=== PATIENT | female | born 1970 | race Caucasian/White ===

== ENCOUNTER → 2016-08-18 | Outpatient (CLI) | payer MEDICARE, MEDICAID ==
[2016-06-22 19:25] VITALS: BP 103/72
[~2016-08-18] MED LIST: ARIP15TA2 PO; ATOR40TA59 PO; BENZ1TAB5 PO; CANA300T PO; CETI10TA16 PO; CYCL10TA2 PO; DULO60CA6 PO; GABA-586 PO; IBUP800T PO; INSU100I30 SQ; LEVO50TA5 PO; LIDO700A4 TP; LORA1TAB PO; METF500T4 PO; OMEP20TA PO; PIOGLITAZONE; PROP80CA3 PO; SUCR1TAB29 PO; VALA500T PO
[2016-08-18 13:37] LABS: BASO # 0.1 x10^3/uL (0.0-0.2); BASO % 1 % (0-3); EOS # 0.1 x10^3/uL (0.0-0.7); EOS % 2 % (0-3); HEMATOCRIT 36.8 % (36.0-47.0); HEMOGLOBIN 12.1 g/dL (12.0-15.5); LYMPH # 1.6 x10^3/uL (1.0-4.8); LYMPH % 35 % (24-48); MEAN CORPUSCULAR HEMOGLOBIN 28 pg (25-35); MEAN CORPUSCULAR HGB CONC 33 g/dL (31-37); MEAN CORPUSCULAR VOLUME 84 fL (79-100); MONO # 0.3 x10^3/uL (0.0-1.1); MONO % 7 % (0-9); NEUT # 2.6 x10^3uL (1.8-7.7); NEUT % 55 % (31-73); PLATELET COUNT 209 x10^3/uL (140-400); RED BLOOD COUNT 4.37 x10^6/uL (3.50-5.40); RED CELL DISTRIBUTION WIDTH 13.6 % (11.5-14.5); WHITE BLOOD COUNT 4.7 x10^3/uL (4.0-11.0)
[2016-08-18 13:45] LABS: ALBUMIN 2.8 g/dL (3.4-5.0); ALBUMIN/GLOBULIN RATIO 0.7 (1.0-1.7); CALCIUM 8.6 mg/dL (8.5-10.1); CREATININE 0.9 mg/dL (0.6-1.0); POTASSIUM 3.8 mmol/L (3.5-5.1); TOTAL BILIRUBIN 0.6 mg/dL (0.2-1.0); TOTAL PROTEIN 6.9 g/dL (6.4-8.2)
[2016-08-18 13:46] LABS: GFR 68.3
[2016-08-19 14:54] LABS: FREE T4 1.16 ng/dL (0.76-1.46); THYROID STIM HORMONE (TSH) 6.025 uIU/mL (0.358-3.740)
== END | disposition home or self-care (01) ==
LOC: LAB 12:42
PROVIDERS: ATTEND Physician Assistant
DX: Z79.899 Other long term (current) drug therapy (principal)
CPT/HCPCS: 36415; 80053; 80061; 84439; 84443; 84480; 85027

== ENCOUNTER 2016-09-06 21:10 | Emergency (ER) | payer MEDICARE, MEDICAID ==
[~2016-09-06] VITALS: Ht 174 cm; Wt 156.3 kg
[2016-09-06 21:10] VITALS: BP 139/86
--- NOTE | 2016-09-06 21:32 | PHYS DOC ---
General Chief Complaint: MECHANICAL FALL Stated Complaint: fall Time Seen by MD: 21:28 Source: patient Exam Limitations: no limitations Problems: History of Present Illness Initial Comments Pt is 45/F to ED via EMS for reported fall injury. Pt states earlier today at local convenience store the floor was wet and she slipped falling to her buttock essentially sitting down hard. No head trauma/ LOC/LYNCH/neck pain, pt c/o low back/hip pain. States that after a few moments she was able to ambulate to her friend's car. Once home pain worsened, pt decided to come for evaluation. No leg weakness/incontinence/saddle anesthesia. Pain sharp, mod-severe worse with movement better at rest. No prearrival treatment. Occurred: this afternoon Severity: moderate Injuries/Pain Location: back, pelvis Context: slipped Loss of Consciousness: no loss of consciousness Modifying Factors: worse with movement, improves with pain medication, improves with rest Associated Symptoms: other Allergies: Coded Allergies: Latex, Natural Rubber (Verified Allergy, Intermediate, 06/21/16) Penicillins (Verified Allergy, Intermediate, 06/21/16) Sulfa (Sulfonamide Antibiotics) (Verified Allergy, Intermediate, 06/22/16) hydrogen peroxide (Verified Allergy, Intermediate, 06/21/16) lanolin (Verified Allergy, Intermediate, 06/21/16) sumatriptan (Unverified Allergy, Intermediate, 06/21/16) tetanus immune globulin (Unverified Allergy, Intermediate, 06/21/16) adhesive (Verified Adverse Reaction, Intermediate, Rash, 06/21/16) Past Medical History Medical History: other (anxiety, arthritis, asthma, CAD, cancer, depression, GERD, hypothyroid, migraine, TIA) Surgical History: noncontributory Family History Significant Family History: no pertinent family hx Social History Smoker: cigarettes Alcohol: rarely Drugs: none Review of Systems Constitutional: denies chills, denies fever, denies malaise Respiratory: denies cough, denies shortness of breath, denies wheezing Cardiovascular: denies chest pain, denies palpitations, denies syncope Gastrointestinal: denies abdominal pain, denies diarrhea, denies nausea, denies vomiting Genitourinary: denies dysuria, denies frequency, denies hematuria Musculoskeletal: see HPI Psychiatric/Neurological: see HPIdenies headache, denies numbness, denies paresthesia, denies tingling, denies weakness Physical Exam General Appearance: no apparent distress, obese Head: no evidence of injury Eyes: bilateral eye EOMI, bilateral eye PERRL, bilateral eye normal inspection Ears, Nose, Mouth, Throat: hearing grossly normal, no evidence of ENT injury Neck: non-tender, full range of motion Cardiovascular/Respiratory: normal peripheral pulses, no respiratory distress Gastrointestinal: non tender, soft Back: no CVA tenderness, no vertebral tenderness Extremities: no evidence of injury, normal range of motion, non-tender, pelvis stable Neurologic/Psychiatric: 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 PHYSICIAN: CARLOS A NORMAN DO REASON: fall, low back hip pain PROCEDURE: CT LUMBAR SPINE WO CONTRAST PROCEDURE CT pelvis and lumbar spine without contrast 09/06/2016. HISTORY Pain after falling. TECHNIQUE Helical noncontrast images were performed. Sagittal and coronal reconstructions were obtained. Exposure: One or more of the following individualized dose reduction techniques were utilized for this exam: 1. Automated exposure control. 2. Adjustment of the mA and/or kV according to patient size. 3. Use of iterative reconstruction technique. COMPARISON FINDINGS Pelvis: No fracture is seen. The proximal femurs show no abnormality. Mild vacuum change is seen at the SI joints. No large hematoma is visible. There is no free fluid in the pelvis. CT lumbar spine: Alignment is normal. There is no apparent loss of vertebral body height or other evidence for fracture. The discs are not narrowed. Evaluation of the soft tissue structures of the canal is limited without intrathecal contrast. IMPRESSION No acute abnormality. Electronically signed by: Enrique Mata (Sep 06, 2016 22:08:50) DICTATED AND SIGNED BY: ENRIQUE MATA Jr, MD DATE: 09/06/162207 CC: CHIKA WARREN MD; CARLOS A NORMAN DO ~ PATIENT: CHIQUITA BLAIR ACCOUNT: [id number] : 1970 LOCATION: ER AGE: 45 SEX: F EXAM STATUS: PRE ER ORD. PHYSICIAN: CARLOS A NORMAN DO REASON: fall, low back hip pain PROCEDURE: CT PELVIS WO CONTRAST PROCEDURE CT pelvis and lumbar spine without contrast 09/06/2016. HISTORY Pain after falling. TECHNIQUE Helical noncontrast images were performed. Sagittal and coronal reconstructions were obtained. Exposure: One or more of the following individualized dose reduction techniques were utilized for this exam: 1. Automated exposure control. 2. Adjustment of the mA and/or kV according to patient size. 3. Use of iterative reconstruction technique. COMPARISON FINDINGS Pelvis: No fracture is seen. The proximal femurs show no abnormality. Mild vacuum change is seen at the SI joints. No large hematoma is visible. There is no free fluid in the pelvis. CT lumbar spine: Alignment is normal. There is no apparent loss of vertebral body height or other evidence for fracture. The discs are not narrowed. Evaluation of the soft tissue structures of the canal is limited without intrathecal contrast. IMPRESSION No acute abnormality. Electronically signed by: Enrique Mata (Sep 06, 2016 22:08:50) DICTATED AND SIGNED BY: ENRIQUE MATA Jr, MD DATE: 09/06/162207 CC: CHIKA WARREN MD; CARLOS A NORMAN DO ~ Advised to stop smoking. Pt ambulated without difficulty from ED upon discharge. Departure Time of Disposition: :17 Disposition: 01 HOME, SELF-CARE Diagnosis: Fall, lumbar strain Condition: GOOD Patient Instructions: Fall Prevention and Home Safety, [id number], Low Back Strain with Rehab-SportsMed Additional Instructions: Activity as tolerated. Ice to affected area 15 minutes, 5 times daily. OTC ibuprofen as needed. Rx: norco 5mg #15 Follow up with your doctor in one week for recheck. Return to ED with new or changing symptoms. CARLOS A NORMAN DO Sep 06, 2016 21:32
[2016-09-06] MEDS ORDERED: FENTANYL PF 100 MCG/2 ML VIAL. IV PRN (21:45)
--- NOTE | 2016-09-06 21:51 | ACF ---
Admission Criteria Forms SYNCOPE Clinical Indications for Admission to Inpatient Care ( Place 'X' for any and all applicable criteria): Admission is indicated for syncope and ANY ONE of the following (1)(2)(3)(4)(5) (6)(7) : [ ]I. Inpatient admission required rather than observation care (Also use Syncope: Observation Care Criteria as appropriate) because of ANY ONE of the following: [ ]a) Hemodynamic instability that is severe or persistent [ ]b) Cardiac arrhythmias of immediate concern identified or strongly suspected (eg, needs electrophysiologic study) [ ]c) Acute coronary syndrome identified (Also use Myocardial Infarction or Angina Criteria form ) [ ]d) Structural cardiac disorder (eg, aortic stenosis) suspected as cause that requires immediate correction [ ]e) Respiratory symptoms (eg, dyspnea, tachypnea) that are severe or persistent [ ]f) Neurologic signs or symptoms that are severe or persistent ( eg, stroke, seizures, altered mental status) [ ]g) Severe electrolyte abnormalities requiring inpatient care [ ]h) Supplemental oxygen or respiratory treatment for over 24 hrs that are performable only in acute inpatient setting [ ]i) IV fluid to replace significant ongoing (eg, for over 24 hrs ) losses (>3 L/m2 per day) [ ]j) Continuous intravenous infusion of anticoagulation, platelet inhibitor, vasoactive, or antiarrhythmic medication(15)(16) [ ]k) Pulmonary artery catheter monitoring [ ]l) Temporary pacemaker placement(17) [ ]m) Emergent cardioversion(18) [ ]n) Other conditions, treatment or monitoring requiring inpatient admission [ ]II. Suspicion of imminently dangerous cause (eg, rare causes like pericardial tamponade, pulmonary embolism) [X]III. Syncope causing severe injury requiring hospitalization Extended stay beyond goal length of stay may be needed for(28) [ ]a) Dangerous arrhythmia(15)(23)(27)(29) [ ]b) Myocardial ischemia [ ]c) Seizure disorder [ ]d) Syncope-related injuries The original [employer] content created by [employer] has been revised. The portions of the content which have been revised are identified through the use of italic text or in bold, and [facility] has neither reviewed nor approved the modified material. All other unmodified content is copyright [facility]. Please see references footnoted in the original [facility] 2016 Admission Criteria Met?: Yes LILIANA GOLDSTEIN Sep 06, 2016 21:51
--- NOTE | 2016-09-06 22:10 | RAD ---
PROCEDURE CT pelvis and lumbar spine without contrast 09/06/2016. HISTORY Pain after falling. TECHNIQUE Helical noncontrast images were performed. Sagittal and coronal reconstructions were obtained. Exposure: One or more of the following individualized dose reduction techniques were utilized for this exam: 1. Automated exposure control. 2. Adjustment of the mA and/or kV according to patient size. 3. Use of iterative reconstruction technique. COMPARISON FINDINGS Pelvis: No fracture is seen. The proximal femurs show no abnormality. Mild vacuum change is seen at the SI joints. No large hematoma is visible. There is no free fluid in the pelvis. CT lumbar spine: Alignment is normal. There is no apparent loss of vertebral body height or other evidence for fracture. The discs are not narrowed. Evaluation of the soft tissue structures of the canal is limited without intrathecal contrast. IMPRESSION No acute abnormality. Electronically signed by: Miguel Mata (Sep 06, 2016 22:08:50)
[2016-09-06] MEDS ORDERED: HYDR-971 PO (22:19)
== END 2016-09-06 22:30 | disposition home or self-care (01) ==
LOC: ER 21:10
DX: S39.012A Strain of muscle, fascia and tendon of lower back, initial encounter (principal); K21.9 Gastro-esophageal reflux disease without esophagitis; E03.9 Hypothyroidism, unspecified; I25.10 Atherosclerotic heart disease of native coronary artery without angina pectoris; J45.909 Unspecified asthma, uncomplicated; F17.210 Nicotine dependence, cigarettes, uncomplicated; M19.90 Unspecified osteoarthritis, unspecified site; G43.909 Migraine, unspecified, not intractable, without status migrainosus; Z86.73 Personal history of transient ischemic attack (TIA), and cerebral infarction without residual deficits; Z88.0 Allergy status to penicillin; Z88.2 Allergy status to sulfonamides; Z88.7 Allergy status to serum and vaccine; Z88.8 Allergy status to other drugs, medicaments and biological substances; Z91.040 Latex allergy status; W01.0XXA Fall on same level from slipping, tripping and stumbling without subsequent striking against object, initial encounter; Y93.89 Activity, other specified; Y99.8 Other external cause status; Y92.89 Other specified places as the place of occurrence of the external cause
CPT/HCPCS: 72131; 72192; 96374; 99284; J3010

== ENCOUNTER 2016-12-22 10:56 | Emergency (ER) | payer MEDICARE, MEDICAID ==
[~2016-12-22] VITALS: Ht 172.7 cm; Wt 162.4 kg
[~2016-12-22 10:56] MED LIST changes: -ARIP15TA2 PO; +ARIP15TA36 PO; +CYCL-331 PO; -CYCL10TA2 PO; +HYDR-971 PO; -IBUP800T PO; +IBUP800T19 PO; -OMEP20TA PO; +OMEP20TA8 PO; -SUCR1TAB29 PO; +SUCR1TAB35 PO
--- NOTE | 2016-12-22 11:25 | PHYS DOC ---
Past History Past Medical History: Diabetes, GERD, Hypothyroid, Other Past Surgical History: Cholecystectomy, Other Smoking: Cigarettes Alcohol Use: None Drug Use: None Adult General Chief Complaint Chief Complaint: DYSPNEA/RESPIRATOY DISTRESS HPI HPI Patient is a 46 year old F who presents with chest pain with deep breaths. Patient states that for the past couple days she's having worsening chest pain which takes a deep breath. She states the pain starts in the central upper chest and radiates to her back. Patient denies a cardiac history. Patient denies any risk factors or history of blood clots. Patient states deep breaths with only thing that reproduces the pain. Patient does not feel shortness of breath. Patient will see her family doctor Dr. Roberts who sent her to the ER for further evaluation and management. Patient denies any fevers and denies any productive cough. Patient has no other complaints. Review of Systems Review of Systems GEN: Denies fevers, chills, sweats HEENT: Denies blurred vision, sore throat CV: Denies chest pain RESP: Denies shortness of air, cough GI: Denies n/v/d NEURO: Denies confusion, dizziness MSK: Denies weakness, joint pain/swelling Allergies Allergies Allergies Coded Allergies Type Severity Reaction Last Updated Verified Latex, Natural Rubber Allergy Intermediate 06/21/16 Yes Penicillins Allergy Intermediate 06/21/16 Yes Sulfa (Sulfonamide Antibiotics) Allergy Intermediate 06/22/16 Yes hydrogen peroxide Allergy Intermediate 06/21/16 Yes lanolin Allergy Intermediate 06/21/16 Yes sumatriptan Allergy Intermediate 06/21/16 No tetanus immune globulin Allergy Intermediate 06/21/16 No adhesive Adverse Reaction Intermediate Rash 06/21/16 Yes Physical Exam Physical Exam GEN.: No apparent distress. Alert and oriented. HEENT: Head is normocephalic, atraumatic NECK: Supple. LUNGS: CTAB. HEART: RRR, S1, S2 present. Peripheral pulses intact ABDOMEN: Soft, nontender. Positive bowel sounds. EXTREMITIES: Without any cyanosis. NEUROLOGIC: Normal speech, normal tone PSYCHIATRIC: Normal affect, normal mood. SKIN: No ulcerations Current Patient Data Vital Signs Vital Signs Date Time Temp Pulse Resp B/P (MAP) Pulse Ox O2 Delivery O2 Flow Rate FiO2 12/22/16 11:00 98.4 93 24 99 Room Air Lab Results Laboratory Tests Test 12/22/16 11:37 12/22/16 11:55 White Blood Count 5.1 x10^3/uL Red Blood Count 4.34 x10^6/uL Hemoglobin 12.1 g/dL Hematocrit 36.9 % Mean Corpuscular Volume 85 fL Mean Corpuscular Hemoglobin 28 pg Mean Corpuscular Hemoglobin Concent 33 g/dL Red Cell Distribution Width 14.4 % Platelet Count 186 x10^3/uL Neutrophils (%) (Auto) 61 % Lymphocytes (%) (Auto) 28 % Monocytes (%) (Auto) 7 % Eosinophils (%) (Auto) 3 % Basophils (%) (Auto) 1 % Neutrophils # (Auto) 3.1 x10^3uL Lymphocytes # (Auto) 1.4 x10^3/uL Monocytes # (Auto) 0.4 x10^3/uL Eosinophils # (Auto) 0.1 x10^3/uL Basophils # (Auto) 0.0 x10^3/uL D-Dimer (Milly) 0.53 mg/L Sodium Level 135 mmol/L Potassium Level 3.7 mmol/L Chloride Level 99 mmol/L Carbon Dioxide Level 30 mmol/L Anion Gap 6 Blood Urea Nitrogen 7 mg/dL Creatinine 0.9 mg/dL Estimated GFR (Cockcroft-Gault) 68.0 BUN/Creatinine Ratio 8 Glucose Level 379 mg/dL Calcium Level 8.6 mg/dL Total Bilirubin 0.3 mg/dL Aspartate Amino Transf (AST/SGOT) 12 U/L Alanine Aminotransferase (ALT/SGPT) 18 U/L Alkaline Phosphatase 46 U/L Troponin I Quantitative < 0.017 ng/mL Total Protein 7.2 g/dL Albumin 2.9 g/dL Albumin/Globulin Ratio 0.7 Urine Collection Type Unknown Urine Color Yellow Urine Clarity Cloudy Urine pH 7.0 Urine Specific [place] 1.010 Urine Protein Neg Urine Glucose (UA) 500 mg/dL Urine Ketones (Stick) Neg mg/dL Urine Blood Neg Urine Nitrite Neg Urine Bilirubin Neg Urine Urobilinogen Dipstick 0.2 mg/dL Urine Leukocyte Esterase Trace Urine RBC 1-2 /HPF Urine WBC 5-10 /HPF Urine Squamous Epithelial Cells Many /LPF Urine Bacteria Mod /HPF Urine Mucus Slight /LPF Urine Yeast Present /HPF Urine Test Negative Current Medications Medications (Trade) Dose Ordered Sig/Carlie Route PRN Reason Start Time Stop Time Status Last Admin Dose Admin Iohexol (Omnipaque 300 Mg/ml) 75 ml 1X ONCE IV 12/22/16 12:30 12/22/16 12:31 DC 12/22/16 12:34 EKG EKG 1129: EKG shows normal sinus rhythm rate of 85 no STEMI [] Radiology/Procedures Radiology/Procedures CTA of the chest with contrast, 12/22/2016: History: Shortness of breath Multidetector CT imaging was performed following an IV bolus injection of iodinated contrast material. Multiplanar reconstructions were produced including coronal MIP images. No filling defects are seen in the central pulmonary arteries to suggest pulmonary emboli. The thoracic aorta is of normal caliber. No mediastinal or hilar adenopathy is seen. No pulmonary consolidation or mass is evident. No pleural fluid is present. There is a mild upper thoracic scoliosis with scattered degenerative changes in the spine. Multiple bilateral upper rib deformities are again noted IMPRESSION: No CT evidence of central pulmonary emboli. Chest x-ray NAD[] Course & Med Decision Making Course & Med Decision Making Pertinent Labs and Imaging studies reviewed. (See chart for details) ED course: Patient was seen and examined in the emergency room CBC, CMP, d-dimer, and UA, urine , EKG, chest x-ray with ribs on the right were ordered 1340: Updated the patient on blood work and CT and x-ray findings. On reexamination patient is asymptomatic and feels better. Recommended patient follow PCP in one to 2 days. MDM: After reviewing the chart, CC/HPI/PMH, physical exam, [lab results], [ radiological results], I do not believe the patient having acute WA (HEART score =2), PE, thoracic aortic dissection. Based on the patient's heart score 2 she can be discharged home with outpatient cardiac workup. Patient is comfortable being discharged home. Additional verbal discharge instructions were provided to the patient and that if symptoms get worse or any new symptoms arise that are worrisome to the patient she is to return to the emergency room immediately [] Dragon Disclaimer Dragon Disclaimer This chart was dictated in whole or in part using Voice Recognition software in a busy, high-work load, and often noisy Emergency Department environment. It may contain unintended and wholly unrecognized errors or omissions. Departure Departure: Impression: Primary Impression: Chest pain Disposition: HOME, SELF-CARE Condition: IMPROVED Referrals: CHIKA ROBERTS MD (PCP) Patient Instructions: Chest Pain (Nonspecific)-Brief Additional Instructions: Please follow up with her family doctor one to 2 days LIV WATSON DO Dec 22, 2016 11:25
[2016-12-22 11:59] LABS: BASO % 1 % (0-3); EOS # 0.1 x10^3/uL (0.0-0.7); EOS % 3 % (0-3); HEMATOCRIT 36.9 % (36.0-47.0); HEMOGLOBIN 12.1 g/dL (12.0-15.5); LYMPH # 1.4 x10^3/uL (1.0-4.8); LYMPH % 28 % (24-48); MEAN CORPUSCULAR HEMOGLOBIN 28 pg (25-35); MEAN CORPUSCULAR HGB CONC 33 g/dL (31-37); MEAN CORPUSCULAR VOLUME 85 fL (79-100); MONO # 0.4 x10^3/uL (0.0-1.1); MONO % 7 % (0-9); NEUT # 3.1 x10^3uL (1.8-7.7); NEUT % 61 % (31-73); PLATELET COUNT 186 x10^3/uL (140-400); RED BLOOD COUNT 4.34 x10^6/uL (3.50-5.40); RED CELL DISTRIBUTION WIDTH 14.4 % (11.5-14.5); WHITE BLOOD COUNT 5.1 x10^3/uL (4.0-11.0)
[2016-12-22 12:02] LABS: ALBUMIN 2.9 g/dL (3.4-5.0); ALBUMIN/GLOBULIN RATIO 0.7 (1.0-1.7); CALCIUM 8.6 mg/dL (8.5-10.1); CREATININE 0.9 mg/dL (0.6-1.0); POTASSIUM 3.7 mmol/L (3.5-5.1); TOTAL BILIRUBIN 0.3 mg/dL (0.2-1.0); TOTAL PROTEIN 7.2 g/dL (6.4-8.2)
--- NOTE | 2016-12-22 12:12 | RAD ---
Chest, 2 views, 12/22/2016: History: Chest pain Comparison made to a study from 06/21/2016. The heart size and pulmonary vascularity are normal. No pulmonary infiltrates are seen. There is no evidence of pleural fluid. There are chronic rib deformities in the upper chest bilaterally IMPRESSION: No acute cardiopulmonary abnormality is detected.
[2016-12-22 12:19] LABS: BACTERIA,URINE MOD /HPF (0-FEW); BILIRUBIN,URINE NEG (NEG); CLARITY,URINE CLOUDY; COLOR,URINE YELLOW; GLUCOSE,URINE 500 mg/dL (NEG); NITRITE,URINE NEG (NEG); SQUAMOUS EPITHELIAL CELL,UR MANY /LPF; UROBILINOGEN,URINE 0.2 mg/dL (0.2 mg/dL); YEAST,URINE PRESENT /HPF
[2016-12-22 12:32] LABS: U PREG PATIENT NEGATIVE (NEG)
[2016-12-22] MEDS: IOHEXOL 300 MG/ML 75 ML VIAL. IV ONE (12:34)
--- NOTE | 2016-12-22 12:57 | RAD ---
CTA of the chest with contrast, 12/22/2016: History: Shortness of breath Multidetector CT imaging was performed following an IV bolus injection of iodinated contrast material. Multiplanar reconstructions were produced including coronal MIP images. No filling defects are seen in the central pulmonary arteries to suggest pulmonary emboli. The thoracic aorta is of normal caliber. No mediastinal or hilar adenopathy is seen. No pulmonary consolidation or mass is evident. No pleural fluid is present. There is a mild upper thoracic scoliosis with scattered degenerative changes in the spine. Multiple bilateral upper rib deformities are again noted IMPRESSION: No CT evidence of central pulmonary emboli. PQRS Compliance Statement: One or more of the following individualized dose reduction techniques were utilized for this examination: 1. Automated exposure control 2. Adjustment of the mA and/or kV according to patient size 3. Use of iterative reconstruction technique
[2016-12-22 13:49] VITALS: BP 121/85
--- NOTE | 2016-12-22 15:15 | EKG ---
[address] [address] Test Date: 2016-12-22 Test Time: 11:26:56 Pat Name: CHIQUITA BLAIR Department: Room: Gender: F Geriatric Physical Therapist: KURT : 1970 Requested By: LIV WATSON Order Number: [id number] Reading MD: Tacho Casey Measurements Intervals [place] Rate: 85 P: 62 [place]: 156 QRS: 126 QRSD: 98 T: 51 QT: 368 QTc: 438 Interpretive Statements SINUS RHYTHM Electronically Signed On 12-24-2016 8:49:06 CDT by Tacho Casey
== END 2016-12-22 13:54 | disposition home or self-care (01) ==
LOC: ER 10:56
DX: R07.89 Other chest pain (principal); E03.9 Hypothyroidism, unspecified; E11.9 Type 2 diabetes mellitus without complications; K21.9 Gastro-esophageal reflux disease without esophagitis; F17.210 Nicotine dependence, cigarettes, uncomplicated; Z88.0 Allergy status to penicillin; Z88.2 Allergy status to sulfonamides; Z88.7 Allergy status to serum and vaccine; Z88.8 Allergy status to other drugs, medicaments and biological substances; Z91.040 Latex allergy status
CPT/HCPCS: 36415; 71020; 71275; 80053; 81001; 81025; 84484; 85027; 85379; 93005; 99285; Q9967

== ENCOUNTER 2017-06-12 20:45 | Emergency (ER) | payer MEDICARE, MEDICAID ==
[~2017-06-12] VITALS: Ht 172.7 cm; Wt 156.3 kg
[2017-06-12 20:45] VITALS: BP 116/67
[2017-06-12] MEDS ORDERED: IPRATRPIUM/ALBUTEROL 0.5/2.5MG 3 ML NEBU. NEB ONE (21:15)
[2017-06-12] MEDS ORDERED: IV NORMAL SALINE 1,000ML 1,000 ML IV SCH (21:15)
[2017-06-12 21:16] LABS: BASO % 1 % (0-3); EOS # 0.1 x10^3/uL (0.0-0.7); EOS % 2 % (0-3); HEMATOCRIT 36.3 % (36.0-47.0); HEMOGLOBIN 12.2 g/dL (12.0-15.5); LYMPH # 0.4 x10^3/uL (1.0-4.8); LYMPH % 9 % (24-48); MEAN CORPUSCULAR HEMOGLOBIN 28 pg (25-35); MEAN CORPUSCULAR HGB CONC 34 g/dL (31-37); MEAN CORPUSCULAR VOLUME 84 fL (79-100); MONO # 0.4 x10^3/uL (0.0-1.1); MONO % 8 % (0-9); NEUT # 3.6 x10^3uL (1.8-7.7); NEUT % 81 % (31-73); PLATELET COUNT 190 x10^3/uL (140-400); RED BLOOD COUNT 4.33 x10^6/uL (3.50-5.40); RED CELL DISTRIBUTION WIDTH 14.1 % (11.5-14.5); WHITE BLOOD COUNT 4.5 x10^3/uL (4.0-11.0)
[2017-06-12 21:33] LABS: INFLUENZA A PATIENT POSITIVE (NEGATIVE); INFLUENZA B PATIENT NEGATIVE (NEGATIVE)
[2017-06-12 21:59] LABS: ALBUMIN 2.8 g/dL (3.4-5.0); ALBUMIN/GLOBULIN RATIO 0.6 (1.0-1.7); CALCIUM 8.8 mg/dL (8.5-10.1); CREATININE 1.1 mg/dL (0.6-1.0); POTASSIUM 3.8 mmol/L (3.5-5.1); TOTAL BILIRUBIN 0.2 mg/dL (0.2-1.0); TOTAL PROTEIN 7.3 g/dL (6.4-8.2)
[2017-06-12] MEDS ORDERED: ACETAMINOPHEN 500 MG TABLET PO ONE (22:00)
[2017-06-12] MEDS ORDERED: OSELTAMIVIR 75 MG CAPSULE PO ONE (22:00)
[2017-06-12] MEDS ORDERED: ONDANSETRON PF 4 MG/2 ML VIAL. IV ONE (22:00)
[2017-06-12] MEDS ORDERED: ONDA8TAB12 PO (22:10)
[2017-06-12] MEDS ORDERED: OSEL75CA PO (22:10)
--- NOTE | 2017-06-12 22:10 | PHYS DOC ---
Past History Past Medical History: Asthma, Diabetes, GERD, Hypothyroid, Other Past Surgical History: Cholecystectomy, Other Additional Past Surgical Histo: Eye, bilateral ankles, right thumb. Smoking: Non-smoker Alcohol Use: None Drug Use: None Adult General Chief Complaint Chief Complaint: MULTIPLE COMPLAINTS HPI HPI Patient is a 46 year old female who presents with body aches, cough and shortness of air. She did NOT receive the flu vaccine this year. She has underlying asthma, no recent exacerbation or steroid use. She woke up this am with increase cough. She went out and then when she returned she had body aches , felt dizzy, increased shortness of air and cough and vomiting. No diarrhea. She was seen last week by PCP and given meds for vaginal infection. SHe finished those (she doesn't remember the name of the meds). She has motrin but no tylenol at home and doesn't have the money to buy any meds. Review of Systems Review of Systems Constitutional: POS subjective fever or chills Eyes: Denies change in visual acuity, redness, or eye pain HENT: POS nasal congestion but no sore throat Respiratory: POS cough and shortness of breath Cardiovascular: No chest pain GI: Denies abdominal pain, POS nausea & vomiting POS bloody stools or diarrhea : Denies dysuria or hematuria Musculoskeletal: Denies back pain ; POS body aches Integument: Denies rash or skin lesions Neurologic: Denies headache, focal weakness or sensory changes All other systems were reviewed and found to be within normal limits, except as documented in this note. Current Medications Current Medications Current Medications Medications (Trade) Dose Ordered Sig/Carlie Start Time Stop Time Status Last Admin Dose Admin Albuterol/ Ipratropium (Duoneb) 3 ml 1X ONCE 06/12/17 21:15 06/12/17 21:16 DC 06/12/17 21:10 3 ML Oseltamivir Phosphate (Tamiflu) 75 mg 1X ONCE 06/12/17 22:00 06/12/17 22:01 UNV Sodium Chloride 1,000 ml @ 1,000 mls/hr Q1H 06/12/17 21:15 06/12/17 22:14 06/12/17 21:13 1,000 MLS/HR Allergies Allergies Allergies Coded Allergies Type Severity Reaction Last Updated Verified Latex, Natural Rubber Allergy Intermediate 06/21/16 Yes Penicillins Allergy Intermediate 06/21/16 Yes Sulfa (Sulfonamide Antibiotics) Allergy Intermediate 06/22/16 Yes hydrogen peroxide Allergy Intermediate 06/21/16 Yes lanolin Allergy Intermediate 06/21/16 Yes sumatriptan Allergy Intermediate 06/21/16 No tetanus immune globulin Allergy Intermediate 06/21/16 No adhesive Adverse Reaction Intermediate Rash 06/21/16 Yes Physical Exam Physical Exam Constitutional: Well developed, well nourished, no acute distress, non-toxic appearance. HENT: Normocephalic, atraumatic, bilateral external ears normal, oropharynx moist, no oral exudates, nose normal. Eyes: PERRLA, EOMI, conjunctiva normal, no discharge. Neck: Normal range of motion, no tenderness, supple, no stridor. Cardiovascular:Heart rate regular rhythm, no murmur Lungs & Thorax: Bilateral breath sounds clear to auscultation; no rales, rhonchi or wheezing. Constant coughing. Abdomen: Bowel sounds normal, soft, no tenderness, no masses, no pulsatile masses. Skin: Warm, dry, no erythema, no rash. Back: No tenderness, no CVA tenderness. Extremities: No tenderness, no cyanosis, no clubbing, ROM intact, no edema. Neurologic: Alert and oriented X 3, normal motor function, normal sensory function, no focal deficits noted. Psychologic: Affect normal, judgement normal, mood normal. Current Patient Data Vital Signs BP 116/67, P 89, R 18, T 100.8 Lab Results Laboratory Tests Test 06/12/17 21:00 06/12/17 22:01 White Blood Count 4.5 x10^3/uL (4.0-11.0) Red Blood Count 4.33 x10^6/uL (3.50-5.40) Hemoglobin 12.2 g/dL (12.0-15.5) Hematocrit 36.3 % (36.0-47.0) Mean Corpuscular Volume 84 fL (79-100) Mean Corpuscular Hemoglobin 28 pg (25-35) Mean Corpuscular Hemoglobin Concent 34 g/dL (31-37) Red Cell Distribution Width 14.1 % (11.5-14.5) Platelet Count 190 x10^3/uL (140-400) Neutrophils (%) (Auto) 81 % (31-73) Lymphocytes (%) (Auto) 9 % (24-48) Monocytes (%) (Auto) 8 % (0-9) Eosinophils (%) (Auto) 2 % (0-3) Basophils (%) (Auto) 1 % (0-3) Neutrophils # (Auto) 3.6 x10^3uL (1.8-7.7) Lymphocytes # (Auto) 0.4 x10^3/uL (1.0-4.8) Monocytes # (Auto) 0.4 x10^3/uL (0.0-1.1) Eosinophils # (Auto) 0.1 x10^3/uL (0.0-0.7) Basophils # (Auto) 0.0 x10^3/uL (0.0-0.2) Sodium Level 138 mmol/L (136-145) Potassium Level 3.8 mmol/L (3.5-5.1) Chloride Level 101 mmol/L (98-107) Carbon Dioxide Level 30 mmol/L (21-32) Anion Gap 7 (6-14) Blood Urea Nitrogen 16 mg/dL (7-20) Creatinine 1.1 mg/dL (0.6-1.0) Estimated GFR (Cockcroft-Gault) 54.0 BUN/Creatinine Ratio 15 (6-20) Glucose Level 222 mg/dL (70-99) Calcium Level 8.8 mg/dL (8.5-10.1) Total Bilirubin 0.2 mg/dL (0.2-1.0) Aspartate Amino Transf (AST/SGOT) 21 U/L (15-37) Alanine Aminotransferase (ALT/SGPT) 23 U/L (14-59) Alkaline Phosphatase 53 U/L (46-116) Creatine Kinase 75 U/L (26-192) Creatine Kinase MB (Mass) 0.8 ng/mL (0.0-3.6) Creatine Kinase MB Relative Index 1.1 % (0-4) Troponin I Quantitative < 0.017 ng/mL (0-0.055) VA-Kbm-N-Type Natriuretic Peptide 149 pg/mL (0-124) Total Protein 7.3 g/dL (6.4-8.2) Albumin 2.8 g/dL (3.4-5.0) Albumin/Globulin Ratio 0.6 (1.0-1.7) Influenza Type A (Rapid) Positive (NEGATIVE) Influenza Type B (Rapid) Negative (NEGATIVE) Urine Collection Type Unknown Urine Color Straw Urine Clarity Clear Urine pH 7.0 Urine Specific [place] 1.015 Urine Protein Neg (NEG-TRACE) Urine Glucose (UA) 500 mg/dL (NEG) Urine Ketones (Stick) Neg mg/dL (NEG) Urine Blood Small (NEG) Urine Nitrite Neg (NEG) Urine Bilirubin Neg (NEG) Urine Urobilinogen Dipstick 0.2 mg/dL (0.2 mg/dL) Urine Leukocyte Esterase Neg (NEG) Urine RBC 1-2 /HPF (0-2) Urine WBC Occ /HPF (0-4) Urine Squamous Epithelial Cells Few /LPF Urine Bacteria Few /HPF (0-FEW) Laboratory Tests Test 06/12/17 21:00 White Blood Count 4.5 x10^3/uL (4.0-11.0) Red Blood Count 4.33 x10^6/uL (3.50-5.40) Hemoglobin 12.2 g/dL (12.0-15.5) Hematocrit 36.3 % (36.0-47.0) Mean Corpuscular Volume 84 fL (79-100) Mean Corpuscular Hemoglobin 28 pg (25-35) Mean Corpuscular Hemoglobin Concent 34 g/dL (31-37) Red Cell Distribution Width 14.1 % (11.5-14.5) Platelet Count 190 x10^3/uL (140-400) Neutrophils (%) (Auto) 81 % (31-73) H Lymphocytes (%) (Auto) 9 % (24-48) L Monocytes (%) (Auto) 8 % (0-9) Eosinophils (%) (Auto) 2 % (0-3) Basophils (%) (Auto) 1 % (0-3) Neutrophils # (Auto) 3.6 x10^3uL (1.8-7.7) Lymphocytes # (Auto) 0.4 x10^3/uL (1.0-4.8) L Monocytes # (Auto) 0.4 x10^3/uL (0.0-1.1) Eosinophils # (Auto) 0.1 x10^3/uL (0.0-0.7) Basophils # (Auto) 0.0 x10^3/uL (0.0-0.2) Troponin I Quantitative < 0.017 ng/mL (0-0.055) Influenza Type A (Rapid) Positive (NEGATIVE) Influenza Type B (Rapid) Negative (NEGATIVE) Radiology/Procedures Radiology/Procedures CXR interpreted by myself at 2140 PM with perihilar fullness, lower lobe atelectasis. No consolidation. Course & Med Decision Making Course & Med Decision Making Evaluated patient. IV NS and IV Zofran. Duoneb dosed. Influenza A POSITIVE. Dosed here with tylenol, motrin and tamiflu. No active wheezing but will need discharge with medrol dose bird. She is disabled and states she only has 0.94 cents in her account. Dispensed here with what we can. If she worsens, I explained to the patient to return. I did reiterate that she needs to receive the influenza vaccine every year due to her asthma. Her oxygen saturation here is 100% and RR 18 with no retractions or grunting. No conversational dyspnea. She has had no vomiting here and able to keep down meds. I have spoken with the patient and/or caregivers. I have explained the patient' s condition, diagnosis and treatment plan based on the information available to me at this time. I have answered the patient's and/or caregiver's questions and addressed any concerns. The patient and/or caregivers have as good an understanding of the patient's diagnosis, condition and treatment plan as can be expected at this point. The patient's condition is stable and appropriate for discharge from the emergency department. The patient will pursue further outpatient evaluation with the primary care physician or other designated or consulting physician as outlined in the discharge instructions. The patient and/or caregivers are agreeable to this plan of care and follow-up instructions have been explained in detail. The patient and/or caregivers have received these instructions in written format and have expressed an understanding of the discharge instructions. The patient and/or caregivers are aware that any significant change in condition or worsening of symptoms should prompt an immediate return to this or the closest emergency department or a call to 911. Ericon Disclaimer Dragon Disclaimer This electronic medical record was generated, in whole or in part, using a voice recognition dictation system. Departure Departure: Impression: Primary Impression: Influenza A Additional Impression: Asthma Disposition: 01 HOME, SELF-CARE Condition: STABLE Referrals: CHIKA WARREN MD (PCP) Patient Instructions: Influenza Facts, Influenza, Adult Additional Instructions: YOU WERE STARTED ON ALL YOUR MEDICATIONS HERE (TAMIFLU, ZOFRAN, TYLENOL AND MOTRIN). YOU ARE NOT WHEEZING PRESENTLY BUT THE INFLUENZA WILL EXACERBATE YOUR ASTHMA SO A STEROID BIRD WAS PROVIDED. FOLLOW UP CLOSELY WITH DR WARREN. IF YOU WORSEN AT ALL RETURN. YOU WERE GIVEN TYLENOL HERE AT 10:00 pm SO THE NEXT DOSE IS AT 2:00 AM AND EVERY 4 HOURS. YOU WERE GIVEN MOTRIN HERE AT 10:00 PM SO THE NEXT DOSE IS AT 4:00 AM AND EVERY 6 HOURS. THE ZOFRAN IS MORE NAUSEA. THE TAMIFLU IS FOR THE INFLUENZA BUT IT'S NOT A CURE. THERE IS NO CURE FOR INFLUENZA. Scripts Methylprednisolone (MEDROL) 4 Mg Tab.ds.pk 1 PKG PO UD, #1 PKG Prov: LEAH VOGEL MD 06/12/17 Ondansetron (ZOFRAN ODT) 8 Mg Tab.rapdis 4 MG PO Q6-8HRS Y for NAUSEA, #10 Prov: LEAH VOGEL MD 06/12/17 Oseltamivir Phosphate (TAMIFLU) 75 Mg Capsule 1 CAP PO BID, #9 CAP Prov: LEAH VOGEL MD 06/12/17 Problem Qualifiers Additional Impression: Asthma Asthma severity: moderate Asthma persistence: persistent Asthma complication type: with acute exacerbation Qualified Codes: J45.41 - Moderate persistent asthma with (acute) exacerbation LEAH VOGEL MD Jun 12, 2017 22:10
[2017-06-12] MEDS ORDERED: IBUPROFEN 600 MG TABLET. PO ONE (22:15)
[2017-06-12 22:27] LABS: BACTERIA,URINE FEW /HPF (0-FEW); BILIRUBIN,URINE NEG (NEG); CLARITY,URINE CLEAR; COLOR,URINE STRAW; GLUCOSE,URINE 500 mg/dL (NEG); NITRITE,URINE NEG (NEG); SQUAMOUS EPITHELIAL CELL,UR FEW /LPF; UROBILINOGEN,URINE 0.2 mg/dL (0.2 mg/dL); WBC,URINE OCC /HPF (0-4)
[2017-06-12] MEDS ORDERED: METH4TAB2 PO (22:42)
[2017-06-12] MEDS ORDERED: ONDANSETRON 4MG ODT 4TABLET STARTPACK. PO ONE (23:00)
--- NOTE | 2017-06-13 08:26 | RAD ---
Single view chest 06/12/2017 Clinical indication: Cough and fever. Comparison: Chest 12/22/2016 Findings: Examination is limited due to positioning and body habitus. Cardiac and mediastinal silhouettes unremarkable. No pleural effusion, pneumothorax or focal consolidation. There are old posterior bilateral rib fracture deformities. Impression: Limited examination, with no definite acute cardiopulmonary abnormality.
== END 2017-06-12 23:15 | disposition home or self-care (01) ==
LOC: ER 20:45
DX: J09.X2 Influenza due to identified novel influenza A virus with other respiratory manifestations (principal); J45.41 Moderate persistent asthma with (acute) exacerbation; E11.9 Type 2 diabetes mellitus without complications; K21.9 Gastro-esophageal reflux disease without esophagitis; E03.9 Hypothyroidism, unspecified; Z88.0 Allergy status to penicillin; Z88.2 Allergy status to sulfonamides; Z88.7 Allergy status to serum and vaccine; Z88.8 Allergy status to other drugs, medicaments and biological substances; Z91.040 Latex allergy status
CPT/HCPCS: 36415; 71045; 80053; 81001; 82553; 83880; 84484; 85025; 87804; 94640; 96361; 96374; 99285; J2405; J7620; Q0162; J7030

== ENCOUNTER → 2017-06-21 | Outpatient (CLI) | payer MEDICARE, MEDICAID ==
[2017-06-12 20:45] VITALS: BP 116/67
[~2017-06-21] MED LIST changes: +METH4TAB2 PO; +ONDA8TAB12 PO; +OSEL75CA PO
--- NOTE | 2017-06-22 07:31 | RAD ---
2 view chest 06/21/2017 Clinical indication: Cough and shortness of breath, chest discomfort. Comparison: Chest radiograph 06/12/2017, CTA chest 12/22/2016. Findings: There are multiple old bilateral posterior rib fracture deformities. Cardiac and mediastinal silhouettes are unremarkable. There is symmetric increased lucency of the lung apices. No pleural effusion or focal consolidation. Impression: 1. Symmetric increased lucency of the lung apices is likely due to positioning. 2. Otherwise no acute cardiopulmonary abdomen.
== END | disposition home or self-care (01) ==
LOC: RAD 19:05
DX: J20.8 Acute bronchitis due to other specified organisms (principal); F17.210 Nicotine dependence, cigarettes, uncomplicated
CPT/HCPCS: 71046

== ENCOUNTER 2017-07-07 10:46 | Emergency (ER) | payer OTHER, MEDICAID ==
[2017-07-07] MEDS ORDERED: IV NORMAL SALINE 1,000ML 1,000 ML IV SCH (11:06)
--- NOTE | 2017-07-07 11:29 | PHYS DOC ---
Past History Past Medical History: Asthma, Diabetes, GERD, Hypothyroid, Other Past Surgical History: Cholecystectomy, Other Additional Past Surgical Histo: Eye, bilateral ankles, right thumb. Smoking: Non-smoker Alcohol Use: None Drug Use: None Adult General Chief Complaint Chief Complaint: cough, shortness of breath HPI HPI Patient is a 46 year old female who presents with complaint of shortness of breath. The patient states that she has been having worsening symptoms over the past 4-5 days. Patient states that she recently was diagnosed with influenza 2 weeks ago and finished a course of Tamiflu, doxycycline, and a Medrol Dosepak. Patient states initially she was feeling better, however she started worsening as stated above. The patient denies any known fever. Patient states her cough has been nonproductive. Patient states that she has had worsening shortness of breath with exertion. Patient denies any chest pain or abdominal pain currently. Review of Systems Review of Systems Constitutional: Denies fever or chills [] Eyes: Denies change in visual acuity, redness, or eye pain [] HENT: Denies nasal congestion or sore throat [] Respiratory: Cough, shortness of breath[] Cardiovascular: Denies chest pain[] GI: Denies abdominal pain, nausea, vomiting, bloody stools or diarrhea [] : Denies dysuria or hematuria [] Musculoskeletal: Denies back pain or joint pain [] Integument: Denies rash or skin lesions [] Neurologic: Denies headache, focal weakness or sensory changes [] All other systems were reviewed and found to be within normal limits, except as documented in this note. Current Medications Current Medications Current Medications Medications (Trade) Dose Ordered Sig/Carlie Start Time Stop Time Status Last Admin Dose Admin Albuterol/ Ipratropium (Duoneb) 3 ml 1X ONCE 07/07/17 11:15 07/07/17 11:16 UNV Methylprednisolone Sodium Succinate (SOLU-Medrol 125MG VIAL) 100 mg 1X ONCE 07/07/17 11:15 07/07/17 11:16 UNV Sodium Chloride 1,000 ml @ 1,000 mls/hr Q1H 07/07/17 11:06 07/07/17 12:05 UNV Allergies Allergies Allergies Coded Allergies Type Severity Reaction Last Updated Verified Latex, Natural Rubber Allergy Intermediate 06/21/16 Yes Penicillins Allergy Intermediate 06/21/16 Yes Sulfa (Sulfonamide Antibiotics) Allergy Intermediate 06/22/16 Yes hydrogen peroxide Allergy Intermediate 06/21/16 Yes lanolin Allergy Intermediate 06/21/16 Yes sumatriptan Allergy Intermediate 06/21/16 No tetanus immune globulin Allergy Intermediate 06/21/16 No adhesive Adverse Reaction Intermediate Rash 06/21/16 Yes Physical Exam Physical Exam Constitutional: Alert, obese, afebrile, appears in mild respiratory distress. [] HENT: Normocephalic, atraumatic, bilateral external ears normal, oropharynx moist, no oral exudates, nose normal. [] Eyes: PERRLA, EOMI, conjunctiva normal, no discharge. [] Neck: Normal range of motion, no tenderness, supple, no stridor. [] Cardiovascular: Tachycardia, regular rhythm, no murmur [] Lungs & Thorax: Mild to moderate restriction of air movement bilaterally, faint expiratory wheezes, no rales[] Abdomen: Bowel sounds normal, soft, no tenderness, no masses, no pulsatile masses. [] Skin: Warm, dry, no erythema, no rash. [] Back: No tenderness, no CVA tenderness. [] Extremities: No tenderness, no cyanosis, no clubbing, ROM intact, no edema. [] Neurologic: Alert and oriented X 3, normal motor function, normal sensory function, no focal deficits noted. [] Current Patient Data Vital Signs Vital Signs Date Time Temp Pulse Resp B/P (MAP) Pulse Ox O2 Delivery O2 Flow Rate FiO2 07/07/17 13:19 83 16 142/85 (104) 100 Lab Results Laboratory Tests Test 07/07/17 11:25 White Blood Count 3.0 x10^3/uL Red Blood Count 4.30 x10^6/uL Hemoglobin 11.8 g/dL Hematocrit 36.6 % Mean Corpuscular Volume 85 fL Mean Corpuscular Hemoglobin 27 pg Mean Corpuscular Hemoglobin Concent 32 g/dL Red Cell Distribution Width 14.5 % Platelet Count 136 x10^3/uL Neutrophils (%) (Auto) 50 % Lymphocytes (%) (Auto) 35 % Monocytes (%) (Auto) 8 % Eosinophils (%) (Auto) 6 % Basophils (%) (Auto) 1 % Neutrophils # (Auto) 1.5 x10^3uL Lymphocytes # (Auto) 1.1 x10^3/uL Monocytes # (Auto) 0.3 x10^3/uL Eosinophils # (Auto) 0.2 x10^3/uL Basophils # (Auto) 0.0 x10^3/uL Sodium Level 138 mmol/L Potassium Level 4.2 mmol/L Chloride Level 100 mmol/L Carbon Dioxide Level 33 mmol/L Anion Gap 5 Blood Urea Nitrogen 9 mg/dL Creatinine 0.8 mg/dL Estimated GFR (Cockcroft-Gault) 77.9 Glucose Level 355 mg/dL Calcium Level 8.7 mg/dL Magnesium Level 1.7 mg/dL Current Medications Medications (Trade) Dose Ordered Sig/Carlie Route PRN Reason Start Time Stop Time Status Last Admin Dose Admin Sodium Chloride 1,000 ml @ 1,000 mls/hr Q1H IV 07/07/17 11:06 07/07/17 12:05 DC 07/07/17 11:54 Albuterol/ Ipratropium (Duoneb) 3 ml 1X ONCE NEB 07/07/17 11:45 07/07/17 11:46 DC 07/07/17 11:47 Methylprednisolone Sodium Succinate (SOLU-Medrol 125MG VIAL) 100 mg 1X ONCE IV 07/07/17 11:45 07/07/17 11:46 DC 07/07/17 11:55 Magnesium Sulfate 50 ml @ 25 mls/hr 1X ONCE IV 07/07/17 12:30 07/07/17 14:29 07/07/17 12:07 Magnesium Sulfate 50 ml @ As Directed STK-MED ONCE IV 07/07/17 12:06 07/07/17 12:07 DC EKG EKG Interpreted by me: Heart rate 80, sinus rhythm, normal intervals, rightward axis , no acute ST/T-wave abnormalities present[] Radiology/Procedures Radiology/Procedures [address] [address] IMAGING REPORT Signed PATIENT: CHIQUITA BLAIR ACCOUNT: [id number] : 1970 LOCATION: ER AGE: 46 SEX: F EXAM STATUS: REG ER ORD. PHYSICIAN: SARY NICOLE MD REASON: cough, shortness of breath PROCEDURE: CHEST PA & LATERAL Examination: 2 views of the chest History: History of cough, shortness of breath Comparison: 06/21/2017 Findings: The cardiomediastinal silhouette grossly appears unremarkable. Multiple old bilateral posterior rib deformities grossly similar to prior exam. There is no acute infiltrate or visualize pneumothorax. Impression: 1. No acute cardiopulmonary findings. Lucencies identified in the apical lungs grossly similar to prior exam probably due to deformities of the posterior ribs bilaterally. DICTATED AND SIGNED BY: ZULAY KING MD DATE: 07/07/17 1150 CC: CHIKA WARREN MD; SARY NICOLE MD ~ [] Course & Med Decision Making Course & Med Decision Making Pertinent Labs and Imaging studies reviewed. (See chart for details) Patient was given IV fluids, DuoNeb, magnesium, and Solu-Medrol. On reevaluation , patient states her symptoms have improved. The patient has mildly increased CO2 levels which appear close to her baseline. Patient probably has chronic CO2 retention given her history of asthma and her body habitus. Patient shows no evidence of acute pneumonia. The patient's symptoms appear consistent with acute exacerbation of chronic asthma. The patient will be started on a prednisone taper for outpatient treatment. Advised patient to use 1-2 unit doses of albuterol per nebulizer at home every 4 hours while awake for the next 2 days to treat her acute shortness of breath. Recommended follow-up in the next 3 days with patient's primary doctor for reevaluation and return to emergency department for any worsening symptoms. Patient voiced understanding and in agreement with treatment plan. Dragon Disclaimer Dragon Disclaimer This electronic medical record was generated, in whole or in part, using a voice recognition dictation system. Departure Departure: Impression: Primary Impression: Acute asthma exacerbation Additional Impression: Hypomagnesemia Disposition: 01 HOME, SELF-CARE Condition: IMPROVED Referrals: CHIKA WARREN MD (PCP) Patient Instructions: Asthma, Adult, Hypomagnesemia Additional Instructions: Follow-up with your primary doctor in the next 3 days for reevaluation. You may take one to 2 unit doses of albuterol per nebulizer every 4 hours while awake for the next 2 days, then decrease use to one unit dose of albuterol per nebulizer every 4-6 hours as needed for wheezing. Return to the emergency department for any worsening symptoms. Scripts Prednisone (PREDNISONE) 10 Mg Tablet 10 MG PO UD for PREDNISONE TAPER, #39 TAB 0 Refills Take 3 tablets by mouth twice a day for 3 days, then take 2 tablets by mouth twice a day for 3 days, then take 1 tablet by mouth twice a day for 3 days, then take 1 tablet by mouth daily x 3 days, then stop. Prov: SARY NICOLE MD 07/07/17 Problem Qualifiers Primary Impression: Acute asthma exacerbation Asthma severity: moderate Asthma persistence: persistent Qualified Codes: J45.41 - Moderate persistent asthma with (acute) exacerbation SARY NICOLE MD Jul 07, 2017 11:29
--- NOTE | 2017-07-07 11:35 | EKG ---
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
[2017-07-07 11:37] LABS: BASO % 1 % (0-3); EOS # 0.2 x10^3/uL (0.0-0.7); EOS % 6 % (0-3); HEMATOCRIT 36.6 % (36.0-47.0); HEMOGLOBIN 11.8 g/dL (12.0-15.5); LYMPH # 1.1 x10^3/uL (1.0-4.8); LYMPH % 35 % (24-48); MEAN CORPUSCULAR HEMOGLOBIN 27 pg (25-35); MEAN CORPUSCULAR HGB CONC 32 g/dL (31-37); MEAN CORPUSCULAR VOLUME 85 fL (79-100); MONO # 0.3 x10^3/uL (0.0-1.1); MONO % 8 % (0-9); NEUT # 1.5 x10^3uL (1.8-7.7); NEUT % 50 % (31-73); PLATELET COUNT 136 x10^3/uL (140-400); RED CELL DISTRIBUTION WIDTH 14.5 % (11.5-14.5)
[2017-07-07] MEDS ORDERED: methylPREDNISolone SOD SUCC PF 125 MG/2 ML VIAL. IV ONE (11:45)
[2017-07-07] MEDS ORDERED: IPRATRPIUM/ALBUTEROL 0.5/2.5MG 3 ML NEBU. NEB ONE (11:45)
[2017-07-07 11:46] LABS: CALCIUM 8.7 mg/dL (8.5-10.1); CREATININE 0.8 mg/dL (0.6-1.0); GFR 77.9; MAGNESIUM 1.7 mg/dL (1.8-2.4); POTASSIUM 4.2 mmol/L (3.5-5.1)
--- NOTE | 2017-07-07 11:55 | RAD ---
Examination: 2 views of the chest History: History of cough, shortness of breath Comparison: 06/21/2017 Findings: The cardiomediastinal silhouette grossly appears unremarkable. Multiple old bilateral posterior rib deformities grossly similar to prior exam. There is no acute infiltrate or visualize pneumothorax. Impression: 1. No acute cardiopulmonary findings. Lucencies identified in the apical lungs grossly similar to prior exam probably due to deformities of the posterior ribs bilaterally.
[2017-07-07] MEDS ORDERED: MAGNESIUM SULFATE 2GM 50 ML IV ONE ×2 (12:06→12:30)
[2017-07-07] MEDS ORDERED: PRED-220 PO (12:51)
[2017-07-07 13:19] VITALS: BP 142/85
== END 2017-07-07 13:19 | disposition home or self-care (01) ==
LOC: ER 10:46
DX: J45.41 Moderate persistent asthma with (acute) exacerbation (principal); E83.42 Hypomagnesemia; K21.9 Gastro-esophageal reflux disease without esophagitis; E11.9 Type 2 diabetes mellitus without complications; E03.9 Hypothyroidism, unspecified; Z88.0 Allergy status to penicillin; Z88.2 Allergy status to sulfonamides; Z88.7 Allergy status to serum and vaccine; Z88.8 Allergy status to other drugs, medicaments and biological substances; Z91.040 Latex allergy status
CPT/HCPCS: 36415; 71046; 80048; 83735; 85025; 93005; 94640; 96365; 96375; 99285; J2930; J3475; J7620; J7030

== ENCOUNTER → 2017-07-15 | Outpatient (CLI) | payer OTHER, MEDICAID ==
[2017-07-07 13:19] VITALS: BP 142/85
[~2017-07-15] MED LIST changes: +PRED-220 PO
--- NOTE | 2017-07-15 14:30 | RAD ---
CT of the chest without contrast 07/15/2017 Indication: Dyspnea. Shortness of breath. Cough. Comparison study: CT angiography of the chest November 22, 2016. Technique: Multidetector CT imaging of the chest was performed without contrast. Findings: Heart size is normal. No pericardial effusion is identified. No mediastinal adenopathy is seen. No pneumothorax, pleural effusion, or focal infiltrate is identified. No pneumothorax or pleural effusion is identified. No focal infiltrates are seen. Right-sided rib deformities are similar comparison study. 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 Limited visualization of the upper abdomen no acute osseous changes are identified. Impression: No evidence of acute cardiopulmonary process or acute change prior study PQRS Compliance Statement: One or more of the following individualized dose reduction techniques were utilized for this examination: 1. Automated exposure control 2. Adjustment of the mA and/or kV according to patient size 3. Use of iterative reconstruction technique
== END | disposition home or self-care (01) ==
LOC: CT 12:12
PROVIDERS: ATTEND Nurse Practitioner Family
DX: R06.09 Other forms of dyspnea (principal); R06.02 Shortness of breath; R05 Cough; M95.4 Acquired deformity of chest and rib
CPT/HCPCS: 71250

== ENCOUNTER 2017-07-29 23:00 | Inpatient (IN) | payer MEDICARE, MEDICAID ==
[~2017-07-29] VITALS: Ht 172.7 cm; Wt 170.2 kg
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
[2017-07-29] MEDS ORDERED: IV NORMAL SALINE 1,000ML 1,000 ML IV SCH (23:30)
[2017-07-29 23:40] LABS: BASO % 1 % (0-3); EOS # 0.1 x10^3/uL (0.0-0.7); EOS % 3 % (0-3); HEMATOCRIT 36.1 % (36.0-47.0); HEMOGLOBIN 11.8 g/dL (12.0-15.5); LYMPH # 1.1 x10^3/uL (1.0-4.8); LYMPH % 31 % (24-48); MEAN CORPUSCULAR HEMOGLOBIN 27 pg (25-35); MEAN CORPUSCULAR HGB CONC 33 g/dL (31-37); MEAN CORPUSCULAR VOLUME 83 fL (79-100); MONO # 0.4 x10^3/uL (0.0-1.1); MONO % 10 % (0-9); NEUT % 55 % (31-73); PLATELET COUNT 150 x10^3/uL (140-400); RED BLOOD COUNT 4.33 x10^6/uL (3.50-5.40); RED CELL DISTRIBUTION WIDTH 14.5 % (11.5-14.5); WHITE BLOOD COUNT 3.7 x10^3/uL (4.0-11.0)
[2017-07-30 00:01] LABS: ALBUMIN 2.7 g/dL (3.4-5.0); ALBUMIN/GLOBULIN RATIO 0.8 (1.0-1.7); CALCIUM 8.5 mg/dL (8.5-10.1); CREATININE 0.9 mg/dL (0.6-1.0); POTASSIUM 3.5 mmol/L (3.5-5.1); TOTAL BILIRUBIN 0.4 mg/dL (0.2-1.0); TOTAL PROTEIN 6.3 g/dL (6.4-8.2)
[2017-07-30] MEDS ORDERED: ALPRAZolam 0.25 MG TABLET PO ONE (00:30)
[2017-07-30] MEDS ORDERED: INSULIN REGULAR 100 UNIT/ML 10ML VIAL. IV ONE (00:30)
[2017-07-30] MEDS ORDERED: ONDANSETRON PF 4 MG/2 ML VIAL. IV ONE (00:30)
[2017-07-30] MEDS ORDERED: POTASSIUM CHLORIDE 20 MEQ TABLET.ER. PO ONE (00:30)
[2017-07-30 00:49] LABS: BARBITURATES NEG (NEG); BENZODIAZEPINES NEG (NEG); CANNABINOIDS NEG (NEG); COCAINE NEG (NEG); METHADONE NEG (NEG); OPIATES NEG (NEG); PHENCYCLIDINE NEG (NEG)
[2017-07-30 00:50] LABS: CLARITY,URINE CLEAR; COLOR,URINE YELLOW
[2017-07-30 00:51] LABS: BACTERIA,URINE 0 /HPF (0-FEW); BILIRUBIN,URINE NEG (NEG); GLUCOSE,URINE >=1000 mg/dL (NEG); NITRITE,URINE NEG (NEG); RBC,URINE 0 /HPF (0-2); SQUAMOUS EPITHELIAL CELL,UR OCC /LPF; UROBILINOGEN,URINE 0.2 mg/dL (0.2 mg/dL); WBC,URINE RARE /HPF (0-4)
[2017-07-30 00:53] LABS: AMPHETAMINE/METHAMPHETAMINE NEG (NEG)
[2017-07-30] MEDS ORDERED: ONDANSETRON PF 4 MG/2 ML VIAL. IV PRN (01:45)
[2017-07-30] MEDS ORDERED: NITROGLYCERIN SUBLINGUAL 0.4 MG BOTTLE OF 25. SL PRN (01:45)
[2017-07-30] MEDS ORDERED: ACETAMINOPHEN 325 MG TABLET PO PRN (01:45)
[2017-07-30] MEDS ORDERED: INSULIN ASPART 300 UNITS/3 ML INSULN.PEN SQ ONE (02:18)
[2017-07-30 03:00] VITALS: BP 119/77
[2017-07-30] MEDS ORDERED: PIOG30TA41 PO (03:24)
[2017-07-30] MEDS ORDERED: CETI10TA16 PO (03:28)
[2017-07-30] MEDS ORDERED: DEXTROSE 50% 25 GM / 50ML DISP.SYRIN. IV PRN (04:00)
[2017-07-30] MEDS: POTASSIUM CHLORIDE 20 MEQ TABLET.ER. PO SCH ×2 (06:32→14:19)
[2017-07-30] MEDS: INSULIN ASPART 300 UNITS/3 ML INSULN.PEN SQ SCH ×3 (07:30→17:14)
--- NOTE | 2017-07-30 07:49 | RAD ---
Portable chest, 07/29/2017: History: Shortness of breath Comparison is made to a study from 07/07/2017. The heart size and pulmonary vascularity are normal. No pulmonary infiltrates are seen. There is no evidence of pleural fluid. Rib deformities are again noted. IMPRESSION: No acute cardiopulmonary abnormality is detected.
[2017-07-30] MEDS ORDERED: PIOG15TA69 PO (08:47)
[2017-07-30] MEDS ORDERED: NYSTATIN TOPICAL POWDER 15GM BOTTLE. TP SCH (09:00)
[2017-07-30] MEDS ORDERED: FAMOTIDINE 20 MG/2 ML VIAL IVP SCH (09:00)
[2017-07-30] MEDS ORDERED: ENOXAPARIN 40 MG/0.4 ML DISP.SYRIN. SQ SCH (09:00)
[2017-07-30 09:25] LABS: BASO # 0.1 x10^3/uL (0.0-0.2); BASO % 2 % (0-3); EOS # 0.2 x10^3/uL (0.0-0.7); EOS % 5 % (0-3); HEMATOCRIT 37.8 % (36.0-47.0); HEMOGLOBIN 12.4 g/dL (12.0-15.5); LYMPH # 1.2 x10^3/uL (1.0-4.8); LYMPH % 34 % (24-48); MEAN CORPUSCULAR HEMOGLOBIN 27 pg (25-35); MEAN CORPUSCULAR HGB CONC 33 g/dL (31-37); MEAN CORPUSCULAR VOLUME 82 fL (79-100); MONO # 0.3 x10^3/uL (0.0-1.1); MONO % 9 % (0-9); NEUT # 1.8 x10^3uL (1.8-7.7); NEUT % 51 % (31-73); PLATELET COUNT 176 x10^3/uL (140-400); RED BLOOD COUNT 4.61 x10^6/uL (3.50-5.40); RED CELL DISTRIBUTION WIDTH 14.7 % (11.5-14.5); WHITE BLOOD COUNT 3.6 x10^3/uL (4.0-11.0)
--- NOTE | 2017-07-30 10:25 | HP ---
ADMIT DATE: 07/30/2017 HISTORY OF PRESENT ILLNESS: The patient is a 46-year-old female who came in by EMS with chest pain and palpitations. The patient also had some accompanying dyspnea, nausea, but no vomiting. No arm or neck radiation. The patient is morbidly obese, has multiple risk factors for heart disease. The patient apparently does have some blockages and had some heart catheterizations in the past that showed some blockages. In any case, she has been out of her medications recently because she could not afford them. She is a diabetic and consequently had other mitigating events that caused her to have problems. ALLERGIES: THE PATIENT HAS QUOTED ALLERGIES TO LATEX, PENICILLIN, SULFUR HYDROGEN PEROXIDE, LANOLIN, SUMATRIPTAN, TETANUS IMMUNOGLOBULIN, NAPROXEN AND ADHESIVES. PAST MEDICAL HISTORY: Includes ____ due to basal cell carcinoma, TIAs, headaches, heart murmur, respiratory disease of asthma, morbid obesity, GERD, osteoarthritis, degenerative disk disease, scoliosis, diabetes, hypothyroidism, psychiatric problems, PTSD, depression, anxiety; smoking, quit in 2006 and cancer. IMAGING STUDIES: She has influenza vaccination up to date. FAMILY HISTORY: The patient has a family history of hypertension, GERD, gastrointestinal disease, diabetes, depression and allergies. SOCIAL HISTORY: The patient noted no smoking, drinking or alcohol. REVIEW OF SYSTEMS: As noted. She denies headaches, visual changes, blurred vision. She does have chest discomfort, substernal chest pain, nonradiating; mild nausea, but no vomiting; no diaphoresis. She denies any problem with her bowels or bladder at the present time. She denies shortness of breath. Neurologically, the patient is at baseline for her, just general anxiety. PHYSICAL EXAMINATION: VITAL SIGNS: Blood pressure 120/77, respiratory rate 20, pulse 99, afebrile. HEENT: The patient's head was atraumatic, normocephalic. Eyes: PERRLA without jaundice. The patient's mouth and throat were normal. NECK: Supple, no JVD or carotid bruits. No thyromegaly. LUNGS: Diminished throughout, poor movement of air, but clear. CARDIOVASCULAR: Regular sinus rhythm. ABDOMEN: Morbidly obese, protuberant. EXTREMITIES: No clubbing or cyanosis. Trace edema. NEUROLOGIC: The patient was alert and oriented x 3. Speech is fluent, spontaneous, appropriate. LABORATORY DATA: Hemoglobin 12.37. Good differential. Chemistries were all basically within normal limits. The patient's sodium is slightly low, but not significant. Her sugar initially was 480, has come down in the 240s. Toxic screen negative. Urine showing some spilled sugar of course. IMPRESSION AND PLAN: Therefore, chest pain, high risk for coronary artery disease, noncompliance; type 2 diabetes, poorly controlled; severe morbid obesity, probably body mass index greater than 60. The patient will be a rule out myocardial infarction protocol. Consult with Dr. Casey, make further evaluation on her after Cardiology has reviewed the patient. CHIKA WARREN MD DR: MOUNA/nts JOB#: [id number] / [id number]
[2017-07-30 10:56] VITALS: BP 123/80
[2017-07-30] MEDS ORDERED: PANTOPRAZOLE 40 MG TABLET. PO ONE (13:30)
--- NOTE | 2017-07-30 14:08 | PDOC2 ---
CONSULT Date of Admission DATE: 07/30/17 TIME: 13:57 Reason for Consult: Chest pain. Referring Physician: Sherif Hansen MD Chief Complaint Chest pain. Source: Patient Problem List Problems Medical Problems: (1) Chest pain, non-cardiac Status: Acute History of Present Illness She is a pleasant 46-year-old female with a history of mild coronary artery disease detected a cardiac catheterization in 2010. She has not been following with a procurement intern on a routine basis. She was doing well until last evening when she lay down in bed and developed palpitations. This felt like a skipped heartbeat. This felt somewhat strong. She has had these in the past but this will usually only happened once or twice every couple of months. She will just feel some strong beats or skipped beats and then this will resolve. However, last evening, the symptom was coming and going for a few times. This was somewhat unusual. This caused her to have pain in her chest. She sat up and then had a couple more episodes. She went to call 911 but her phone battery was . She then went out to find a neighbor and had to walk up 1 flight of stairs which made her feel short of breath and lightheaded. She was able to find a neighbor who could call 911 and she was taken to the emergency room for further evaluation. She describes the intensity of the chest pain is 6/10. Since she has been here in the hospital the symptom has been happening off and on all day. The chest discomfort is in the left side of her chest. She denies radiation. This occurs with the palpitations. When she is not having the palpitations, she seems to be free of chest pain. This does not feel like her previous esophageal reflux disease. She has had dyspnea on exertion for the past month. She denies paroxysmal nocturnal dyspnea orthopnea. She denies syncope. She denies any change in her chronic, intermittent lower extremity edema. Because of the chest pain, a cardiology consultation was requested. Cardiovascular: CAD, hyperipidemia Pulmonary: Asthma Family History: Coronary Artery Disease Smoke: Quit ALCOHOL: none Current Medications Current Medications Sodium Chloride 1,000 ml @ 1,000 mls/hr Q1H IV Last administered on 07/29/17at 23:30; Start 07/29/17 at 23:30; Stop 07/30/17 at 00:29; Status DC Alprazolam (Xanax) 0.5 mg 1X ONCE PO Last administered on 07/30/17at 00:41; Start 07/30/17 at 00:30; Stop 07/30/17 at 00:31; Status DC Ondansetron HCl (Zofran) 8 mg 1X ONCE IV Last administered on 07/30/17at 00:40; Start 07/30/17 at 00:30; Stop 07/30/17 at 00:31; Status DC Potassium Chloride (Klor-Con) 40 meq 1X ONCE PO Last administered on 07/30/17at 00:41; Start 07/30/17 at 00:30; Stop 07/30/17 at 00:31; Status DC Insulin Human Regular (NovoLIN R) 12 unit 1X ONCE IV Last administered on at 00:39; Start 07/30/17 at 00:30; Stop 07/30/17 at 00:31; Status DC Ondansetron HCl (Zofran) 4 mg PRN Q4HRS PRN IV NAUSEA/VOMITING Last administered on 07/30/17at 12:45; Start 07/30/17 at 01:45; Stop 07/31/17 at 01:44 Acetaminophen (Tylenol) 650 mg PRN Q4HRS PRN PO FEVER; Start 07/30/17 at 01:45; Stop 07/31/17 at 01:44 Nitroglycerin (Nitrostat) 0.4 mg PRN Q5MIN PRN SL CHEST PAIN; Start 07/30/17 at 01:45; Stop 07/31/17 at 01:44 Insulin Aspart (NovoLOG) 300 units STK-MED ONCE SQ ; Start 07/30/17 at 02:18; Stop 07/30/17 at 02:19; Status DC Potassium Chloride (Klor-Con) 20 meq Q8HRS PO Last administered on 07/30/17at 06: 32; Start 07/30/17 at 06:00; Stop 07/30/17 at 22:01 Enoxaparin Sodium (Lovenox) 40 mg Q12HR SQ Last administered on 07/30/17at 08:53 ; Start 07/30/17 at 09:00; Stop 07/30/17 at 13:35; Status DC Famotidine (Pepcid Vial) 20 mg BID IVP Last administered on 07/30/17at 08:52; Start 07/30/17 at 09:00 Nystatin (Nystop) 1 mathew BID TP Last administered on 07/30/17at 08:53; Start at 09:00 Insulin Aspart (NovoLOG) 0-5 UNITS QIDACHS SQ Last administered on 07/30/17at 12: 07; Start 07/30/17 at 07:30 Dextrose 12.5 gm PRN Q15MIN PRN IV SEE COMMENTS; Start 07/30/17 at 04:00 Pantoprazole Sodium (Protonix) 40 mg 1X ONCE PO ; Start 07/30/17 at 13:30; Stop 07/30/17 at 13:34; Status DC Pantoprazole Sodium (Protonix) 40 mg DAILYAC PO ; Start 07/31/17 at 07:30 Enoxaparin Sodium (Lovenox 60mg Syringe) 60 mg Q12HR SQ ; Start 07/30/17 at 21:00 Active Scripts Active Reported Pioglitazone Hcl 15 Mg Tablet 15 Mg PO Cetirizine Hcl 10 Mg Tablet 10 Mg PO DAILY Ibuprofen 800 Mg Tablet 800 Mg PO TID PRN Tresiba Flextouch U-100 (Insulin Degludec) 100 Unit/1 Ml Insuln.pen 10 Unit SQ DAILY Valacyclovir (Valacyclovir Hcl) 500 Mg Tablet 500 Mg PO DAILY Omeprazole 20 Mg Tablet.dr 20 Mg PO DAILY Levothyroxine Sodium 50 Mcg Tablet 50 Mcg PO DAILYAC Propranolol Hcl 80 Mg Cap.sa.24h 120 Mg PO DAILY Benztropine Mesylate 1 Mg Tablet 1 Mg PO BID Lorazepam 1 Mg Tablet 1 Mg PO BID Abilify (Aripiprazole) 15 Mg Tablet 15 Mg PO DAILY Gabapentin 300 Mg Capsule 400 Mg PO QID Metformin Hcl 500 Mg Tablet 500 Mg PO BIDWMEALS Invokana (Canagliflozin) 300 Mg Tablet 300 Mg PO DAILY Atorvastatin Calcium 40 Mg Tablet 40 Mg PO QHS Allergies: Coded Allergies: Latex, Natural Rubber (Verified Allergy, Intermediate, 07/07/17) Penicillins (Verified Allergy, Intermediate, 07/07/17) Sulfa (Sulfonamide Antibiotics) (Verified Allergy, Intermediate, 07/07/17) hydrogen peroxide (Verified Allergy, Intermediate, 07/07/17) lanolin (Verified Allergy, Intermediate, 07/07/17) sumatriptan (Unverified Allergy, Intermediate, 07/07/17) tetanus immune globulin (Unverified Allergy, Intermediate, 07/07/17) naproxen (Verified Allergy, Unknown, 07/07/17) adhesive (Verified Adverse Reaction, Intermediate, Rash, 07/07/17) Review of System Review 10 organ systems is as per the history of present illness, otherwise negative. General: Alert, Oriented X3, Cooperative, No acute distress, Other (Morbidly obese.) HEENT: Atraumatic, EOMI, Mucous membr. moist/pink Lungs: Clear to auscultation, Normal air movement Heart: Regular rate, Normal S1, Normal S2, No murmurs Abdomen: Normal bowel sounds, Soft, No tenderness Extremities: No clubbing, No cyanosis, Normal pulses, No tenderness/swelling, Other ( 1+ bilateral pretibial edema.) Skin: No rashes, No breakdown Neuro: Normal speech, Strength at 5/5 X4 ext, Normal tone, Cranial nerves 3-12 NL Psych/Mental Status: Mental status NL, Other (She is depressed.) VITALS Vital Signs Date Time Temp Pulse Resp B/P (MAP) Pulse Ox O2 Delivery O2 Flow Rate FiO2 07/30/17 10:56 98.1 93 20 123/80 (94) 98 Room Air Labs Laboratory Tests Test 07/29/17 23:19 07/30/17 00:25 07/30/17 01:04 07/30/17 02:39 White Blood Count 3.7 x10^3/uL (4.0-11.0) Red Blood Count 4.33 x10^6/uL (3.50-5.40) Hemoglobin 11.8 g/dL (12.0-15.5) Hematocrit 36.1 % (36.0-47.0) Mean Corpuscular Volume 83 fL (79-100) Mean Corpuscular Hemoglobin 27 pg (25-35) Mean Corpuscular Hemoglobin Concent 33 g/dL (31-37) Red Cell Distribution Width 14.5 % (11.5-14.5) Platelet Count 150 x10^3/uL (140-400) Neutrophils (%) (Auto) 55 % (31-73) Lymphocytes (%) (Auto) 31 % (24-48) Monocytes (%) (Auto) 10 % (0-9) Eosinophils (%) (Auto) 3 % (0-3) Basophils (%) (Auto) 1 % (0-3) Neutrophils # (Auto) 2.0 x10^3uL (1.8-7.7) Lymphocytes # (Auto) 1.1 x10^3/uL (1.0-4.8) Monocytes # (Auto) 0.4 x10^3/uL (0.0-1.1) Eosinophils # (Auto) 0.1 x10^3/uL (0.0-0.7) Basophils # (Auto) 0.0 x10^3/uL (0.0-0.2) Sodium Level 134 mmol/L (136-145) Potassium Level 3.5 mmol/L (3.5-5.1) Chloride Level 98 mmol/L (98-107) Carbon Dioxide Level 25 mmol/L (21-32) Anion Gap 11 (6-14) Blood Urea Nitrogen 6 mg/dL (7-20) Creatinine 0.9 mg/dL (0.6-1.0) Estimated GFR (Cockcroft-Gault) 68.0 BUN/Creatinine Ratio 7 (6-20) Glucose Level 480 mg/dL (70-99) Calcium Level 8.5 mg/dL (8.5-10.1) Total Bilirubin 0.4 mg/dL (0.2-1.0) Aspartate Amino Transf (AST/SGOT) 32 U/L (15-37) Alanine Aminotransferase (ALT/SGPT) 35 U/L (14-59) Alkaline Phosphatase 46 U/L (46-116) Creatine Kinase 67 U/L (26-192) Bedside Troponin I 0.00 ng/ml (<0.08) PO-Swe-U-Type Natriuretic Peptide 17 pg/mL (0-124) Total Protein 6.3 g/dL (6.4-8.2) Albumin 2.7 g/dL (3.4-5.0) Albumin/Globulin Ratio 0.8 (1.0-1.7) Lipase 126 U/L (73-393) Urine Collection Type Unknown Urine Color Yellow Urine Clarity Clear Urine pH 5.0 Urine Specific [place] <=1.005 Urine Protein Neg (NEG-TRACE) Urine Glucose (UA) >=1000 mg/dL (NEG) Urine Ketones (Stick) Neg mg/dL (NEG) Urine Blood Trace (NEG) Urine Nitrite Neg (NEG) Urine Bilirubin Neg (NEG) Urine Urobilinogen Dipstick 0.2 mg/dL (0.2 mg/dL) Urine Leukocyte Esterase Neg (NEG) Urine RBC 0 /HPF (0-2) Urine WBC Rare /HPF (0-4) Urine Squamous Epithelial Cells Occ /LPF Urine Bacteria 0 /HPF (0-FEW) Urine Opiates Screen Neg (NEG) Urine Methadone Screen Neg (NEG) Urine Barbiturates Neg (NEG) Urine Phencyclidine Screen Neg (NEG) Urine Amphetamine/Methamphetamine Neg (NEG) Urine Benzodiazepines Screen Neg (NEG) Urine Cocaine Screen Neg (NEG) Urine Cannabinoids Screen Neg (NEG) Urine Ethyl Alcohol Neg (NEG) Glucose (Fingerstick) 364 mg/dL (70-99) 228 mg/dL (70-99) Test 07/30/17 03:38 07/30/17 07:35 07/30/17 07:52 07/30/17 09:57 Bedside Troponin I 0.00 ng/ml (<0.08) 0.00 ng/ml (<0.08) White Blood Count 3.6 x10^3/uL (4.0-11.0) Red Blood Count 4.61 x10^6/uL (3.50-5.40) Hemoglobin 12.4 g/dL (12.0-15.5) Hematocrit 37.8 % (36.0-47.0) Mean Corpuscular Volume 82 fL (79-100) Mean Corpuscular Hemoglobin 27 pg (25-35) Mean Corpuscular Hemoglobin Concent 33 g/dL (31-37) Red Cell Distribution Width 14.7 % (11.5-14.5) Platelet Count 176 x10^3/uL (140-400) Neutrophils (%) (Auto) 51 % (31-73) Lymphocytes (%) (Auto) 34 % (24-48) Monocytes (%) (Auto) 9 % (0-9) Eosinophils (%) (Auto) 5 % (0-3) Basophils (%) (Auto) 2 % (0-3) Neutrophils # (Auto) 1.8 x10^3uL (1.8-7.7) Lymphocytes # (Auto) 1.2 x10^3/uL (1.0-4.8) Monocytes # (Auto) 0.3 x10^3/uL (0.0-1.1) Eosinophils # (Auto) 0.2 x10^3/uL (0.0-0.7) Basophils # (Auto) 0.1 x10^3/uL (0.0-0.2) Glucose (Fingerstick) 247 mg/dL (70-99) D-Dimer (Milly) 0.58 mg/L (0.00-0.50) Test 07/30/17 11:26 07/30/17 11:51 Bedside Troponin I 0.00 ng/ml (<0.08) Glucose (Fingerstick) 309 mg/dL (70-99) Assessment/Plan Chest pain. She has no ischemic changes on her electrocardiogram. She has negative troponin levels. I suspect this is noncardiac chest pain, possibly due to her esophageal reflux disease or musculoskeletal this order. I recommend increasing her omeprazole to 40 mg once a day. She has only been taking 20 mg once a day. From a cardiac standpoint, the patient can be discharged home when she has been cleared by her primary provider. For completeness sake, I recommend a follow-up stress test and echocardiogram. We will arrange to have these performed in our office next week. Coronary artery disease. She had a previous catheterization showing mild coronary artery disease. I do not believe this is causing her chest pain. I recommend a follow-up lipid panel. She should be taking aspirin and statin medication which she was taking in the past, but I do not see on this on her medication list at the present time. This may need to be addressed as an outpatient. Morbid obesity. This will increase the patient's risk of future cardiac and noncardiac problems. Lifestyle modification with exercise, diet and weight loss was strongly recommended to the patient. If she cannot lose a significant amount of weight over the next 6-12 months, we may want to consider a bariatric surgical consultation. Gastroesophageal reflux disease. As above, I suspect this is causing the patient's chest pain. I have taken the liberty of placing her on Protonix 40 mg once a day. When she is discharged, I recommend she increase the omeprazole to 40 mg once a day. Disposition. As above, from a cardiac standpoint, the patient can be discharged home and we will arrange for outpatient cardiac testing in our office early next week. I will obviously leave the discharge up to the discretion of the primary care provider. Problems: HILARIO FISHMAN Jr, MD Jul 30, 2017 14:08
[2017-07-30 16:21] VITALS: BP 142/90
--- NOTE | 2017-07-30 17:48 | NUR ---
Discharge Note: CHIQUITA BLAIR [address] Discharge instructions and discharge home medications reviewed with PATIENT and a copy given. All questions have been answered and understanding verbalized. The following instructions and handouts were given: MEDICATIONS, FOLLOW UP INSTRUCTIONS, AND EDUCATIONAL HANDOUTS GIVEN. Discontinued lines and drains: PERIPHERAL IV DISCONTINUED WITH NO COMPLICATIONS. Patient discharged to HOME with FAMILY via [facility]IVATE FAMILY VEHICLE.
[2017-07-30] MEDS ORDERED: ENOXAPARIN ** NOTE DOSE ** SYRINGE SQ SCH (21:00)
[2017-07-31] MEDS ORDERED: PANTOPRAZOLE 40 MG TABLET. PO SCH (07:30)
--- NOTE | 2017-07-31 08:51 | EKG ---
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
== END 2017-07-30 17:59 | disposition home or self-care (01) | DRG 392 ==
LOC: ER 23:00 → 1 SOUTH 07-30 01:35
PROVIDERS: ADMIT Family Medicine; ATTEND Family Medicine
DX: K21.9 Gastro-esophageal reflux disease without esophagitis (principal); E44.0 Moderate protein-calorie malnutrition; E11.65 Type 2 diabetes mellitus with hyperglycemia; E66.01 Morbid (severe) obesity due to excess calories; M41.9 Scoliosis, unspecified; Q87.89 Other specified congenital malformation syndromes, not elsewhere classified; Z68.43 Body mass index [BMI] 50.0-59.9, adult; E03.9 Hypothyroidism, unspecified; F31.9 Bipolar disorder, unspecified; G47.33 Obstructive sleep apnea (adult) (pediatric); I25.10 Atherosclerotic heart disease of native coronary artery without angina pectoris; J45.909 Unspecified asthma, uncomplicated; G43.909 Migraine, unspecified, not intractable, without status migrainosus; F41.9 Anxiety disorder, unspecified; E86.1 Hypovolemia; F41.0 Panic disorder [episodic paroxysmal anxiety]; F43.10 Post-traumatic stress disorder, unspecified; Z86.73 Personal history of transient ischemic attack (TIA), and cerebral infarction without residual deficits; Z88.2 Allergy status to sulfonamides; Z88.8 Allergy status to other drugs, medicaments and biological substances; Z91.040 Latex allergy status; Z88.0 Allergy status to penicillin; Z91.09 Other allergy status, other than to drugs and biological substances; Z90.49 Acquired absence of other specified parts of digestive tract; Z82.49 Family history of ischemic heart disease and other diseases of the circulatory system; Z83.79 Family history of other diseases of the digestive system; Z84.89 Family history of other specified conditions; Z83.3 Family history of diabetes mellitus; Z81.8 Family history of other mental and behavioral disorders; Z87.891 Personal history of nicotine dependence; Z85.828 Personal history of other malignant neoplasm of skin
CPT/HCPCS: 36415; 71045; 80053; 80061; 80307; 81001; 82550; 82947; 83690; 83880; 84484; 85025; 85379; 96361; 96374; 96375; J1650; J1815; J2405; S0028; 99285-25; G0479; J7030

== ENCOUNTER 2017-09-27 19:13 | Inpatient (IN) | payer MEDICARE, MEDICAID ==
[~2017-09-27] VITALS: Ht 172.7 cm; Wt 171.2 kg
[~2017-09-27 19:13] MED LIST changes: -METF500T4 PO; +METF500T5 PO; +PIOG15TA63 PO; +PIOG30TA41 PO
--- NOTE | 2017-09-27 19:16 | ED.ADGEN ---
Past History Past Medical History: Anxiety, Asthma, Diabetes, GERD, Hypothyroid, Migraines, STD, Other Past Surgical History: Cholecystectomy, Other Additional Past Surgical Histo: Eye, bilateral ankles, right thumb. Smoking: Non-smoker Alcohol Use: Rarely Drug Use: None Adult General Chief Complaint Chief Complaint ".. I lost my med bag.. and I ve been out of meds the past 6 days.. my sugars are melissa high.. 400's HPI HPI Patient is a 46 year old female who presents with above hx and complaints hyperglycemia, dizziness , nausea and vomiting. Pt. reports loss of her meds and unable to buy more insulin. Pt. denies and travel or ill contacts. Pt. . last couple accu check have been over 400. Pt. normally follows with Dr. Roberts. Pt. has multi med allergies. Hx. of Asthma, DM, Anxiety. Review of Systems Review of Systems Constitutional: Denies fever or chills [] Eyes: Denies change in visual acuity, redness, or eye pain [] HENT: Denies nasal congestion or sore throat [] Respiratory: Denies cough or shortness of breath [] Cardiovascular: No additional information not addressed in HPI [] GI: Denies abdominal pain, , bloody stools or diarrhea [] Hx of nausea and vomiting : Denies dysuria or hematuria [] Musculoskeletal: Denies back pain or joint pain [] Integument: Denies rash or skin lesions [] Neurologic: Denies headache, focal weakness or sensory changes [] Endocrine: Hx. polyuria or polydipsia [] All other systems were reviewed and found to be within normal limits, except as documented in this note. Family History Family History DM Current Medications Current Medications Current Medications Medications (Trade) Dose Ordered Sig/Carlie Start Time Stop Time Status Last Admin Dose Admin Levofloxacin (Levaquin) 500 mg 1X ONCE 09/27/17 22:00 09/27/17 22:01 DC 09/27/17 23:05 500 MG Sodium Chloride 1,000 ml @ 1,000 mls/hr Q1H 09/27/17 20:00 09/27/17 20:59 DC 09/27/17 20:04 1,000 MLS/HR Allergies Allergies Allergies Coded Allergies Type Severity Reaction Last Updated Verified amoxicillin Allergy Severe 09/27/17 Yes black pepper Allergy Severe 09/27/17 Yes methylnaltrexone Allergy Severe 09/27/17 Yes Latex, Natural Rubber Allergy Intermediate 07/07/17 Yes Penicillins Allergy Intermediate 07/07/17 Yes Sulfa (Sulfonamide Antibiotics) Allergy Intermediate 07/07/17 Yes hydrogen peroxide Allergy Intermediate 07/07/17 Yes lanolin Allergy Intermediate 07/07/17 Yes sumatriptan Allergy Intermediate 07/07/17 No tetanus immune globulin Allergy Intermediate 07/07/17 No naproxen Allergy Unknown 07/07/17 Yes adhesive Adverse Reaction Intermediate Rash 07/07/17 Yes Physical Exam Physical Exam Constitutional: Moderately acute distress, non-toxic appearance. [] HENT: Normocephalic, atraumatic, bilateral external ears normal, oropharynx moist, no oral exudates, nose normal. [] Eyes: PERRLA, EOMI, conjunctiva normal, no discharge. [] Neck: Normal range of motion, no tenderness, supple, no stridor. [] Cardiovascular: Tachycardia Heart rate regular rhythm, no murmur [] Lungs & Thorax: Bilateral breath sounds equal at apex on auscultation [] Abdomen: Bowel sounds normal, soft, no tenderness, no masses, no pulsatile masses. [] Morbidly obese. Skin: Warm, dry, no erythema, no rash. [] Back: No tenderness, no CVA tenderness. [] Extremities: No tenderness, no cyanosis, no clubbing, ROM intact, ankle edema. [ ] Neurologic: Alert and oriented X 3, normal motor function, normal sensory function, no focal deficits noted. [] Psychologic: Affect anxious, judgement normal, mood normal. [] Current Patient Data Vital Signs Vital Signs Date Time Temp Pulse Resp B/P (MAP) Pulse Ox O2 Delivery O2 Flow Rate FiO2 09/27/17 21:48 97 24 145/85 (105) 99 Room Air 09/27/17 19:13 98.5 Lab Results Laboratory Tests Test 09/27/17 19:19 09/27/17 19:30 09/27/17 19:36 09/27/17 19:42 Glucose (Fingerstick) 372 mg/dL (70-99) H White Blood Count 5.5 x10^3/uL (4.0-11.0) Red Blood Count 4.61 x10^6/uL (3.50-5.40) Hemoglobin 12.2 g/dL (12.0-15.5) Hematocrit 37.4 % (36.0-47.0) Mean Corpuscular Volume 81 fL (79-100) Mean Corpuscular Hemoglobin 27 pg (25-35) Mean Corpuscular Hemoglobin Concent 33 g/dL (31-37) Red Cell Distribution Width 14.7 % (11.5-14.5) H Platelet Count 194 x10^3/uL (140-400) Neutrophils (%) (Auto) 59 % (31-73) Lymphocytes (%) (Auto) 28 % (24-48) Monocytes (%) (Auto) 10 % (0-9) H Eosinophils (%) (Auto) 2 % (0-3) Basophils (%) (Auto) 1 % (0-3) Neutrophils # (Auto) 3.3 x10^3uL (1.8-7.7) Lymphocytes # (Auto) 1.6 x10^3/uL (1.0-4.8) Monocytes # (Auto) 0.5 x10^3/uL (0.0-1.1) Eosinophils # (Auto) 0.1 x10^3/uL (0.0-0.7) Basophils # (Auto) 0.0 x10^3/uL (0.0-0.2) Sodium Level 135 mmol/L (136-145) L Potassium Level 3.9 mmol/L (3.5-5.1) Chloride Level 98 mmol/L (98-107) Carbon Dioxide Level 27 mmol/L (21-32) Anion Gap 10 (6-14) Blood Urea Nitrogen 8 mg/dL (7-20) Creatinine 0.7 mg/dL (0.6-1.0) Estimated GFR (Cockcroft-Gault) 90.9 Glucose Level 375 mg/dL (70-99) H Calcium Level 9.0 mg/dL (8.5-10.1) Troponin I Quantitative < 0.017 ng/mL (0-0.055) Urine Opiates Screen Neg (NEG) Urine Methadone Screen Neg (NEG) Urine Barbiturates Neg (NEG) Urine Phencyclidine Screen Neg (NEG) Urine Amphetamine/Methamphetamine Neg (NEG) Urine Benzodiazepines Screen Neg (NEG) Urine Cocaine Screen Neg (NEG) Urine Cannabinoids Screen Neg (NEG) Urine Ethyl Alcohol Neg (NEG) POC Urine HCG, Qualitative hcg negative (Negative) Blood pH 7.48 (7.35-7.45) H Blood Gas PCO2 36 mmHg (35-45) Blood Gas PO2 92 mmHg (80-100) Blood Gas HCO3 27 mmol/L (22-26) H Arterial Bld O2 Saturation (Calc) 98 % (92-99) FiO2 21 % Test 09/27/17 20:30 09/27/17 21:13 Urine Collection Type Unknown Urine Color Yellow Urine Clarity Cloudy Urine pH 7.5 Urine Specific [place] 1.015 Urine Protein Neg (NEG-TRACE) Urine Glucose (UA) >=1000 mg/dL (NEG) Urine Ketones (Stick) 15 mg/dL (NEG) Urine Blood Neg (NEG) Urine Nitrite Neg (NEG) Urine Bilirubin Neg (NEG) Urine Urobilinogen Dipstick 0.2 mg/dL (0.2 mg/dL) Urine Leukocyte Esterase Trace (NEG) Urine RBC 1-2 /HPF (0-2) Urine WBC 1-4 /HPF (0-4) Urine Squamous Epithelial Cells Mod /LPF Urine Amorphous Sediment Present /HPF Urine Bacteria 0 /HPF (0-FEW) Glucose (Fingerstick) 337 mg/dL (70-99) H EKG EKG My interpretation of EKG shows a sinus rate of 88, Rt. axis deviation. Anterolateral changes. [] Radiology/Procedures Radiology/Procedures [] Course & Med Decision Making Course & Med Decision Making Pertinent Labs and Imaging studies reviewed. (See chart for details) Discussed presentation, testing and tx. plan with Dr Roberts- will admit for further eval. and tx. [] Final Impression Final Impression 1. Hyperglycemia[] 2. Non-compliance 3. UTI 4. Morbid Obesity 5. HTN Problems: Dragon Disclaimer Dragon Disclaimer This electronic medical record was generated, in whole or in part, using a voice recognition dictation system. LIVIER GOINS MD Sep 27, 2017 19:16
[2017-09-27 19:57] LABS: BASO % 1 % (0-3); EOS # 0.1 x10^3/uL (0.0-0.7); EOS % 2 % (0-3); HEMATOCRIT 37.4 % (36.0-47.0); HEMOGLOBIN 12.2 g/dL (12.0-15.5); LYMPH # 1.6 x10^3/uL (1.0-4.8); LYMPH % 28 % (24-48); MEAN CORPUSCULAR HEMOGLOBIN 27 pg (25-35); MEAN CORPUSCULAR HGB CONC 33 g/dL (31-37); MEAN CORPUSCULAR VOLUME 81 fL (79-100); MONO # 0.5 x10^3/uL (0.0-1.1); MONO % 10 % (0-9); NEUT # 3.3 x10^3uL (1.8-7.7); NEUT % 59 % (31-73); PLATELET COUNT 194 x10^3/uL (140-400); RED BLOOD COUNT 4.61 x10^6/uL (3.50-5.40); RED CELL DISTRIBUTION WIDTH 14.7 % (11.5-14.5); WHITE BLOOD COUNT 5.5 x10^3/uL (4.0-11.0)
[2017-09-27] MEDS ORDERED: IV NORMAL SALINE 1,000ML 1,000 ML IV SCH (20:00)
[2017-09-27 20:08] LABS: CREATININE 0.7 mg/dL (0.6-1.0); GFR 90.9
[2017-09-27 20:10] LABS: POTASSIUM 3.9 mmol/L (3.5-5.1)
[2017-09-27 21:07] LABS: BGAS PH 7.48 (7.35-7.45)
[2017-09-27 21:10] LABS: BARBITURATES NEG (NEG); BENZODIAZEPINES NEG (NEG); CANNABINOIDS NEG (NEG); COCAINE NEG (NEG); METHADONE NEG (NEG); OPIATES NEG (NEG); PHENCYCLIDINE NEG (NEG)
[2017-09-27 21:13] LABS: AMPHETAMINE/METHAMPHETAMINE NEG (NEG)
[2017-09-27 21:39] LABS: BACTERIA,URINE 0 /HPF (0-FEW); BILIRUBIN,URINE NEG (NEG); CLARITY,URINE CLOUDY; COLOR,URINE YELLOW; GLUCOSE,URINE >=1000 mg/dL (NEG); NITRITE,URINE NEG (NEG); SQUAMOUS EPITHELIAL CELL,UR MOD /LPF; UROBILINOGEN,URINE 0.2 mg/dL (0.2 mg/dL)
[2017-09-27 21:40] LABS: AMORPHOUS SEDIMENT,UR PRESENT /HPF
[2017-09-27] MEDS ORDERED: levoFLOXacin 500 MG TABLET PO ONE (22:00)
[2017-09-27] MEDS ORDERED: ONDANSETRON PF 4 MG/2 ML VIAL. IV PRN (22:30)
[2017-09-27] MEDS ORDERED: DEXTROSE 50% 25 GM / 50ML DISP.SYRIN. IV PRN (22:30)
[2017-09-27] MEDS ORDERED: INSULIN REGULAR VIAL 150 UNIT in 0.9 % SODIUM CHLORIDE 150ML 150 ML IV ONE (22:30)
[2017-09-27] MEDS ORDERED: INSULIN REGULAR VIAL 150 UNIT in 0.9 % SODIUM CHLORIDE 150ML 150 ML IV PRN (22:30)
[2017-09-27] MEDS ORDERED: diphenhydrAMINE 50 MG/ML VIAL IV ONE (22:45)
[2017-09-27] MEDS: IV RINGERS SOLUTION,LACTATED 1,000 ML IV SCH (23:04)
[2017-09-27 23:49] VITALS: BP 148/87
[2017-09-28 02:37] VITALS: BP 149/89
[2017-09-28] MEDS: IV RINGERS SOLUTION,LACTATED 1,000 ML IV SCH ×2 (04:07→11:25)
[2017-09-28 05:43] VITALS: BP 139/79
[2017-09-28 06:53] LABS: BASO % 1 % (0-3); EOS # 0.2 x10^3/uL (0.0-0.7); EOS % 3 % (0-3); HEMATOCRIT 36.4 % (36.0-47.0); HEMOGLOBIN 11.9 g/dL (12.0-15.5); LYMPH # 1.5 x10^3/uL (1.0-4.8); LYMPH % 31 % (24-48); MEAN CORPUSCULAR HEMOGLOBIN 27 pg (25-35); MEAN CORPUSCULAR HGB CONC 33 g/dL (31-37); MEAN CORPUSCULAR VOLUME 81 fL (79-100); MONO # 0.5 x10^3/uL (0.0-1.1); MONO % 11 % (0-9); NEUT # 2.7 x10^3uL (1.8-7.7); NEUT % 55 % (31-73); PLATELET COUNT 184 x10^3/uL (140-400); RED BLOOD COUNT 4.49 x10^6/uL (3.50-5.40); RED CELL DISTRIBUTION WIDTH 14.7 % (11.5-14.5); WHITE BLOOD COUNT 4.9 x10^3/uL (4.0-11.0)
[2017-09-28 06:57] LABS: CALCIUM 8.3 mg/dL (8.5-10.1); CREATININE 0.7 mg/dL (0.6-1.0); GFR 90.9
[2017-09-28] MEDS ORDERED: POTASSIUM CHLORIDE 20 MEQ TABLET.ER. PO SCH (08:00)
[2017-09-28] MEDS ORDERED: ELECTROLYTE (NON-ICU) PROTOCOL MC PRN (09:00)
[2017-09-28] MEDS ORDERED: BENZTROPINE MESYLATE 1 MG TABLET PO SCH (09:00)
[2017-09-28] MEDS ORDERED: NYSTATIN TOPICAL POWDER 15GM BOTTLE. TP SCH (09:00)
[2017-09-28] MEDS ORDERED: levoFLOXacin 500 MG TABLET PO SCH (09:00)
[2017-09-28] MEDS ORDERED: ESCITALOPRAM OX10 MG PO (09:05)
[2017-09-28] MEDS ORDERED: BUPR300T4 PO (09:05)
[2017-09-28] MEDS ORDERED: RIZA10TA PO (09:05)
[2017-09-28] MEDS ORDERED: MUPI22OI2 TP (09:05)
[2017-09-28] MEDS ORDERED: RIZATRIPTAN BENZOATE PO PRN (09:45)
[2017-09-28] MEDS ORDERED: IBUPROFEN 800 MG TABLET. PO PRN (09:45)
[2017-09-28] MEDS ORDERED: CITALOPRAM 20 MG TABLET. PO SCH (10:00)
[2017-09-28] MEDS ORDERED: LEVOTHYROXINE 50 MCG TABLET PO SCH (10:00)
[2017-09-28] MEDS ORDERED: ARIPiprazole 15 MG TABLET PO SCH (10:00)
[2017-09-28] MEDS ORDERED: LORazepam 1 MG TABLET PO SCH (10:00)
[2017-09-28] MEDS ORDERED: CETIRIZINE HCL 10 MG TABLET PO SCH (10:00)
[2017-09-28] MEDS ORDERED: buPROPion XL 300 MG TAB.ER.24H. PO SCH (10:00)
[2017-09-28] MEDS ORDERED: metFORMIN 500 MG TABLET PO SCH (10:00)
[2017-09-28] MEDS ORDERED: INSULIN GLARGINE 300 UNITS/3 ML INSULN.PEN. SQ SCH (10:00)
[2017-09-28] MEDS ORDERED: PROPRANOLOL ER 60 MG CAP.SA.24H. PO SCH (10:00)
[2017-09-28] MEDS ORDERED: PIOGLITAZONE 15 MG TABLET. PO SCH (10:00)
[2017-09-28] MEDS ORDERED: PANTOPRAZOLE 40 MG TABLET. PO SCH (10:00)
[2017-09-28] MEDS ORDERED: valACYclovir 500 MG TABLET. PO SCH (10:00)
[2017-09-28] MEDS: GABAPENTIN 300 MG CAPSULE. PO SCH ×2 (10:05→12:25)
[2017-09-28] MEDS: MUPIROCIN 2% TOPICAL OINTMENT 22GM TUBE. TP SCH ×2 (10:05→12:25)
--- NOTE | 2017-09-28 10:39 | EKG ---
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 ABNORMAL ECG RI6.01 Compared to ECG 07/29/2017 23:05:44 No significant changes Electronically Signed On 10-04-2017 17:39:39 CDT by Miguel Ayala
[2017-09-28 11:21] VITALS: BP 155/80
--- NOTE | 2017-09-28 12:15 | HP ---
ADMIT DATE: 09/28/2017 HISTORY OF PRESENT ILLNESS: The patient is a 46-year-old diabetic female who has been having problems with apparently she lost her medications and she started to have high blood sugars, came in and she was hyperglycemic, sugars as over 400. She also had nausea, vomiting. Denies chest pain, shortness of breath. As a result of this, the patient was admitted to the hospital for further evaluation. She had ketones in her urine. PAST MEDICAL HISTORY: Includes teeth due to basal cell carcinoma in the mouth, TIAs, headaches, cardiac disease, heart murmurs sleep apnea, hiatal hernia, obesity, GERD, sexually transmitted disease. She has herpes, osteoarthritis, scoliosis, bilateral surgery on her ankles, type 2 diabetes, morbid obesity, hypothyroidism, PTSD, narcolepsy, panic disorders, depression, anxiety, history of basal cell skin cancer. Her immunizations are up to date including her influenza and pneumococcal vaccination and she uses a CPAP for her sleep apnea. FAMILY HISTORY: There are problems with hypertension, gastrointestinal disease, type 2 diabetes, depression, and allergies. ALLERGIES: Include LATEX, NATURAL RUBBER, PENICILLIN, SULFUR, ADHESIVES, AMOXICILLIN, ATROPINE, BLACK PEPPER, DIPHENOXYLATE, HYDROGEN PEROXIDE, LANOLIN METHYLNALTREXONE, NAPROXEN, SUMATRIPTAN, TETANUS IMMUNIZATION, GLOBULIN. MEDICATIONS: Normally include Zyrtec 10 mg, acyclovir 500 daily, propranolol 80 mg daily, ibuprofen 800 mg p.r.n., gabapentin 300 mg, bupropion XL 300 mg, Abilify 15 mg, lorazepam, Maxalt 10 mg p.r.n. for headache, benztropine mesylate 1 mg b.i.d., Prilosec 40 mg daily, metformin 500 mg b.i.d., insulin Tresiba 40 mg, Invokana 300 mg, Actos 15 mg daily, levothyroxine 100 mcg daily and some ointment. The patient is a full code. SOCIAL HISTORY: The patient denies smoking or drinking. REVIEW OF SYSTEMS: The patient has been feeling lightheaded, dizzy, nauseated, diaphoretic, weak and dehydrated. Denies chest pain, shortness of breath. Denies abdominal pain. Does have some nausea that is. No melena, hematochezia, hematemesis and neurologically baseline for her, alert and oriented. PHYSICAL EXAMINATION: GENERAL: This is a pleasant white female, morbidly obese. VITAL SIGNS: Blood pressure 150/80, respiratory 23, pulse 98-100, temperature 98.5, oxygen saturation 99%. HEENT: The patient's head was atraumatic, normocephalic. Eyes: PERRL without jaundice. The mouth and throat were normal. NECK: Supple, without JVD, carotid bruits. No thyromegaly. LUNGS: Diminished throughout, poor movement of air. CARDIOVASCULAR: Regular sinus rhythm, S1, S2. ABDOMEN: Markedly protuberant, soft, nontender except mildly in the epigastric area. EXTREMITIES: Without clubbing, cyanosis. Trace edema. NEUROLOGIC: The patient was alert and oriented x 3. Speech fluent, spontaneous, appropriate. Cranial nerves 2-12 are grossly intact. The patient was admitted for further evaluation and treatment. Sugars are close to 400, positive ketones in the urine. Sodium, potassium, BUN and creatinine all within normal range. Troponins were negative. PLAN: The patient will be started re-back on her insulin. She will also be started on electrolyte protocol, potassium dropped down to 3 and we will make further evaluation on her as indicated per those results. IMPRESSION: Diabetic ketoacidosis, morbid obesity, noncompliance, multiple other comorbidities, anemia of chronic disease, hypokalemia. PLAN: As above. CHIKA WARREN MD DR: MOUNA/glenn JOB#: [id number] / [id number]
[2017-09-28] MEDS ORDERED: NYST60PO TP (13:00)
[2017-09-29] MEDS ORDERED: NON FORMULARY ITEM (Canagliflozin (Invokana) 300 MG) PO SCH (09:00)
== END 2017-09-28 14:27 | disposition home or self-care (01) | DRG 638 ==
LOC: ER 19:13 → 1 SOUTH 22:00
PROVIDERS: ADMIT Family Medicine; ATTEND Family Medicine
DX: E11.10 Type 2 diabetes mellitus with ketoacidosis without coma (principal); Z68.43 Body mass index [BMI] 50.0-59.9, adult; E66.01 Morbid (severe) obesity due to excess calories; N39.0 Urinary tract infection, site not specified; D63.8 Anemia in other chronic diseases classified elsewhere; G47.30 Sleep apnea, unspecified; E03.9 Hypothyroidism, unspecified; E87.6 Hypokalemia; M41.9 Scoliosis, unspecified; F43.10 Post-traumatic stress disorder, unspecified; K21.9 Gastro-esophageal reflux disease without esophagitis; J45.909 Unspecified asthma, uncomplicated; Z81.8 Family history of other mental and behavioral disorders; Z82.49 Family history of ischemic heart disease and other diseases of the circulatory system; Z85.828 Personal history of other malignant neoplasm of skin; Z86.73 Personal history of transient ischemic attack (TIA), and cerebral infarction without residual deficits; Z91.19 Patient's noncompliance with other medical treatment and regimen; Z83.3 Family history of diabetes mellitus; Z90.49 Acquired absence of other specified parts of digestive tract; Z88.1 Allergy status to other antibiotic agents; Z91.040 Latex allergy status; Z88.0 Allergy status to penicillin; Z88.2 Allergy status to sulfonamides; Z88.7 Allergy status to serum and vaccine; Z88.8 Allergy status to other drugs, medicaments and biological substances; Z91.018 Allergy to other foods; Z91.09 Other allergy status, other than to drugs and biological substances; Z91.048 Other nonmedicinal substance allergy status; Z79.899 Other long term (current) drug therapy; M19.90 Unspecified osteoarthritis, unspecified site; F32.9 Major depressive disorder, single episode, unspecified; B00.9 Herpesviral infection, unspecified
CPT/HCPCS: 36415; 80048; 80061; 80307; 81001; 81025; 82803; 82947; 84484; 85025; 87040; 87086; 87324; 93005; 94640; 96360; J1815; J2405; J7120; 99285-25; G0479; J7030

== ENCOUNTER → 2018-02-16 | Outpatient (CLI) | payer MEDICARE, MEDICAID ==
[~2018-02-16] MED LIST changes: +BUPR300T4 PO; +ESCITALOPRAM OX10 MG PO; +LORA-254 PO; -LORA1TAB PO; +METF500T16 PO; -METF500T5 PO; +MUPI22OI2 TP; +NYST60PO TP; +RIZA10TA PO
--- NOTE | 2018-02-16 12:06 | RAD ---
Lumbar spine, 3 views, 02/16/2018: HISTORY: Low back pain, right-sided pain The lumbar vertebral heights and intervertebral disc spaces are well-maintained. There are mild scattered marginal spurs. There are mild degenerative changes involving the facet joints in the lower lumbar spine. No fracture or dislocation is identified. The paraspinous soft tissues are unremarkable. IMPRESSION: 1. Mild scattered degenerative changes. 2. No acute abnormality is detected. Electronically signed by: Laurent Candelaria MD (02/16/2018 12:02 PM) [facility]
== END | disposition home or self-care (01) ==
LOC: DXRAD 09:29
PROVIDERS: ATTEND Physician Assistant
DX: M47.896 Other spondylosis, lumbar region (principal); M46.06 Spinal enthesopathy, lumbar region; E11.9 Type 2 diabetes mellitus without complications; I10 Essential (primary) hypertension; E03.9 Hypothyroidism, unspecified; G43.909 Migraine, unspecified, not intractable, without status migrainosus; I25.10 Atherosclerotic heart disease of native coronary artery without angina pectoris; Z91.09 Other allergy status, other than to drugs and biological substances; Z91.048 Other nonmedicinal substance allergy status; Z86.2 Personal history of diseases of the blood and blood-forming organs and certain disorders involving the immune mechanism; Z86.73 Personal history of transient ischemic attack (TIA), and cerebral infarction without residual deficits; Z85.828 Personal history of other malignant neoplasm of skin; Z87.891 Personal history of nicotine dependence; Z90.49 Acquired absence of other specified parts of digestive tract; Z91.018 Allergy to other foods; Z88.2 Allergy status to sulfonamides; Z88.7 Allergy status to serum and vaccine; Z88.0 Allergy status to penicillin; Z88.1 Allergy status to other antibiotic agents; Z88.8 Allergy status to other drugs, medicaments and biological substances; Z82.49 Family history of ischemic heart disease and other diseases of the circulatory system; Z84.89 Family history of other specified conditions; Z81.8 Family history of other mental and behavioral disorders; Z83.79 Family history of other diseases of the digestive system; Z83.3 Family history of diabetes mellitus
CPT/HCPCS: 72100

== ENCOUNTER 2018-03-04 12:20 | Inpatient (IN) | payer MEDICARE, MEDICAID ==
[~2018-03-04] VITALS: Ht 174 cm; Wt 178.8 kg
[2018-03-04 13:15] VITALS: BP 132/73
[2018-03-04 13:37] LABS: BASO % 0 % (0-3); EOS # 0.2 x10^3/uL (0.0-0.7); EOS % 4 % (0-3); HEMOGLOBIN 12.6 g/dL (12.0-15.5); LYMPH # 1.9 x10^3/uL (1.0-4.8); LYMPH % 31 % (24-48); MEAN CORPUSCULAR HEMOGLOBIN 26 pg (25-35); MEAN CORPUSCULAR HGB CONC 32 g/dL (31-37); MEAN CORPUSCULAR VOLUME 81 fL (79-100); MONO # 0.4 x10^3/uL (0.0-1.1); MONO % 7 % (0-9); NEUT # 3.7 x10^3uL (1.8-7.7); NEUT % 59 % (31-73); PLATELET COUNT 200 x10^3/uL (140-400); RED BLOOD COUNT 4.84 x10^6/uL (3.50-5.40); RED CELL DISTRIBUTION WIDTH 14.5 % (11.5-14.5); WHITE BLOOD COUNT 6.3 x10^3/uL (4.0-11.0)
[2018-03-04] MEDS ORDERED: MORPHINE SULFATE 2 MG/ML DISP.SYRIN. IV PRN (13:45)
--- NOTE | 2018-03-04 13:45 | EKG ---
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
[2018-03-04 13:58] LABS: ALBUMIN 3.2 g/dL (3.4-5.0); ALBUMIN/GLOBULIN RATIO 0.7 (1.0-1.7); CALCIUM 9.6 mg/dL (8.5-10.1); MAGNESIUM 1.6 mg/dL (1.8-2.4); POTASSIUM 3.4 mmol/L (3.5-5.1); TOTAL BILIRUBIN 0.4 mg/dL (0.2-1.0); TOTAL PROTEIN 7.6 g/dL (6.4-8.2)
[2018-03-04] MEDS ORDERED: POTASSIUM CHLORIDE 20 MEQ TABLET.ER. PO ONE (14:45)
[2018-03-04] MEDS ORDERED: MAGNESIUM SULFATE 2GM 50 ML IV ONE (14:45)
[2018-03-04] MEDS ORDERED: IBUPROFEN 800 MG TABLET. PO PRN (14:45)
[2018-03-04] MEDS ORDERED: IOHEXOL 300 MG/ML 75 ML VIAL. IV ONE (15:00)
[2018-03-04] MEDS: KETOROLAC 30 MG/ML VIAL. IV PRN (15:18)
[2018-03-04] MEDS ORDERED: CONTRAST GIVEN MC PRN (15:45)
[2018-03-04] MEDS ORDERED: IOHEXOL 300 MG/ML 50 ML VIAL. IV ONE (15:45)
[2018-03-04] MEDS: MORPHINE SULFATE 4 MG/ML DISP.SYRIN. IV PRN (16:11)
--- NOTE | 2018-03-04 16:28 | RAD ---
Examination: CT ANGIOGRAPHY CHEST, CT ABD PELV W/ IV CONTRST ONLY History: PT WEIGHT 385LS. 100MLS OMNI 300 IV CONTRAST. ELEVATED D-DIMER, ABDOMINAL PAIN. Comparison/Correlation: CTA chest 12/22/2016, CT pelvis without contrast 09/06/2016 Findings: Axial images of the chest, abdomen, and pelvis were obtained following 100 cc Omnipaque 300 IV. Imaging of the chest was performed at 20 pulmonary arteriography protocol. Sagittal and coronal reformatted images were provided. Pulmonary arterial vasculature is normal with no thromboembolic disease. No infiltrate. No pneumothorax or pleural effusion. No enlarged thoracic lymph nodes. Thoracic aorta is normal. Excellent opacification of the thoracic aorta is identified on this exam. Right thoracoplasty noted. Cholecystectomy noted. Mild diffuse fatty infiltration of liver is present. Spleen is borderline in size measuring 13 cm longitudinal. Adrenal glands and kidneys are normal. No enlarged abdominal or pelvic lymph nodes. Minimal diverticulosis of the colon is present without findings of acute inflammation. Fibroid uterus is present. Bilateral sacroiliac joint vacuum phenomenon is present. Impression: No pulmonary arterial thromboembolic disease. No infiltrate. Borderline splenomegaly. Diverticulosis. Fibroid uterus. Fatty infiltration of the liver. Electronically signed by: Adiel Byrd MD (03/04/2018 4:24 PM) [id number]
[2018-03-04] MEDS: ACETAMINOPHEN 325 MG TABLET PO SCH (17:16)
[2018-03-04] MEDS: IPRATRPIUM/ALBUTEROL 0.5/2.5MG 3 ML NEBU. NEB SCH ×2 (17:16→19:52)
[2018-03-04] MEDS: GABAPENTIN 300 MG CAPSULE. PO SCH ×2 (17:16→21:24)
[2018-03-04] MEDS: ONDANSETRON PF 4 MG/2 ML VIAL. IV PRN (17:49)
[2018-03-04] MEDS: IV NORMAL SALINE 1,000ML 1,000 ML IV SCH (17:53)
[2018-03-04 18:09] LABS: CLARITY,URINE HAZY; COLOR,URINE YELLOW
[2018-03-04 18:10] LABS: BACTERIA,URINE FEW /HPF (0-FEW); BILIRUBIN,URINE NEG (NEG); GLUCOSE,URINE >=1000 mg/dL (NEG); NITRITE,URINE NEG (NEG); SQUAMOUS EPITHELIAL CELL,UR FEW /LPF; UROBILINOGEN,URINE 0.2 mg/dL (0.2 mg/dL); YEAST,URINE PRESENT /HPF
[2018-03-04 19:14] VITALS: BP 91/55
[2018-03-04] MEDS: NYSTATIN TOPICAL POWDER 15GM BOTTLE. TP SCH (21:22)
[2018-03-04] MEDS: BENZTROPINE MESYLATE 1 MG TABLET PO SCH (21:24)
[2018-03-04] MEDS: MUPIROCIN 2% TOPICAL OINTMENT 22GM TUBE. TP SCH (21:24)
[2018-03-04] MEDS: LORazepam 1 MG TABLET PO SCH (21:24)
[2018-03-05] MEDS: ACETAMINOPHEN 325 MG TABLET PO SCH ×5 (00:19→22:51)
[2018-03-05] MEDS: MORPHINE SULFATE 4 MG/ML DISP.SYRIN. IV PRN (00:24)
[2018-03-05] MEDS: IPRATRPIUM/ALBUTEROL 0.5/2.5MG 3 ML NEBU. NEB SCH ×4 (04:54→20:02)
[2018-03-05] MEDS: LEVOTHYROXINE 150 MCG TABLET PO SCH (05:30)
[2018-03-05 05:36] VITALS: BP 109/58
[2018-03-05] MEDS: KETOROLAC 30 MG/ML VIAL. IV PRN ×2 (05:37→19:54)
[2018-03-05] MEDS: IV NORMAL SALINE 1,000ML 1,000 ML IV SCH ×2 (05:39→20:40)
[2018-03-05 06:31] LABS: BASO % 1 % (0-3); EOS # 0.2 x10^3/uL (0.0-0.7); EOS % 4 % (0-3); HEMATOCRIT 35.6 % (36.0-47.0); HEMOGLOBIN 11.8 g/dL (12.0-15.5); LYMPH # 1.7 x10^3/uL (1.0-4.8); LYMPH % 33 % (24-48); MEAN CORPUSCULAR HEMOGLOBIN 27 pg (25-35); MEAN CORPUSCULAR HGB CONC 33 g/dL (31-37); MEAN CORPUSCULAR VOLUME 80 fL (79-100); MONO # 0.3 x10^3/uL (0.0-1.1); MONO % 6 % (0-9); NEUT # 2.9 x10^3uL (1.8-7.7); NEUT % 56 % (31-73); PLATELET COUNT 179 x10^3/uL (140-400); RED BLOOD COUNT 4.45 x10^6/uL (3.50-5.40); RED CELL DISTRIBUTION WIDTH 14.7 % (11.5-14.5); WHITE BLOOD COUNT 5.2 x10^3/uL (4.0-11.0)
[2018-03-05 06:49] LABS: ALBUMIN 2.8 g/dL (3.4-5.0); ALBUMIN/GLOBULIN RATIO 0.7 (1.0-1.7); CALCIUM 8.7 mg/dL (8.5-10.1); MAGNESIUM 2.1 mg/dL (1.8-2.4); POTASSIUM 3.3 mmol/L (3.5-5.1); TOTAL BILIRUBIN 0.4 mg/dL (0.2-1.0); TOTAL PROTEIN 6.9 g/dL (6.4-8.2)
[2018-03-05 07:41] VITALS: BP 101/62
[2018-03-05] MEDS: PANTOPRAZOLE 40 MG TABLET. PO SCH (07:54)
[2018-03-05] MEDS: GABAPENTIN 300 MG CAPSULE. PO SCH ×4 (08:37→19:54)
[2018-03-05] MEDS: PIOGLITAZONE 15 MG TABLET. PO SCH (08:37)
[2018-03-05] MEDS: valACYclovir 500 MG TABLET. PO SCH (08:38)
[2018-03-05] MEDS: BENZTROPINE MESYLATE 1 MG TABLET PO SCH ×2 (08:38→19:54)
[2018-03-05] MEDS: ARIPiprazole 15 MG TABLET PO SCH (08:38)
[2018-03-05] MEDS: LORazepam 1 MG TABLET PO SCH ×2 (08:38→19:54)
[2018-03-05] MEDS: CETIRIZINE HCL 10 MG TABLET PO SCH (08:38)
[2018-03-05] MEDS: buPROPion XL 300 MG TAB.ER.24H. PO SCH (08:39)
[2018-03-05] MEDS: PROPRANOLOL ER 60 MG CAP.SA.24H. PO SCH (08:40)
[2018-03-05] MEDS: NYSTATIN TOPICAL POWDER 15GM BOTTLE. TP SCH ×2 (09:00→19:55)
[2018-03-05] MEDS: MUPIROCIN 2% TOPICAL OINTMENT 22GM TUBE. TP SCH ×2 (09:00→19:55)
[2018-03-05] MEDS: ONDANSETRON PF 4 MG/2 ML VIAL. IV PRN (10:14)
[2018-03-05] MEDS ORDERED: ELECTROLYTE (NON-ICU) PROTOCOL MC PRN (10:15)
[2018-03-05 11:47] VITALS: BP 111/63
[2018-03-05 15:59] VITALS: BP 100/65
[2018-03-05 18:23] VITALS: BP 110/79
[2018-03-05] MEDS ORDERED: MUPIROCIN 2% TOPICAL OINTMENT 22GM TUBE. TP SCH (21:00)
[2018-03-05 22:14] LABS: HEMOGLOBIN A1C 11.7 % (4.8-5.6)
[2018-03-06] MEDS: MORPHINE SULFATE 4 MG/ML DISP.SYRIN. IV PRN (00:12)
--- NOTE | 2018-03-06 01:58 | PN ---
DATE: 03/05/2018 SUBJECTIVE: A 47-year-old female came in with multiple complaints of nausea, vomiting, and shortness of breath. The patient is running high blood sugars and cardiac enzymes have been negative. Amylase and lipase are not reported out as yet. There was slight elevated D-dimer, positive for MRSA. Her CTA was negative for PE, although she did have fatty infiltrate of the liver. OBJECTIVE: VITAL SIGNS: Blood pressure 110/60, respiratory rate 22, pulse 80, afebrile. GENERAL: The patient is alert and oriented x3. LUNGS: Diminished. The patient feels fairly ill, holding her epigastric area. The patient's lungs are clear. CARDIOVASCULAR: Regular sinus rhythm. ABDOMEN: Soft. Definite tenderness in the epigastric area with slight guarding, but no rebounding. ASSESSMENT: The patient otherwise has abdominal pain, dyspnea, hyperglycemia, morbid obesity, and nausea. DICTATION ENDS HERE CHIKA WARREN MD DR: MOUNA/glenn JOB#: [id number] / [id number]
[2018-03-06] MEDS: KETOROLAC 30 MG/ML VIAL. IV PRN (04:32)
[2018-03-06] MEDS: ACETAMINOPHEN 325 MG TABLET PO SCH ×2 (04:32→12:11)
[2018-03-06 05:03] VITALS: BP 98/65
[2018-03-06] MEDS: IPRATRPIUM/ALBUTEROL 0.5/2.5MG 3 ML NEBU. NEB SCH ×2 (05:03→12:00)
[2018-03-06] MEDS: LEVOTHYROXINE 150 MCG TABLET PO SCH (05:07)
[2018-03-06] MEDS ORDERED: PANTOPRAZOLE 40 MG TABLET. PO SCH (07:30)
[2018-03-06] MEDS: MUPIROCIN 2% TOPICAL OINTMENT 22GM TUBE. TP SCH (09:00)
[2018-03-06] MEDS: NYSTATIN TOPICAL POWDER 15GM BOTTLE. TP SCH (09:00)
[2018-03-06] MEDS: PROPRANOLOL ER 60 MG CAP.SA.24H. PO SCH (09:00)
[2018-03-06] MEDS: BENZTROPINE MESYLATE 1 MG TABLET PO SCH (09:19)
[2018-03-06] MEDS: LORazepam 1 MG TABLET PO SCH (09:19)
[2018-03-06] MEDS: CETIRIZINE HCL 10 MG TABLET PO SCH (09:19)
[2018-03-06] MEDS: GABAPENTIN 300 MG CAPSULE. PO SCH ×2 (09:19→13:05)
[2018-03-06] MEDS: PIOGLITAZONE 15 MG TABLET. PO SCH (09:19)
[2018-03-06] MEDS: PANTOPRAZOLE 40 MG TABLET. PO SCH (09:19)
[2018-03-06] MEDS: buPROPion XL 300 MG TAB.ER.24H. PO SCH (09:20)
[2018-03-06] MEDS: ARIPiprazole 15 MG TABLET PO SCH (09:20)
[2018-03-06] MEDS: valACYclovir 500 MG TABLET. PO SCH (09:22)
[2018-03-06] MEDS: IV NORMAL SALINE 1,000ML 1,000 ML IV SCH (10:00)
[2018-03-06 12:16] VITALS: BP 116/77
[2018-03-06] MEDS ORDERED: IPRA3AMP29 NEB (14:47)
--- NOTE | 2018-03-06 15:23 | DS ---
DATE OF DISCHARGE: 03/06/2018 HOSPITAL COURSE: The patient is a 47-year-old female who is having problems with breathing as well as with nausea and vomiting. CT scan was unremarkable. The patient was given respiratory therapy treatments and that seemed to help her breathe better overall. Blood pressure came up to 116/70, respiratory rate 20, pulse 76. The patient made good progress from the rest of her hospitalization and she was discharged home. She did have positivity for MRSA. IMPRESSION: Acute exacerbation of chronic obstructive pulmonary disease, severe morbid obesity, nausea, vomiting, abdominal pain. The patient continued to be monitored carefully, make further evaluation on her as indicated. She will be on a diabetic diet, increased activity, return to clinic in 7-10 days or sooner as needed. CHIKA WARREN MD DR: MOUNA/glenn JOB#: [id number] / [id number]
[2018-03-06] MEDS ORDERED: metFORMIN 500 MG TABLET PO SCH (17:00)
== END 2018-03-06 15:05 | disposition home or self-care (01) | DRG 191 ==
LOC: ICU 12:51 → 1 SOUTH 03-05 15:00
PROVIDERS: ADMIT Family Medicine; ATTEND Family Medicine
DX: J44.1 Chronic obstructive pulmonary disease with (acute) exacerbation (principal); Z68.43 Body mass index [BMI] 50.0-59.9, adult; E66.01 Morbid (severe) obesity due to excess calories; R73.9 Hyperglycemia, unspecified; Z88.6 Allergy status to analgesic agent; Z88.4 Allergy status to anesthetic agent; Z88.1 Allergy status to other antibiotic agents; Z88.2 Allergy status to sulfonamides; Z88.7 Allergy status to serum and vaccine; Z88.8 Allergy status to other drugs, medicaments and biological substances; Z91.018 Allergy to other foods; Z91.048 Other nonmedicinal substance allergy status; Z79.899 Other long term (current) drug therapy
CPT/HCPCS: 36415; 71275; 74177; 80053; 80061; 81001; 82150; 82947; 83036; 83690; 83735; 83880; 84484; 85025; 85379; 87641; 90471; 90756; 93005; 94640; J1885; J2270; J2405; J3475; J7620; Q9967; J7030; Q2035

== ENCOUNTER → 2018-03-07 | Outpatient (CLI) | payer MEDICARE, MEDICAID ==
[2018-03-06 12:16] VITALS: BP 116/77
[~2018-03-07] MED LIST changes: +IPRA3AMP29 NEB
--- NOTE | 2018-03-07 15:35 | RAD ---
DATE: 03/07/2018 EXAM: MAMMO STEVEN SCREENING BILATERAL HISTORY: Routine screening COMPARISON: 02/18/2015 This study was interpreted with the benefit of Computerized Aided Detection (CAD). Breast Density: SCATTERED The breast parenchyma shows scattered fibroglandular densities. Breast parenchyma level B. FINDINGS: 2-D and 3-D tomosynthesis imaging was performed in CC and MLO projections. No new or enlarging breast densities are seen. Benign type calcifications are present. No suspicious microcalcifications have developed. IMPRESSION: There is no mammographic evidence of malignancy in either breast. BI-RADS CATEGORY: 2 BENIGN FINDING(S) RECOMMENDED FOLLOW-UP: 12M 12 MONTH FOLLOW-UP PQRS compliance statement: Patient information was entered into a reminder system with a target due date for the next mammogram. Mammography is a sensitive method for finding small breast cancers, but it does not detect them all and is not a substitute for careful clinical examination. A negative mammogram does not negate a clinically suspicious finding and should not result in delay in biopsying a clinically suspicious abnormality. "Our facility is accredited by the [employer] Mammography Program."
== END | disposition home or self-care (01) ==
LOC: MAMMO 12:46
PROVIDERS: ATTEND Physician Assistant
DX: Z12.31 Encounter for screening mammogram for malignant neoplasm of breast (principal); Z86.79 Personal history of other diseases of the circulatory system
CPT/HCPCS: 77063; 77067

== ENCOUNTER 2018-03-19 12:08 | Emergency (ER) | payer MEDICARE, MEDICAID ==
[~2018-03-19] VITALS: Ht 172.7 cm; Wt 174.6 kg
[2018-03-19] MEDS ORDERED: ONDANSETRON ODT 4 MG TAB.RAPDIS PO ONE (13:25)
[2018-03-19] MEDS ORDERED: CYCLOBENZAPRINE 10 MG TABLET. PO ONE (13:25)
[2018-03-19 14:00] LABS: BACTERIA,URINE 0 /HPF (0-FEW); BILIRUBIN,URINE NEG (NEG); CLARITY,URINE HAZY; COLOR,URINE YELLOW; GLUCOSE,URINE >=1000 mg/dL (NEG); NITRITE,URINE NEG (NEG); RBC,URINE 0 /HPF (0-2); SQUAMOUS EPITHELIAL CELL,UR FEW /LPF; UROBILINOGEN,URINE 0.2 mg/dL (0.2 mg/dL); WBC,URINE 0 /HPF (0-4)
[2018-03-19] MEDS ORDERED: ACET-704 PO (14:16)
[2018-03-19] MEDS ORDERED: CYCL-331 PO (14:16)
--- NOTE | 2018-03-19 14:17 | PHYS DOC ---
Past History Past Medical History: Anxiety, Arrhythmia, Bipolar, Cancer, Diabetes, GERD, Heart Disease, Hypertension, Hypothyroid, Migraines, MRSA, Other Past Surgical History: Cholecystectomy, Other Additional Past Surgical Histo: Eye, bilateral ankles, right thumb. Smoking: Non-smoker Alcohol Use: None Drug Use: None Adult General Chief Complaint Chief Complaint: BACK PAIN OR INJURY HPI HPI Patient is a 47 year old female who presents with complaining of low back pain since last night as a constant pain without radiation. Patient denies fever and chills, urinary symptom, nausea and vomiting. Patient said the pain getting force with movement. She denies recent fall or injury. Review of Systems Review of Systems Constitutional: Denies fever or chills [] Eyes: Denies change in visual acuity, redness, or eye pain [] HENT: Denies nasal congestion or sore throat [] Respiratory: Denies cough or shortness of breath [] Cardiovascular: No additional information not addressed in HPI [] GI: Denies abdominal pain, nausea, vomiting, bloody stools or diarrhea [] : Denies dysuria or hematuria [] Musculoskeletal: Reports back pain Neurologic: Denies headache, focal weakness or sensory changes [] Endocrine: Denies polyuria or polydipsia [] All other systems were reviewed and found to be within normal limits, except as documented in this note. Current Medications Current Medications Current Medications Medications (Trade) Dose Ordered Sig/Carlie Start Time Stop Time Status Last Admin Dose Admin Cyclobenzaprine HCl (Flexeril) 10 mg 1X ONCE 03/19/18 13:25 03/19/18 13:26 DC 03/19/18 13:03 10 MG Ondansetron HCl (Zofran Odt) 4 mg 1X ONCE 03/19/18 13:25 03/19/18 13:26 DC 03/19/18 13:03 4 MG Allergies Allergies Allergies Coded Allergies Type Severity Reaction Last Updated Verified amoxicillin Allergy Severe 09/27/17 Yes atropine Allergy Severe 09/28/17 Yes black pepper Allergy Severe 09/27/17 Yes diphenoxylate Allergy Severe 09/28/17 Yes methylnaltrexone Allergy Severe 09/27/17 Yes Latex, Natural Rubber Allergy Intermediate 07/07/17 Yes Penicillins Allergy Intermediate 07/07/17 Yes Sulfa (Sulfonamide Antibiotics) Allergy Intermediate 07/07/17 Yes hydrogen peroxide Allergy Intermediate 07/07/17 Yes lanolin Allergy Intermediate 07/07/17 Yes naproxen Allergy Intermediate 09/28/17 Yes sumatriptan Allergy Intermediate 07/07/17 No tetanus immune globulin Allergy Intermediate 07/07/17 No I S O L A T I O N *CONTACT* Allergy Unknown 03/07/18 Yes adhesive Adverse Reaction Intermediate Rash 07/07/17 Yes Physical Exam Physical Exam Constitutional: Well nourished, no acute distress, non-toxic appearance, morbidly obese. [], bilateral external ears normal, oropharynx moist, no oral exudates, nose normal. [] Eyes: PERRLA, EOMI, conjunctiva normal, no discharge. [] Neck: Normal range of motion, no tenderness, supple, no stridor. [] Cardiovascular:Heart rate regular rhythm, no murmur [] Lungs & Thorax: Bilateral breath sounds clear to auscultation [] Abdomen: Bowel sounds normal, soft, no tenderness, no masses, no pulsatile masses. [] Skin: Warm, dry, no erythema, no rash. [] Back: No tenderness, no CVA tenderness. [] Extremities: No tenderness, no cyanosis, no clubbing, ROM intact, no edema. [] Neurologic: Alert and oriented X 3, normal motor function, normal sensory function, no focal deficits noted. [] Psychologic: Affect normal, judgement normal, mood normal. [] Current Patient Data Vital Signs Vital Signs Date Time Temp Pulse Resp B/P (MAP) Pulse Ox O2 Delivery O2 Flow Rate FiO2 03/19/18 12:26 85 20 98 Room Air Lab Results Laboratory Tests Test 03/19/18 13:28 Urine Collection Type Unknown Urine Color Yellow Urine Clarity Hazy Urine pH 6.0 Urine Specific [place] <=1.005 Urine Protein Neg (NEG-TRACE) Urine Glucose (UA) >=1000 mg/dL (NEG) Urine Ketones (Stick) 40 mg/dL (NEG) Urine Blood Neg (NEG) Urine Nitrite Neg (NEG) Urine Bilirubin Neg (NEG) Urine Urobilinogen Dipstick 0.2 mg/dL (0.2 mg/dL) Urine Leukocyte Esterase Neg (NEG) Urine RBC 0 /HPF (0-2) Urine WBC 0 /HPF (0-4) Urine Squamous Epithelial Cells Few /LPF Urine Bacteria 0 /HPF (0-FEW) EKG EKG [] Radiology/Procedures Radiology/Procedures [] Course & Med Decision Making Course & Med Decision Making Pertinent Labs reviewed. (See chart for details) Evaluation of patient in ER showed 47-year-old female patient with complaining of low back pain since yesterday. Patient had unremarkable physical exam except for morbid obesity. UA showed more than 1000 mg of glucose but patient refused to have blood tests and wanted to go home. Plan discharge patient home with diagnosis of lumbosacral strain. Patient instructed to follow up with diabetic diet and her primary care physician regarding treatment of diabetes. Dragon Disclaimer Dragon Disclaimer This electronic medical record was generated, in whole or in part, using a voice recognition dictation system. Departure Departure: Impression: Primary Impression: Acute lumbosacral myofascial strain Additional Impressions: Glucosuria Morbid obesity Disposition: HOME, SELF-CARE (at 1413) Condition: IMPROVED Referrals: CHIKA WARREN MD (PCP) Patient Instructions: 2400 Calorie Diet for Diabetes Meal Planning, Lumbosacral Strain Additional Instructions: Apply ice on your back Follow-up with your primary care physician in 3-5 days Return to ER if not getting better Scripts Acetaminophen With Codeine (TYLENOL WITH CODEINE #3 TABLET) 1 Each Tablet 1 TAB PO Q6HRS, #10 TAB Prov: BIJU CABALLERO MD 03/19/18 Cyclobenzaprine Hcl (CYCLOBENZAPRINE HCL) 10 Mg Tablet 1 TAB PO TID, #30 TAB Prov: BIJU CABALLERO MD 03/19/18 Problem Qualifiers BIJU CABALLERO MD Mar 19, 2018 14:17
[2018-03-19 14:18] VITALS: BP 150/81
== END 2018-03-19 14:18 | disposition home or self-care (01) ==
LOC: ER 12:08
DX: S39.012A Strain of muscle, fascia and tendon of lower back, initial encounter (principal); R81 Glycosuria; E66.01 Morbid (severe) obesity due to excess calories; F41.9 Anxiety disorder, unspecified; F31.9 Bipolar disorder, unspecified; E11.9 Type 2 diabetes mellitus without complications; K21.9 Gastro-esophageal reflux disease without esophagitis; I11.9 Hypertensive heart disease without heart failure; E03.9 Hypothyroidism, unspecified; G43.909 Migraine, unspecified, not intractable, without status migrainosus; Z68.43 Body mass index [BMI] 50.0-59.9, adult; Z86.14 Personal history of Methicillin resistant Staphylococcus aureus infection; Z88.1 Allergy status to other antibiotic agents; Z88.0 Allergy status to penicillin; Z91.041 Radiographic dye allergy status; Z91.040 Latex allergy status; Z88.2 Allergy status to sulfonamides; Z88.7 Allergy status to serum and vaccine; Z88.8 Allergy status to other drugs, medicaments and biological substances; Z91.018 Allergy to other foods; X58.XXXA Exposure to other specified factors, initial encounter; Y93.89 Activity, other specified; Y92.89 Other specified places as the place of occurrence of the external cause; Y99.8 Other external cause status
CPT/HCPCS: 81001; 99283; Q0162

== ENCOUNTER 2018-03-25 00:19 | Emergency (ER) | payer MEDICARE, MEDICAID ==
[~2018-03-25] VITALS: Ht 172.7 cm; Wt 172.0 kg
[~2018-03-25 00:19] MED LIST changes: +ACET-704 PO
[2018-03-25] MEDS ORDERED: INSULIN REGULAR 100 UNIT/ML 3ML VIAL. IV ONE (01:00)
[2018-03-25] MEDS ORDERED: IV NORMAL SALINE 1,000ML 1,000 ML IV SCH (01:00)
[2018-03-25 01:03] LABS: BASO % 0 % (0-3); EOS # 0.1 x10^3/uL (0.0-0.7); EOS % 4 % (0-3); HEMATOCRIT 38.1 % (36.0-47.0); LYMPH # 1.4 x10^3/uL (1.0-4.8); LYMPH % 42 % (24-48); MEAN CORPUSCULAR HEMOGLOBIN 26 pg (25-35); MEAN CORPUSCULAR HGB CONC 32 g/dL (31-37); MEAN CORPUSCULAR VOLUME 82 fL (79-100); MONO # 0.4 x10^3/uL (0.0-1.1); MONO % 13 % (0-9); NEUT # 1.3 x10^3uL (1.8-7.7); NEUT % 40 % (31-73); PLATELET COUNT 179 x10^3/uL (140-400); RED BLOOD COUNT 4.68 x10^6/uL (3.50-5.40); RED CELL DISTRIBUTION WIDTH 15.2 % (11.5-14.5); WHITE BLOOD COUNT 3.3 x10^3/uL (4.0-11.0)
[2018-03-25 01:08] LABS: CLARITY,URINE CLEAR; COLOR,URINE YELLOW
[2018-03-25 01:09] LABS: BACTERIA,URINE 0 /HPF (0-FEW); BILIRUBIN,URINE NEG (NEG); GLUCOSE,URINE >=1000 mg/dL (NEG); NITRITE,URINE NEG (NEG); RBC,URINE OCC /HPF (0-2); SQUAMOUS EPITHELIAL CELL,UR FEW /LPF; UROBILINOGEN,URINE 0.2 mg/dL (0.2 mg/dL); WBC,URINE OCC /HPF (0-4); YEAST,URINE PRESENT /HPF
[2018-03-25 01:20] LABS: ALBUMIN 2.8 g/dL (3.4-5.0); ALBUMIN/GLOBULIN RATIO 0.7 (1.0-1.7); CALCIUM 8.7 mg/dL (8.5-10.1); CREATININE 1.2 mg/dL (0.6-1.0); GFR 48.6; POTASSIUM 3.6 mmol/L (3.5-5.1); TOTAL BILIRUBIN 0.3 mg/dL (0.2-1.0); TOTAL PROTEIN 6.7 g/dL (6.4-8.2)
[2018-03-25 01:49] VITALS: BP 115/70
--- NOTE | 2018-03-25 01:49 | PHYS DOC ---
Past History Past Medical History: Anxiety, Arrhythmia, Bipolar, Cancer, Diabetes, GERD, Heart Disease, Hypertension, Hypothyroid, Migraines, MRSA, Other Past Surgical History: Cholecystectomy, Other Additional Past Surgical Histo: Eye, bilateral ankles, right thumb. Smoking: Non-smoker Alcohol Use: None Drug Use: None Adult General Chief Complaint Chief Complaint: HYPERGLYCEMIA HPI HPI Patient is a 47yo female who presents with c/o headache and elevated blood sugar. Patient states that she has one of her typical migraines that has been present all day. She also indicates that her blood sugar read high at home and states that they have been running high for at least a week. She denies any chest pain or sob. She rates her headache at an 8/10 and describes it as throbbing. She states she has photophobia and nausea. She denies fever or visual changes. Review of Systems Review of Systems Constitutional: Denies fever or chills [] Eyes: Denies change in visual acuity, redness, or eye pain [] Respiratory: Denies cough or shortness of breath [] Cardiovascular: No additional information not addressed in HPI [] GI: Denies abdominal pain, vomiting or diarrhea. Admits to nausea. [] Integument: Denies rash or skin lesions [] Neurologic: Complains of headache. [] All other systems were reviewed and found to be within normal limits, except as documented in this note. Current Medications Current Medications Current Medications Medications (Trade) Dose Ordered Sig/[facility] Start Time Stop Time Status Last Admin Dose Admin Insulin Human Regular (HumuLIN R VIAL) 10 unit 1X ONCE 03/25/18 01:00 03/25/18 01:01 DC 03/25/18 00:33 10 UNIT Sodium Chloride 1,000 ml @ 1,000 mls/hr Q1H 03/25/18 01:00 03/25/18 01:59 03/25/18 00:33 1,000 MLS/HR Allergies Allergies Allergies Coded Allergies Type Severity Reaction Last Updated Verified amoxicillin Allergy Severe 09/27/17 Yes atropine Allergy Severe 09/28/17 Yes black pepper Allergy Severe 09/27/17 Yes diphenoxylate Allergy Severe 09/28/17 Yes methylnaltrexone Allergy Severe 09/27/17 Yes Latex, Natural Rubber Allergy Intermediate 07/07/17 Yes Penicillins Allergy Intermediate 07/07/17 Yes Sulfa (Sulfonamide Antibiotics) Allergy Intermediate 07/07/17 Yes hydrogen peroxide Allergy Intermediate 07/07/17 Yes lanolin Allergy Intermediate 07/07/17 Yes naproxen Allergy Intermediate 09/28/17 Yes sumatriptan Allergy Intermediate 07/07/17 No tetanus immune globulin Allergy Intermediate 07/07/17 No I S O L A T I O N *CONTACT* Allergy Unknown 03/07/18 Yes adhesive Adverse Reaction Intermediate Rash 07/07/17 Yes Physical Exam Physical Exam Constitutional: Well developed, well nourished, no acute distress, non-toxic appearance. [] HENT: Normocephalic, atraumatic, bilateral external ears normal, oropharynx moist, no oral exudates, nose normal. [] Eyes: PERRLA, EOMI, conjunctiva normal, no discharge. [] Neck: Normal range of motion, no tenderness, supple, no stridor. [] Cardiovascular:Heart rate regular rhythm [] Lungs & Thorax: Bilateral breath sounds clear to auscultation [] Abdomen: Bowel sounds normal, soft. [] Skin: Warm, dry, no erythema, no rash. [] Extremities: No tenderness, no cyanosis, no clubbing, ROM intact. [] Neurologic: Alert and oriented X 3, normal motor function, normal sensory function, no focal deficits noted. [] Current Patient Data Lab Results Laboratory Tests Test 03/25/18 00:27 03/25/18 00:30 03/25/18 00:35 03/25/18 01:43 Glucose (Fingerstick) 557 mg/dL (70-99) *H 233 mg/dL (70-99) H White Blood Count 3.3 x10^3/uL (4.0-11.0) L Red Blood Count 4.68 x10^6/uL (3.50-5.40) Hemoglobin 12.0 g/dL (12.0-15.5) Hematocrit 38.1 % (36.0-47.0) Mean Corpuscular Volume 82 fL (79-100) Mean Corpuscular Hemoglobin 26 pg (25-35) Mean Corpuscular Hemoglobin Concent 32 g/dL (31-37) Red Cell Distribution Width 15.2 % (11.5-14.5) H Platelet Count 179 x10^3/uL (140-400) Neutrophils (%) (Auto) 40 % (31-73) Lymphocytes (%) (Auto) 42 % (24-48) Monocytes (%) (Auto) 13 % (0-9) H Eosinophils (%) (Auto) 4 % (0-3) H Basophils (%) (Auto) 0 % (0-3) Neutrophils # (Auto) 1.3 x10^3uL (1.8-7.7) L Lymphocytes # (Auto) 1.4 x10^3/uL (1.0-4.8) Monocytes # (Auto) 0.4 x10^3/uL (0.0-1.1) Eosinophils # (Auto) 0.1 x10^3/uL (0.0-0.7) Basophils # (Auto) 0.0 x10^3/uL (0.0-0.2) Sodium Level 129 mmol/L (136-145) L Potassium Level 3.6 mmol/L (3.5-5.1) Chloride Level 95 mmol/L (98-107) L Carbon Dioxide Level 27 mmol/L (21-32) Anion Gap 7 (6-14) Blood Urea Nitrogen 8 mg/dL (7-20) Creatinine 1.2 mg/dL (0.6-1.0) H Estimated GFR (Cockcroft-Gault) 48.6 BUN/Creatinine Ratio 7 (6-20) Glucose Level 555 mg/dL (70-99) *H Calcium Level 8.7 mg/dL (8.5-10.1) Total Bilirubin 0.3 mg/dL (0.2-1.0) Aspartate Amino Transferase (AST) 25 U/L (15-37) Alanine Aminotransferase (ALT) 30 U/L (14-59) Alkaline Phosphatase 50 U/L (46-116) Total Protein 6.7 g/dL (6.4-8.2) Albumin 2.8 g/dL (3.4-5.0) L Albumin/Globulin Ratio 0.7 (1.0-1.7) L Urine Collection Type Unknown Urine Color Yellow Urine Clarity Clear Urine pH 5.0 Urine Specific [place] <=1.005 Urine Protein Neg (NEG-TRACE) Urine Glucose (UA) >=1000 mg/dL (NEG) Urine Ketones (Stick) Neg mg/dL (NEG) Urine Blood Mod (NEG) Urine Nitrite Neg (NEG) Urine Bilirubin Neg (NEG) Urine Urobilinogen Dipstick 0.2 mg/dL (0.2 mg/dL) Urine Leukocyte Esterase Neg (NEG) Urine RBC Occ /HPF (0-2) Urine WBC Occ /HPF (0-4) Urine Squamous Epithelial Cells Few /LPF Urine Bacteria 0 /HPF (0-FEW) Urine Yeast Present /HPF EKG EKG [] Radiology/Procedures Radiology/Procedures [] Course & Med Decision Making Course & Med Decision Making Pertinent Labs and Imaging studies reviewed. (See chart for details) [] Dragon Disclaimer Dragon Disclaimer This electronic medical record was generated, in whole or in part, using a voice recognition dictation system. 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 DO Mar 25, 2018 01:49
== END 2018-03-25 01:55 | disposition home or self-care (01) ==
LOC: ER 00:19
DX: E11.65 Type 2 diabetes mellitus with hyperglycemia (principal); R51 Headache; K21.9 Gastro-esophageal reflux disease without esophagitis; I11.9 Hypertensive heart disease without heart failure; E03.9 Hypothyroidism, unspecified; G43.909 Migraine, unspecified, not intractable, without status migrainosus; Z86.14 Personal history of Methicillin resistant Staphylococcus aureus infection; Z88.1 Allergy status to other antibiotic agents; Z88.8 Allergy status to other drugs, medicaments and biological substances; Z88.6 Allergy status to analgesic agent; Z91.040 Latex allergy status; Z88.2 Allergy status to sulfonamides; Z88.0 Allergy status to penicillin; Z91.041 Radiographic dye allergy status; Z88.7 Allergy status to serum and vaccine; Z91.018 Allergy to other foods
CPT/HCPCS: 36415; 80053; 81001; 82947; 85025; 96361; 96374; 99284; J1815; J7030

== ENCOUNTER 2018-04-03 01:10 | Emergency (ER) | payer MEDICARE, MEDICAID ==
[~2018-04-03] VITALS: Ht 172.7 cm; Wt 172.3 kg
[2018-04-03 01:04] LABS: HEMATOCRIT 40.7 % (36.0-47.0); HEMOGLOBIN 13.1 g/dL (12.0-15.5); MEAN CORPUSCULAR HEMOGLOBIN 26 pg (25-35); MEAN CORPUSCULAR HGB CONC 32 g/dL (31-37); MEAN CORPUSCULAR VOLUME 80 fL (79-100); PLATELET COUNT 233 x10^3/uL (140-400); RED BLOOD COUNT 5.11 x10^6/uL (3.50-5.40); RED CELL DISTRIBUTION WIDTH 14.6 % (11.5-14.5); WHITE BLOOD COUNT 5.1 x10^3/uL (4.0-11.0)
[2018-04-03 01:05] LABS: ALBUMIN 3.2 g/dL (3.4-5.0); ALBUMIN/GLOBULIN RATIO 0.8 (1.0-1.7); CALCIUM 9.3 mg/dL (8.5-10.1); CREATININE 1.2 mg/dL (0.6-1.0); GFR 48.6; POTASSIUM 3.9 mmol/L (3.5-5.1); TOTAL BILIRUBIN 0.5 mg/dL (0.2-1.0); TOTAL PROTEIN 7.4 g/dL (6.4-8.2)
--- NOTE | 2018-04-03 01:11 | PHYS DOC ---
Past History Past Medical History: Anxiety, Arrhythmia, Bipolar, Cancer, Diabetes, GERD, Heart Disease, Hypertension, Hypothyroid, Migraines, MRSA, Other Past Surgical History: Cholecystectomy, Other Additional Past Surgical Histo: Eye, bilateral ankles, right thumb. Smoking: Non-smoker Alcohol Use: None Drug Use: None Adult General Chief Complaint Chief Complaint: HYPERGLYCEMIA HPI HPI 47-year-old female returns emergency room with elevated blood sugar. Patient was seen in the ED about a week ago with elevated blood sugar. She states that she has been in the 400s at home. Today she had a glucose reading of "high". She also has some mild headache and decided to come the emergency room. She has been directed to do so by her PCP. She is only taking Tresiba at this time 60 units daily. She has been working with her PCP to increase this, but they recently took her off of Trulicity and wanted to see what her numbers were first. She denies fever, chills, or other symptoms of illness. She states feeling very thirsty last couple days. Review of Systems Review of Systems Constitutional: Denies fever or chills [] Eyes: Denies change in visual acuity, redness, or eye pain [] HENT: Denies nasal congestion or sore throat [] Respiratory: Denies cough or shortness of breath [] Cardiovascular: No additional information not addressed in HPI [] GI: Denies abdominal pain, nausea, vomiting, bloody stools or diarrhea [] : Denies dysuria or hematuria [] Musculoskeletal: Denies back pain or joint pain [] Integument: Multiple sores on her abdomen and a few on her left upper arm.[] Neurologic: Headache[] Endocrine: Denies polyuria or polydipsia [] All other systems were reviewed and found to be within normal limits, except as documented in this note. Current Medications Current Medications Current Medications Medications (Trade) Dose Ordered Sig/Carlie Start Time Stop Time Status Last Admin Dose Admin Insulin Human Regular (HumuLIN R VIAL) 10 unit 1X ONCE 04/03/18 01:45 04/03/18 01:46 UNV Sodium Chloride 1,000 ml @ 1,000 mls/hr 1X ONCE 04/03/18 01:15 04/03/18 02:14 UNV 04/03/18 01:43 1,000 MLS/HR Allergies Allergies Allergies Coded Allergies Type Severity Reaction Last Updated Verified amoxicillin Allergy Severe 04/03/18 Yes atropine Allergy Severe 04/03/18 Yes black pepper Allergy Severe 04/03/18 Yes diphenoxylate Allergy Severe 04/03/18 Yes methylnaltrexone Allergy Severe 04/03/18 Yes Latex, Natural Rubber Allergy Intermediate 04/03/18 Yes Penicillins Allergy Intermediate 04/03/18 Yes Sulfa (Sulfonamide Antibiotics) Allergy Intermediate 04/03/18 Yes hydrogen peroxide Allergy Intermediate 04/03/18 Yes lanolin Allergy Intermediate 04/03/18 Yes naproxen Allergy Intermediate 04/03/18 Yes sumatriptan Allergy Intermediate 04/03/18 No tetanus immune globulin Allergy Intermediate 04/03/18 No I S O L A T I O N *CONTACT* Allergy Unknown 04/03/18 Yes adhesive Adverse Reaction Intermediate Rash 04/03/18 Yes Physical Exam Physical Exam Constitutional: Well developed, mildly obese, well nourished, no acute distress , non-toxic appearance. [] HENT: Normocephalic, atraumatic, bilateral external ears normal, oropharynx dry , no oral exudates, nose normal. [] Eyes: PERRLA, EOMI, conjunctiva normal, no discharge. [] Neck: Normal range of motion, no tenderness, supple, no stridor. [] Cardiovascular:Heart rate regular rhythm, no murmur [] Lungs & Thorax: Bilateral breath sounds clear to auscultation [] Abdomen: Bowel sounds normal, soft, no tenderness, no masses, no pulsatile masses. [] Skin: Multiple small ulcerations of the skin on the abdomen and left upper arm. No warmth or erythema indicative of infection.[] Back: No tenderness, no CVA tenderness. [] Extremities: No tenderness, no cyanosis, no clubbing, ROM intact, no edema. [] Neurologic: Alert and oriented X 3, normal motor function, normal sensory function, no focal deficits noted. [] Psychologic: Affect normal, judgement normal, mood normal. [] Current Patient Data Lab Results Laboratory Tests Test 04/03/18 01:37 Glucose (Fingerstick) 576 mg/dL (70-99) *H EKG EKG [] Radiology/Procedures Radiology/Procedures [] Course & Med Decision Making Course & Med Decision Making Pertinent Labs and Imaging studies reviewed. (See chart for details) The patient's labs are significant for a low sodium, and elevated glucose of over 500. We will give the patient 2 L of normal saline to start and 10 units of regular insulin. Her repeat blood sugar is 433. The patient's third blood sugar is 304. Given she has been living in the upper 300s and 400s for the last 2 weeks and she is not acidotic with a normal anion gap and a negative acetone, this is likely close to her baseline. The patient is stable to be discharged this time with close follow-up with her PCP. She states that she will make an appointment on Wednesday to further discuss her diabetes management. [] Dragon Disclaimer Dragon Disclaimer This electronic medical record was generated, in whole or in part, using a voice recognition dictation system. Departure Departure: Referrals: CHIKA WARREN MD (PCP) GERTRUDE SÁNCHEZ DO Apr 03, 2018 01:11
[2018-04-03 01:14] LABS: BASO % 1 % (0-3)
[2018-04-03 01:15] LABS: BASO # 0.1 x10^3/uL (0.0-0.2); MONO # 0.5 x10^3/uL (0.0-1.1)
[2018-04-03 01:17] LABS: LYMPH % 39 % (24-48); NEUT % 47 % (31-73)
[2018-04-03 01:18] LABS: EOS % 3 % (0-3); MONO % 10 % (0-9); NEUT # 2.4 x10^3uL (1.8-7.7)
[2018-04-03 01:19] LABS: EOS # 0.2 x10^3/uL (0.0-0.7)
[2018-04-03 01:40] LABS: BILIRUBIN,URINE NEG (NEG); CLARITY,URINE CLEAR; COLOR,URINE YELLOW; GLUCOSE,URINE >=1000 mg/dL (NEG); NITRITE,URINE NEG (NEG); RBC,URINE 0 /HPF (0-2); UROBILINOGEN,URINE 0.2 mg/dL (0.2 mg/dL)
[2018-04-03] MEDS: INSULIN REGULAR 100 UNIT/ML 3ML VIAL. IV ONE (01:40)
[2018-04-03 01:41] LABS: BACTERIA,URINE FEW /HPF (0-FEW); SQUAMOUS EPITHELIAL CELL,UR OCC /LPF; WBC,URINE RARE /HPF (0-4); YEAST,URINE PRESENT /HPF
[2018-04-03] MEDS: IV NORMAL SALINE 1,000ML 1,000 ML IV ONE ×2 (01:43→02:28)
[2018-04-03 03:15] VITALS: BP 139/79
== END 2018-04-03 03:20 | disposition home or self-care (01) ==
LOC: ER 01:10
DX: E11.65 Type 2 diabetes mellitus with hyperglycemia (principal); F41.9 Anxiety disorder, unspecified; K21.9 Gastro-esophageal reflux disease without esophagitis; I11.9 Hypertensive heart disease without heart failure; E03.9 Hypothyroidism, unspecified; G43.909 Migraine, unspecified, not intractable, without status migrainosus; F31.9 Bipolar disorder, unspecified; Z86.14 Personal history of Methicillin resistant Staphylococcus aureus infection; Z88.1 Allergy status to other antibiotic agents; Z91.041 Radiographic dye allergy status; Z88.8 Allergy status to other drugs, medicaments and biological substances; Z91.040 Latex allergy status; Z88.2 Allergy status to sulfonamides; Z88.7 Allergy status to serum and vaccine; Z91.018 Allergy to other foods
CPT/HCPCS: 36415; 80053; 81001; 82010; 82947; 85025; 96361; 96374; 99285; J1815; J7030

== ENCOUNTER → 2018-05-04 | Outpatient (CLI) | payer MEDICARE, MEDICAID ==
[~2018-05-04] MED LIST changes: +HYDR-3165 PO; -HYDR-971 PO
[2018-05-04 11:24] LABS: BASO # 0.1 x10^3/uL (0.0-0.2); BASO % 1 % (0-3); EOS # 0.1 x10^3/uL (0.0-0.7); EOS % 2 % (0-3); HEMATOCRIT 37.7 % (36.0-47.0); HEMOGLOBIN 12.2 g/dL (12.0-15.5); LYMPH # 1.3 x10^3/uL (1.0-4.8); LYMPH % 25 % (24-48); MEAN CORPUSCULAR HEMOGLOBIN 26 pg (25-35); MEAN CORPUSCULAR HGB CONC 32 g/dL (31-37); MEAN CORPUSCULAR VOLUME 80 fL (79-100); MONO # 0.3 x10^3/uL (0.0-1.1); MONO % 6 % (0-9); NEUT # 3.4 x10^3uL (1.8-7.7); NEUT % 66 % (31-73); PLATELET COUNT 225 x10^3/uL (140-400); RED CELL DISTRIBUTION WIDTH 16.3 % (11.5-14.5); WHITE BLOOD COUNT 5.1 x10^3/uL (4.0-11.0)
[2018-05-04 11:33] LABS: ALBUMIN 2.6 g/dL (3.4-5.0); ALBUMIN/GLOBULIN RATIO 0.6 (1.0-1.7); CALCIUM 8.7 mg/dL (8.5-10.1); CREATININE 0.8 mg/dL (0.6-1.0); GFR 77.6; TOTAL BILIRUBIN 0.3 mg/dL (0.2-1.0); TOTAL PROTEIN 6.9 g/dL (6.4-8.2)
[2018-05-04 16:47] LABS: FREE T4 1.13 ng/dL (0.76-1.46); THYROID STIM HORMONE (TSH) 3.627 uIU/mL (0.358-3.740)
== END | disposition home or self-care (01) ==
LOC: LAB 10:11
PROVIDERS: ATTEND Physician Assistant
DX: Z79.899 Other long term (current) drug therapy (principal)
CPT/HCPCS: 36415; 80053; 80061; 84439; 84443; 84480; 85025

== ENCOUNTER 2018-05-09 13:32 | Emergency (ER) | payer MEDICARE, MEDICAID ==
[~2018-05-09] VITALS: Ht 172.7 cm; Wt 172.3 kg
--- NOTE | 2018-05-09 13:44 | EKG ---
[address] [address] Test Date: 2018-05-09 Test Time: 13:42:02 Pat Name: CHIQUITA BLAIR Department: Room: Gender: F Service Desk Specialist: : 1970 Requested By: GERTRUDE DARLING Order Number: [id number] Reading MD: Measurements Intervals [place] Rate: 72 P: 43 DE: 158 QRS: 96 QRSD: 98 T: 36 QT: 400 QTc: 440 Interpretive Statements SINUS RHYTHM RIGHTWARD AXIS OTHERWISE NORMAL ECG RI6.01 Unconfirmed report Compared to ECG 03/04/2018 13:43:36 Right-axis deviation now present
--- NOTE | 2018-05-09 13:59 | RAD ---
Single view of the chest. 05/09/2018 12:58 PM Indication: CHEST PAIN Comparison: CT angiography of the chest March 04, 2018 Findings: CT Bone Marrow transverse diameter of the thorax noted, this is particularly true apically. There is no focal consolidation. There is no pleural effusion or pneumothorax. Heart size appears to be top normal. No acute osseous abnormalities are seen. Impression: No evidence of acute cardiopulmonary process or acute change from prior studies. Electronically signed by: Daniel Evans MD (05/09/2018 1:55 PM) [id number]
[2018-05-09 14:10] LABS: BASO # 0.1 x10^3/uL (0.0-0.2); BASO % 1 % (0-3); EOS # 0.1 x10^3/uL (0.0-0.7); EOS % 2 % (0-3); HEMATOCRIT 35.7 % (36.0-47.0); HEMOGLOBIN 11.7 g/dL (12.0-15.5); LYMPH # 1.4 x10^3/uL (1.0-4.8); LYMPH % 25 % (24-48); MEAN CORPUSCULAR HEMOGLOBIN 26 pg (25-35); MEAN CORPUSCULAR HGB CONC 33 g/dL (31-37); MEAN CORPUSCULAR VOLUME 80 fL (79-100); MONO # 0.4 x10^3/uL (0.0-1.1); MONO % 6 % (0-9); NEUT # 3.7 x10^3uL (1.8-7.7); NEUT % 65 % (31-73); PLATELET COUNT 253 x10^3/uL (140-400); RED BLOOD COUNT 4.47 x10^6/uL (3.50-5.40); RED CELL DISTRIBUTION WIDTH 16.3 % (11.5-14.5); WHITE BLOOD COUNT 5.7 x10^3/uL (4.0-11.0)
[2018-05-09 14:17] LABS: CALCIUM 8.9 mg/dL (8.5-10.1); CREATININE 0.8 mg/dL (0.6-1.0); GFR 77.6; POTASSIUM 3.6 mmol/L (3.5-5.1)
[2018-05-09] MEDS ORDERED: LORazepam 1 MG TABLET PO ONE (14:30)
[2018-05-09 15:02] VITALS: BP 139/85
[2018-05-09] MEDS ORDERED: LORA-254 PO (15:10)
--- NOTE | 2018-05-09 15:45 | ED.ADGEN ---
Past History Past Medical History: Anxiety, Arrhythmia, Bipolar, Cancer, Diabetes, GERD, Heart Disease, Hypertension, Hypothyroid, Migraines, MRSA Past Surgical History: Cholecystectomy Additional Past Surgical Histo: Eye, bilateral ankles, right thumb. Smoking: Non-smoker Alcohol Use: None Drug Use: None Adult General Chief Complaint Chief Complaint Anxiety attack HPI HPI Patient is a 47-year-old female with history of chronic anxiety treated with lorazepam who presents with acute anxiety episode earlier today. Patient reports palpitations dizziness shortness of breath followed by chest pain. Patient last took Ativan 3 days ago and is currently out of Ativan now waiting for prescription refill. Patient contacted EMS and was given nitroglycerin for chest pain and fentanyl for headache. Symptoms fully resolved prior to ED arrival. Denies exertional chest pain, dyspnea, leg pain, swelling. No fever, chills, cough. Patient states she is unsure when she is due for her next prescription is due but does have appointments to contact the [facility] to arrange for medication refill. ] Review of Systems Review of Systems Review symptoms as per history of present illness. All other review symptoms are negative. All other systems were reviewed and found to be within normal limits, except as documented in this note. Current Medications Current Medications Current Medications Medications (Trade) Dose Ordered Sig/Carlie Start Time Stop Time Status Last Admin Dose Admin Lorazepam (Ativan) 2 mg 1X ONCE 05/09/18 14:30 05/09/18 14:31 DC 05/09/18 14:34 2 MG Allergies Allergies Allergies Coded Allergies Type Severity Reaction Last Updated Verified amoxicillin Allergy Severe 04/03/18 Yes atropine Allergy Severe 04/03/18 Yes black pepper Allergy Severe 04/03/18 Yes diphenoxylate Allergy Severe 04/03/18 Yes methylnaltrexone Allergy Severe 04/03/18 Yes Latex, Natural Rubber Allergy Intermediate 04/03/18 Yes Penicillins Allergy Intermediate 04/03/18 Yes Sulfa (Sulfonamide Antibiotics) Allergy Intermediate 04/03/18 Yes hydrogen peroxide Allergy Intermediate 04/03/18 Yes lanolin Allergy Intermediate 04/03/18 Yes naproxen Allergy Intermediate 04/03/18 Yes sumatriptan Allergy Intermediate 04/03/18 No tetanus immune globulin Allergy Intermediate 04/03/18 No I S O L A T I O N *CONTACT* Allergy Unknown 04/03/18 Yes adhesive Adverse Reaction Intermediate Rash 04/03/18 Yes Physical Exam Physical Exam Constitutional: Well developed, well nourished, no acute distress, non-toxic appearance. [] HENT: Normocephalic, atraumatic, bilateral external ears normal, oropharynx moist, no oral exudates, nose normal. [] Eyes: PERRLA, EOMI, conjunctiva normal, no discharge. [] Neck: Normal range of motion, no tenderness, supple, no stridor. [] Cardiovascular:Heart rate regular rhythm, no murmur [] Lungs & Thorax: Bilateral breath sounds clear to auscultation [] Abdomen: Bowel sounds normal, soft, no tenderness, no masses, no pulsatile masses. [] Skin: Warm, dry, no erythema, no rash. [] Back: No tenderness, no CVA tenderness. [] Extremities: No tenderness, no cyanosis, no clubbing, ROM intact, no edema. [] Neurologic: Alert and oriented X 3, normal motor function, normal sensory function, no focal deficits noted. [] Psychologic: Affect normal, judgement normal, mood normal. [] Current Patient Data Vital Signs Vital Signs Date Time Temp Pulse Resp B/P (MAP) Pulse Ox O2 Delivery O2 Flow Rate FiO2 05/09/18 15:02 76 20 139/85 (103) 97 Room Air 05/09/18 13:35 98.5 Lab Results Laboratory Tests Test 05/09/18 13:55 White Blood Count 5.7 x10^3/uL (4.0-11.0) Red Blood Count 4.47 x10^6/uL (3.50-5.40) Hemoglobin 11.7 g/dL (12.0-15.5) L Hematocrit 35.7 % (36.0-47.0) L Mean Corpuscular Volume 80 fL (79-100) Mean Corpuscular Hemoglobin 26 pg (25-35) Mean Corpuscular Hemoglobin Concent 33 g/dL (31-37) Red Cell Distribution Width 16.3 % (11.5-14.5) H Platelet Count 253 x10^3/uL (140-400) Neutrophils (%) (Auto) 65 % (31-73) Lymphocytes (%) (Auto) 25 % (24-48) Monocytes (%) (Auto) 6 % (0-9) Eosinophils (%) (Auto) 2 % (0-3) Basophils (%) (Auto) 1 % (0-3) Neutrophils # (Auto) 3.7 x10^3uL (1.8-7.7) Lymphocytes # (Auto) 1.4 x10^3/uL (1.0-4.8) Monocytes # (Auto) 0.4 x10^3/uL (0.0-1.1) Eosinophils # (Auto) 0.1 x10^3/uL (0.0-0.7) Basophils # (Auto) 0.1 x10^3/uL (0.0-0.2) Sodium Level 140 mmol/L (136-145) Potassium Level 3.6 mmol/L (3.5-5.1) Chloride Level 104 mmol/L (98-107) Carbon Dioxide Level 30 mmol/L (21-32) Anion Gap 6 (6-14) Blood Urea Nitrogen 7 mg/dL (7-20) Creatinine 0.8 mg/dL (0.6-1.0) Estimated GFR (Cockcroft-Gault) 77.6 Glucose Level 76 mg/dL (70-99) Calcium Level 8.9 mg/dL (8.5-10.1) Troponin I Quantitative < 0.017 ng/mL (0-0.055) EKG EKG EKG: Reviewed] Radiology/Procedures Radiology/Procedures [Chest x-ray: No acute disease per radiology report] Course & Med Decision Making Course & Med Decision Making Pertinent Labs and Imaging studies reviewed. (See chart for details) [Anxiety attack likely precipitated due to benzodiazepine withdrawal. Symptoms returned shortly after ED arrival resolved with Ativan. Patient confirms she is able to picker tender her prescription of Ativan from her provider within the next 2 days. Patient given a brief course of medication until that time. Lab, EKG, chest x-ray unremarkable.] Final Impression Final Impression [1 palpitations 2. Anxiety state] Dragon Disclaimer Dragon Disclaimer This electronic medical record was generated, in whole or in part, using a voice recognition dictation system. GERTRUDE DARLING DO May 09, 2018 15:45
== END 2018-05-09 15:27 | disposition home or self-care (01) ==
LOC: ER 13:32
DX: F41.9 Anxiety disorder, unspecified (principal); F31.9 Bipolar disorder, unspecified; E11.9 Type 2 diabetes mellitus without complications; K21.9 Gastro-esophageal reflux disease without esophagitis; I11.9 Hypertensive heart disease without heart failure; E03.9 Hypothyroidism, unspecified; G43.909 Migraine, unspecified, not intractable, without status migrainosus; Z86.14 Personal history of Methicillin resistant Staphylococcus aureus infection; Z88.1 Allergy status to other antibiotic agents; Z91.040 Latex allergy status; Z88.6 Allergy status to analgesic agent; Z91.041 Radiographic dye allergy status; Z88.0 Allergy status to penicillin; Z88.2 Allergy status to sulfonamides; Z88.8 Allergy status to other drugs, medicaments and biological substances; Z91.018 Allergy to other foods
CPT/HCPCS: 36415; 71045; 80048; 84484; 85025; 93005; 99284

== ENCOUNTER 2018-06-13 00:20 | Inpatient (IN) | payer MEDICARE, MEDICAID ==
[~2018-06-13] VITALS: Ht 172.7 cm; Wt 176.4 kg
--- NOTE | 2018-06-13 00:34 | ED.ADGEN ---
Past History Past Medical History: Anxiety, Arrhythmia, Bipolar, Cancer, Diabetes, GERD, Heart Disease, Hypertension, Hypothyroid, Migraines, MRSA Past Surgical History: Cholecystectomy Additional Past Surgical Histo: Eye, bilateral ankles, right thumb. Smoking: Non-smoker Alcohol Use: None Drug Use: None Adult General Chief Complaint Chief Complaint ".. I was visiting my mom... and I was sitting on a chair .. it broke.. and I hit my head really hard on the left side... and I stubbed this Lt foot and toe really hard.. .. and ever since I hit my head.. I am having a migraine... and vomiting.. ".. " I ve been really dizzy since I started vomiting..." HPI HPI Patient is a 47 year old female who presents with hx fall when a chair collapse and she hit her lt. Temporal and jammed Lt fore foot. Pt. complains of her typical migraine since the injury. Patient poorly having dry heaves since the injury. Patient has extensive medical history with anxiety, dysrhythmia, bipolar disorder, depression, diabetes, coronary artery disease, hypothyroid, MRSA, morbid obesity, and development delay. Patient lives with other roommates in small mcc setting. No recent travel or specific ill contacts. Patient normally follows with Dr. Roberts. Review of Systems Review of Systems Constitutional: Denies fever or chills [] Eyes: Denies change in visual acuity, redness, or eye pain [] HENT: Denies nasal congestion or sore throat []complains of contusion to the left temporal area. Respiratory: Denies cough or shortness of breath [] Cardiovascular: No additional information not addressed in HPI [] GI: Denies abdominal pain, bloody stools or diarrhea []complaints of nausea and vomiting : Denies dysuria or hematuria [] Musculoskeletal: Denies back pain or joint pain []Complaints of Lt foot and 1st toe pain. Integument: Multiple chronic skin lesions Neurologic: Complaints of headache, denies focal weakness or sensory changes [] . Has dizzy complaints Endocrine: Denies polyuria or polydipsia [] All other systems were reviewed and found to be within normal limits, except as documented in this note. Family History Family History Noncontributory Current Medications Current Medications Current Medications Medications (Trade) Dose Ordered Sig/Carlie Start Time Stop Time Status Last Admin Dose Admin Ketorolac Tromethamine (Toradol 30mg Vial) 30 mg 1X ONCE 06/13/18 03:00 06/13/18 03:03 DC 06/13/18 03:07 30 MG Lactated Ringer's 1,000 ml @ 1,000 mls/hr Q1H 06/13/18 00:45 06/13/18 01:44 DC 06/13/18 01:58 1,000 MLS/HR Ondansetron HCl (Zofran) 4 mg PRN Q4HRS PRN 06/13/18 03:00 06/14/18 02:59 Allergies Allergies Allergies Coded Allergies Type Severity Reaction Last Updated Verified amoxicillin Allergy Severe 04/03/18 Yes atropine Allergy Severe 04/03/18 Yes black pepper Allergy Severe 04/03/18 Yes diphenoxylate Allergy Severe 04/03/18 Yes methylnaltrexone Allergy Severe 04/03/18 Yes Latex, Natural Rubber Allergy Intermediate 04/03/18 Yes Penicillins Allergy Intermediate 04/03/18 Yes Sulfa (Sulfonamide Antibiotics) Allergy Intermediate 04/03/18 Yes hydrogen peroxide Allergy Intermediate 04/03/18 Yes lanolin Allergy Intermediate 04/03/18 Yes naproxen Allergy Intermediate 04/03/18 Yes sumatriptan Allergy Intermediate 04/03/18 No tetanus immune globulin Allergy Intermediate 04/03/18 No I S O L A T I O N *CONTACT* Allergy Unknown 04/03/18 Yes adhesive Adverse Reaction Intermediate Rash 04/03/18 Yes Physical Exam Physical Exam Constitutional: Moderately acute distress, non-toxic appearance. [] HENT: Normocephalic, contusion to left temporal, bilateral external ears normal , oropharynx moist, no oral exudates, nose normal. [] Eyes: PERRLA, EOMI, conjunctiva normal, no discharge. [] Neck: Normal range of motion, no tenderness, supple, no stridor. [] Cardiovascular:Heart rate regular rhythm, no murmur []PMI to the left Lungs & Thorax: Bilateral breath sounds bilateral basilar crackles auscultation [] Abdomen: Bowel sounds normal, soft, no tenderness, no masses, no pulsatile masses. [] Old surgery scars Skin: Warm, dry, no erythema, multiple skin lesions which appear to be MRSA Back: No tenderness, no CVA tenderness. [] Extremities: Left forefoot tenderness, no cyanosis, no clubbing, ROM intact, bilateral ankle edema. [] Old scar left ankle Neurologic: Alert and oriented X 3, moves all extremities on request, normal sensory function, no focal deficits noted. []DTRs +2 patella and brachial. Dispensary Attendant equal. Psychologic: Affect anxious, appears to have some development or intellectual impairment, mood normal. [] Current Patient Data Vital Signs Vital Signs Date Time Temp Pulse Resp B/P (MAP) Pulse Ox O2 Delivery O2 Flow Rate FiO2 06/13/18 02:30 83 18 120/76 (91) 96 Room Air 06/13/18 00:20 98.0 Lab Results Laboratory Tests Test 06/13/18 01:30 06/13/18 01:45 White Blood Count 6.7 x10^3/uL (4.0-11.0) Red Blood Count 4.64 x10^6/uL (3.50-5.40) Hemoglobin 12.3 g/dL (12.0-15.5) Hematocrit 38.0 % (36.0-47.0) Mean Corpuscular Volume 82 fL (79-100) Mean Corpuscular Hemoglobin 27 pg (25-35) Mean Corpuscular Hemoglobin Concent 32 g/dL (31-37) Red Cell Distribution Width 16.3 % (11.5-14.5) H Platelet Count 247 x10^3/uL (140-400) Neutrophils (%) (Auto) 66 % (31-73) Lymphocytes (%) (Auto) 24 % (24-48) Monocytes (%) (Auto) 7 % (0-9) Eosinophils (%) (Auto) 3 % (0-3) Basophils (%) (Auto) 1 % (0-3) Neutrophils # (Auto) 4.4 x10^3uL (1.8-7.7) Lymphocytes # (Auto) 1.6 x10^3/uL (1.0-4.8) Monocytes # (Auto) 0.5 x10^3/uL (0.0-1.1) Eosinophils # (Auto) 0.2 x10^3/uL (0.0-0.7) Basophils # (Auto) 0.0 x10^3/uL (0.0-0.2) Prothrombin Time 9.9 SEC (9.4-11.4) Prothrombin Time INR 1.0 (0.9-1.1) PTT 24 SEC (23-33) Sodium Level 135 mmol/L (136-145) L Potassium Level 4.0 mmol/L (3.5-5.1) Chloride Level 99 mmol/L (98-107) Carbon Dioxide Level 32 mmol/L (21-32) Anion Gap 4 (6-14) L Blood Urea Nitrogen 11 mg/dL (7-20) Creatinine 0.9 mg/dL (0.6-1.0) Estimated GFR (Cockcroft-Gault) 67.7 Glucose Level 271 mg/dL (70-99) H Calcium Level 8.9 mg/dL (8.5-10.1) Magnesium Level 1.9 mg/dL (1.8-2.4) Total Bilirubin 0.2 mg/dL (0.2-1.0) Direct Bilirubin 0.1 mg/dL (0.0-0.2) Aspartate Amino Transferase (AST) 15 U/L (15-37) Alanine Aminotransferase (ALT) 16 U/L (14-59) Alkaline Phosphatase 54 U/L (46-116) Creatine Kinase 40 U/L (26-192) Troponin I Quantitative < 0.017 ng/mL (0-0.055) RB-[id number]-Type Natriuretic Peptide 58 pg/mL (0-124) Total Protein 7.2 g/dL (6.4-8.2) Albumin 2.7 g/dL (3.4-5.0) L Lipase 233 U/L (73-393) Urine Collection Type Unknown Urine Color Yellow Urine Clarity Hazy Urine pH 7.0 Urine Specific [place] 1.015 Urine Protein Neg (NEG-TRACE) Urine Glucose (UA) >=1000 mg/dL (NEG) Urine Ketones (Stick) Neg mg/dL (NEG) Urine Blood Neg (NEG) Urine Nitrite Neg (NEG) Urine Bilirubin Neg (NEG) Urine Urobilinogen Dipstick 0.2 mg/dL (0.2 mg/dL) Urine Leukocyte Esterase Neg (NEG) Urine RBC 0 /HPF (0-2) Urine WBC 1-4 /HPF (0-4) Urine Squamous Epithelial Cells Few /LPF Urine Bacteria 0 /HPF (0-FEW) Urine Yeast Present /HPF Urine Opiates Screen Neg (NEG) Urine Methadone Screen Neg (NEG) Urine Barbiturates Neg (NEG) Urine Phencyclidine Screen Neg (NEG) Urine Amphetamine/Methamphetamine Neg (NEG) Urine Benzodiazepines Screen Neg (NEG) Urine Cocaine Screen Neg (NEG) Urine Cannabinoids Screen Neg (NEG) Urine Ethyl Alcohol Neg (NEG) EKG EKG My interpretation EKG shows a sinus rhythm at 86 bpm. There is some right axis deviation and some nonspecific anterior lateral changes but no findings of acute STEMI of contralateral changes.[] Radiology/Procedures Radiology/Procedures My interpretation of left foot shows no obvious fracture dislocation of first toe. Does have screw hardware in ankle from previous fixation. My interpretation CT of head shows no shift, mass, edema, bleed, or fracture. Cervical shows no obvious fracture dislocation. See formal report when available. My interpretation chest x-ray shows no acute cardiopulmonary findings. No free air under the diaphragm.[] Course & Med Decision Making Course & Med Decision Making Pertinent Labs and Imaging studies reviewed. (See chart for details) Pt. to be admitted for further neuro checks- closed head injury. Migraine exacerbation. [] Final Impression Final Impression 1. Fall 2. Lt. Head Contusion[] 3. Migraine 4. DM- Hyperglycemia 5. Morbid Obesity 6. Lt foot Contusion 7. Hx MRSA Dragon Disclaimer Dragon Disclaimer This electronic medical record was generated, in whole or in part, using a voice recognition dictation system. Discharge Summary Visit Information Final Diagnosis Problems Medical Problems: (1) Head injury Status: Acute Brief Hospital Course Allergies Allergies Coded Allergies Type Severity Reaction Last Updated Verified amoxicillin Allergy Severe 04/03/18 Yes atropine Allergy Severe 04/03/18 Yes black pepper Allergy Severe 04/03/18 Yes diphenoxylate Allergy Severe 04/03/18 Yes methylnaltrexone Allergy Severe 04/03/18 Yes Latex, Natural Rubber Allergy Intermediate 04/03/18 Yes Penicillins Allergy Intermediate 04/03/18 Yes Sulfa (Sulfonamide Antibiotics) Allergy Intermediate 04/03/18 Yes hydrogen peroxide Allergy Intermediate 04/03/18 Yes lanolin Allergy Intermediate 04/03/18 Yes naproxen Allergy Intermediate 04/03/18 Yes sumatriptan Allergy Intermediate 04/03/18 No tetanus immune globulin Allergy Intermediate 04/03/18 No I S O L A T I O N *CONTACT* Allergy Unknown 04/03/18 Yes adhesive Adverse Reaction Intermediate Rash 11/4/18 Yes Vital Signs Vital Signs Date Time Temp Pulse Resp B/P (MAP) Pulse Ox O2 Delivery O2 Flow Rate FiO2 06/13/18 02:30 83 18 120/76 (91) 96 Room Air 06/13/18 00:20 98.0 Lab Results Laboratory Tests Test 06/13/18 01:30 06/13/18 01:45 White Blood Count 6.7 x10^3/uL (4.0-11.0) Red Blood Count 4.64 x10^6/uL (3.50-5.40) Hemoglobin 12.3 g/dL (12.0-15.5) Hematocrit 38.0 % (36.0-47.0) Mean Corpuscular Volume 82 fL (79-100) Mean Corpuscular Hemoglobin 27 pg (25-35) Mean Corpuscular Hemoglobin Concent 32 g/dL (31-37) Red Cell Distribution Width 16.3 % (11.5-14.5) Platelet Count 247 x10^3/uL (140-400) Neutrophils (%) (Auto) 66 % (31-73) Lymphocytes (%) (Auto) 24 % (24-48) Monocytes (%) (Auto) 7 % (0-9) Eosinophils (%) (Auto) 3 % (0-3) Basophils (%) (Auto) 1 % (0-3) Neutrophils # (Auto) 4.4 x10^3uL (1.8-7.7) Lymphocytes # (Auto) 1.6 x10^3/uL (1.0-4.8) Monocytes # (Auto) 0.5 x10^3/uL (0.0-1.1) Eosinophils # (Auto) 0.2 x10^3/uL (0.0-0.7) Basophils # (Auto) 0.0 x10^3/uL (0.0-0.2) Prothrombin Time 9.9 SEC (9.4-11.4) Prothromb Time International Ratio 1.0 (0.9-1.1) Activated Partial Thromboplast Time 24 SEC (23-33) Sodium Level 135 mmol/L (136-145) Potassium Level 4.0 mmol/L (3.5-5.1) Chloride Level 99 mmol/L (98-107) Carbon Dioxide Level 32 mmol/L (21-32) Anion Gap 4 (6-14) Blood Urea Nitrogen 11 mg/dL (7-20) Creatinine 0.9 mg/dL (0.6-1.0) Estimated GFR (Cockcroft-Gault) 67.7 Glucose Level 271 mg/dL (70-99) Calcium Level 8.9 mg/dL (8.5-10.1) Magnesium Level 1.9 mg/dL (1.8-2.4) Total Bilirubin 0.2 mg/dL (0.2-1.0) Direct Bilirubin 0.1 mg/dL (0.0-0.2) Aspartate Amino Transf (AST/SGOT) 15 U/L (15-37) Alanine Aminotransferase (ALT/SGPT) 16 U/L (14-59) Alkaline Phosphatase 54 U/L (46-116) Creatine Kinase 40 U/L (26-192) Troponin I Quantitative < 0.017 ng/mL (0-0.055) QZ-Ibp-U-Type Natriuretic Peptide 58 pg/mL (0-124) Total Protein 7.2 g/dL (6.4-8.2) Albumin 2.7 g/dL (3.4-5.0) Lipase 233 U/L (73-393) Urine Collection Type Unknown Urine Color Yellow Urine Clarity Hazy Urine pH 7.0 Urine Specific [place] 1.015 Urine Protein Neg (NEG-TRACE) Urine Glucose (UA) >=1000 mg/dL (NEG) Urine Ketones (Stick) Neg mg/dL (NEG) Urine Blood Neg (NEG) Urine Nitrite Neg (NEG) Urine Bilirubin Neg (NEG) Urine Urobilinogen Dipstick 0.2 mg/dL (0.2 mg/dL) Urine Leukocyte Esterase Neg (NEG) Urine RBC 0 /HPF (0-2) Urine WBC 1-4 /HPF (0-4) Urine Squamous Epithelial Cells Few /LPF Urine Bacteria 0 /HPF (0-FEW) Urine Yeast Present /HPF Urine Opiates Screen Neg (NEG) Urine Methadone Screen Neg (NEG) Urine Barbiturates Neg (NEG) Urine Phencyclidine Screen Neg (NEG) Urine Amphetamine/Methamphetamine Neg (NEG) Urine Benzodiazepines Screen Neg (NEG) Urine Cocaine Screen Neg (NEG) Urine Cannabinoids Screen Neg (NEG) Urine Ethyl Alcohol Neg (NEG) Brief Hospital Course Ms. Ho is a 47 old female who presented with hx fall and contusion to Lt side of head. Complaints of nausea, vomiting and migraine exacerbation from injury. Pt. also complaints of injury to Lt 1st toe. Pt. admitted to Dr. Roberts for serial neuro checks and glucose control. Discharge Information Condition at Discharge: Improved, Stable Dischare Medications Current Medications Lactated Ringer's 1,000 ml @ 1,000 mls/hr Q1H IV Last administered on at 01:58; Admin Dose 1,000 MLS/HR; Start 06/13/18 at 00:45; Stop 06/13/18 at 01:44; Status DC Ondansetron HCl (Zofran) 8 mg 1X ONCE IV Last administered on 06/13/18at 01:58 ; Admin Dose 8 MG; Start 06/13/18 at 00:45; Stop 06/13/18 at 00:49; Status DC Ketorolac Tromethamine (Toradol 30mg Vial) 30 mg 1X ONCE IV Last administered on 06/13/18at 03:07; Admin Dose 30 MG; Start 06/13/18 at 03:00; Stop 06/13/18 at 03:03; Status DC Ondansetron HCl (Zofran) 4 mg PRN Q4HRS PRN IV NAUSEA/VOMITING; Start 06/13/18 at 03:00; Stop 06/14/18 at 02:59 Active Scripts Active Ativan (Lorazepam) 1 Mg Tablet 1 Mg PO BID Duoneb 0.5-3(2.5) Mg/3 Ml (Albuterol/Ipratropium) 3 Ml Ampul.neb 3 Ml NEB TID 30 Days Nystop (Nystatin) 60 Gm Powder 1 Francisco J TP BID Reported Mupirocin 22 Gm Oint...g. 1 Francisco J TP TID Escitalopram Oxalate 10 Mg Tablet 1 Tab PO DAILY Maxalt (Rizatriptan Benzoate) 10 Mg Tablet 1 Tab PO PRN BID PRN Bupropion Xl (Bupropion Hcl) 300 Mg Tab.er.24h 1 Tab PO DAILYWBKFT Pioglitazone Hcl 15 Mg Tablet 15 Mg PO Cetirizine Hcl 10 Mg Tablet 10 Mg PO DAILY Ibuprofen 800 Mg Tablet 800 Mg PO TID PRN Tresiba Flextouch U-100 (Insulin Degludec) 100 Unit/1 Ml Insuln.pen 60 Unit SQ DAILY Valacyclovir (Valacyclovir Hcl) 500 Mg Tablet 500 Mg PO DAILY Omeprazole 20 Mg Tablet.dr 40 Mg PO DAILY Levothyroxine Sodium 50 Mcg Tablet 100 Mcg PO DAILYAC Propranolol Hcl 80 Mg Cap.sa.24h 120 Mg PO DAILY Ativan (Lorazepam) 1 Mg Tablet 1 Mg PO BID Gabapentin (Gabapentin) 300 Mg Capsule 300 Mg PO QID Metformin Hcl 500 Mg Tablet 500 Mg PO BIDWMEALS Discharge Summary Visit Information Final Diagnosis Problems Medical Problems: (1) Head injury Status: Acute Brief Hospital Course Allergies Allergies Coded Allergies Type Severity Reaction Last Updated Verified amoxicillin Allergy Severe 04/03/18 Yes atropine Allergy Severe 04/03/18 Yes black pepper Allergy Severe 04/03/18 Yes diphenoxylate Allergy Severe 04/03/18 Yes methylnaltrexone Allergy Severe 04/03/18 Yes Latex, Natural Rubber Allergy Intermediate 04/03/18 Yes Penicillins Allergy Intermediate 04/03/18 Yes Sulfa (Sulfonamide Antibiotics) Allergy Intermediate 04/03/18 Yes hydrogen peroxide Allergy Intermediate 04/03/18 Yes lanolin Allergy Intermediate 04/03/18 Yes naproxen Allergy Intermediate 04/03/18 Yes sumatriptan Allergy Intermediate 04/03/18 No tetanus immune globulin Allergy Intermediate 04/03/18 No I S O L A T I O N *CONTACT* Allergy Unknown 04/03/18 Yes adhesive Adverse Reaction Intermediate Rash 04/03/18 Yes Vital Signs Vital Signs Date Time Temp Pulse Resp B/P (MAP) Pulse Ox O2 Delivery O2 Flow Rate FiO2 06/13/18 02:30 83 18 120/76 (91) 96 Room Air 06/13/18 00:20 98.0 Lab Results Laboratory Tests Test 06/13/18 01:30 06/13/18 01:45 White Blood Count 6.7 x10^3/uL (4.0-11.0) Red Blood Count 4.64 x10^6/uL (3.50-5.40) Hemoglobin 12.3 g/dL (12.0-15.5) Hematocrit 38.0 % (36.0-47.0) Mean Corpuscular Volume 82 fL (79-100) Mean Corpuscular Hemoglobin 27 pg (25-35) Mean Corpuscular Hemoglobin Concent 32 g/dL (31-37) Red Cell Distribution Width 16.3 % (11.5-14.5) Platelet Count 247 x10^3/uL (140-400) Neutrophils (%) (Auto) 66 % (31-73) Lymphocytes (%) (Auto) 24 % (24-48) Monocytes (%) (Auto) 7 % (0-9) Eosinophils (%) (Auto) 3 % (0-3) Basophils (%) (Auto) 1 % (0-3) Neutrophils # (Auto) 4.4 x10^3uL (1.8-7.7) Lymphocytes # (Auto) 1.6 x10^3/uL (1.0-4.8) Monocytes # (Auto) 0.5 x10^3/uL (0.0-1.1) Eosinophils # (Auto) 0.2 x10^3/uL (0.0-0.7) Basophils # (Auto) 0.0 x10^3/uL (0.0-0.2) Prothrombin Time 9.9 SEC (9.4-11.4) Prothromb Time International Ratio 1.0 (0.9-1.1) Activated Partial Thromboplast Time 24 SEC (23-33) Sodium Level 135 mmol/L (136-145) Potassium Level 4.0 mmol/L (3.5-5.1) Chloride Level 99 mmol/L (98-107) Carbon Dioxide Level 32 mmol/L (21-32) Anion Gap 4 (6-14) Blood Urea Nitrogen 11 mg/dL (7-20) Creatinine 0.9 mg/dL (0.6-1.0) Estimated GFR (Cockcroft-Gault) 67.7 Glucose Level 271 mg/dL (70-99) Calcium Level 8.9 mg/dL (8.5-10.1) Magnesium Level 1.9 mg/dL (1.8-2.4) Total Bilirubin 0.2 mg/dL (0.2-1.0) Direct Bilirubin 0.1 mg/dL (0.0-0.2) Aspartate Amino Transf (AST/SGOT) 15 U/L (15-37) Alanine Aminotransferase (ALT/SGPT) 16 U/L (14-59) Alkaline Phosphatase 54 U/L (46-116) Creatine Kinase 40 U/L (26-192) Troponin I Quantitative < 0.017 ng/mL (0-0.055) HD-Zgp-X-Type Natriuretic Peptide 58 pg/mL (0-124) Total Protein 7.2 g/dL (6.4-8.2) Albumin 2.7 g/dL (3.4-5.0) Lipase 233 U/L (73-393) Urine Collection Type Unknown Urine Color Yellow Urine Clarity Hazy Urine pH 7.0 Urine Specific [place] 1.015 Urine Protein Neg (NEG-TRACE) Urine Glucose (UA) >=1000 mg/dL (NEG) Urine Ketones (Stick) Neg mg/dL (NEG) Urine Blood Neg (NEG) Urine Nitrite Neg (NEG) Urine Bilirubin Neg (NEG) Urine Urobilinogen Dipstick 0.2 mg/dL (0.2 mg/dL) Urine Leukocyte Esterase Neg (NEG) Urine RBC 0 /HPF (0-2) Urine WBC 1-4 /HPF (0-4) Urine Squamous Epithelial Cells Few /LPF Urine Bacteria 0 /HPF (0-FEW) Urine Yeast Present /HPF Urine Opiates Screen Neg (NEG) Urine Methadone Screen Neg (NEG) Urine Barbiturates Neg (NEG) Urine Phencyclidine Screen Neg (NEG) Urine Amphetamine/Methamphetamine Neg (NEG) Urine Benzodiazepines Screen Neg (NEG) Urine Cocaine Screen Neg (NEG) Urine Cannabinoids Screen Neg (NEG) Urine Ethyl Alcohol Neg (NEG) Brief Hospital Course Ms. Ho is a 47 old female who presented with hx of fall due to chair collapse. Pt. struck Lt side of head and presents with N/V and Migraine symptoms. Admitted for serial exam to Dr. Roberts. Discharge Information Condition at Discharge: Improved, Stable Dischare Medications Current Medications Lactated Ringer's 1,000 ml @ 1,000 mls/hr Q1H IV Last administered on at 01:58; Admin Dose 1,000 MLS/HR; Start 06/13/18 at 00:45; Stop 06/13/18 at 01:44; Status DC Ondansetron HCl (Zofran) 8 mg 1X ONCE IV Last administered on 06/13/18at 01:58 ; Admin Dose 8 MG; Start 06/13/18 at 00:45; Stop 06/13/18 at 00:49; Status DC Ketorolac Tromethamine (Toradol 30mg Vial) 30 mg 1X ONCE IV Last administered on 06/13/18at 03:07; Admin Dose 30 MG; Start 06/13/18 at 03:00; Stop 06/13/18 at 03:03; Status DC Ondansetron HCl (Zofran) 4 mg PRN Q4HRS PRN IV NAUSEA/VOMITING; Start 06/13/18 at 03:00; Stop 06/14/18 at 02:59 Active Scripts Active Ativan (Lorazepam) 1 Mg Tablet 1 Mg PO BID Duoneb 0.5-3(2.5) Mg/3 Ml (Albuterol/Ipratropium) 3 Ml Ampul.neb 3 Ml NEB TID 30 Days Nystop (Nystatin) 60 Gm Powder 1 Francisco J TP BID Reported Mupirocin 22 Gm Oint...g. 1 Francisco J TP TID Escitalopram Oxalate 10 Mg Tablet 1 Tab PO DAILY Maxalt (Rizatriptan Benzoate) 10 Mg Tablet 1 Tab PO PRN BID PRN Bupropion Xl (Bupropion Hcl) 300 Mg Tab.er.24h 1 Tab PO DAILYWBKFT Pioglitazone Hcl 15 Mg Tablet 15 Mg PO Cetirizine Hcl 10 Mg Tablet 10 Mg PO DAILY Ibuprofen 800 Mg Tablet 800 Mg PO TID PRN Tresiba Flextouch U-100 (Insulin Degludec) 100 Unit/1 Ml Insuln.pen 60 Unit SQ DAILY Valacyclovir (Valacyclovir Hcl) 500 Mg Tablet 500 Mg PO DAILY Omeprazole 20 Mg Tablet.dr 40 Mg PO DAILY Levothyroxine Sodium 50 Mcg Tablet 100 Mcg PO DAILYAC Propranolol Hcl 80 Mg Cap.sa.24h 120 Mg PO DAILY Ativan (Lorazepam) 1 Mg Tablet 1 Mg PO BID Gabapentin (Gabapentin) 300 Mg Capsule 300 Mg PO QID Metformin Hcl 500 Mg Tablet 500 Mg PO BIDWMEALS Dragon Disclaimer This chart was dictated in whole or in part using Voice Recognition software in a busy, high-work load, and often noisy Emergency Department environment. It may contain unintended and wholly unrecognized errors or omissions. Dragon Disclaimer This chart was dictated in whole or in part using Voice Recognition software in a busy, high-work load, and often noisy Emergency Department environment. It may contain unintended and wholly unrecognized errors or omissions. LIVIER GOINS MD Jun 13, 2018 00:34
[2018-06-13] MEDS ORDERED: ONDANSETRON PF 4 MG/2 ML VIAL. IV ONE (00:45)
[2018-06-13] MEDS ORDERED: IV RINGERS SOLUTION,LACTATED 1,000 ML IV SCH (00:45)
--- NOTE | 2018-06-13 01:36 | RAD ---
INDICATION: fall, hit left side of head, nausea and vomiting COMPARISON: February 2014 TECHNIQUE: Axial CT images obtained through the head and cervical spine. One or more of the following individualized dose reduction techniques were utilized for this examination: 1. Automated exposure control; 2. Adjustment of the mA and/or kV according to patient size; 3. Use of iterative reconstruction technique. FINDINGS: Head: No midline shift. Suprasellar cistern is not effaced. Calcifications of the falx. Scattered low density within the white matter. No definite acute intracranial hemorrhage. Nasal septal bowing to the right. Cervical spine: Degenerative changes are identified with osteophyte formation at the vertebral body endplates as well as facet hypertrophy with associated central canal and neural foraminal stenosis. A definite acute fracture line not seen. Posterior fusion defects C6 and C7. IMPRESSION: 1. No acute intracranial hemorrhage. 2. Degenerative changes of cervical spine without a definite acute fracture line. Electronically signed by: Wilton Gabriel MD (06/13/2018 1:32 AM) [id number]
[2018-06-13 01:52] LABS: BASO % 1 % (0-3); EOS # 0.2 x10^3/uL (0.0-0.7); EOS % 3 % (0-3); HEMOGLOBIN 12.3 g/dL (12.0-15.5); LYMPH # 1.6 x10^3/uL (1.0-4.8); LYMPH % 24 % (24-48); MEAN CORPUSCULAR HEMOGLOBIN 27 pg (25-35); MEAN CORPUSCULAR HGB CONC 32 g/dL (31-37); MEAN CORPUSCULAR VOLUME 82 fL (79-100); MONO # 0.5 x10^3/uL (0.0-1.1); MONO % 7 % (0-9); NEUT # 4.4 x10^3uL (1.8-7.7); NEUT % 66 % (31-73); PLATELET COUNT 247 x10^3/uL (140-400); RED BLOOD COUNT 4.64 x10^6/uL (3.50-5.40); RED CELL DISTRIBUTION WIDTH 16.3 % (11.5-14.5); WHITE BLOOD COUNT 6.7 x10^3/uL (4.0-11.0)
[2018-06-13 02:10] LABS: BARBITURATES NEG (NEG); BENZODIAZEPINES NEG (NEG); BILIRUBIN,URINE NEG (NEG); CANNABINOIDS NEG (NEG); CLARITY,URINE HAZY; COCAINE NEG (NEG); COLOR,URINE YELLOW; GLUCOSE,URINE >=1000 mg/dL (NEG); METHADONE NEG (NEG); NITRITE,URINE NEG (NEG); OPIATES NEG (NEG); PHENCYCLIDINE NEG (NEG); RBC,URINE 0 /HPF (0-2); UROBILINOGEN,URINE 0.2 mg/dL (0.2 mg/dL)
[2018-06-13 02:11] LABS: BACTERIA,URINE 0 /HPF (0-FEW); SQUAMOUS EPITHELIAL CELL,UR FEW /LPF; YEAST,URINE PRESENT /HPF
[2018-06-13 02:12] LABS: AMPHETAMINE/METHAMPHETAMINE NEG (NEG)
[2018-06-13 02:13] LABS: ALBUMIN 2.7 g/dL (3.4-5.0); CALCIUM 8.9 mg/dL (8.5-10.1); CREATININE 0.9 mg/dL (0.6-1.0); DIRECT BILIRUBIN 0.1 mg/dL (0.0-0.2); GFR 67.7; MAGNESIUM 1.9 mg/dL (1.8-2.4); TOTAL BILIRUBIN 0.2 mg/dL (0.2-1.0); TOTAL PROTEIN 7.2 g/dL (6.4-8.2)
[2018-06-13] MEDS ORDERED: KETOROLAC 30 MG/ML VIAL. IV ONE (03:00)
[2018-06-13] MEDS ORDERED: ONDANSETRON PF 4 MG/2 ML VIAL. IV PRN (03:00)
[2018-06-13 03:49] VITALS: BP 102/78
[2018-06-13 06:12] VITALS: BP 107/70
--- NOTE | 2018-06-13 06:24 | EKG ---
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
[2018-06-13] MEDS ORDERED: PANTOPRAZOLE 40 MG TABLET. PO SCH (07:30)
[2018-06-13] MEDS ORDERED: LEVOTHYROXINE 100 MCG TABLET PO SCH (07:30)
[2018-06-13] MEDS ORDERED: IBUPROFEN 800 MG TABLET. PO PRN (07:30)
[2018-06-13] MEDS ORDERED: SUMAtriptan SUCCINATE 50 MG TABLET PO PRN (07:30)
[2018-06-13] MEDS ORDERED: buPROPion XL 300 MG TAB.ER.24H. PO SCH (08:00)
[2018-06-13] MEDS ORDERED: metFORMIN 500 MG TABLET PO SCH (08:00)
--- NOTE | 2018-06-13 08:33 | RAD ---
Single view of the chest. 06/13/2018 12:58 AM Indication: fall, wheezing, nausea and vomiting Comparison: Chest radiograph May 09, 2018 Findings: Chest wall deformity is stable. No evidence of pneumothorax or significant pleural effusion is seen. Heart size is normal and stable. No new focal consolidative infiltrate is identified. IMPRESSION: Stable radiographic appearance of the chest Electronically signed by: Daniel Evans MD (06/13/2018 8:28 AM) [id number]
--- NOTE | 2018-06-13 08:44 | RAD ---
3 views left foot 06/13/2018 12:55 AM Indication: fall, great toe pain Comparison: None Findings: No evidence of acute fracture or dislocation is identified. Articular surfaces are uninterrupted. There appears to be a fractured syndesmotic screw is noted within the distal tibia and fibula. Surrounding lucency suggest loosening/motion. No acute soft tissue changes are seen. IMPRESSION: 1. No evidence of acute osseous abnormality 2. Fractured syndesmotic screw with surrounding lucency suggesting loosening/motion. Electronically signed by: Daniel Evans MD (06/13/2018 8:39 AM) [id number]
[2018-06-13] MEDS ORDERED: valACYclovir 500 MG TABLET. PO SCH (09:00)
[2018-06-13] MEDS ORDERED: INSULIN GLARGINE 300 UNITS/3 ML INSULN.PEN. SQ SCH (09:00)
[2018-06-13] MEDS ORDERED: PROPRANOLOL ER 60 MG CAP.SA.24H. PO SCH (09:00)
[2018-06-13] MEDS ORDERED: NYSTATIN TOPICAL POWDER 15GM BOTTLE. TP SCH (09:00)
[2018-06-13] MEDS ORDERED: CITALOPRAM 20 MG TABLET. PO SCH (09:00)
[2018-06-13] MEDS ORDERED: IPRATRPIUM/ALBUTEROL 0.5/2.5MG 3 ML NEBU. NEB SCH (09:00)
[2018-06-13] MEDS ORDERED: GABAPENTIN 300 MG CAPSULE. PO SCH (09:00)
[2018-06-13] MEDS ORDERED: CETIRIZINE HCL 10 MG TABLET PO SCH (09:00)
[2018-06-13] MEDS ORDERED: LORazepam 1 MG TABLET PO SCH ×2 (09:00)
[2018-06-13] MEDS ORDERED: MUPIROCIN 2% TOPICAL OINTMENT 22GM TUBE. TP SCH (09:00)
[2018-06-13 10:56] VITALS: BP 112/77
--- NOTE | 2018-06-22 19:45 | HP ---
ADMIT DATE: 06/13/2018 CHIEF COMPLAINT: Severe headache. HISTORY OF PRESENT ILLNESS: Apparently, this 47-year-old morbidly obese female sat down on a chair and collapsed. She hit her head, had jammed her foot. The patient began to have severe pain in her head. She was having some dry heaves since the injury and as a result of this, the patient was admitted to the hospital for her concussion as well as the severity of her headache. PAST MEDICAL HISTORY: She has had oral surgery, head injuries as noted, TIAs, headaches, heart murmurs, chronic migraines, PEs, pneumonias, sleep apnea, hiatal hernia, morbid obesity, nausea, GERD, multiple urinary tract infections, multiple arrhythmias, arthritis, joint pain, degenerative disk disease, hypothyroidism, panic disorder, severe depression, self-mutilation, history of narcolepsy, skin cancer, influenza. Vaccination up-to-date. She has also had MRSA. She has also had developmental delays. FAMILY HISTORY: Positive for hypertension, GERD, diabetes. ALLERGIES: LATEX, NATURAL RUBBER, PENICILLIN, SULFUR, ADHESIVES, AMOXICILLIN, ATROPINE, BLACK PEPPER, HYDROGEN PEROXIDE, LANOLIN, METHYLNALTREXONE, NAPROXEN, SUMATRIPTAN, AND DIPHENOXYLATE. HOME MEDICATIONS: See the reconciliation meds which were monitored carefully and admitted there were 22 of them. SOCIAL HISTORY: The patient socially denies smoking, alcohol, or drug use. REVIEW OF SYSTEMS: Continued left temporal pain, shooting pain in her head, and soreness in her foot. She denies chest pain, shortness of breath, abdominal pain, vomiting, melena, hematochezia, or hematemesis except for mild nausea, but neurologically as noted baseline there. PHYSICAL EXAMINATION: GENERAL: This is a morbidly obese white female. VITAL SIGNS: Blood pressure 127/78, respiratory rate 18, pulse 86, temperature 98. The patient's weight is 390 pounds. HEENT: The patient's head was slightly traumatic to the left temporal area. Eyes were PERRL, however. Mouth and throat were normal. NECK: Supple, no JVD or thyromegaly. LUNGS: Diminished, but clear. CARDIOVASCULAR: Regular sinus rhythm, S1, S2, without murmur, rub, thrill, or extra heart sounds. ABDOMEN: Soft, nontender, no rebound or guarding. Positive bowel sounds, no hepatosplenomegaly, protuberant. EXTREMITIES: No clubbing, cyanosis, or swelling to her legs, although chronic lymphedema. NEUROLOGIC: The patient was alert and oriented x 3. Speech is fluent, spontaneous, and appropriate. Cranial nerves 2-12 are grossly intact. DIAGNOSTIC DATA: CT scan of the head was unremarkable as well as cervical spine was unremarkable there. The patient also had a foot x-ray, she did have loosening, possibly fractured toe screw with surrounding lucency suggesting loosening of the motion. The patient was admitted. She was given pain management, monitored neurologically to make sure she had no sequelae to her mild concussion. The foot did not bother her that much and she was told to stay off it and see her orthopedic surgeon who put the plate and screws. In any case, the patient made good progress during the rest of her hospitalization and she was discharged home. Her blood sugars were monitored. Her thyroid was also elevated at 10.5. IMPRESSION AND PLAN: Concussion to the left side of the head secondary to fall at home with a broken chair, type 2 diabetes, morbid obesity, possible loosening of screws in her left foot, moderate protein malnutrition, hypothyroidism with a TSH of 10. The patient will be discharged home in good condition. She had no abnormalities noted post her fall and she will be followed up. See MRAD, decreased activity, and follow up with her orthopedic doctor as well as in the office. CHIKA WARREN MD DR: MOUNA/glenn JOB#: [id number] / [id number]
== END 2018-06-13 14:20 | disposition home or self-care (01) | DRG 89 ==
LOC: ER 00:20 → 1 SOUTH 03:31
PROVIDERS: ADMIT Family Medicine; ATTEND Family Medicine
DX: S06.0X9A Concussion with loss of consciousness of unspecified duration, initial encounter (principal); E44.0 Moderate protein-calorie malnutrition; Z68.43 Body mass index [BMI] 50.0-59.9, adult; E03.9 Hypothyroidism, unspecified; E11.9 Type 2 diabetes mellitus without complications; E66.01 Morbid (severe) obesity due to excess calories; F31.9 Bipolar disorder, unspecified; F41.0 Panic disorder [episodic paroxysmal anxiety]; G43.909 Migraine, unspecified, not intractable, without status migrainosus; G47.30 Sleep apnea, unspecified; G47.419 Narcolepsy without cataplexy; I10 Essential (primary) hypertension; I25.10 Atherosclerotic heart disease of native coronary artery without angina pectoris; K21.9 Gastro-esophageal reflux disease without esophagitis; Z82.49 Family history of ischemic heart disease and other diseases of the circulatory system; Z85.828 Personal history of other malignant neoplasm of skin; Z83.3 Family history of diabetes mellitus; Z86.14 Personal history of Methicillin resistant Staphylococcus aureus infection; Z86.73 Personal history of transient ischemic attack (TIA), and cerebral infarction without residual deficits; Z87.440 Personal history of urinary (tract) infections; F41.9 Anxiety disorder, unspecified; M19.90 Unspecified osteoarthritis, unspecified site; W18.39XA Other fall on same level, initial encounter; Y93.89 Activity, other specified; Y92.098 Other place in other non-institutional residence as the place of occurrence of the external cause; Y99.8 Other external cause status; Z88.6 Allergy status to analgesic agent; Z88.1 Allergy status to other antibiotic agents; Z91.040 Latex allergy status; Z88.7 Allergy status to serum and vaccine; Z88.8 Allergy status to other drugs, medicaments and biological substances; Z91.018 Allergy to other foods; Z91.048 Other nonmedicinal substance allergy status
CPT/HCPCS: 36415; 70450; 71045; 72125; 73630; 80048; 80076; 80307; 81001; 82550; 82947; 83690; 83735; 83880; 84443; 84484; 85025; 85610; 85730; 93005; 96361; 96374; 96375; J1815; J1885; J2405; J7120; 99285-25

== ENCOUNTER 2018-06-20 18:57 | Inpatient (IN) | payer MEDICARE, MEDICAID ==
[~2018-06-20] VITALS: Ht 172.7 cm; Wt 174.3 kg
--- NOTE | 2018-06-20 19:19 | ED.ADGEN ---
Past History Past Medical History: Anxiety, Arrhythmia, Bipolar, Cancer, Diabetes, GERD, Heart Disease, Hypertension, Hypothyroid, Migraines, MRSA Past Surgical History: Cholecystectomy Additional Past Surgical Histo: Eye, bilateral ankles, right thumb. Smoking: Non-smoker Alcohol Use: None Drug Use: None Adult General Chief Complaint Chief Complaint "... I am hurting in my chest today... Now it hurts so bad I vomiting.. now just dry heaves..." I have not seen my information security architect yet..." HPI HPI Patient is a 47 year old female who presents with central chest pain , intractable nausea and vomiting. Patient has currently dry heaves. Patient denies any specific ill contacts. Patient denies any contact with reptiles, birds, and then begins or ill animals. No history of specific immunosuppression. Does have multiple allergies to food and drugs. Patient denies any intake bad food. Patient GERD, coronary artery disease, hypertension , hypothyroidism, migraines, MSRA, elevated lipids . Pt. normally follows with Dr. Roberts. Review of Systems Review of Systems Constitutional: Denies fever or chills [] Eyes: Denies change in visual acuity, redness, or eye pain [] HENT: Denies nasal congestion or sore throat [] Respiratory: Denies cough or shortness of breath [] Cardiovascular: No additional information not addressed in HPI [] GI: Complaints of generalized abdominal pain, nausea, vomiting, and diarrhea [] : Denies dysuria or hematuria [] Musculoskeletal: Denies back pain or joint pain [] Integument: Denies rash or skin lesions [] Neurologic: Denies headache, focal weakness or sensory changes [] Endocrine: Denies polyuria or polydipsia [] All other systems were reviewed and found to be within normal limits, except as documented in this note. Family History Family History Hypertension diabetes Current Medications Current Medications Current Medications Medications (Trade) Dose Ordered Sig/Carlie Start Time Stop Time Status Last Admin Dose Admin Aspirin (Children'S Aspirin) 324 mg 1X ONCE 06/20/18 19:30 06/20/18 19:31 DC Enoxaparin Sodium (Lovenox 150mg Syringe) 150 mg Q12HR 06/20/18 22:00 06/20/18 22:31 150 MG Iohexol (Omnipaque 350 Mg/ml) 100 ml 1X ONCE 06/20/18 22:15 06/20/18 22:16 DC 06/20/18 22:19 100 ML Lactated Ringer's 1,000 ml @ 1,000 mls/hr Q1H 06/20/18 19:30 06/20/18 20:29 DC 06/20/18 19:44 1,000 MLS/HR Ondansetron HCl (Zofran) 4 mg PRN Q4HRS PRN 06/20/18 23:30 06/21/18 23:29 See nursing for home meds Allergies Allergies Allergies Coded Allergies Type Severity Reaction Last Updated Verified amoxicillin Allergy Severe 04/03/18 Yes atropine Allergy Severe 04/03/18 Yes black pepper Allergy Severe 04/03/18 Yes diphenoxylate Allergy Severe 04/03/18 Yes methylnaltrexone Allergy Severe 04/03/18 Yes Latex, Natural Rubber Allergy Intermediate 04/03/18 Yes Penicillins Allergy Intermediate 04/03/18 Yes Sulfa (Sulfonamide Antibiotics) Allergy Intermediate 04/03/18 Yes hydrogen peroxide Allergy Intermediate 04/03/18 Yes lanolin Allergy Intermediate 04/03/18 Yes naproxen Allergy Intermediate 04/03/18 Yes sumatriptan Allergy Intermediate 04/03/18 No tetanus immune globulin Allergy Intermediate 04/03/18 No I S O L A T I O N *CONTACT* Allergy Unknown 04/03/18 Yes adhesive Adverse Reaction Intermediate Rash 04/03/18 Yes Physical Exam Physical Exam Constitutional:in acute distress, ill in appearance. [] HENT: Normocephalic, atraumatic, bilateral external ears normal, oropharynx dry , no oral exudates, nose normal. [] Eyes: PERRLA, EOMI, conjunctiva normal, no discharge. [] Neck: Normal range of motion, no tenderness, supple, no stridor. [] Cardiovascular:Heart rate regular rhythm, no murmur []PMI to Lt. Lungs & Thorax: Bilateral breath sounds equal apex scattered wheezes auscultation [] Abdomen: Bowel sounds hyperactive, soft, generalized tenderness, no masses, no pulsatile masses. [] Old scar. Skin: Warm, dry, no erythema, no rash. [] Back: No tenderness, no CVA tenderness. [] Extremities: No tenderness, no cyanosis, no clubbing, ROM intact, trace ankle edema. [] Scars. Neurologic: Alert and oriented X 3, normal motor function, normal sensory function, no focal deficits noted. [] Psychologic: Affect anxious, judgement normal, mood normal. [] Current Patient Data Vital Signs Vital Signs Date Time Temp Pulse Resp B/P (MAP) Pulse Ox O2 Delivery O2 Flow Rate FiO2 06/20/18 23:58 69 14 112/65 (81) 97 Room Air 06/20/18 19:05 98.2 Lab Results Laboratory Tests Test 06/20/18 19:15 06/20/18 19:50 White Blood Count 6.5 x10^3/uL (4.0-11.0) Red Blood Count 4.84 x10^6/uL (3.50-5.40) Hemoglobin 12.8 g/dL (12.0-15.5) Hematocrit 40.0 % (36.0-47.0) Mean Corpuscular Volume 83 fL (79-100) Mean Corpuscular Hemoglobin 26 pg (25-35) Mean Corpuscular Hemoglobin Concent 32 g/dL (31-37) Red Cell Distribution Width 15.9 % (11.5-14.5) H Platelet Count 288 x10^3/uL (140-400) Neutrophils (%) (Auto) 64 % (31-73) Lymphocytes (%) (Auto) 26 % (24-48) Monocytes (%) (Auto) 7 % (0-9) Eosinophils (%) (Auto) 2 % (0-3) Basophils (%) (Auto) 1 % (0-3) Neutrophils # (Auto) 4.1 x10^3uL (1.8-7.7) Lymphocytes # (Auto) 1.7 x10^3/uL (1.0-4.8) Monocytes # (Auto) 0.4 x10^3/uL (0.0-1.1) Eosinophils # (Auto) 0.2 x10^3/uL (0.0-0.7) Basophils # (Auto) 0.1 x10^3/uL (0.0-0.2) Prothrombin Time 9.5 SEC (9.4-11.4) Prothrombin Time INR 1.0 (0.9-1.1) PTT 23 SEC (23-33) D-Dimer (Milly) 0.84 mg/L (0.00-0.50) H Sodium Level 137 mmol/L (136-145) Potassium Level 4.1 mmol/L (3.5-5.1) Chloride Level 101 mmol/L (98-107) Carbon Dioxide Level 28 mmol/L (21-32) Anion Gap 8 (6-14) Blood Urea Nitrogen 9 mg/dL (7-20) Creatinine 1.0 mg/dL (0.6-1.0) Estimated GFR (Cockcroft-Gault) 60.0 Glucose Level 301 mg/dL (70-99) H Calcium Level 8.6 mg/dL (8.5-10.1) Magnesium Level 1.9 mg/dL (1.8-2.4) Total Bilirubin 0.2 mg/dL (0.2-1.0) Direct Bilirubin 0.1 mg/dL (0.0-0.2) Aspartate Amino Transferase (AST) 16 U/L (15-37) Alanine Aminotransferase (ALT) 18 U/L (14-59) Alkaline Phosphatase 60 U/L (46-116) Creatine Kinase 38 U/L (26-192) Troponin I Quantitative < 0.017 ng/mL (0-0.055) ZX-Huk-D-Type Natriuretic Peptide 90 pg/mL (0-124) Total Protein 7.0 g/dL (6.4-8.2) Albumin 2.9 g/dL (3.4-5.0) L Lipase 224 U/L (73-393) Urine Collection Type Void Urine Color Yellow Urine Clarity Clear Urine pH 5.5 Urine Specific Mclean <=1.005 Urine Protein Neg (NEG-TRACE) Urine Glucose (UA) >=1000 mg/dL (NEG) Urine Ketones (Stick) Neg mg/dL (NEG) Urine Blood Neg (NEG) Urine Nitrite Neg (NEG) Urine Bilirubin Neg (NEG) Urine Urobilinogen Dipstick 0.2 mg/dL (0.2 mg/dL) Urine Leukocyte Esterase Neg (NEG) Urine RBC Occ /HPF (0-2) Urine WBC 1-4 /HPF (0-4) Urine Squamous Epithelial Cells Mod /LPF Urine Bacteria Few /HPF (0-FEW) Urine Opiates Screen Neg (NEG) Urine Methadone Screen Neg (NEG) Urine Barbiturates Neg (NEG) Urine Phencyclidine Screen Neg (NEG) Urine Amphetamine/Methamphetamine Neg (NEG) Urine Benzodiazepines Screen Neg (NEG) Urine Cocaine Screen Neg (NEG) Urine Cannabinoids Screen Neg (NEG) Urine Ethyl Alcohol Neg (NEG) EKG EKG My interpretation EKG shows a sinus rhythm at 70 bpm. Considerable amount of baseline artifact from patient shaking.[] Radiology/Procedures Radiology/Procedures My interpretation of chest x-ray shows no large pulmonary infiltrate. Increased cardiac silhouette. Degenerative joint changes. No free air under the diaphragm. [] Course & Med Decision Making Course & Med Decision Making Pertinent Labs and Imaging studies reviewed. (See chart for details) Heart score 4. Discussed presentation, testing and treatment plan with Dr. Roberts, Admit for further tx. and eval. [] Final Impression Final Impression 1. Chest Miller[] 2. HTN 3. DM glu 301 4. GERD 5. Accelerated hypertension 6. Elevated D-dimer 0.84 7. Malnutrition Alb. 2.9 Dragon Disclaimer Dragon Disclaimer This electronic medical record was generated, in whole or in part, using a voice recognition dictation system. Dragon Disclaimer This chart was dictated in whole or in part using Voice Recognition software in a busy, high-work load, and often noisy Emergency Department environment. It may contain unintended and wholly unrecognized errors or omissions. Dragon Disclaimer This chart was dictated in whole or in part using Voice Recognition software in a busy, high-work load, and often noisy Emergency Department environment. It may contain unintended and wholly unrecognized errors or omissions. Discharge Summary Visit Information Final Diagnosis Problems Medical Problems: (1) Chest pain Status: Acute (2) Chest pain, non-cardiac Status: Acute Brief Hospital Course Allergies Allergies Coded Allergies Type Severity Reaction Last Updated Verified amoxicillin Allergy Severe 04/03/18 Yes atropine Allergy Severe 04/03/18 Yes black pepper Allergy Severe 04/03/18 Yes diphenoxylate Allergy Severe 04/03/18 Yes methylnaltrexone Allergy Severe 04/03/18 Yes Latex, Natural Rubber Allergy Intermediate 04/03/18 Yes Penicillins Allergy Intermediate 04/03/18 Yes Sulfa (Sulfonamide Antibiotics) Allergy Intermediate 04/03/18 Yes hydrogen peroxide Allergy Intermediate 04/03/18 Yes lanolin Allergy Intermediate 04/03/18 Yes naproxen Allergy Intermediate 04/03/18 Yes sumatriptan Allergy Intermediate 04/03/18 No tetanus immune globulin Allergy Intermediate 04/03/18 No I S O L A T I O N *CONTACT* Allergy Unknown 04/03/18 Yes adhesive Adverse Reaction Intermediate Rash 04/03/18 Yes Vital Signs Vital Signs Date Time Temp Pulse Resp B/P (MAP) Pulse Ox O2 Delivery O2 Flow Rate FiO2 06/20/18 23:58 69 14 112/65 (81) 97 Room Air 06/20/18 19:05 98.2 Lab Results Laboratory Tests Test 06/20/18 19:15 06/20/18 19:50 White Blood Count 6.5 x10^3/uL (4.0-11.0) Red Blood Count 4.84 x10^6/uL (3.50-5.40) Hemoglobin 12.8 g/dL (12.0-15.5) Hematocrit 40.0 % (36.0-47.0) Mean Corpuscular Volume 83 fL (79-100) Mean Corpuscular Hemoglobin 26 pg (25-35) Mean Corpuscular Hemoglobin Concent 32 g/dL (31-37) Red Cell Distribution Width 15.9 % (11.5-14.5) Platelet Count 288 x10^3/uL (140-400) Neutrophils (%) (Auto) 64 % (31-73) Lymphocytes (%) (Auto) 26 % (24-48) Monocytes (%) (Auto) 7 % (0-9) Eosinophils (%) (Auto) 2 % (0-3) Basophils (%) (Auto) 1 % (0-3) Neutrophils # (Auto) 4.1 x10^3uL (1.8-7.7) Lymphocytes # (Auto) 1.7 x10^3/uL (1.0-4.8) Monocytes # (Auto) 0.4 x10^3/uL (0.0-1.1) Eosinophils # (Auto) 0.2 x10^3/uL (0.0-0.7) Basophils # (Auto) 0.1 x10^3/uL (0.0-0.2) Prothrombin Time 9.5 SEC (9.4-11.4) Prothromb Time International Ratio 1.0 (0.9-1.1) Activated Partial Thromboplast Time 23 SEC (23-33) D-Dimer (Milly) 0.84 mg/L (0.00-0.50) Sodium Level 137 mmol/L (136-145) Potassium Level 4.1 mmol/L (3.5-5.1) Chloride Level 101 mmol/L (98-107) Carbon Dioxide Level 28 mmol/L (21-32) Anion Gap 8 (6-14) Blood Urea Nitrogen 9 mg/dL (7-20) Creatinine 1.0 mg/dL (0.6-1.0) Estimated GFR (Cockcroft-Gault) 60.0 Glucose Level 301 mg/dL (70-99) Calcium Level 8.6 mg/dL (8.5-10.1) Magnesium Level 1.9 mg/dL (1.8-2.4) Total Bilirubin 0.2 mg/dL (0.2-1.0) Direct Bilirubin 0.1 mg/dL (0.0-0.2) Aspartate Amino Transf (AST/SGOT) 16 U/L (15-37) Alanine Aminotransferase (ALT/SGPT) 18 U/L (14-59) Alkaline Phosphatase 60 U/L (46-116) Creatine Kinase 38 U/L (26-192) Troponin I Quantitative < 0.017 ng/mL (0-0.055) DI-Gum-B-Type Natriuretic Peptide 90 pg/mL (0-124) Total Protein 7.0 g/dL (6.4-8.2) Albumin 2.9 g/dL (3.4-5.0) Lipase 224 U/L (73-393) Urine Collection Type Void Urine Color Yellow Urine Clarity Clear Urine pH 5.5 Urine Specific Mclean <=1.005 Urine Protein Neg (NEG-TRACE) Urine Glucose (UA) >=1000 mg/dL (NEG) Urine Ketones (Stick) Neg mg/dL (NEG) Urine Blood Neg (NEG) Urine Nitrite Neg (NEG) Urine Bilirubin Neg (NEG) Urine Urobilinogen Dipstick 0.2 mg/dL (0.2 mg/dL) Urine Leukocyte Esterase Neg (NEG) Urine RBC Occ /HPF (0-2) Urine WBC 1-4 /HPF (0-4) Urine Squamous Epithelial Cells Mod /LPF Urine Bacteria Few /HPF (0-FEW) Urine Opiates Screen Neg (NEG) Urine Methadone Screen Neg (NEG) Urine Barbiturates Neg (NEG) Urine Phencyclidine Screen Neg (NEG) Urine Amphetamine/Methamphetamine Neg (NEG) Urine Benzodiazepines Screen Neg (NEG) Urine Cocaine Screen Neg (NEG) Urine Cannabinoids Screen Neg (NEG) Urine Ethyl Alcohol Neg (NEG) Brief Hospital Course Ms. Ho is a 47 old female who presented with CP, N/V and Hyperglycemia- transfer to [facility] , no beds available here at [place]. Discharge Information Dischare Medications Current Medications Aspirin (Children'S Aspirin) 324 mg 1X ONCE PO ; Start 06/20/18 at 19:30; Stop 06/20/18 at 19:31; Status DC Lactated Ringer's 1,000 ml @ 1,000 mls/hr Q1H IV Last administered on at 19:44; Admin Dose 1,000 MLS/HR; Start 06/20/18 at 19:30; Stop 06/20/18 at 20:29; Status DC Enoxaparin Sodium (Lovenox 150mg Syringe) 150 mg Q12HR SQ Last administered on 06/20/18at 22:31; Admin Dose 150 MG; Start 06/20/18 at 22:00 Iohexol (Omnipaque 350 Mg/ml) 100 ml 1X ONCE IV Last administered on at 22:19; Admin Dose 100 ML; Start 06/20/18 at 22:15; Stop 06/20/18 at 22:16; Status DC Ondansetron HCl (Zofran) 4 mg PRN Q4HRS PRN IV NAUSEA/VOMITING; Start 06/20/18 at 23:30; Stop 06/21/18 at 23:29 Active Scripts Active Duoneb 0.5-3(2.5) Mg/3 Ml (Albuterol/Ipratropium) 3 Ml Ampul.neb 3 Ml NEB TID 30 Days Reported Novolog Flexpen (Insulin Aspart) 100 Unit/1 Ml Insuln.pen 20 Unit SQ TIDWMEALS LAST DOSE GIVEN: DATE: TIME: NEXT DOSE DUE: DATE: TIME: Aspir-Low (Aspirin) 81 Mg Tablet.dr 81 Mg PO DAILY LAST DOSE GIVEN: DATE: TIME: NEXT DOSE DUE: DATE: TIME: Acetaminophen 500 Mg Tablet 500 Mg PO PRN Q6HRS PRN LAST DOSE GIVEN: DATE: TIME: NEXT DOSE DUE: DATE: TIME: Invokana (Canagliflozin) 300 Mg Tablet 300 Mg PO DAILY LAST DOSE GIVEN: DATE: TIME: NEXT DOSE DUE: DATE: TIME: Nystatin 15 Gm Powder 1 Francisco J TP BID PRN LAST DOSE GIVEN: DATE: TIME: NEXT DOSE DUE: DATE: TIME: Furosemide 20 Mg Tablet 20 Mg PO DAILY LAST DOSE GIVEN: DATE: TIME: NEXT DOSE DUE: DATE: TIME: Melatonin 3 Mg Tablet 10 Mg PO QHS LAST DOSE GIVEN: DATE: TIME: NEXT DOSE DUE: DATE: TIME: Levothyroxine Sodium 125 Mcg Tablet 125 Mcg PO DAILYAC LAST DOSE GIVEN: DATE: TIME: NEXT DOSE DUE: DATE: TIME: Propranolol Hcl 120 Mg Cap.sa.24h 120 Mg PO DAILY LAST DOSE GIVEN: DATE: TIME: NEXT DOSE DUE: DATE: TIME: Escitalopram Oxalate 10 Mg Tablet 20 Mg PO DAILY LAST DOSE GIVEN: DATE: TIME: NEXT DOSE DUE: DATE: TIME: Bupropion Xl (Bupropion Hcl) 300 Mg Tab.er.24h 300 Mg PO DAILYWBKFT LAST DOSE GIVEN: DATE: TIME: NEXT DOSE DUE: DATE: TIME: Pioglitazone Hcl 15 Mg Tablet 15 Mg PO DAILY LAST DOSE GIVEN: DATE: TIME: NEXT DOSE DUE: DATE: TIME: Cetirizine Hcl 10 Mg Tablet 10 Mg PO DAILY LAST DOSE GIVEN: DATE: TIME: NEXT DOSE DUE: DATE: TIME: Ibuprofen 800 Mg Tablet 800 Mg PO TID PRN LAST DOSE GIVEN: DATE: TIME: NEXT DOSE DUE: DATE: TIME: Tresiba Flextouch U-100 (Insulin Degludec) 100 Unit/1 Ml Insuln.pen 80 Unit SQ DAILY LAST DOSE GIVEN: DATE: TIME: NEXT DOSE DUE: DATE: TIME: Valacyclovir (Valacyclovir Hcl) 500 Mg Tablet 500 Mg PO DAILY LAST DOSE GIVEN: DATE: TIME: NEXT DOSE DUE: DATE: TIME: Omeprazole 20 Mg Tablet.dr 40 Mg PO DAILY LAST DOSE GIVEN: DATE: TIME: NEXT DOSE DUE: DATE: TIME: Ativan (Lorazepam) 1 Mg Tablet 1 Mg PO BID PRN LAST DOSE GIVEN: DATE: TIME: NEXT DOSE DUE: DATE: TIME: Gabapentin (Gabapentin) 300 Mg Capsule 600 Mg PO TID LAST DOSE GIVEN: DATE: TIME: NEXT DOSE DUE: DATE: TIME: Metformin Hcl 500 Mg Tablet 1,000 Mg PO BIDWMEALS LAST DOSE GIVEN: DATE: TIME: NEXT DOSE DUE: DATE: TIME: Discharge Summary Visit Information Final Diagnosis Problems Medical Problems: (1) Chest pain Status: Acute (2) Chest pain, non-cardiac Status: Acute Brief Hospital Course Allergies Allergies Coded Allergies Type Severity Reaction Last Updated Verified amoxicillin Allergy Severe 04/03/18 Yes atropine Allergy Severe 04/03/18 Yes black pepper Allergy Severe 04/03/18 Yes diphenoxylate Allergy Severe 04/03/18 Yes methylnaltrexone Allergy Severe 04/03/18 Yes Latex, Natural Rubber Allergy Intermediate 04/03/18 Yes Penicillins Allergy Intermediate 04/03/18 Yes Sulfa (Sulfonamide Antibiotics) Allergy Intermediate 04/03/18 Yes hydrogen peroxide Allergy Intermediate 04/03/18 Yes lanolin Allergy Intermediate 04/03/18 Yes naproxen Allergy Intermediate 04/03/18 Yes sumatriptan Allergy Intermediate 04/03/18 No tetanus immune globulin Allergy Intermediate 04/03/18 No I S O L A T I O N *CONTACT* Allergy Unknown 04/03/18 Yes adhesive Adverse Reaction Intermediate Rash 04/03/18 Yes Vital Signs Vital Signs Date Time Temp Pulse Resp B/P (MAP) Pulse Ox O2 Delivery O2 Flow Rate FiO2 06/20/18 23:58 69 14 112/65 (81) 97 Room Air 06/20/18 19:05 98.2 Lab Results Laboratory Tests Test 06/20/18 19:15 06/20/18 19:50 White Blood Count 6.5 x10^3/uL (4.0-11.0) Red Blood Count 4.84 x10^6/uL (3.50-5.40) Hemoglobin 12.8 g/dL (12.0-15.5) Hematocrit 40.0 % (36.0-47.0) Mean Corpuscular Volume 83 fL (79-100) Mean Corpuscular Hemoglobin 26 pg (25-35) Mean Corpuscular Hemoglobin Concent 32 g/dL (31-37) Red Cell Distribution Width 15.9 % (11.5-14.5) Platelet Count 288 x10^3/uL (140-400) Neutrophils (%) (Auto) 64 % (31-73) Lymphocytes (%) (Auto) 26 % (24-48) Monocytes (%) (Auto) 7 % (0-9) Eosinophils (%) (Auto) 2 % (0-3) Basophils (%) (Auto) 1 % (0-3) Neutrophils # (Auto) 4.1 x10^3uL (1.8-7.7) Lymphocytes # (Auto) 1.7 x10^3/uL (1.0-4.8) Monocytes # (Auto) 0.4 x10^3/uL (0.0-1.1) Eosinophils # (Auto) 0.2 x10^3/uL (0.0-0.7) Basophils # (Auto) 0.1 x10^3/uL (0.0-0.2) Prothrombin Time 9.5 SEC (9.4-11.4) Prothromb Time International Ratio 1.0 (0.9-1.1) Activated Partial Thromboplast Time 23 SEC (23-33) D-Dimer (Milly) 0.84 mg/L (0.00-0.50) Sodium Level 137 mmol/L (136-145) Potassium Level 4.1 mmol/L (3.5-5.1) Chloride Level 101 mmol/L (98-107) Carbon Dioxide Level 28 mmol/L (21-32) Anion Gap 8 (6-14) Blood Urea Nitrogen 9 mg/dL (7-20) Creatinine 1.0 mg/dL (0.6-1.0) Estimated GFR (Cockcroft-Gault) 60.0 Glucose Level 301 mg/dL (70-99) Calcium Level 8.6 mg/dL (8.5-10.1) Magnesium Level 1.9 mg/dL (1.8-2.4) Total Bilirubin 0.2 mg/dL (0.2-1.0) Direct Bilirubin 0.1 mg/dL (0.0-0.2) Aspartate Amino Transf (AST/SGOT) 16 U/L (15-37) Alanine Aminotransferase (ALT/SGPT) 18 U/L (14-59) Alkaline Phosphatase 60 U/L (46-116) Creatine Kinase 38 U/L (26-192) Troponin I Quantitative < 0.017 ng/mL (0-0.055) OD-Znt-C-Type Natriuretic Peptide 90 pg/mL (0-124) Total Protein 7.0 g/dL (6.4-8.2) Albumin 2.9 g/dL (3.4-5.0) Lipase 224 U/L (73-393) Urine Collection Type Void Urine Color Yellow Urine Clarity Clear Urine pH 5.5 Urine Specific Mclean <=1.005 Urine Protein Neg (NEG-TRACE) Urine Glucose (UA) >=1000 mg/dL (NEG) Urine Ketones (Stick) Neg mg/dL (NEG) Urine Blood Neg (NEG) Urine Nitrite Neg (NEG) Urine Bilirubin Neg (NEG) Urine Urobilinogen Dipstick 0.2 mg/dL (0.2 mg/dL) Urine Leukocyte Esterase Neg (NEG) Urine RBC Occ /HPF (0-2) Urine WBC 1-4 /HPF (0-4) Urine Squamous Epithelial Cells Mod /LPF Urine Bacteria Few /HPF (0-FEW) Urine Opiates Screen Neg (NEG) Urine Methadone Screen Neg (NEG) Urine Barbiturates Neg (NEG) Urine Phencyclidine Screen Neg (NEG) Urine Amphetamine/Methamphetamine Neg (NEG) Urine Benzodiazepines Screen Neg (NEG) Urine Cocaine Screen Neg (NEG) Urine Cannabinoids Screen Neg (NEG) Urine Ethyl Alcohol Neg (NEG) Brief Hospital Course Ms. Ho is a 47 old female who presented with central chest pain and N/V. Admitted to Dr. Roberts Discharge Information Condition at Discharge: Improved, Stable Dischare Medications Current Medications Aspirin (Children'S Aspirin) 324 mg 1X ONCE PO ; Start 06/20/18 at 19:30; Stop 06/20/18 at 19:31; Status DC Lactated Ringer's 1,000 ml @ 1,000 mls/hr Q1H IV Last administered on at 19:44; Admin Dose 1,000 MLS/HR; Start 06/20/18 at 19:30; Stop 06/20/18 at 20:29; Status DC Enoxaparin Sodium (Lovenox 150mg Syringe) 150 mg Q12HR SQ Last administered on 06/20/18at 22:31; Admin Dose 150 MG; Start 06/20/18 at 22:00 Iohexol (Omnipaque 350 Mg/ml) 100 ml 1X ONCE IV Last administered on at 22:19; Admin Dose 100 ML; Start 06/20/18 at 22:15; Stop 06/20/18 at 22:16; Status DC Ondansetron HCl (Zofran) 4 mg PRN Q4HRS PRN IV NAUSEA/VOMITING; Start 06/20/18 at 23:30; Stop 06/21/18 at 23:29 Active Scripts Active Duoneb 0.5-3(2.5) Mg/3 Ml (Albuterol/Ipratropium) 3 Ml Ampul.neb 3 Ml NEB TID 30 Days Reported Novolog Flexpen (Insulin Aspart) 100 Unit/1 Ml Insuln.pen 20 Unit SQ TIDWMEALS LAST DOSE GIVEN: DATE: TIME: NEXT DOSE DUE: DATE: TIME: Aspir-Low (Aspirin) 81 Mg Tablet.dr 81 Mg PO DAILY LAST DOSE GIVEN: DATE: TIME: NEXT DOSE DUE: DATE: TIME: Acetaminophen 500 Mg Tablet 500 Mg PO PRN Q6HRS PRN LAST DOSE GIVEN: DATE: TIME: NEXT DOSE DUE: DATE: TIME: Invokana (Canagliflozin) 300 Mg Tablet 300 Mg PO DAILY LAST DOSE GIVEN: DATE: TIME: NEXT DOSE DUE: DATE: TIME: Nystatin 15 Gm Powder 1 Francisco J TP BID PRN LAST DOSE GIVEN: DATE: TIME: NEXT DOSE DUE: DATE: TIME: Furosemide 20 Mg Tablet 20 Mg PO DAILY LAST DOSE GIVEN: DATE: TIME: NEXT DOSE DUE: DATE: TIME: Melatonin 3 Mg Tablet 10 Mg PO QHS LAST DOSE GIVEN: DATE: TIME: NEXT DOSE DUE: DATE: TIME: Levothyroxine Sodium 125 Mcg Tablet 125 Mcg PO DAILYAC LAST DOSE GIVEN: DATE: TIME: NEXT DOSE DUE: DATE: TIME: Propranolol Hcl 120 Mg Cap.sa.24h 120 Mg PO DAILY LAST DOSE GIVEN: DATE: TIME: NEXT DOSE DUE: DATE: TIME: Escitalopram Oxalate 10 Mg Tablet 20 Mg PO DAILY LAST DOSE GIVEN: DATE: TIME: NEXT DOSE DUE: DATE: TIME: Bupropion Xl (Bupropion Hcl) 300 Mg Tab.er.24h 300 Mg PO DAILYWBKFT LAST DOSE GIVEN: DATE: TIME: NEXT DOSE DUE: DATE: TIME: Pioglitazone Hcl 15 Mg Tablet 15 Mg PO DAILY LAST DOSE GIVEN: DATE: TIME: NEXT DOSE DUE: DATE: TIME: Cetirizine Hcl 10 Mg Tablet 10 Mg PO DAILY LAST DOSE GIVEN: DATE: TIME: NEXT DOSE DUE: DATE: TIME: Ibuprofen 800 Mg Tablet 800 Mg PO TID PRN LAST DOSE GIVEN: DATE: TIME: NEXT DOSE DUE: DATE: TIME: Tresiba Flextouch U-100 (Insulin Degludec) 100 Unit/1 Ml Insuln.pen 80 Unit SQ DAILY LAST DOSE GIVEN: DATE: TIME: NEXT DOSE DUE: DATE: TIME: Valacyclovir (Valacyclovir Hcl) 500 Mg Tablet 500 Mg PO DAILY LAST DOSE GIVEN: DATE: TIME: NEXT DOSE DUE: DATE: TIME: Omeprazole 20 Mg Tablet.dr 40 Mg PO DAILY LAST DOSE GIVEN: DATE: TIME: NEXT DOSE DUE: DATE: TIME: Ativan (Lorazepam) 1 Mg Tablet 1 Mg PO BID PRN LAST DOSE GIVEN: DATE: TIME: NEXT DOSE DUE: DATE: TIME: Gabapentin (Gabapentin) 300 Mg Capsule 600 Mg PO TID LAST DOSE GIVEN: DATE: TIME: NEXT DOSE DUE: DATE: TIME: Metformin Hcl 500 Mg Tablet 1,000 Mg PO BIDWMEALS LAST DOSE GIVEN: DATE: TIME: NEXT DOSE DUE: DATE: TIME: LIVIER GOINS MD Jun 20, 2018 19:19
[2018-06-20] MEDS ORDERED: IV RINGERS SOLUTION,LACTATED 1,000 ML IV SCH (19:30)
[2018-06-20] MEDS ORDERED: ASPIRIN 81 MG TAB.CHEW PO ONE (19:30)
[2018-06-20 19:54] LABS: BASO # 0.1 x10^3/uL (0.0-0.2); BASO % 1 % (0-3); EOS # 0.2 x10^3/uL (0.0-0.7); EOS % 2 % (0-3); HEMOGLOBIN 12.8 g/dL (12.0-15.5); LYMPH # 1.7 x10^3/uL (1.0-4.8); LYMPH % 26 % (24-48); MEAN CORPUSCULAR HEMOGLOBIN 26 pg (25-35); MEAN CORPUSCULAR HGB CONC 32 g/dL (31-37); MEAN CORPUSCULAR VOLUME 83 fL (79-100); MONO # 0.4 x10^3/uL (0.0-1.1); MONO % 7 % (0-9); NEUT # 4.1 x10^3uL (1.8-7.7); NEUT % 64 % (31-73); PLATELET COUNT 288 x10^3/uL (140-400); RED BLOOD COUNT 4.84 x10^6/uL (3.50-5.40); RED CELL DISTRIBUTION WIDTH 15.9 % (11.5-14.5); WHITE BLOOD COUNT 6.5 x10^3/uL (4.0-11.0)
[2018-06-20 20:14] LABS: ALBUMIN 2.9 g/dL (3.4-5.0); CALCIUM 8.6 mg/dL (8.5-10.1); DIRECT BILIRUBIN 0.1 mg/dL (0.0-0.2); MAGNESIUM 1.9 mg/dL (1.8-2.4); POTASSIUM 4.1 mmol/L (3.5-5.1); TOTAL BILIRUBIN 0.2 mg/dL (0.2-1.0)
[2018-06-20 20:16] LABS: BARBITURATES NEG (NEG); BENZODIAZEPINES NEG (NEG); CANNABINOIDS NEG (NEG); COCAINE NEG (NEG); METHADONE NEG (NEG); OPIATES NEG (NEG); PHENCYCLIDINE NEG (NEG)
[2018-06-20 20:18] LABS: AMPHETAMINE/METHAMPHETAMINE NEG (NEG)
[2018-06-20 20:36] LABS: CLARITY,URINE CLEAR; COLOR,URINE YELLOW; GLUCOSE,URINE >=1000 mg/dL (NEG)
[2018-06-20 20:37] LABS: BACTERIA,URINE FEW /HPF (0-FEW); BILIRUBIN,URINE NEG (NEG); NITRITE,URINE NEG (NEG); RBC,URINE OCC /HPF (0-2); SQUAMOUS EPITHELIAL CELL,UR MOD /LPF; UROBILINOGEN,URINE 0.2 mg/dL (0.2 mg/dL)
[2018-06-20] MEDS ORDERED: IOHEXOL 350 MG/ML 100 ML VIAL. IV ONE (22:15)
[2018-06-20] MEDS: ENOXAPARIN ** NOTE DOSE ** SYRINGE SQ SCH (22:31)
--- NOTE | 2018-06-20 22:59 | RAD ---
Examination: CT ANGIOGRAPHY CHEST History: Omni 350 100cc: PE protocol: Chest pain, short of air, elevated d-dimer Comparison/Correlation: None Findings: Axial images of chest were obtained following IV contrast according to pulmonary arteriography protocol. Pulmonary arterial vasculature is normal with no thromboembolic disease. No infiltrate or effusion. No pneumothorax. No infiltrate. Deformity of the bony thorax bilaterally is noted and presumably developmental. No enlarged thoracic lymph nodes. There is minimal fluid within the esophagus and this may relate to reflux. Thoracic aorta is unremarkable. Fatty infiltration of liver is notable. Cholecystectomy. Impression: No infiltrate. Pulmonary arterial vasculature is unremarkable. Electronically signed by: Adiel Byrd MD (06/20/2018 10:55 PM) [facility]
[2018-06-20] MEDS ORDERED: ONDANSETRON PF 4 MG/2 ML VIAL. IV PRN (23:30)
--- NOTE | 2018-06-20 23:44 | RAD ---
Examination: CHEST PA LATERAL History: Chest pain, nausea, vomiting, dizziness today Comparison/Correlation: 06/13/2017 AP frontal view of the chest Findings: PA and lateral views of chest were obtained. Heart size and pulmonary vasculature are normal. No infiltrate or effusion. Bony deformities are present and may be developmental. No new bony process. No pneumothorax. Surgical clips involve the upper abdomen. Impression: No active disease. Electronically signed by: Adiel Byrd MD (06/20/2018 11:39 PM) [facility]
--- NOTE | 2018-06-20 23:59 | EKG ---
[address] [address] Test Date: 2018-06-20 Test Time: 19:05:17 Pat Name: CHIQUITA BLAIR Department: Room: Gender: F [facility]: : 1970 Requested By: LIVIER GOINS Order Number: [id number] Reading MD: Measurements Intervals [place] Rate: 70 P: VA: QRS: 105 QRSD: 108 T: 52 QT: 416 QTc: 452 Interpretive Statements ATRIAL FLUTTER RIGHTWARD AXIS QRS(T) CONTOUR ABNORMALITY CONSIDER ANTEROLATERAL MYOCARDIAL DAMAGE ABNORMAL ECG RI6.01 Unconfirmed report No previous ECG available for comparison
[2018-06-21 00:28] VITALS: BP 115/74
[2018-06-21] MEDS ORDERED: NYST15PO9 TP (03:52)
[2018-06-21] MEDS ORDERED: MELA3TAB2 PO (03:52)
[2018-06-21] MEDS ORDERED: FURO20TA3 PO (03:52)
[2018-06-21] MEDS ORDERED: ACET500T68 PO (03:52)
[2018-06-21] MEDS ORDERED: LEVO125T5 PO (03:52)
[2018-06-21] MEDS ORDERED: PROP120C3 PO (03:52)
[2018-06-21] MEDS ORDERED: ASPI81TA50 PO (03:52)
[2018-06-21] MEDS ORDERED: CANA300T PO (03:52)
[2018-06-21] MEDS ORDERED: INSU100I17 SQ (03:54)
[2018-06-21 05:55] VITALS: BP 106/59
[2018-06-21 06:57] LABS: BASO # 0.1 x10^3/uL (0.0-0.2); BASO % 1 % (0-3); EOS # 0.2 x10^3/uL (0.0-0.7); EOS % 2 % (0-3); HEMATOCRIT 36.8 % (36.0-47.0); HEMOGLOBIN 11.8 g/dL (12.0-15.5); LYMPH # 2.2 x10^3/uL (1.0-4.8); LYMPH % 35 % (24-48); MEAN CORPUSCULAR HEMOGLOBIN 26 pg (25-35); MEAN CORPUSCULAR HGB CONC 32 g/dL (31-37); MEAN CORPUSCULAR VOLUME 82 fL (79-100); MONO # 0.6 x10^3/uL (0.0-1.1); MONO % 9 % (0-9); NEUT # 3.4 x10^3uL (1.8-7.7); NEUT % 53 % (31-73); PLATELET COUNT 244 x10^3/uL (140-400); RED BLOOD COUNT 4.49 x10^6/uL (3.50-5.40); RED CELL DISTRIBUTION WIDTH 16.2 % (11.5-14.5); WHITE BLOOD COUNT 6.5 x10^3/uL (4.0-11.0)
[2018-06-21 07:07] LABS: CALCIUM 8.6 mg/dL (8.5-10.1); CREATININE 0.9 mg/dL (0.6-1.0); GFR 67.7; POTASSIUM 3.5 mmol/L (3.5-5.1)
[2018-06-21] MEDS: ENOXAPARIN ** NOTE DOSE ** SYRINGE SQ SCH ×2 (08:06→20:21)
[2018-06-21] MEDS ORDERED: metFORMIN 500 MG TABLET PO SCH (09:00)
[2018-06-21] MEDS: IPRATRPIUM/ALBUTEROL 0.5/2.5MG 3 ML NEBU. NEB SCH ×3 (09:00→19:25)
[2018-06-21] MEDS ORDERED: NYSTATIN TOPICAL POWDER 15GM BOTTLE. TP PRN (09:00)
[2018-06-21] MEDS: NON FORMULARY ITEM (Canagliflozin (Invokana) 300 MG) PO SCH (09:00)
[2018-06-21] MEDS: ASPIRIN ENTERIC COATED 81 MG TABLET.DR. PO SCH (09:00)
[2018-06-21] MEDS: LEVOTHYROXINE 125 MCG TABLET PO SCH (09:00)
[2018-06-21] MEDS ORDERED: ACETAMINOPHEN 500 MG TABLET PO PRN (09:00)
[2018-06-21] MEDS: buPROPion XL 300 MG TAB.ER.24H. PO SCH (09:00)
[2018-06-21] MEDS ORDERED: INSULIN GLARGINE 300 UNITS/3 ML INSULN.PEN. SQ SCH ×2 (09:00→21:00)
[2018-06-21] MEDS ORDERED: ASPIRIN 81 MG TAB.CHEW PO SCH (09:00)
[2018-06-21] MEDS ORDERED: IOHEXOL 350 MG/ML 100 ML VIAL. IV ONE (09:15)
[2018-06-21] MEDS: GABAPENTIN 300 MG CAPSULE. PO SCH ×3 (09:34→20:21)
[2018-06-21] MEDS: FUROSEMIDE 20 MG TABLET PO SCH (09:34)
[2018-06-21] MEDS: PIOGLITAZONE 15 MG TABLET. PO SCH (09:35)
[2018-06-21] MEDS: CITALOPRAM 20 MG TABLET. PO SCH (09:35)
[2018-06-21] MEDS: PANTOPRAZOLE 40 MG TABLET. PO SCH (09:35)
[2018-06-21] MEDS: PROPRANOLOL ER 60 MG CAP.SA.24H. PO SCH (09:36)
[2018-06-21] MEDS: valACYclovir 500 MG TABLET. PO SCH (09:36)
[2018-06-21] MEDS: CETIRIZINE HCL 10 MG TABLET PO SCH (09:37)
--- NOTE | 2018-06-21 09:39 | PDOC2 ---
URVASHI TAYLOR CONFERENCE ASSISTANT 06/21/18 0939: CONSULT Date of Admission DATE: 06/21/18 TIME: 09:24 Reason for Consult: cp Problem List Problems Medical Problems: (1) Chest pain Status: Acute (2) Chest pain, non-cardiac Status: Acute History of Present Illness She is a pleasant 47-year-old female with a history of mild coronary artery disease by cardiac catheterization in 2010. She presents with central chest pain , with intractable nausea and vomiting. She reports chest pain started last pm around 5. The discomfort is described as a squeezing pain and has been constant since onset. Pain is increased with deep inspiration but no change with exertion or position change. The pain is non radiating. She reports an episode like this just a few months ago as well. She also reports nausea and vomiting as well as diarrhea started after the onset of pain. She denies any fever or chills. She denies any sick contacts. She reports asthma and some increased shortness of breath today. She denies congestive symptoms and sleeps on 1 pillow for comfort. She reports her functional capacity at 2 blocks. She denies lightheadedness or syncope. She does report occasional palpitations. She normally follows with Dr Chino for cardiology. Past Medical History recent head injury [facility] MPI 08/17/17 Small, moderately intense, reversible mid to distal anterolateral and apical defect with small ischemia. Breast attenuation artifact could no be excluded. Normal wall motion, EF 63%. Echo 06/21/16 Left ventricle systolic function is normal. The Ejection Fraction is 55%. The aortic valve is calcified but opens well. There is no significant aortic valvular stenosis. There is no pulmonary hypertension. The PA pressure was estimated at 25 mmHg. The aortic root is normal in size. There is no evidence of significant pericardial effusion. Cardiovascular: CAD, hyperipidemia Pulmonary: Asthma, Pneumonia, Other (MARCI, PA) CENTRAL NERVOUS SYSTEM: TIA GI: GERD, Other (Hiatal hernia) Heme/Onc: Cancer (skin, oral) Psych: Other (panic disorder, personality disorder, depression, self mutilation ) Musculoskeletal: Osteoarthritis, Other (degenerative disc disease, scoliosis) Infectious disease: Other (c diff, MRSA) Renal/: UTI Endocrine: Diabetes, Hypothyroidism Past Surgical History bilateral ankle sx with hardware s/p oral surgery secondary to cancer Family History Family History: Coronary Artery Disease, HTN Social History Smoke: Quit ALCOHOL: none DRUGS: none Current Medications Current Medications Aspirin (Children'S Aspirin) 324 mg 1X ONCE PO ; Start 06/20/18 at 19:30; Stop 06/20/18 at 19:31; Status DC Lactated Ringer's 1,000 ml @ 1,000 mls/hr Q1H IV Last administered on at 19:44; Start 06/20/18 at 19:30; Stop 06/20/18 at 20:29; Status DC Enoxaparin Sodium (Lovenox 150mg Syringe) 150 mg Q12HR SQ Last administered on 06/21/18at 08:06; Start 06/20/18 at 22:00 Iohexol (Omnipaque 350 Mg/ml) 100 ml 1X ONCE IV Last administered on at 22:19; Start 06/20/18 at 22:15; Stop 06/20/18 at 22:16; Status DC Ondansetron HCl (Zofran) 4 mg PRN Q4HRS PRN IV NAUSEA/VOMITING; Start 06/20/18 at 23:30; Stop 06/21/18 at 23:29 Aspirin (Children'S Aspirin) 81 mg DAILY PO Last administered on 06/21/18at 08: 06; Start 06/21/18 at 09:00; Stop 06/21/18 at 09:16; Status DC Bupropion HCl (Wellbutrin Xl) 300 mg DAILYWBKFT PO ; Start 06/21/18 at 09:00 Furosemide (Lasix) 20 mg DAILY PO ; Start 06/21/18 at 09:00 Gabapentin (Neurontin) 600 mg TID PO ; Start 06/21/18 at 09:00 Albuterol/ Ipratropium (Duoneb) 3 ml TID NEB ; Start 06/21/18 at 09:00 Lorazepam (Ativan) 1 mg PRN BID PRN PO ANXIETY; Start 06/21/18 at 09:00 Nystatin (Nystop) 1 francisco j BID PRN TP RASH; Start 06/21/18 at 09:00 Acetaminophen (Tylenol) 500 mg PRN Q6HRS PRN PO PAIN / TEMP; Start 06/21/18 at 09:00 Aspirin (Aspirin Enteric Coated) 81 mg DAILYWBKFT PO ; Start 06/21/18 at 09:00 Non-Formulary Medication (Canagliflozin (Invokana)) 300 mg DAILY PO ; Start at 09:00; Status UNV Cetirizine HCl (ZyrTEC) 10 mg DAILY PO ; Start 06/21/18 at 09:00 Citalopram Hydrobromide (CeleXA) 40 mg DAILY PO ; Start 06/21/18 at 09:00 Ibuprofen (Motrin) 800 mg PRN TID PRN PO INFLAMMATION; Start 06/21/18 at 09:15 Insulin Human Lispro (HumaLOG) 20 units TIDWMEALS SQ ; Start 06/21/18 at 12:00 Insulin Glargine (Lantus) 80 units DAILY SQ ; Start 06/21/18 at 09:00 Levothyroxine Sodium (Synthroid) 125 mcg DAILY06 PO ; Start 06/21/18 at 09:00 Melatonin 10 mg QHS PO ; Start 06/21/18 at 21:00 Metformin HCl (Glucophage) 1,000 mg BIDWMEALS PO ; Start 06/21/18 at 09:00; Status Cancel Pantoprazole Sodium (Protonix) 40 mg DAILYAC PO ; Start 06/21/18 at 09:00 Pioglitazone HCl (Actos) 15 mg DAILY PO ; Start 06/21/18 at 09:00 Propranolol HCl (Inderal La) 120 mg DAILY PO ; Start 06/21/18 at 10:00 Valacyclovir HCl (Valtrex) 500 mg DAILY PO ; Start 06/21/18 at 10:00 Iohexol (Omnipaque 350 Mg/ml) 100 ml 1X ONCE IV ; Start 06/21/18 at 09:15; Stop 06/21/18 at 09:16; Status DC Metformin HCl (Glucophage) 1,000 mg BIDWMEALS PO ; Start 06/23/18 at 08:00 Active Scripts Active Duoneb 0.5-3(2.5) Mg/3 Ml (Albuterol/Ipratropium) 3 Ml Ampul.neb 3 Ml NEB TID 30 Days Reported Novolog Flexpen (Insulin Aspart) 100 Unit/1 Ml Insuln.pen 20 Unit SQ TIDWMEALS LAST DOSE GIVEN: DATE: TIME: NEXT DOSE DUE: DATE: TIME: Aspir-Low (Aspirin) 81 Mg Tablet.dr 81 Mg PO DAILY LAST DOSE GIVEN: DATE: TIME: NEXT DOSE DUE: DATE: TIME: Acetaminophen 500 Mg Tablet 500 Mg PO PRN Q6HRS PRN LAST DOSE GIVEN: DATE: TIME: NEXT DOSE DUE: DATE: TIME: Invokana (Canagliflozin) 300 Mg Tablet 300 Mg PO DAILY LAST DOSE GIVEN: DATE: TIME: NEXT DOSE DUE: DATE: TIME: Nystatin 15 Gm Powder 1 Francisco J TP BID PRN LAST DOSE GIVEN: DATE: TIME: NEXT DOSE DUE: DATE: TIME: Furosemide 20 Mg Tablet 20 Mg PO DAILY LAST DOSE GIVEN: DATE: TIME: NEXT DOSE DUE: DATE: TIME: Melatonin 3 Mg Tablet 10 Mg PO QHS LAST DOSE GIVEN: DATE: TIME: NEXT DOSE DUE: DATE: TIME: Levothyroxine Sodium 125 Mcg Tablet 125 Mcg PO DAILYAC LAST DOSE GIVEN: DATE: TIME: NEXT DOSE DUE: DATE: TIME: Propranolol Hcl 120 Mg Cap.sa.24h 120 Mg PO DAILY LAST DOSE GIVEN: DATE: TIME: NEXT DOSE DUE: DATE: TIME: Escitalopram Oxalate 10 Mg Tablet 20 Mg PO DAILY LAST DOSE GIVEN: DATE: TIME: NEXT DOSE DUE: DATE: TIME: Bupropion Xl (Bupropion Hcl) 300 Mg Tab.er.24h 300 Mg PO DAILYWBKFT LAST DOSE GIVEN: DATE: TIME: NEXT DOSE DUE: DATE: TIME: Pioglitazone Hcl 15 Mg Tablet 15 Mg PO DAILY LAST DOSE GIVEN: DATE: TIME: NEXT DOSE DUE: DATE: TIME: Cetirizine Hcl 10 Mg Tablet 10 Mg PO DAILY LAST DOSE GIVEN: DATE: TIME: NEXT DOSE DUE: DATE: TIME: Ibuprofen 800 Mg Tablet 800 Mg PO TID PRN LAST DOSE GIVEN: DATE: TIME: NEXT DOSE DUE: DATE: TIME: Tresiba Flextouch U-100 (Insulin Degludec) 100 Unit/1 Ml Insuln.pen 80 Unit SQ DAILY LAST DOSE GIVEN: DATE: TIME: NEXT DOSE DUE: DATE: TIME: Valacyclovir (Valacyclovir Hcl) 500 Mg Tablet 500 Mg PO DAILY LAST DOSE GIVEN: DATE: TIME: NEXT DOSE DUE: DATE: TIME: Omeprazole 20 Mg Tablet.dr 40 Mg PO DAILY LAST DOSE GIVEN: DATE: TIME: NEXT DOSE DUE: DATE: TIME: Ativan (Lorazepam) 1 Mg Tablet 1 Mg PO BID PRN LAST DOSE GIVEN: DATE: TIME: NEXT DOSE DUE: DATE: TIME: Gabapentin (Gabapentin) 300 Mg Capsule 600 Mg PO TID LAST DOSE GIVEN: DATE: TIME: NEXT DOSE DUE: DATE: TIME: Metformin Hcl 500 Mg Tablet 1,000 Mg PO BIDWMEALS LAST DOSE GIVEN: DATE: TIME: NEXT DOSE DUE: DATE: TIME: Allergies: Coded Allergies: amoxicillin (Verified Allergy, Severe, 04/03/18) atropine (Verified Allergy, Severe, 04/03/18) black pepper (Verified Allergy, Severe, 04/03/18) diphenoxylate (Verified Allergy, Severe, 04/03/18) methylnaltrexone (Verified Allergy, Severe, 04/03/18) Latex, Natural Rubber (Verified Allergy, Intermediate, 04/03/18) Penicillins (Verified Allergy, Intermediate, 04/03/18) Sulfa (Sulfonamide Antibiotics) (Verified Allergy, Intermediate, 04/03/18) hydrogen peroxide (Verified Allergy, Intermediate, 04/03/18) lanolin (Verified Allergy, Intermediate, 04/03/18) naproxen (Verified Allergy, Intermediate, 04/03/18) tetanus immune globulin (Unverified Allergy, Intermediate, 04/03/18) I S O L A T I O N *CONTACT* (Verified Allergy, Unknown, 04/03/18) +MRSA 03/04/2018 sumatriptan (Verified Adverse Reaction, Severe, N/V, 06/21/18) THIS MEDICATION MAKES THE PATIENT FEEL VERY ILL adhesive (Verified Adverse Reaction, Intermediate, Rash, 04/03/18) Review of System as per HPI General: YES: Fatigue, Malaise PSYCHOLOGICAL ROS: YES: Anxiety, Sleep disturbances, Other (increased stress) HEENT: YES: Heacaches Respiratory: YES: Pleuritic Pain, Shortness of breath Cardiovascular: yes: Chest Pain Gastrointestinal: YES: Nausea, Vomiting, Diarrhea Skin: YES: Pruritus General: Alert, Oriented X3, Cooperative, No acute distress HEENT: Atraumatic, EOMI, Mucous membr. moist/pink Lungs: Other (decreased bases bilaterally, no crackles, rhonchi or wheezing) Heart: Normal S1, Normal S2, Other (no gallops, clicks or rubs) Abdomen: Normal bowel sounds, Soft, No tenderness, Other (obese) Extremities: No edema, Normal pulses Neuro: Normal speech, Strength at 5/5 X4 ext Psych/Mental Status: Mental status NL, Mood NL VITALS Vital Signs Date Time Temp Pulse Resp B/P (MAP) Pulse Ox O2 Delivery O2 Flow Rate FiO2 06/21/18 08:18 Room Air 06/21/18 05:55 97.6 72 20 106/59 (75) 97 Labs Laboratory Tests Test 06/20/18 19:15 06/20/18 19:50 06/21/18 02:15 06/21/18 05:57 White Blood Count 6.5 x10^3/uL (4.0-11.0) 6.5 x10^3/uL (4.0-11.0) Red Blood Count 4.84 x10^6/uL (3.50-5.40) 4.49 x10^6/uL (3.50-5.40) Hemoglobin 12.8 g/dL (12.0-15.5) 11.8 g/dL (12.0-15.5) Hematocrit 40.0 % (36.0-47.0) 36.8 % (36.0-47.0) Mean Corpuscular Volume 83 fL (79-100) 82 fL (79-100) Mean Corpuscular Hemoglobin 26 pg (25-35) 26 pg (25-35) Mean Corpuscular Hemoglobin Concent 32 g/dL (31-37) 32 g/dL (31-37) Red Cell Distribution Width 15.9 % (11.5-14.5) 16.2 % (11.5-14.5) Platelet Count 288 x10^3/uL (140-400) 244 x10^3/uL (140-400) Neutrophils (%) (Auto) 64 % (31-73) 53 % (31-73) Lymphocytes (%) (Auto) 26 % (24-48) 35 % (24-48) Monocytes (%) (Auto) 7 % (0-9) 9 % (0-9) Eosinophils (%) (Auto) 2 % (0-3) 2 % (0-3) Basophils (%) (Auto) 1 % (0-3) 1 % (0-3) Neutrophils # (Auto) 4.1 x10^3uL (1.8-7.7) 3.4 x10^3uL (1.8-7.7) Lymphocytes # (Auto) 1.7 x10^3/uL (1.0-4.8) 2.2 x10^3/uL (1.0-4.8) Monocytes # (Auto) 0.4 x10^3/uL (0.0-1.1) 0.6 x10^3/uL (0.0-1.1) Eosinophils # (Auto) 0.2 x10^3/uL (0.0-0.7) 0.2 x10^3/uL (0.0-0.7) Basophils # (Auto) 0.1 x10^3/uL (0.0-0.2) 0.1 x10^3/uL (0.0-0.2) Prothrombin Time 9.5 SEC (9.4-11.4) Prothromb Time International Ratio 1.0 (0.9-1.1) Activated Partial Thromboplast Time 23 SEC (23-33) D-Dimer (Milly) 0.84 mg/L (0.00-0.50) Sodium Level 137 mmol/L (136-145) 138 mmol/L (136-145) Potassium Level 4.1 mmol/L (3.5-5.1) 3.5 mmol/L (3.5-5.1) Chloride Level 101 mmol/L (98-107) 102 mmol/L (98-107) Carbon Dioxide Level 28 mmol/L (21-32) 31 mmol/L (21-32) Anion Gap 8 (6-14) 5 (6-14) Blood Urea Nitrogen 9 mg/dL (7-20) 10 mg/dL (7-20) Creatinine 1.0 mg/dL (0.6-1.0) 0.9 mg/dL (0.6-1.0) Estimated GFR (Cockcroft-Gault) 60.0 67.7 Glucose Level 301 mg/dL (70-99) 178 mg/dL (70-99) Calcium Level 8.6 mg/dL (8.5-10.1) 8.6 mg/dL (8.5-10.1) Magnesium Level 1.9 mg/dL (1.8-2.4) Total Bilirubin 0.2 mg/dL (0.2-1.0) Direct Bilirubin 0.1 mg/dL (0.0-0.2) Aspartate Amino Transf (AST/SGOT) 16 U/L (15-37) Alanine Aminotransferase (ALT/SGPT) 18 U/L (14-59) Alkaline Phosphatase 60 U/L (46-116) Creatine Kinase 38 U/L (26-192) Troponin I Quantitative < 0.017 ng/mL (0-0.055) < 0.017 ng/mL (0-0.055) < 0.017 ng/mL (0-0.055) LJ-Leb-X-Type Natriuretic Peptide 90 pg/mL (0-124) Total Protein 7.0 g/dL (6.4-8.2) Albumin 2.9 g/dL (3.4-5.0) Lipase 224 U/L (73-393) Urine Collection Type Void Urine Color Yellow Urine Clarity Clear Urine pH 5.5 Urine Specific [place] <=1.005 Urine Protein Neg (NEG-TRACE) Urine Glucose (UA) >=1000 mg/dL (NEG) Urine Ketones (Stick) Neg mg/dL (NEG) Urine Blood Neg (NEG) Urine Nitrite Neg (NEG) Urine Bilirubin Neg (NEG) Urine Urobilinogen Dipstick 0.2 mg/dL (0.2 mg/dL) Urine Leukocyte Esterase Neg (NEG) Urine RBC Occ /HPF (0-2) Urine WBC 1-4 /HPF (0-4) Urine Squamous Epithelial Cells Mod /LPF Urine Bacteria Few /HPF (0-FEW) Urine Opiates Screen Neg (NEG) Urine Methadone Screen Neg (NEG) Urine Barbiturates Neg (NEG) Urine Phencyclidine Screen Neg (NEG) Urine Amphetamine/Methamphetamine Neg (NEG) Urine Benzodiazepines Screen Neg (NEG) Urine Cocaine Screen Neg (NEG) Urine Cannabinoids Screen Neg (NEG) Urine Ethyl Alcohol Neg (NEG) Test 06/21/18 07:11 Glucose (Fingerstick) 140 mg/dL (70-99) Images EKG - sinus rhythm, no acute ischemic changes CXR - NAD CTA - no PE Assessment/Plan 1. Chest pain, pleuritic - IN ruled out. No acute EKG changes. 2. elevated d dimer - PE negative 3. CAD - mild non obstructive by cath 2010. Minimally abn MPI in july of last year due to possible attenuation artifact. 4. asthma - per PCP 5. HTN - well controlled 6. HLD - check lipids 7. DM - per PCP Check echo. If no new abn, suggest outpatient follow up for medical therapy and possible repeat MPI. GEMA JOE MD 06/21/18 1633: CONSULT Assessment/Plan Patient seen and examined. Agree with HEAD INSPECTOR's assessment and plan. Chest pain with atypical features. IN ruled out. 2D echo showed normal LV function without any wall motion abnormalities. We will consider ischemic workup with MPI as outpatient. Thank you for your consultation. URVASHI TAYLOR APRN Jun 21, 2018 09:39 GEMA JOE MD Jun 21, 2018 16:33
[2018-06-21] MEDS: LORazepam 1 MG TABLET PO PRN ×2 (09:41→20:22)
[2018-06-21 11:10] VITALS: BP 136/80
[2018-06-21] MEDS: traMADol 50 MG TABLET PO PRN ×2 (11:56→20:22)
[2018-06-21] MEDS: INSULIN LISPRO 300 UNITS/3 ML INSULN.PEN. SQ SCH ×2 (11:58→17:17)
[2018-06-21 13:25] LABS: THYROID STIM HORMONE (TSH) 6.256 uIU/mL (0.358-3.740)
[2018-06-21] MEDS ORDERED: PERFLUTREN PROTEIN-A MICROSPHR 0.22 MG/ML 3 ML VIAL. IV ONE (14:10)
[2018-06-21] MEDS ORDERED: RIZA10TA7 PO (14:24)
[2018-06-21] MEDS ORDERED: RIZATRIPTAN BENZOATE PO PRN (14:30)
[2018-06-21] MEDS: IBUPROFEN 800 MG TABLET. PO PRN (14:36)
[2018-06-21] MEDS ORDERED: ALBUTEROL SULFATE 2.5 MG/3 ML NEBU. NEB PRN (15:30)
--- NOTE | 2018-06-21 15:42 | CARD ---
MR#: [id number] Date of Study: 06/21/2018 Ordering Physician: URVASHI TAYLOR, Referring Physician: CHIKA WARREN Tech: Carol Irvin RDCS APPROVED REPORT EXAM: Two-dimensional and M-mode echocardiogram with Doppler and color Doppler. Other Information Quality : Technically Limited Technically limited study due to body habitus. INDICATION Chest Pain Echo Enhancing Agent Indication: Endocardial border delineation Agent/Amount Used: [id number] RISK FACTORS Obesity Diabetes 2D DIMENSIONS RVDd3.0 (2.9-3.5cm)Left Atrium(2D)3.5 (1.6-4.0cm) IVSd0.9 (0.7-1.1cm)Aortic Root(2D)2.5 (2.0-3.7cm) LVDd4.6 (3.9-5.9cm)LVOT Diameter1.9 (1.8-2.4cm) PWd0.9 (0.7-1.1cm)LVDs3.1 (2.5-4.0cm) FS (%) 33.6 %SV60.7 ml LVEF(%)62.4 (>50%) Aortic Valve AoV Peak Andrey.149.5cm/sAoV VTI28.3cm AO Peak GR.8.9mmHgLVOT Peak Andrey.119.2cm/s LVOT VTI 28.61cmAO Mean GR.5mmHg RONALD (VMAX)2.28ug3KSV (VTI)2.81cm2 Mitral Valve MV E Lwdrybhi325.8cm/sMV DECEL XIGE596if MV A Cheswuow91.1cm/sE/A Ratio1.2 Tricuspid Valve TR P. Ajlqdilv816xn/sRAP KJUSGZDY0kmPa TR Peak Gr.51qhGhLXCV32koJe Pulmonary Vein S1 Pzlbjabs44.0cm/sD2 Mfmwyysc68.9cm/s LEFT VENTRICLE The left ventricle is normal size. There is normal left ventricular wall thickness. The left ventricu lar systolic function is normal and the ejection fraction is within normal range. The Ejection Fracti on is 55-60%. There is normal LV segmental wall motion. The left ventricular diastolic function and f illing is normal for age. RIGHT VENTRICLE The right ventricle is normal size. The right ventricular systolic function is normal. ATRIA The left atrium size is normal. The right atrium size is normal. The interatrial septum is intact wit h no evidence for an atrial septal defect or patent foramen ovale as noted on 2-D or Doppler imaging. AORTIC VALVE The aortic valve is not well visualized but appears to be functioniong normally by Doppler interrogat ion. Doppler and Color Flow revealed no significant aortic regurgitation. There is no significant aor tic valvular stenosis. MITRAL VALVE The mitral valve is normal in structure and function. There is no evidence of mitral valve prolapse. There is no mitral valve stenosis. Doppler and Color-flow revealed mild mitral regurgitation. TRICUSPID VALVE The tricuspid valve is normal in structure and function. Doppler and Color Flow revealed mild tricusp id regurgitation. The PA pressure was estimated at 37 mmHg. There is no tricuspid valve stenosis. PULMONIC VALVE The pulmonic valve is not well visualized. Doppler and Color Flow revealed no pulmonic valvular regur gitation. There is no pulmonic valvular stenosis. GREAT VESSELS The aortic root is normal in size. The ascending aorta is normal in size. The IVC was not visualized. PERICARDIAL EFFUSION There is no evidence of significant pericardial effusion. Critical Notification Critical Value: No <Conclusion> The left ventricular systolic function is normal and the ejection fraction is within normal range. Th e Ejection Fraction is 55-60%. There is normal LV segmental wall motion. Signed by : Tacho Casey, Electronically Approved : 06/21/2018 15:40:07
[2018-06-21 16:12] VITALS: BP 117/75
--- NOTE | 2018-06-21 19:10 | HP ---
ADMIT DATE: 06/20/2018 HISTORY OF PRESENT ILLNESS: A 47-year-old female came in through the Emergency Room. She was having problems with chest pain, intractable nausea, vomiting, dry heaves. The patient notes the chest pain is nonradiating. She does have some shortness of breath, multiple other medical problems. She was admitted for rule out SD protocol. PAST MEDICAL HISTORY: Positive for oral surgery, recent head injury on 06/18/2018, TIAs, headaches, heart murmurs, PEs, pneumonia, uses CPAP for sleep apnea, hiatal hernia, morbid obesity, nausea, GERD, multiple urinary tract infections, multiple arthritis to multiple joints, degenerative disk disease, bilateral ankles fractures with hardware and scoliosis, diabetes, hypothyroidism, panic disorder, severe depression, self mutilation, history of narcolepsy, skin cancer, influenza vaccination up to date. She has also had a problem with C. diff and MRSA as well. PAST SURGICAL HISTORY: She has had developmental delays. FAMILY HISTORY: Positive for hypertension, GERD, diabetes and depression. ALLERGIES: ALLERGY TO LATEX, NATURAL RUBBER, PENICILLIN, SULFUR, ADHESIVES, AMOXICILLIN, ATROPINE, BLACK PEPPER, HYDROPEROXIDE, LANOLIN, METHYLNALTREXONE, NAPROXEN, SUMATRIPTAN AND DIPHENOXYLATE. MEDICATIONS: See reconciliation meds. They have been monitored and reconciled in her chart. There is about 22 of them listed. SOCIAL HISTORY: The patient denies smoking, alcohol or drug use. REVIEW OF SYSTEMS: Outside of her chest pain, coughing, multiple arthritic problems other than that basically unremarkable. We will continue to be monitored carefully on although those. PHYSICAL EXAMINATION: VITAL SIGNS: Blood pressure 136/80, respiratory rate 20, pulse 83, afebrile. HEENT: The patient's head was atraumatic, normocephalic. Eyes: PERRLA without jaundice. Mouth and throat were normal in this morbidly obese female. LUNGS: Diminished, but clear. CARDIOVASCULAR: Regular sinus rhythm, S1, S2. ABDOMEN: Soft, nontender, no rebound or guarding, protuberant. EXTREMITIES: No clubbing, cyanosis. Trace edema. NEUROLOGIC: Alert at baseline for her with multiple medical issues as indicated. The patient otherwise continue to be monitored. Cardiac enzymes, cardiology consultation and make further evaluation on her chest pain and make further assessment with Dr. Casey reviewing the patient as well. IMPRESSION: Chest pain, morbid obesity, type 2 diabetes, elevated D-dimer, pulmonary embolism negative, coronary artery disease, history of asthma, hypertension, hyperlipidemia, and depression. PLAN: As above, continue with a cardiac workup and make further evaluation once those reports have been returned. CHIKA WARREN MD DR: MOUNA/glenn JOB#: [id number] / [id number]
[2018-06-21 20:54] VITALS: BP 110/76
[2018-06-21] MEDS ORDERED: MELATONIN 3 MG TABLET PO SCH (21:00)
[2018-06-21 23:27] VITALS: BP 105/72
[2018-06-22] MEDS: IBUPROFEN 800 MG TABLET. PO PRN (01:23)
[2018-06-22 05:21] VITALS: BP 109/72
[2018-06-22] MEDS: IPRATRPIUM/ALBUTEROL 0.5/2.5MG 3 ML NEBU. NEB SCH (05:31)
[2018-06-22] MEDS: LEVOTHYROXINE 125 MCG TABLET PO SCH (05:33)
[2018-06-22] MEDS: traMADol 50 MG TABLET PO PRN (05:34)
[2018-06-22] MEDS: ENOXAPARIN ** NOTE DOSE ** SYRINGE SQ SCH (08:23)
[2018-06-22] MEDS: GABAPENTIN 300 MG CAPSULE. PO SCH (08:23)
[2018-06-22] MEDS: FUROSEMIDE 20 MG TABLET PO SCH (08:23)
[2018-06-22] MEDS: PANTOPRAZOLE 40 MG TABLET. PO SCH (08:23)
[2018-06-22] MEDS: CITALOPRAM 20 MG TABLET. PO SCH (08:23)
[2018-06-22] MEDS: CETIRIZINE HCL 10 MG TABLET PO SCH (08:24)
[2018-06-22] MEDS: ASPIRIN ENTERIC COATED 81 MG TABLET.DR. PO SCH (08:24)
[2018-06-22] MEDS: PIOGLITAZONE 15 MG TABLET. PO SCH (08:24)
[2018-06-22] MEDS: buPROPion XL 300 MG TAB.ER.24H. PO SCH (08:24)
[2018-06-22 08:25] VITALS: BP 109/72
[2018-06-22] MEDS: PROPRANOLOL ER 60 MG CAP.SA.24H. PO SCH (08:25)
[2018-06-22] MEDS: valACYclovir 500 MG TABLET. PO SCH (08:25)
[2018-06-22] MEDS: INSULIN LISPRO 300 UNITS/3 ML INSULN.PEN. SQ SCH (08:30)
[2018-06-22] MEDS: NON FORMULARY ITEM (Canagliflozin (Invokana) 300 MG) PO SCH (08:31)
[2018-06-22] MEDS ORDERED: IPRA3AMP29 NEB (10:20)
--- NOTE | 2018-06-22 12:08 | DS ---
DATE OF DISCHARGE: 06/22/2018 HOSPITAL COURSE: The patient came in through the Emergency Room with substernal chest pain, nonradiating. The patient was also having some problems with intractable nausea, vomiting, dry heaves. The patient made excellent progress. Cardiac enzymes were negative. Blood sugars, diabetic, morbid obesity are some of her multiple risk factors. She had a CTA of her positive D-dimer, but that was negative there. She was seen by her Cardiology crew and she had an echocardiogram that showed her ejection fraction to be excellent at 55-60%. They cleared her for outpatient evaluation as well. She will see either Dr. Ghazala Casey as an outpatient and make further evaluation on her as an outpatient. IMPRESSION: Chest pain, unknown etiology, morbid obesity and type 2 diabetes. PLAN: As above. Continue to monitor the patient accordingly to make further evaluation on her as an outpatient controlling her blood sugars. Try to get her weight down and make further evaluation on her as indicated. CHIKA WARREN MD DR: MOUNA/nts JOB#: [id number] / [id number]
--- NOTE | 2018-06-22 13:23 | PDOC ---
PROGRESS NOTES Diagnosis Problem Problems Medical Problems: (1) Chest pain Status: Acute (2) Chest pain, non-cardiac Status: Acute Assessment Problems Medical Problems: (1) Chest pain Status: Acute (2) Chest pain, non-cardiac Status: Acute Assessment/Plan 1. Chest pain, pleuritic - OK ruled out. No acute EKG changes. LVEF normal by echo with no WMA. 2. elevated d dimer - PE negative 3. CAD - mild non obstructive by cath 2010. Minimally abn MPI in july of last year due to likely attenuation artifact. 4. asthma - per PCP 5. HTN - well controlled 6. HLD - lipids pending. 7. 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 Subjective "ready to go home", no new cp, no dyspnea Objective Vital Signs Date Time Temp Pulse Resp B/P (MAP) Pulse Ox O2 Delivery O2 Flow Rate FiO2 06/22/18 08:25 84 109/72 06/22/18 08:00 Room Air 06/22/18 06:35 18 06/22/18 05:32 98 06/22/18 05:21 97.9 06/21/18 23:27 2.0 Intake and Output 06/22/18 07:01 Intake Total 1980 ml Balance 1980 ml Intake Oral 1980 ml # Voids 6 # Bowel Movements 1 Physical Exam General: Alert, Oriented X3, Cooperative, No acute distress HEENT: Atraumatic, EOMI, Mucous membr. moist/pink Lungs: Other (decreased bases bilaterally, no crackles, rhonchi or wheezing) Heart: Normal S1, Normal S2, Other (no gallops, clicks or rubs) Abdomen: Normal bowel sounds, Soft, No tenderness, Other (obese) Extremities: No edema, Normal pulses Neuro: Normal speech, Strength at 5/5 X4 ext Psych/Mental Status: Mental status NL, Mood NL Review of Relevant I have reviewed the following items kristi (where applicable) has been applied. Labs Laboratory Tests Test 06/20/18 19:15 06/20/18 19:50 06/21/18 01:10 06/21/18 02:15 White Blood Count 6.5 x10^3/uL (4.0-11.0) Red Blood Count 4.84 x10^6/uL (3.50-5.40) Hemoglobin 12.8 g/dL (12.0-15.5) Hematocrit 40.0 % (36.0-47.0) Mean Corpuscular Volume 83 fL (79-100) Mean Corpuscular Hemoglobin 26 pg (25-35) Mean Corpuscular Hemoglobin Concent 32 g/dL (31-37) Red Cell Distribution Width 15.9 % (11.5-14.5) Platelet Count 288 x10^3/uL (140-400) Neutrophils (%) (Auto) 64 % (31-73) Lymphocytes (%) (Auto) 26 % (24-48) Monocytes (%) (Auto) 7 % (0-9) Eosinophils (%) (Auto) 2 % (0-3) Basophils (%) (Auto) 1 % (0-3) Neutrophils # (Auto) 4.1 x10^3uL (1.8-7.7) Lymphocytes # (Auto) 1.7 x10^3/uL (1.0-4.8) Monocytes # (Auto) 0.4 x10^3/uL (0.0-1.1) Eosinophils # (Auto) 0.2 x10^3/uL (0.0-0.7) Basophils # (Auto) 0.1 x10^3/uL (0.0-0.2) Prothrombin Time 9.5 SEC (9.4-11.4) Prothromb Time International Ratio 1.0 (0.9-1.1) Activated Partial Thromboplast Time 23 SEC (23-33) D-Dimer (Milly) 0.84 mg/L (0.00-0.50) Sodium Level 137 mmol/L (136-145) Potassium Level 4.1 mmol/L (3.5-5.1) Chloride Level 101 mmol/L (98-107) Carbon Dioxide Level 28 mmol/L (21-32) Anion Gap 8 (6-14) Blood Urea Nitrogen 9 mg/dL (7-20) Creatinine 1.0 mg/dL (0.6-1.0) Estimated GFR (Cockcroft-Gault) 60.0 Glucose Level 301 mg/dL (70-99) Calcium Level 8.6 mg/dL (8.5-10.1) Magnesium Level 1.9 mg/dL (1.8-2.4) Total Bilirubin 0.2 mg/dL (0.2-1.0) Direct Bilirubin 0.1 mg/dL (0.0-0.2) Aspartate Amino Transf (AST/SGOT) 16 U/L (15-37) Alanine Aminotransferase (ALT/SGPT) 18 U/L (14-59) Alkaline Phosphatase 60 U/L (46-116) Creatine Kinase 38 U/L (26-192) Troponin I Quantitative < 0.017 ng/mL (0-0.055) < 0.017 ng/mL (0-0.055) HX-Kai-O-Type Natriuretic Peptide 90 pg/mL (0-124) Total Protein 7.0 g/dL (6.4-8.2) Albumin 2.9 g/dL (3.4-5.0) Triglycerides Level 116 mg/dL (0-150) Cholesterol Level 164 mg/dL (0-200) LDL Cholesterol, Calculated 88 mg/dL (0-100) VLDL Cholesterol, Calculated 23 mg/dL (0-40) Non-HDL Cholesterol Calculated 111 mg/dL (0-129) HDL Cholesterol 53 mg/dL (40-60) Cholesterol/HDL Ratio 3.0 Lipase 224 U/L (73-393) Thyroid Stimulating Hormone (TSH) 6.256 uIU/mL (0.358-3.740) Urine Collection Type Void Urine Color Yellow Urine Clarity Clear Urine pH 5.5 Urine Specific Destin <=1.005 Urine Protein Neg (NEG-TRACE) Urine Glucose (UA) >=1000 mg/dL (NEG) Urine Ketones (Stick) Neg mg/dL (NEG) Urine Blood Neg (NEG) Urine Nitrite Neg (NEG) Urine Bilirubin Neg (NEG) Urine Urobilinogen Dipstick 0.2 mg/dL (0.2 mg/dL) Urine Leukocyte Esterase Neg (NEG) Urine RBC Occ /HPF (0-2) Urine WBC 1-4 /HPF (0-4) Urine Squamous Epithelial Cells Mod /LPF Urine Bacteria Few /HPF (0-FEW) Urine Opiates Screen Neg (NEG) Urine Methadone Screen Neg (NEG) Urine Barbiturates Neg (NEG) Urine Phencyclidine Screen Neg (NEG) Urine Amphetamine/Methamphetamine Neg (NEG) Urine Benzodiazepines Screen Neg (NEG) Urine Cocaine Screen Neg (NEG) Urine Cannabinoids Screen Neg (NEG) Urine Ethyl Alcohol Neg (NEG) Nasal Screen MRSA (PCR) Negative (Negative) Test 06/21/18 05:57 06/21/18 07:11 06/21/18 11:45 06/21/18 17:02 White Blood Count 6.5 x10^3/uL (4.0-11.0) Red Blood Count 4.49 x10^6/uL (3.50-5.40) Hemoglobin 11.8 g/dL (12.0-15.5) Hematocrit 36.8 % (36.0-47.0) Mean Corpuscular Volume 82 fL (79-100) Mean Corpuscular Hemoglobin 26 pg (25-35) Mean Corpuscular Hemoglobin Concent 32 g/dL (31-37) Red Cell Distribution Width 16.2 % (11.5-14.5) Platelet Count 244 x10^3/uL (140-400) Neutrophils (%) (Auto) 53 % (31-73) Lymphocytes (%) (Auto) 35 % (24-48) Monocytes (%) (Auto) 9 % (0-9) Eosinophils (%) (Auto) 2 % (0-3) Basophils (%) (Auto) 1 % (0-3) Neutrophils # (Auto) 3.4 x10^3uL (1.8-7.7) Lymphocytes # (Auto) 2.2 x10^3/uL (1.0-4.8) Monocytes # (Auto) 0.6 x10^3/uL (0.0-1.1) Eosinophils # (Auto) 0.2 x10^3/uL (0.0-0.7) Basophils # (Auto) 0.1 x10^3/uL (0.0-0.2) Sodium Level 138 mmol/L (136-145) Potassium Level 3.5 mmol/L (3.5-5.1) Chloride Level 102 mmol/L (98-107) Carbon Dioxide Level 31 mmol/L (21-32) Anion Gap 5 (6-14) Blood Urea Nitrogen 10 mg/dL (7-20) Creatinine 0.9 mg/dL (0.6-1.0) Estimated GFR (Cockcroft-Gault) 67.7 Glucose Level 178 mg/dL (70-99) Calcium Level 8.6 mg/dL (8.5-10.1) Troponin I Quantitative < 0.017 ng/mL (0-0.055) Glucose (Fingerstick) 140 mg/dL (70-99) 229 mg/dL (70-99) 183 mg/dL (70-99) Test 06/21/18 20:16 06/22/18 07:04 Glucose (Fingerstick) 166 mg/dL (70-99) 171 mg/dL (70-99) Medications Current Medications Aspirin (Children'S Aspirin) 324 mg 1X ONCE PO ; Start 06/20/18 at 19:30; Stop 06/20/18 at 19:31; Status DC Lactated Ringer's 1,000 ml @ 1,000 mls/hr Q1H IV Last administered on at 19:44; Start 06/20/18 at 19:30; Stop 06/20/18 at 20:29; Status DC Enoxaparin Sodium (Lovenox 150mg Syringe) 150 mg Q12HR SQ Last administered on 06/22/18at 08:23; Start 06/20/18 at 22:00; Stop 06/22/18 at 11:18; Status DC Iohexol (Omnipaque 350 Mg/ml) 100 ml 1X ONCE IV Last administered on at 22:19; Start 06/20/18 at 22:15; Stop 06/20/18 at 22:16; Status DC Ondansetron HCl (Zofran) 4 mg PRN Q4HRS PRN IV NAUSEA/VOMITING; Start 06/20/18 at 23:30; Stop 06/21/18 at 23:29; Status DC Aspirin (Children'S Aspirin) 81 mg DAILY PO Last administered on 06/21/18at 08: 06; Start 06/21/18 at 09:00; Stop 06/21/18 at 09:16; Status DC Bupropion HCl (Wellbutrin Xl) 300 mg DAILYWBKFT PO Last administered on at 08:24; Start 06/21/18 at 09:00; Stop 06/22/18 at 11:18; Status DC Furosemide (Lasix) 20 mg DAILY PO Last administered on 06/22/18at 08:23; Start 06/21/18 at 09:00; Stop 06/22/18 at 11:18; Status DC Gabapentin (Neurontin) 600 mg TID PO Last administered on 06/22/18at 08:23; Start 06/21/18 at 09:00; Stop 06/22/18 at 11:18; Status DC Albuterol/ Ipratropium (Duoneb) 3 ml TID NEB Last administered on 06/22/18at 05: 31; Start 06/21/18 at 09:00; Stop 06/22/18 at 11:18; Status DC Lorazepam (Ativan) 1 mg PRN BID PRN PO ANXIETY Last administered on 06/21/18at 20:22; Start 06/21/18 at 09:00; Stop 06/22/18 at 11:18; Status DC Nystatin (Nystop) 1 francisco j BID PRN TP RASH; Start 06/21/18 at 09:00; Stop at 11:18; Status DC Acetaminophen (Tylenol) 500 mg PRN Q6HRS PRN PO PAIN / TEMP Last administered on 06/21/18at 20:22; Start 06/21/18 at 09:00; Stop 06/22/18 at 11:18; Status DC Aspirin (Aspirin Enteric Coated) 81 mg DAILYWBKFT PO Last administered on at 08:24; Start 06/21/18 at 09:00; Stop 06/22/18 at 11:18; Status DC Non-Formulary Medication (Canagliflozin (Invokana)) 300 mg DAILY PO ; Start at 09:00; Stop 06/22/18 at 11:18; Status DC Cetirizine HCl (ZyrTEC) 10 mg DAILY PO Last administered on 06/22/18at 08:24; Start 06/21/18 at 09:00; Stop 06/22/18 at 11:18; Status DC Citalopram Hydrobromide (CeleXA) 40 mg DAILY PO Last administered on 06/22/18at 08:23; Start 06/21/18 at 09:00; Stop 06/22/18 at 11:18; Status DC Ibuprofen (Motrin) 800 mg PRN TID PRN PO INFLAMMATION Last administered on 06/22at 01:23; Start 06/21/18 at 09:15; Stop 06/22/18 at 11:18; Status DC Insulin Human Lispro (HumaLOG) 20 units TIDWMEALS SQ Last administered on at 08:30; Start 06/21/18 at 12:00; Stop 06/22/18 at 11:18; Status DC Insulin Glargine (Lantus) 80 units DAILY SQ ; Start 06/21/18 at 09:00; Stop at 11:15; Status DC Levothyroxine Sodium (Synthroid) 125 mcg DAILY06 PO Last administered on at 05:33; Start 06/21/18 at 09:00; Stop 06/22/18 at 11:18; Status DC Melatonin 10 mg QHS PO Last administered on 06/21/18at 20:22; Start 06/21/18 at 21:00; Stop 06/22/18 at 11:18; Status DC Metformin HCl (Glucophage) 1,000 mg BIDWMEALS PO ; Start 06/21/18 at 09:00; Status Cancel Pantoprazole Sodium (Protonix) 40 mg DAILYAC PO Last administered on 06/22/18at 08:23; Start 06/21/18 at 09:00; Stop 06/22/18 at 11:18; Status DC Pioglitazone HCl (Actos) 15 mg DAILY PO Last administered on 06/22/18at 08:24; Start 06/21/18 at 09:00; Stop 06/22/18 at 11:18; Status DC Propranolol HCl (Inderal La) 120 mg DAILY PO Last administered on 06/22/18at 08: 25; Start 06/21/18 at 10:00; Stop 06/22/18 at 11:18; Status DC Valacyclovir HCl (Valtrex) 500 mg DAILY PO Last administered on 06/22/18at 08:25 ; Start 06/21/18 at 10:00; Stop 06/22/18 at 11:18; Status DC Iohexol (Omnipaque 350 Mg/ml) 100 ml 1X ONCE IV ; Start 06/21/18 at 09:15; Stop 06/21/18 at 09:16; Status DC Metformin HCl (Glucophage) 1,000 mg BIDWMEALS PO ; Start 06/23/18 at 08:00; Stop 06/23/18 at 08:00; Status DC Insulin Glargine (Lantus) 80 units HS SQ Last administered on 06/21/18at 20:26; Start 06/21/18 at 21:00; Stop 06/22/18 at 11:18; Status DC Tramadol HCl (Ultram) 50 mg PRN Q6HRS PRN PO PAIN Last administered on at 05:34; Start 06/21/18 at 11:45; Stop 06/22/18 at 11:18; Status DC Perflutren Protein Type A Microsphe (Optison) 0.66 mg 1X ONCE IV Last administered on 06/21/18at 13:54; Start 06/21/18 at 14:10; Stop 06/21/18 at 14:11 ; Status DC Non-Formulary Medication (Rizatriptan Benzoate (Rizatriptan)) 1 tab DAILY PRN PO MIGRAINE HEADACHE; Start 06/21/18 at 14:30; Stop 06/21/18 at 14:34; Status DC Albuterol Sulfate (Ventolin) 2.5 mg PRN Q6HRS PRN NEB SHORTNESS OF BREATH Last administered on 06/21/18at 15:30; Start 06/21/18 at 15:30; Stop 06/22/18 at 11:18 ; Status DC Active Scripts Active Duoneb 0.5-3(2.5) Mg/3 Ml (Albuterol/Ipratropium) 3 Ml Ampul.neb 3 Ml NEB QID 30 Days Duoneb 0.5-3(2.5) Mg/3 Ml (Albuterol/Ipratropium) 3 Ml Ampul.neb 3 Ml NEB TID 30 Days Reported Rizatriptan (Rizatriptan Benzoate) 10 Mg Tablet 1 Tab PO DAILY PRN Novolog Flexpen (Insulin Aspart) 100 Unit/1 Ml Insuln.pen 20 Unit SQ TIDWMEALS LAST DOSE GIVEN: DATE: TIME: NEXT DOSE DUE: DATE: TIME: Aspir-Low (Aspirin) 81 Mg Tablet.dr 81 Mg PO DAILY LAST DOSE GIVEN: DATE: TIME: NEXT DOSE DUE: DATE: TIME: Acetaminophen 500 Mg Tablet 500 Mg PO PRN Q6HRS PRN LAST DOSE GIVEN: DATE: TIME: NEXT DOSE DUE: DATE: TIME: Invokana (Canagliflozin) 300 Mg Tablet 300 Mg PO DAILY LAST DOSE GIVEN: DATE: TIME: NEXT DOSE DUE: DATE: TIME: Nystatin 15 Gm Powder 1 Francisco J TP BID PRN LAST DOSE GIVEN: DATE: TIME: NEXT DOSE DUE: DATE: TIME: Furosemide 20 Mg Tablet 20 Mg PO DAILY LAST DOSE GIVEN: DATE: TIME: NEXT DOSE DUE: DATE: TIME: Melatonin 3 Mg Tablet 10 Mg PO QHS LAST DOSE GIVEN: DATE: TIME: NEXT DOSE DUE: DATE: TIME: Levothyroxine Sodium 125 Mcg Tablet 125 Mcg PO DAILYAC LAST DOSE GIVEN: DATE: TIME: NEXT DOSE DUE: DATE: TIME: Propranolol Hcl 120 Mg Cap.sa.24h 120 Mg PO DAILY LAST DOSE GIVEN: DATE: TIME: NEXT DOSE DUE: DATE: TIME: Escitalopram Oxalate 10 Mg Tablet 20 Mg PO DAILY LAST DOSE GIVEN: DATE: TIME: NEXT DOSE DUE: DATE: TIME: Bupropion Xl (Bupropion Hcl) 300 Mg Tab.er.24h 300 Mg PO DAILYWBKFT LAST DOSE GIVEN: DATE: TIME: NEXT DOSE DUE: DATE: TIME: Pioglitazone Hcl 15 Mg Tablet 15 Mg PO DAILY LAST DOSE GIVEN: DATE: TIME: NEXT DOSE DUE: DATE: TIME: Cetirizine Hcl 10 Mg Tablet 10 Mg PO DAILY LAST DOSE GIVEN: DATE: TIME: NEXT DOSE DUE: DATE: TIME: Ibuprofen 800 Mg Tablet 800 Mg PO TID PRN LAST DOSE GIVEN: DATE: TIME: NEXT DOSE DUE: DATE: TIME: Tresiba Flextouch U-100 (Insulin Degludec) 100 Unit/1 Ml Insuln.pen 80 Unit SQ DAILY LAST DOSE GIVEN: DATE: TIME: NEXT DOSE DUE: DATE: TIME: Valacyclovir (Valacyclovir Hcl) 500 Mg Tablet 500 Mg PO DAILY LAST DOSE GIVEN: DATE: TIME: NEXT DOSE DUE: DATE: TIME: Omeprazole 20 Mg Tablet.dr 40 Mg PO DAILY LAST DOSE GIVEN: DATE: TIME: NEXT DOSE DUE: DATE: TIME: Ativan (Lorazepam) 1 Mg Tablet 1 Mg PO BID PRN LAST DOSE GIVEN: DATE: TIME: NEXT DOSE DUE: DATE: TIME: Gabapentin (Gabapentin) 300 Mg Capsule 600 Mg PO TID LAST DOSE GIVEN: DATE: TIME: NEXT DOSE DUE: DATE: TIME: Metformin Hcl 500 Mg Tablet 1,000 Mg PO BIDWMEALS LAST DOSE GIVEN: DATE: TIME: NEXT DOSE DUE: DATE: TIME: Vitals/I & O Vital Sign - Last 24 Hours 06/21/18 06/21/18 06/21/18 06/21/18 15:31 16:12 19:10 19:27 Temp 98.8 Pulse 74 Resp 20 B/P (MAP) 117/75 (89) Pulse Ox 98 96 98 O2 Delivery Room Air Room Air Room Air Room Air 06/21/18 06/21/18 06/21/18 06/22/18 20:22 20:54 23:27 05:21 Temp 98.5 98.2 97.9 Pulse 72 78 84 Resp 20 20 20 20 B/P (MAP) 110/76 (87) 105/72 (83) 109/72 (84) Pulse Ox 97 99 93 O2 Delivery Room Air Nasal Cannula Nasal Cannula Room Air O2 Flow Rate 2.0 2.0 06/22/18 06/22/18 06/22/18 06/22/18 05:32 05:34 06:35 08:00 Resp 18 18 Pulse Ox 98 O2 Delivery Room Air Room Air Room Air Room Air 06/22/18 08:25 Pulse 84 B/P (MAP) 109/72 Intake and Output 06/21/18 06/21/18 06/22/18 15:01 23:01 07:01 Intake Total 1260 ml 720 ml 0 ml Balance 1260 ml 720 ml 0 ml URVASHI TAYLOR CERTIFIED RESIDENTIAL MEDICATION AIDE Jun 22, 2018 13:23
[2018-06-23] MEDS ORDERED: metFORMIN 500 MG TABLET PO SCH (08:00)
== END 2018-06-22 11:09 | disposition home or self-care (01) | DRG 313 ==
LOC: ER 18:57 → 1 SOUTH 23:00 → UNDOADMIN 06-21 00:08 → 1 SOUTH 06-21 00:08
PROVIDERS: ADMIT Family Medicine; ATTEND Family Medicine
DX: R07.89 Other chest pain (principal); Z68.43 Body mass index [BMI] 50.0-59.9, adult; E03.9 Hypothyroidism, unspecified; E11.9 Type 2 diabetes mellitus without complications; E66.01 Morbid (severe) obesity due to excess calories; E78.5 Hyperlipidemia, unspecified; F41.0 Panic disorder [episodic paroxysmal anxiety]; F60.9 Personality disorder, unspecified; G47.33 Obstructive sleep apnea (adult) (pediatric); G47.419 Narcolepsy without cataplexy; I10 Essential (primary) hypertension; I25.10 Atherosclerotic heart disease of native coronary artery without angina pectoris; J45.909 Unspecified asthma, uncomplicated; K21.9 Gastro-esophageal reflux disease without esophagitis; M41.9 Scoliosis, unspecified; F32.9 Major depressive disorder, single episode, unspecified; Z81.8 Family history of other mental and behavioral disorders; M19.90 Unspecified osteoarthritis, unspecified site; Z82.49 Family history of ischemic heart disease and other diseases of the circulatory system; Z85.828 Personal history of other malignant neoplasm of skin; Z86.73 Personal history of transient ischemic attack (TIA), and cerebral infarction without residual deficits; Z87.440 Personal history of urinary (tract) infections; Z83.3 Family history of diabetes mellitus; Z87.01 Personal history of pneumonia (recurrent); Z88.6 Allergy status to analgesic agent; Z88.1 Allergy status to other antibiotic agents; Z91.040 Latex allergy status; Z88.8 Allergy status to other drugs, medicaments and biological substances; Z91.018 Allergy to other foods; Z91.048 Other nonmedicinal substance allergy status
CPT/HCPCS: 36415; 71046; 71275; 80048; 80061; 80076; 80307; 81001; 82550; 82947; 83690; 83735; 83880; 84443; 84484; 85025; 85379; 85610; 85730; 87641; 93005; 94640; 96360; 96361; C8929; G0238; J1650; J1815; J7120; J7613; J7620; Q9956; Q9967; 97110; 97116; 99285-25

== ENCOUNTER 2018-06-24 18:30 | Emergency (ER) | payer MEDICARE, MEDICAID ==
[~2018-06-24] VITALS: Ht 172.7 cm; Wt 175.5 kg
[~2018-06-24 18:30] MED LIST changes: +ACET500T68 PO; +ASPI81TA50 PO; +FURO20TA3 PO; +INSU100I17 SQ; +LEVO125T5 PO; +MELA3TAB2 PO; +NYST15PO9 TP; +PROP120C3 PO; +RIZA10TA7 PO
[2018-06-24] MEDS ORDERED: IV RINGERS SOLUTION,LACTATED 1,000 ML IV SCH (18:32)
--- NOTE | 2018-06-24 18:35 | ED.ADGEN ---
Past History Past Medical History: Angina, Anxiety, Cancer, Depression, Diabetes, GERD, Hypertension, Hypothyroid, STD, TIA Past Surgical History: Cholecystectomy Additional Past Surgical Histo: Eye, bilateral ankles, right thumb. Smoking: Non-smoker Alcohol Use: None Drug Use: None Adult General Chief Complaint Chief Complaint ".. I am still coughing and it hurts so bad...my chest goldberg... I went to Dr. Roberts office... and they gave me an antibiotic shot.. and gave me a new antibiotic today...".." I ve been having constant chest pain.... nothing makes it better..." HPI HPI Patient is a 47 year old female who presents with above hx of pleuritic chest pain. Pt. recently in Dr. Roberts office and started on new antibiotic. Pt. recent hx. of + Influ A on 06/12. Pt. hx prior episodes of chest pain and recent admit- for chest pain. Chest pain was felt to be non-cardiac by cardiology and primary.. Pt. Has hx. of recurrent chest wall pain, asthma, TIA , angina, anxiety, depression, diabetes, GERD, hypertension, hypothyroid, STD, morbid obesity, Basal cell carcinoma, and deconditioning. Patient has multiple sensitivities and allergies. No recent travel or specific ill contacts. Pt. rates the pleuritic chest pain as 10/10 all day.. Pt currently rates her pain as 10/10 and worse when she coughs. Localization to sternal area. Pt. advised that only the IV pains helps her pain. Review of Systems Review of Systems Constitutional: Denies fever or chills [] Eyes: Denies change in visual acuity, redness, or eye pain [] HENT: Denies nasal congestion or sore throat [] Respiratory: Hx. of pleuritic cp, cough and wheezing. Cardiovascular: No additional information not addressed in HPI [] GI: Denies abdominal pain, nausea, vomiting, bloody stools . Complaints of diarrhea [] : Denies dysuria or hematuria [] Musculoskeletal: Denies back pain or joint pain [] Integument: Denies rash or skin lesions [] Neurologic: Denies headache, focal weakness or sensory changes [] Endocrine: Denies polyuria or polydipsia [] All other systems were reviewed and found to be within normal limits, except as documented in this note. Family History Family History Non-contributory Current Medications Current Medications Current Medications Medications (Trade) Dose Ordered Sig/Carlie Start Time Stop Time Status Last Admin Dose Admin Acetaminophen (Tylenol) 1,000 mg 1X ONCE 06/24/18 19:30 06/24/18 19:42 DC 06/24/18 19:35 1,000 MG Albuterol/ Ipratropium (Duoneb) 3 ml STK-MED ONCE 06/24/18 18:45 06/24/18 18:47 DC Aspirin (Children'S Aspirin) 324 mg 1X ONCE 06/24/18 18:45 06/24/18 18:47 DC 06/24/18 19:12 324 MG Ceftriaxone Sodium 1 gm/ Sodium Chloride 50 ml @ 100 mls/hr 1X ONCE 06/24/18 19:00 06/24/18 19:29 DC 06/24/18 19:12 100 MLS/HR Ceftriaxone Sodium (Rocephin) 1 gm STK-MED ONCE 06/24/18 18:54 06/24/18 18:56 DC Ketorolac Tromethamine (Toradol 30mg Vial) 30 mg 1X ONCE 06/24/18 19:00 06/24/18 19:01 DC 06/24/18 19:12 30 MG Lactated Ringer's 1,000 ml @ 100 mls/hr Q10H 06/24/18 18:32 06/24/18 22:27 DC 06/24/18 19:11 100 MLS/HR Magnesium Sulfate 50 ml @ 25 mls/hr 1X ONCE 06/24/18 20:30 06/24/18 22:27 DC 06/24/18 20:25 25 MLS/HR Sodium Chloride 50 ml @ As Directed STK-MED ONCE 06/24/18 18:53 06/24/18 18:55 DC Allergies Allergies Allergies Coded Allergies Type Severity Reaction Last Updated Verified amoxicillin Allergy Severe 04/03/18 Yes atropine Allergy Severe 04/03/18 Yes black pepper Allergy Severe 04/03/18 Yes diphenoxylate Allergy Severe 04/03/18 Yes methylnaltrexone Allergy Severe 04/03/18 Yes Latex, Natural Rubber Allergy Intermediate 04/03/18 Yes Penicillins Allergy Intermediate 04/03/18 Yes Sulfa (Sulfonamide Antibiotics) Allergy Intermediate 04/03/18 Yes hydrogen peroxide Allergy Intermediate 04/03/18 Yes lanolin Allergy Intermediate 04/03/18 Yes naproxen Allergy Intermediate 04/03/18 Yes tetanus immune globulin Allergy Intermediate 04/03/18 No I S O L A T I O N *CONTACT* Allergy Unknown 04/03/18 Yes sumatriptan Adverse Reaction Severe N/V 06/21/18 Yes adhesive Adverse Reaction Intermediate Rash 04/03/18 Yes Physical Exam Physical Exam Constitutional: pt. reports acute distress, non-toxic appearance. [] HENT: Normocephalic, atraumatic, bilateral external ears normal, oropharynx moist, no oral exudates, nose normal. [] Eyes: PERRLA, EOMI, conjunctiva normal, no discharge. [] Neck: Normal range of motion, no tenderness, supple, no stridor. [] Cardiovascular:Heart rate regular rhythm, no murmur [] Lungs & Thorax: Bilateral breath sounds equal apexes with few scattered wheezes auscultation [] Chest pain reproduced- with cough and deep breaths. Has sternal tenderness on palpation. Abdomen: Bowel sounds normal, soft, no tenderness, no masses, no pulsatile masses. Morbid obesity. Skin: Warm, dry, no erythema, no rash. Skin lesion-excoriation due to picking Back: No tenderness, no CVA tenderness. [] Extremities: No tenderness, no cyanosis, no clubbing, ROM intact, ankle edema. [ ] No cording appreciated. Neurologic: Alert and oriented X 3, normal motor function, normal sensory function, no focal deficits noted. [] Psychologic: Affect anxious, judgement normal, mood depressed Current Patient Data Vital Signs Vital Signs Date Time Temp Pulse Resp B/P (MAP) Pulse Ox O2 Delivery O2 Flow Rate FiO2 06/24/18 22:20 64 18 103/59 (74) 98 Room Air 06/24/18 18:40 97.5 Lab Results Laboratory Tests Test 06/24/18 19:02 White Blood Count 11.5 x10^3/uL (4.0-11.0) #H Red Blood Count 4.43 x10^6/uL (3.50-5.40) Hemoglobin 11.7 g/dL (12.0-15.5) L Hematocrit 35.9 % (36.0-47.0) L Mean Corpuscular Volume 81 fL (79-100) Mean Corpuscular Hemoglobin 27 pg (25-35) Mean Corpuscular Hemoglobin Concent 33 g/dL (31-37) Red Cell Distribution Width 16.0 % (11.5-14.5) H Platelet Count 254 x10^3/uL (140-400) Neutrophils (%) (Auto) 79 % (31-73) H Lymphocytes (%) (Auto) 14 % (24-48) L Monocytes (%) (Auto) 6 % (0-9) Eosinophils (%) (Auto) 1 % (0-3) Basophils (%) (Auto) 1 % (0-3) Neutrophils # (Auto) 9.0 x10^3uL (1.8-7.7) H Lymphocytes # (Auto) 1.6 x10^3/uL (1.0-4.8) Monocytes # (Auto) 0.7 x10^3/uL (0.0-1.1) Eosinophils # (Auto) 0.1 x10^3/uL (0.0-0.7) Basophils # (Auto) 0.1 x10^3/uL (0.0-0.2) Segmented Neutrophils % 74 % (35-66) H Lymphocytes % 20 % (24-48) L Monocytes % 5 % (0-10) Basophils % 1 % (0-3) Platelet Estimate Adequate (ADEQUATE) Large Platelets Occ Polychromasia Slight Tear Drop Cells Occ Ovalocytes Occ Prothrombin Time 9.3 SEC (9.4-11.4) L Prothrombin Time INR 0.9 (0.9-1.1) PTT 21 SEC (23-33) L D-Dimer (Milly) 0.58 mg/L (0.00-0.50) H Sodium Level 138 mmol/L (136-145) Potassium Level 4.2 mmol/L (3.5-5.1) Chloride Level 101 mmol/L (98-107) Carbon Dioxide Level 28 mmol/L (21-32) Anion Gap 9 (6-14) Blood Urea Nitrogen 11 mg/dL (7-20) Creatinine 0.9 mg/dL (0.6-1.0) Estimated GFR (Cockcroft-Gault) 67.7 Glucose Level 246 mg/dL (70-99) H Calcium Level 8.7 mg/dL (8.5-10.1) Magnesium Level 1.6 mg/dL (1.8-2.4) L Total Bilirubin 0.1 mg/dL (0.2-1.0) L Direct Bilirubin < 0.1 mg/dL (0.0-0.2) Aspartate Amino Transferase (AST) 27 U/L (15-37) Alanine Aminotransferase (ALT) 25 U/L (14-59) Alkaline Phosphatase 54 U/L (46-116) Creatine Kinase 55 U/L (26-192) Troponin I Quantitative < 0.017 ng/mL (0-0.055) QY-Fcz-I-Type Natriuretic Peptide 160 pg/mL (0-124) H Total Protein 7.2 g/dL (6.4-8.2) Albumin 2.8 g/dL (3.4-5.0) L Lipase 169 U/L (73-393) EKG EKG Dilatation EKG shows a sinus rhythm at 80 bpm. There is right axis deviation. No findings acute STEMI of contralateral changes.[] Radiology/Procedures Radiology/Procedures I interpretation of chest x-ray shows no acute interval change from last film on 06/20/2018[] No acute cardiopulmonary changes or infiltrates. Course & Med Decision Making Course & Med Decision Making Pertinent Labs and Imaging studies reviewed. (See chart for details) Heart score. 2 to 3. Discussed presentation, testing and tx. plan with Dr. Roberts. He advised her recent cardiac work up negative. Suspect the persistent chest pain is non- cardiac. Pt. to follow up with his office for further eval. and tx. Take current antibiotics as directed. Tylenol and Ibuprofen for discomfort. Must follow up. [] Final Impression Final Impression 1. Pleuritic chest pain- Suspect Viral (+Influ. A 06/12/18) 2. Leukocytosis 11.5 3. Anemia 11.7 Hg b 4. DM - gluc 246 5. Hypo magnesium 1.6 6. Malnutrition Alb. 2.8 7. Morbid Obesity 8. Deconditioned. 9. 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 Dragon Disclaimer Dragon Disclaimer This electronic medical record was generated, in whole or in part, using a voice recognition dictation system. Dragon Disclaimer This chart was dictated in whole or in part using Voice Recognition software in a busy, high-work load, and often noisy Emergency Department environment. It may contain unintended and wholly unrecognized errors or omissions. Discharge Summary Visit Information Final Diagnosis Problems Medical Problems: (1) Chest pain Status: Acute Brief Hospital Course Allergies Allergies Coded Allergies Type Severity Reaction Last Updated Verified amoxicillin Allergy Severe 04/03/18 Yes atropine Allergy Severe 04/03/18 Yes black pepper Allergy Severe 04/03/18 Yes diphenoxylate Allergy Severe 04/03/18 Yes methylnaltrexone Allergy Severe 04/03/18 Yes Latex, Natural Rubber Allergy Intermediate 04/03/18 Yes Penicillins Allergy Intermediate 04/03/18 Yes Sulfa (Sulfonamide Antibiotics) Allergy Intermediate 04/03/18 Yes hydrogen peroxide Allergy Intermediate 04/03/18 Yes lanolin Allergy Intermediate 04/03/18 Yes naproxen Allergy Intermediate 04/03/18 Yes tetanus immune globulin Allergy Intermediate 04/03/18 No I S O L A T I O N *CONTACT* Allergy Unknown 04/03/18 Yes sumatriptan Adverse Reaction Severe N/V 06/21/18 Yes adhesive Adverse Reaction Intermediate Rash 04/03/18 Yes Vital Signs Vital Signs Date Time Temp Pulse Resp B/P (MAP) Pulse Ox O2 Delivery O2 Flow Rate FiO2 06/24/18 22:20 64 18 103/59 (74) 98 Room Air 06/24/18 18:40 97.5 Lab Results Laboratory Tests Test 06/24/18 19:02 White Blood Count 11.5 x10^3/uL (4.0-11.0) Red Blood Count 4.43 x10^6/uL (3.50-5.40) Hemoglobin 11.7 g/dL (12.0-15.5) Hematocrit 35.9 % (36.0-47.0) Mean Corpuscular Volume 81 fL (79-100) Mean Corpuscular Hemoglobin 27 pg (25-35) Mean Corpuscular Hemoglobin Concent 33 g/dL (31-37) Red Cell Distribution Width 16.0 % (11.5-14.5) Platelet Count 254 x10^3/uL (140-400) Neutrophils (%) (Auto) 79 % (31-73) Lymphocytes (%) (Auto) 14 % (24-48) Monocytes (%) (Auto) 6 % (0-9) Eosinophils (%) (Auto) 1 % (0-3) Basophils (%) (Auto) 1 % (0-3) Neutrophils # (Auto) 9.0 x10^3uL (1.8-7.7) Lymphocytes # (Auto) 1.6 x10^3/uL (1.0-4.8) Monocytes # (Auto) 0.7 x10^3/uL (0.0-1.1) Eosinophils # (Auto) 0.1 x10^3/uL (0.0-0.7) Basophils # (Auto) 0.1 x10^3/uL (0.0-0.2) Segmented Neutrophils % 74 % (35-66) Lymphocytes % 20 % (24-48) Monocytes % 5 % (0-10) Basophils % 1 % (0-3) Platelet Estimate Adequate (ADEQUATE) Large Platelets Occ Polychromasia Slight Tear Drop Cells Occ Ovalocytes Occ Prothrombin Time 9.3 SEC (9.4-11.4) Prothromb Time International Ratio 0.9 (0.9-1.1) Activated Partial Thromboplast Time 21 SEC (23-33) D-Dimer (Milly) 0.58 mg/L (0.00-0.50) Sodium Level 138 mmol/L (136-145) Potassium Level 4.2 mmol/L (3.5-5.1) Chloride Level 101 mmol/L (98-107) Carbon Dioxide Level 28 mmol/L (21-32) Anion Gap 9 (6-14) Blood Urea Nitrogen 11 mg/dL (7-20) Creatinine 0.9 mg/dL (0.6-1.0) Estimated GFR (Cockcroft-Gault) 67.7 Glucose Level 246 mg/dL (70-99) Calcium Level 8.7 mg/dL (8.5-10.1) Magnesium Level 1.6 mg/dL (1.8-2.4) Total Bilirubin 0.1 mg/dL (0.2-1.0) Direct Bilirubin < 0.1 mg/dL (0.0-0.2) Aspartate Amino Transf (AST/SGOT) 27 U/L (15-37) Alanine Aminotransferase (ALT/SGPT) 25 U/L (14-59) Alkaline Phosphatase 54 U/L (46-116) Creatine Kinase 55 U/L (26-192) Troponin I Quantitative < 0.017 ng/mL (0-0.055) VY-Qfj-A-Type Natriuretic Peptide 160 pg/mL (0-124) Total Protein 7.2 g/dL (6.4-8.2) Albumin 2.8 g/dL (3.4-5.0) Lipase 169 U/L (73-393) Brief Hospital Course Ms. Ho is a 47 old female who presented with persistent chest pain- felt to be chest wall. Discussed with Dr. Roberts. Advised have her follow up in office. Recent cardiac work up negative. Discharge Information Condition at Discharge: Stable Disposition/Orders: D/C to Home Dischare Medications Current Medications Aspirin (Children'S Aspirin) 324 mg 1X ONCE PO Last administered on 06/24/18at 19:12; Admin Dose 324 MG; Start 06/24/18 at 18:45; Stop 06/24/18 at 18:47; Status DC Lactated Ringer's 1,000 ml @ 100 mls/hr Q10H IV Last administered on at 19:11; Admin Dose 100 MLS/HR; Start 06/24/18 at 18:32; Stop 06/24/18 at 22: 27; Status DC Ketorolac Tromethamine (Toradol 30mg Vial) 30 mg 1X ONCE IV Last administered on 06/24/18at 19:12; Admin Dose 30 MG; Start 06/24/18 at 19:00; Stop 06/24/18 at 19:01; Status DC Ceftriaxone Sodium 1 gm/ Sodium Chloride 50 ml @ 100 mls/hr 1X ONCE IV Last administered on 06/24/18at 19:12; Admin Dose 100 MLS/HR; Start 06/24/18 at 19:00 ; Stop 06/24/18 at 19:29; Status DC Albuterol/ Ipratropium (Duoneb) 3 ml 1X ONCE NEB Last administered on at 19:04; Admin Dose 3 ML; Start 06/24/18 at 18:45; Stop 06/24/18 at 18:47; Status DC Albuterol/ Ipratropium (Duoneb) 3 ml STK-MED ONCE .ROUTE ; Start 06/24/18 at 18: 45; Stop 06/24/18 at 18:47; Status DC Sodium Chloride 50 ml @ As Directed STK-MED ONCE .ROUTE ; Start 06/24/18 at 18: 53; Stop 06/24/18 at 18:55; Status DC Ceftriaxone Sodium (Rocephin) 1 gm STK-MED ONCE IV ; Start 06/24/18 at 18:54; Stop 06/24/18 at 18:56; Status DC Acetaminophen (Tylenol) 1,000 mg 1X ONCE PO Last administered on 06/24/18at 19: 35; Admin Dose 1,000 MG; Start 06/24/18 at 19:30; Stop 06/24/18 at 19:42; Status DC Magnesium Sulfate 50 ml @ 25 mls/hr 1X ONCE IV Last administered on 06/24/18at 20:25; Admin Dose 25 MLS/HR; Start 06/24/18 at 20:30; Stop 06/24/18 at 22:27; Status DC Active Scripts Active Duoneb 0.5-3(2.5) Mg/3 Ml (Albuterol/Ipratropium) 3 Ml Ampul.neb 3 Ml NEB QID 30 Days Duoneb 0.5-3(2.5) Mg/3 Ml (Albuterol/Ipratropium) 3 Ml Ampul.neb 3 Ml NEB TID 30 Days Reported Rizatriptan (Rizatriptan Benzoate) 10 Mg Tablet 1 Tab PO DAILY PRN Novolog Flexpen (Insulin Aspart) 100 Unit/1 Ml Insuln.pen 20 Unit SQ TIDWMEALS LAST DOSE GIVEN: DATE: TIME: NEXT DOSE DUE: DATE: TIME: Aspir-Low (Aspirin) 81 Mg Tablet.dr 81 Mg PO DAILY LAST DOSE GIVEN: DATE: TIME: NEXT DOSE DUE: DATE: TIME: Acetaminophen 500 Mg Tablet 500 Mg PO PRN Q6HRS PRN LAST DOSE GIVEN: DATE: TIME: NEXT DOSE DUE: DATE: TIME: Invokana (Canagliflozin) 300 Mg Tablet 300 Mg PO DAILY LAST DOSE GIVEN: DATE: TIME: NEXT DOSE DUE: DATE: TIME: Nystatin 15 Gm Powder 1 Francisco J TP BID PRN LAST DOSE GIVEN: DATE: TIME: NEXT DOSE DUE: DATE: TIME: Furosemide 20 Mg Tablet 20 Mg PO DAILY LAST DOSE GIVEN: DATE: TIME: NEXT DOSE DUE: DATE: TIME: Melatonin 3 Mg Tablet 10 Mg PO QHS LAST DOSE GIVEN: DATE: TIME: NEXT DOSE DUE: DATE: TIME: Levothyroxine Sodium 125 Mcg Tablet 125 Mcg PO DAILYAC LAST DOSE GIVEN: DATE: TIME: NEXT DOSE DUE: DATE: TIME: Propranolol Hcl 120 Mg Cap.sa.24h 120 Mg PO DAILY LAST DOSE GIVEN: DATE: TIME: NEXT DOSE DUE: DATE: TIME: Escitalopram Oxalate 10 Mg Tablet 20 Mg PO DAILY LAST DOSE GIVEN: DATE: TIME: NEXT DOSE DUE: DATE: TIME: Bupropion Xl (Bupropion Hcl) 300 Mg Tab.er.24h 300 Mg PO DAILYWBKFT LAST DOSE GIVEN: DATE: TIME: NEXT DOSE DUE: DATE: TIME: Pioglitazone Hcl 15 Mg Tablet 15 Mg PO DAILY LAST DOSE GIVEN: DATE: TIME: NEXT DOSE DUE: DATE: TIME: Cetirizine Hcl 10 Mg Tablet 10 Mg PO DAILY LAST DOSE GIVEN: DATE: TIME: NEXT DOSE DUE: DATE: TIME: Ibuprofen 800 Mg Tablet 800 Mg PO TID PRN LAST DOSE GIVEN: DATE: TIME: NEXT DOSE DUE: DATE: TIME: Tresiba Flextouch U-100 (Insulin Degludec) 100 Unit/1 Ml Insuln.pen 80 Unit SQ DAILY LAST DOSE GIVEN: DATE: TIME: NEXT DOSE DUE: DATE: TIME: Valacyclovir (Valacyclovir Hcl) 500 Mg Tablet 500 Mg PO DAILY LAST DOSE GIVEN: DATE: TIME: NEXT DOSE DUE: DATE: TIME: Omeprazole 20 Mg Tablet.dr 40 Mg PO DAILY LAST DOSE GIVEN: DATE: TIME: NEXT DOSE DUE: DATE: TIME: Ativan (Lorazepam) 1 Mg Tablet 1 Mg PO BID PRN LAST DOSE GIVEN: DATE: TIME: NEXT DOSE DUE: DATE: TIME: Gabapentin (Gabapentin) 300 Mg Capsule 600 Mg PO TID LAST DOSE GIVEN: DATE: TIME: NEXT DOSE DUE: DATE: TIME: Metformin Hcl 500 Mg Tablet 1,000 Mg PO BIDWMEALS LAST DOSE GIVEN: DATE: TIME: NEXT DOSE DUE: DATE: TIME: LIVIER GOINS MD Jun 24, 2018 18:35
[2018-06-24] MEDS ORDERED: IPRATRPIUM/ALBUTEROL 0.5/2.5MG 3 ML NEBU. NEB ONE (18:45)
[2018-06-24] MEDS ORDERED: IPRATRPIUM/ALBUTEROL 0.5/2.5MG 3 ML NEBU. ONE (18:45)
[2018-06-24] MEDS ORDERED: ASPIRIN 81 MG TAB.CHEW PO ONE (18:45)
[2018-06-24] MEDS ORDERED: IV NORMAL SALINE 50ML 50 ML ONE (18:53)
[2018-06-24] MEDS ORDERED: cefTRIAXone SODIUM 1 GM VIAL IV ONE (18:54)
[2018-06-24] MEDS ORDERED: KETOROLAC 30 MG/ML VIAL. IV ONE (19:00)
--- NOTE | 2018-06-24 19:14 | RAD ---
Chest radiograph 06/24/2018 6:46 PM INDICATION: Chest pain. Bifid ribs. COMPARISON: June 20, 2018 TECHNIQUE: Frontal and lateral views of the chest are provided. FINDINGS: The cardiomediastinal silhouette is within normal limits. There are no pleural effusions. There is no pulmonary vascular congestion. There is no pneumothorax. The lungs are clear. Osseous findings are unchanged. IMPRESSION: No acute cardiopulmonary process. Electronically signed by: Luz Maria Garcia MD (06/24/2018 7:10 PM) [facility]
[2018-06-24 19:18] LABS: BASO # 0.1 x10^3/uL (0.0-0.2); BASO % 1 % (0-3); EOS # 0.1 x10^3/uL (0.0-0.7); EOS % 1 % (0-3); HEMATOCRIT 35.9 % (36.0-47.0); HEMOGLOBIN 11.7 g/dL (12.0-15.5); LYMPH # 1.6 x10^3/uL (1.0-4.8); LYMPH % 14 % (24-48); MEAN CORPUSCULAR HEMOGLOBIN 27 pg (25-35); MEAN CORPUSCULAR HGB CONC 33 g/dL (31-37); MEAN CORPUSCULAR VOLUME 81 fL (79-100); MONO # 0.7 x10^3/uL (0.0-1.1); MONO % 6 % (0-9); NEUT % 79 % (31-73); PLATELET COUNT 254 x10^3/uL (140-400); RED BLOOD COUNT 4.43 x10^6/uL (3.50-5.40); WHITE BLOOD COUNT 11.5 x10^3/uL (4.0-11.0)
[2018-06-24] MEDS ORDERED: ACETAMINOPHEN 500 MG TABLET PO ONE (19:30)
[2018-06-24 19:37] LABS: ALBUMIN 2.8 g/dL (3.4-5.0); ALK PHOS 54 U/L (46-116); ALT (SGPT) 25 U/L (14-59); ANION GAP 9 (6-14); AST (SGOT) 27 U/L (15-37); BLOOD UREA NITROGEN 11 mg/dL (7-20); CALCIUM 8.7 mg/dL (8.5-10.1); CARBON DIOXIDE 28 mmol/L (21-32); CHLORIDE 101 mmol/L (98-107); CREATININE 0.9 mg/dL (0.6-1.0); GFR 67.7; GLUCOSE 246 mg/dL (70-99); LIPASE 169 U/L (73-393); MAGNESIUM 1.6 mg/dL (1.8-2.4); POTASSIUM 4.2 mmol/L (3.5-5.1); SODIUM 138 mmol/L (136-145); TOTAL BILIRUBIN 0.1 mg/dL (0.2-1.0); TOTAL PROTEIN 7.2 g/dL (6.4-8.2)
[2018-06-24 19:42] LABS: DIRECT BILIRUBIN < 0.1 mg/dL (0.0-0.2)
[2018-06-24] MEDS ORDERED: MAGNESIUM SULFATE 2GM 50 ML IV ONE (20:30)
[2018-06-24 22:20] VITALS: BP 103/59
[2018-06-24 23:17] LABS: % BASOS 1 % (0-3); % LYMPHS 20 % (24-48); % MONOS 5 % (0-10); % SEGS 74 % (35-66)
[2018-06-24 23:18] LABS: PLT ESTIMATE ADEQUATE (ADEQUATE); POLYCHROMASIA SLIGHT
[2018-06-24 23:19] LABS: OVALOCYTES OCC; TEAR DROP CELLS OCC
--- NOTE | 2018-06-25 06:19 | EKG ---
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
[2018-12-16] MEDS ORDERED: NYST60PO TP (11:49)
[2018-12-16] MEDS ORDERED: DICY10CA3 PO (11:49)
== END 2018-06-24 22:22 | disposition home or self-care (01) ==
LOC: ER 18:30
DX: R07.2 Precordial pain (principal); D72.829 Elevated white blood cell count, unspecified; D64.9 Anemia, unspecified; E11.9 Type 2 diabetes mellitus without complications; E83.42 Hypomagnesemia; E46 Unspecified protein-calorie malnutrition; Z68.43 Body mass index [BMI] 50.0-59.9, adult; E66.01 Morbid (severe) obesity due to excess calories; F41.9 Anxiety disorder, unspecified; F32.9 Major depressive disorder, single episode, unspecified; K21.9 Gastro-esophageal reflux disease without esophagitis; I10 Essential (primary) hypertension; E03.9 Hypothyroidism, unspecified; Z86.73 Personal history of transient ischemic attack (TIA), and cerebral infarction without residual deficits; Z88.1 Allergy status to other antibiotic agents; Z88.8 Allergy status to other drugs, medicaments and biological substances; Z91.040 Latex allergy status; Z88.0 Allergy status to penicillin; Z88.2 Allergy status to sulfonamides; Z91.041 Radiographic dye allergy status; Z88.7 Allergy status to serum and vaccine; Z91.018 Allergy to other foods
CPT/HCPCS: 36415; 71046; 80048; 80076; 82550; 83690; 83735; 83880; 84443; 84484; 85007; 85025; 85379; 85610; 85730; 87040; 93005; 94640; 96365; 96367; 96375; 99284; J0696; J1885; J3475; J7120; J7620; 96368

== ENCOUNTER → 2018-08-16 | Outpatient (CLI) | payer MEDICARE, MEDICAID ==
[~2018-08-16] MED LIST changes: +ACYC400T PO; +ALBU2.5V8 INH; +FLUC100T7 PO; +HYDR-1179 PO; +LEVO137T3 PO
--- NOTE | 2018-08-16 13:50 | RAD ---
Indication:Pelvic pain for 3 weeks. TECHNIQUE: Grayscale, color Doppler and spectral waveform images of the pelvis obtained. COMPARISON: None FINDINGS: Technically difficult exam due to body habitus. The uterus is anteverted and measures 8.6 x 3.0 x 6.2 cm (longitudinal, AP, transverse). The endometrial stripe measures 8 mm in thickness which is within normal limits for patient's age. No free pelvic fluid. The right ovary measures 2.9 x 2.0 x 2.7 cm with a 2.2 x 1.3 x 2.2 cm anechoic lesion with posterior enhancement most likely a simple cyst. The right ovary demonstrates evidence of blood flow. Left ovary is suboptimally visualized but grossly measures 2.1 x 1.8 x 1.8 cm and shows evidence of blood flow. Nabothian cysts are seen in the cervix. IMPRESSION: 1. Left ovary suboptimally visualized but bilateral ovaries demonstrate blood flow. 2. Simple appearing cyst in the right ovary. Electronically signed by: Bradley Machuca DO (08/16/2018 1:47 PM) [facility]
== END | disposition home or self-care (01) ==
LOC: US 12:39
PROVIDERS: ATTEND Nurse Practitioner Family
DX: N83.8 Other noninflammatory disorders of ovary, fallopian tube and broad ligament (principal); N88.8 Other specified noninflammatory disorders of cervix uteri
CPT/HCPCS: 76830; 76856

== ENCOUNTER 2018-09-07 11:40 | Inpatient (IN) | payer MEDICARE, MEDICAID ==
[~2018-09-07] VITALS: Ht 172.7 cm; Wt 179.2 kg
[~2018-09-07 11:40] MED LIST changes: -ACYC400T PO; -ALBU2.5V8 INH; -FLUC100T7 PO; -HYDR-1179 PO; -LEVO137T3 PO
[2018-09-07] MEDS ORDERED: IV NORMAL SALINE 1,000ML 1,000 ML IV SCH ×4 (11:49→17:00)
[2018-09-07 12:24] LABS: BILIRUBIN,URINE NEG (NEG); CLARITY,URINE HAZY; COLOR,URINE STRAW; GLUCOSE,URINE >=1000 mg/dL (NEG); NITRITE,URINE NEG (NEG); UROBILINOGEN,URINE 0.2 mg/dL (0.2 mg/dL)
[2018-09-07 12:25] LABS: BACTERIA,URINE FEW /HPF (0-FEW); SQUAMOUS EPITHELIAL CELL,UR MOD /LPF; WBC,URINE OCC /HPF (0-4); YEAST,URINE PRESENT /HPF
--- NOTE | 2018-09-07 12:35 | RAD ---
Chest radiograph 09/07/2018 12:16 PM INDICATION: Tachycardia COMPARISON: June 24, 2018 TECHNIQUE: Portable upright frontal view of the chest is provided. FINDINGS: The cardiomediastinal silhouette is within normal limits. Stable osseous deformity of the thorax. There are no pleural effusions. There is no pulmonary vascular congestion. There is no pneumothorax. The lungs are clear. IMPRESSION: No acute cardiopulmonary process. Electronically signed by: Luz Maria Garcia MD (09/07/2018 12:32 PM) [id number]
--- NOTE | 2018-09-07 12:39 | PHYS DOC ---
Past History Past Medical History: Angina, Anxiety, Asthma, Cancer, Depression, Diabetes, GERD, Hypothyroid, Migraines, STD, TIA, Other Past Surgical History: Cholecystectomy, Other Additional Past Surgical Histo: Eye, bilateral ankles, right thumb. Smoking: Non-smoker Alcohol Use: None Drug Use: None Adult General Chief Complaint Chief Complaint: HYPERGLYCEMIA HPI HPI Patient is a 47 year old female who presents with complaint of dizziness and lightheadedness. Patient brought to the emergency department by EMS. Has history of Type II diabetes mellitus treated with both oral medication and insulin. She states that she has been without her prescription medications including metformin and insulin over the past 3 weeks as she just recently moved. She states that they were in a bag that got lost. Has been having increased thirst and increased frequency of urination. Denies fever. Due to worsening symptoms of generalized weakness and lightheadedness she called EMS who brought her from home. She states that she is having generalized body aches but no localizing pain. Review of Systems Review of Systems Constitutional: Fatigue, denies fever[] Eyes: Denies change in visual acuity, redness, or eye pain [] HENT: Denies nasal congestion or sore throat [] Respiratory: Denies cough or shortness of breath [] Cardiovascular: Denies chest pain or edema[] GI: Denies abdominal pain, nausea, vomiting, bloody stools or diarrhea [] : Denies dysuria or hematuria [] Musculoskeletal: Denies back pain or joint pain [] Integument: Denies rash or skin lesions [] Neurologic: Lightheaded, generalized weakness[] Endocrine: Polyuria, polydipsia[] All other systems were reviewed and found to be within normal limits, except as documented in this note. Current Medications Current Medications Current Medications Medications (Trade) Dose Ordered Sig/Carlie Start Time Stop Time Status Last Admin Dose Admin Sodium Chloride 1,000 ml @ 1,000 mls/hr Q1H 09/07/18 11:49 09/07/18 12:48 Allergies Allergies Allergies Coded Allergies Type Severity Reaction Last Updated Verified amoxicillin Allergy Severe 09/07/18 Yes black pepper Allergy Severe 09/07/18 Yes methylnaltrexone Allergy Severe 09/07/18 Yes Latex, Natural Rubber Allergy Intermediate 09/07/18 Yes Penicillins Allergy Intermediate 09/07/18 Yes Sulfa (Sulfonamide Antibiotics) Allergy Intermediate 09/07/18 Yes hydrogen peroxide Allergy Intermediate 09/07/18 Yes lanolin Allergy Intermediate 09/07/18 Yes naproxen Allergy Intermediate 09/07/18 Yes tetanus immune globulin Allergy Intermediate 09/07/18 No I S O L A T I O N *CONTACT* Allergy Unknown 09/07/18 Yes sumatriptan Adverse Reaction Severe N/V 09/07/18 Yes adhesive Adverse Reaction Intermediate Rash 09/07/18 Yes Uncoded Allergies Type Severity Reaction Last Updated Verified onions Allergy Unknown 09/07/18 Physical Exam Physical Exam Constitutional: Alert, afebrile, morbidly obese, appears in [id number] discomfort. [] HENT: Normocephalic, atraumatic, bilateral external ears normal, oropharynx dry no oral exudates, nose normal. [] Eyes: PERRLA, EOMI, conjunctiva normal, no discharge. [] Neck: Normal range of motion, no tenderness, supple, no stridor. [] Cardiovascular: Tachycardia, regular rhythm, no murmur [] Lungs & Thorax: Bilateral breath sounds clear to auscultation [] Abdomen: Bowel sounds normal, soft, no tenderness, no masses, no pulsatile masses. [] Skin: Warm, dry, no erythema, no rash. [] Back: No tenderness, no CVA tenderness. [] Extremities: No tenderness, no cyanosis, no clubbing, ROM intact, no edema. [] Neurologic: Alert and oriented X 3, normal motor function, normal sensory function, no focal deficits noted. [] Current Patient Data Vital Signs Vital Signs Date Time Temp Pulse Resp B/P (MAP) Pulse Ox O2 Delivery O2 Flow Rate FiO2 09/07/18 11:46 97.7 92 14 98 Room Air Lab Results Laboratory Tests Test 09/07/18 12:04 09/07/18 12:24 Urine Collection Type Void Urine Color Straw Urine Clarity Hazy Urine pH 5.0 Urine Specific [place] <=1.005 Urine Protein Neg Urine Glucose (UA) >=1000 mg/dL Urine Ketones (Stick) Neg mg/dL Urine Blood Small Urine Nitrite Neg Urine Bilirubin Neg Urine Urobilinogen Dipstick 0.2 mg/dL Urine Leukocyte Esterase Neg Urine RBC 1-2 /HPF Urine WBC Occ /HPF Urine Squamous Epithelial Cells Mod /LPF Urine Bacteria Few /HPF Urine Yeast Present /HPF White Blood Count 3.3 x10^3/uL Red Blood Count 5.50 x10^6/uL Hemoglobin 14.5 g/dL Hematocrit 45.8 % Mean Corpuscular Volume 83 fL Mean Corpuscular Hemoglobin 26 pg Mean Corpuscular Hemoglobin Concent 32 g/dL Red Cell Distribution Width 14.8 % Platelet Count 171 x10^3/uL Neutrophils (%) (Auto) 54 % Lymphocytes (%) (Auto) 31 % Monocytes (%) (Auto) 10 % Eosinophils (%) (Auto) 4 % Basophils (%) (Auto) 2 % Neutrophils # (Auto) 1.8 x10^3uL Lymphocytes # (Auto) 1.0 x10^3/uL Monocytes # (Auto) 0.3 x10^3/uL Eosinophils # (Auto) 0.1 x10^3/uL Basophils # (Auto) 0.1 x10^3/uL Sodium Level 125 mmol/L Potassium Level 4.5 mmol/L Chloride Level 90 mmol/L Carbon Dioxide Level 29 mmol/L Anion Gap 6 Blood Urea Nitrogen 11 mg/dL Creatinine 1.3 mg/dL Estimated GFR (Cockcroft-Gault) 44.3 BUN/Creatinine Ratio 8 Glucose Level 781 mg/dL Calcium Level 10.3 mg/dL Total Bilirubin 0.5 mg/dL Aspartate Amino Transf (AST/SGOT) 32 U/L Alanine Aminotransferase (ALT/SGPT) 38 U/L Alkaline Phosphatase 75 U/L Total Protein 8.1 g/dL Albumin 3.6 g/dL Albumin/Globulin Ratio 0.8 Current Medications Medications (Trade) Dose Ordered Sig/Carlie Route PRN Reason Start Time Stop Time Status Last Admin Dose Admin Sodium Chloride 1,000 ml @ 1,000 mls/hr Q1H IV 09/07/18 11:49 09/07/18 12:48 DC 09/07/18 12:49 EKG EKG Interpreted by me: Heart rate 99, sinus tachycardia, right axis deviation, no acute ST elevations or depressions, no acute changes from previous EKG[] Radiology/Procedures Radiology/Procedures [address] [address] IMAGING REPORT Signed PATIENT: CHIQUITA BLAIR ACCOUNT: [id number] : 1970 LOCATION: ER AGE: 47 SEX: F EXAM STATUS: REG ER ORD. PHYSICIAN: SARY NICOLE MD REASON: tachycardia PROCEDURE: PORTABLE CHEST 1V Chest radiograph 09/07/2018 12:16 PM INDICATION: Tachycardia COMPARISON: June 24, 2018 TECHNIQUE: Portable upright frontal view of the chest is provided. FINDINGS: The cardiomediastinal silhouette is within normal limits. Stable osseous deformity of the thorax. There are no pleural effusions. There is no pulmonary vascular congestion. There is no pneumothorax. The lungs are clear. IMPRESSION: No acute cardiopulmonary process. Electronically signed by: Mile Jamison MD (09/07/2018 12:32 PM) [id number] DICTATED AND SIGNED BY: MILE JAMISON MD DATE: 09/07/18 1232 CC: CHIKA WARREN MD; SARY NICOLE MD ~ [] Course & Med Decision Making Course & Med Decision Making Pertinent Labs and Imaging studies reviewed. (See chart for details) The patient's blood sugar was unable to be measured with a [id number] glucometer. IV access was obtained and patient started on IV fluids in the emergency department. Laboratory glucose value severely elevated. The patient is acutely ill and will require admission to the hospital for IV hydration and control of blood sugars. I spoke with patient's primary physician, Dr. Warren, who agreed to accept patient for admission and agreed with initiation of insulin drip. This will be started on patient after IV fluids have been given and will be monitored in ICU. Dragon Disclaimer Dragon Disclaimer This electronic medical record was generated, in whole or in part, using a voice recognition dictation system. Departure Departure: Impression: Primary Impression: Uncontrolled diabetes mellitus with hyperglycemia, with long-term current use of insulin Additional Impression: Morbid obesity Disposition: 09 ADMITTED INPATIENT Admitting Physician: Chika Warren Condition: GUARDED Referrals: CHIKA WARREN MD (PCP) Problem Qualifiers SARY NICOLE MD Sep 07, 2018 12:38
[2018-09-07 12:43] LABS: BASO # 0.1 x10^3/uL (0.0-0.2); BASO % 2 % (0-3); EOS # 0.1 x10^3/uL (0.0-0.7); EOS % 4 % (0-3); HEMATOCRIT 45.8 % (36.0-47.0); HEMOGLOBIN 14.5 g/dL (12.0-15.5); LYMPH % 31 % (24-48); MEAN CORPUSCULAR HEMOGLOBIN 26 pg (25-35); MEAN CORPUSCULAR HGB CONC 32 g/dL (31-37); MEAN CORPUSCULAR VOLUME 83 fL (79-100); MONO # 0.3 x10^3/uL (0.0-1.1); MONO % 10 % (0-9); NEUT # 1.8 x10^3uL (1.8-7.7); NEUT % 54 % (31-73); PLATELET COUNT 171 x10^3/uL (140-400); RED CELL DISTRIBUTION WIDTH 14.8 % (11.5-14.5); WHITE BLOOD COUNT 3.3 x10^3/uL (4.0-11.0)
[2018-09-07 12:47] LABS: ALBUMIN 3.6 g/dL (3.4-5.0); ALBUMIN/GLOBULIN RATIO 0.8 (1.0-1.7); CALCIUM 10.3 mg/dL (8.5-10.1); CREATININE 1.3 mg/dL (0.6-1.0); GFR 44.3; POTASSIUM 4.5 mmol/L (3.5-5.1); TOTAL BILIRUBIN 0.5 mg/dL (0.2-1.0); TOTAL PROTEIN 8.1 g/dL (6.4-8.2)
[2018-09-07] MEDS ORDERED: IV NORMAL SALINE 1,000ML 1,000 ML IV ONE (13:00)
[2018-09-07] MEDS ORDERED: ONDANSETRON PF 4 MG/2 ML VIAL. IV PRN ×2 (13:15→15:15)
[2018-09-07] MEDS ORDERED: ACETAMINOPHEN 325 MG TABLET PO PRN (13:15)
[2018-09-07] MEDS ORDERED: DEXTROSE 50% 25 GM / 50ML DISP.SYRIN. IV PRN (13:15)
[2018-09-07] MEDS ORDERED: INSULIN REGULAR VIAL 150 UNIT in 0.9 % SODIUM CHLORIDE 150ML 150 ML IV PRN ×2 (14:00→15:45)
[2018-09-07 15:00] VITALS: BP 111/71
[2018-09-07] MEDS ORDERED: diphenhydrAMINE HCL 25 MG CAPSULE PO PRN (15:15)
[2018-09-07] MEDS: IV NORMAL SALINE 1,000ML 1,000 ML IV SCH ×3 (15:15→23:30)
[2018-09-07] MEDS ORDERED: LEVO137T3 PO (15:19)
[2018-09-07] MEDS ORDERED: CYCL-331 PO (15:19)
[2018-09-07] MEDS ORDERED: ALBU2.5V8 INH (15:19)
[2018-09-07] MEDS: LORazepam 1 MG TABLET PO PRN (15:32)
[2018-09-07] MEDS ORDERED: ALBUTEROL SULFATE 2.5 MG/3 ML NEBU. INH PRN (15:45)
[2018-09-07] MEDS ORDERED: POTASSIUM CHLORIDE 10MEQ 100 ML IV PRN (15:45)
[2018-09-07 16:40] LABS: BASO % 1 % (0-3); EOS # 0.1 x10^3/uL (0.0-0.7); EOS % 4 % (0-3); HEMATOCRIT 42.5 % (36.0-47.0); HEMOGLOBIN 13.5 g/dL (12.0-15.5); LYMPH # 1.2 x10^3/uL (1.0-4.8); LYMPH % 33 % (24-48); MEAN CORPUSCULAR HEMOGLOBIN 26 pg (25-35); MEAN CORPUSCULAR HGB CONC 32 g/dL (31-37); MEAN CORPUSCULAR VOLUME 82 fL (79-100); MONO # 0.4 x10^3/uL (0.0-1.1); MONO % 10 % (0-9); NEUT # 1.9 x10^3uL (1.8-7.7); NEUT % 52 % (31-73); PLATELET COUNT 165 x10^3/uL (140-400); RED BLOOD COUNT 5.21 x10^6/uL (3.50-5.40); RED CELL DISTRIBUTION WIDTH 14.7 % (11.5-14.5); WHITE BLOOD COUNT 3.7 x10^3/uL (4.0-11.0)
--- NOTE | 2018-09-07 16:42 | EKG ---
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
--- NOTE | 2018-09-07 16:44 | EKG ---
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
[2018-09-07] MEDS: INSULIN LISPRO 300 UNITS/3 ML INSULN.PEN. SQ SCH (17:00)
[2018-09-07] MEDS ORDERED: IPRATRPIUM/ALBUTEROL 0.5/2.5MG 3 ML NEBU. NEB SCH ×2 (17:00→21:00)
[2018-09-07] MEDS: metFORMIN 500 MG TABLET PO SCH (17:12)
--- NOTE | 2018-09-07 17:56 | NUR ---
Pt Eri Ho admitted from ED to ICU bed 5 for hyperglycemia and insulin drip. BG 700's in ED, 500's on floor. Insulin drip started. Pt complains of generalized pain and anxiety. Pt was poked several times in ED for IV access. Dr Roberts notified. Will continue to monitor.
[2018-09-07 18:39] LABS: CREATININE 0.9 mg/dL (0.6-1.0); GFR 67.7; PHOSPHORUS 3.1 mg/dL (2.6-4.7); POTASSIUM 3.6 mmol/L (3.5-5.1)
[2018-09-07 18:40] VITALS: BP 127/78
[2018-09-07] MEDS: CYCLOBENZAPRINE 10 MG TABLET. PO PRN (19:01)
[2018-09-07] MEDS: ACETAMINOPHEN 500 MG TABLET PO PRN (19:01)
[2018-09-07 19:40] VITALS: BP 133/71
[2018-09-07] MEDS ORDERED: POTASSIUM CHLORIDE 20 MEQ TABLET.ER. PO ONE (19:45)
[2018-09-07] MEDS: GABAPENTIN 300 MG CAPSULE. PO SCH (19:54)
[2018-09-07] MEDS: MELATONIN 3 MG TABLET PO SCH (19:54)
[2018-09-07 20:40] VITALS: BP 119/70
[2018-09-07 22:40] VITALS: BP 130/65
[2018-09-07 23:40] VITALS: BP 110/66
[2018-09-08] VITALS (14 sets, daily range): BP systolic 83–128; BP diastolic 46–86
--- NOTE | 2018-09-08 03:51 | HP ---
ADMIT DATE: 09/07/2018 HISTORY OF PRESENT ILLNESS: A 47-year-old female who came in through the Emergency Room with markedly elevated blood sugars. The patient was lightheaded, dizzy, brought in via EMS because she was so weakened and the patient apparently has been without her prescription medications including metformin and insulin for the past 3 weeks. She has recently moved and her medication bag was lost. The patient notes increased thirst, increased urination as well and of course, her sugar initially found in the Emergency Room was approximately 780. The patient's sodium was also low at 125. The patient was admitted for further evaluation and treatment of her severe hyperglycemia, dehydration, generalized weakness and alike. PAST MEDICAL HISTORY: Oral surgery for mouth cancer, recent head injury 05/2018, headache, heart murmurs, coronary artery disease, cardiac catheterization, hypercholesterolemia, asthma, history of pulmonary embolus, pneumonia, sleep apnea, uses CPAP; hiatal hernia, obesity, gastroesophageal reflux; STDs, UTIs, severe osteoarthritis, degenerative disk disease, back pain, endocrine disorder, poorly controlled diabetes, hypothyroidism, panic disorders, depression, history of self-mutilation, narcolepsy, skin cancer, influenza vaccine up to date. She has had C. diff as well as MRSA. MEDICATIONS: The patient's medications were reconciled as noted in the reconciliation. FAMILY HISTORY: Positive for hypertension, history of gastrointestinal disease, diabetes, depression. ALLERGIES: SHE HAS ALLERGIES TO LATEX, NATURAL RUBBER, PENICILLIN, SULFUR, ADHESIVES, AMOXICILLIN, BLACK PEPPER, HYDROGEN PEROXIDE, LANOLIN, METHYLNALTREXONE. The patient is a full code. SOCIAL HISTORY: The patient denies smoking or alcohol use. REVIEW OF SYSTEMS: Generalized weakness, lethargy, increased thirst and increased urination. Denies chest pain, shortness of breath, abdominal pain. Denies nausea, vomiting, melena, hematochezia, or hematemesis and neurologically baseline there. PHYSICAL EXAMINATION: GENERAL: The patient on examination is a white female, in moderate amount of distress. VITAL SIGNS: The patient's blood pressure is 150/84, respiratory rate 18, pulse 110, afebrile. HEENT: The patient's head was atraumatic, normocephalic. Eyes: PERRLA without jaundice. Mouth and throat were normal. NECK: Supple, without JVD, carotid bruits. No thyromegaly. LUNGS: Diminished, but clear. ABDOMEN: Soft, protuberant, nontender. No rebound or guarding. Positive bowel sounds, no hepatosplenomegaly was noted. EXTREMITIES: No clubbing, cyanosis. Trace edema was noted. The patient also has problem with obesity. IMPRESSION: 1. Type 2 diabetes, extremely poorly controlled. 2. Severe hyperglycemia. 3. Severe dehydration. 4. Generalized weakness. 5. Morbid obesity. 6. Hyponatremia. PLAN: The patient will be placed on normal saline. She was placed on a DKA type protocol to get her insulin down on an insulin drip and make further evaluation on her as indicated. The patient will be monitored in the ICU because of her labile condition and make adjustments on her blood sugars accordingly to the protocol. CHIKA WARREN MD DR: MOUNA/glenn JOB#: [id number] / [id number]
[2018-09-08] MEDS: CYCLOBENZAPRINE 10 MG TABLET. PO PRN (04:18)
[2018-09-08] MEDS: LORazepam 1 MG TABLET PO PRN (04:18)
[2018-09-08 06:19] LABS: BASO # 0.1 x10^3/uL (0.0-0.2); BASO % 2 % (0-3); EOS # 0.3 x10^3/uL (0.0-0.7); EOS % 7 % (0-3); HEMATOCRIT 39.8 % (36.0-47.0); LYMPH # 1.3 x10^3/uL (1.0-4.8); LYMPH % 35 % (24-48); MEAN CORPUSCULAR HEMOGLOBIN 26 pg (25-35); MEAN CORPUSCULAR HGB CONC 33 g/dL (31-37); MEAN CORPUSCULAR VOLUME 80 fL (79-100); MONO # 0.3 x10^3/uL (0.0-1.1); MONO % 8 % (0-9); NEUT # 1.8 x10^3uL (1.8-7.7); NEUT % 49 % (31-73); PLATELET COUNT 165 x10^3/uL (140-400); RED BLOOD COUNT 4.99 x10^6/uL (3.50-5.40); RED CELL DISTRIBUTION WIDTH 14.7 % (11.5-14.5); WHITE BLOOD COUNT 3.7 x10^3/uL (4.0-11.0)
[2018-09-08 06:21] LABS: CALCIUM 8.4 mg/dL (8.5-10.1); CREATININE 0.8 mg/dL (0.6-1.0); GFR 77.6; POTASSIUM 3.7 mmol/L (3.5-5.1)
[2018-09-08] MEDS: LEVOTHYROXINE 137 MCG TABLET PO SCH (06:42)
[2018-09-08] MEDS: IV NORMAL SALINE 1,000ML 1,000 ML IV SCH ×3 (06:50→16:25)
[2018-09-08] MEDS ORDERED: PANTOPRAZOLE 40 MG TABLET. PO SCH (07:30)
[2018-09-08] MEDS: INSULIN LISPRO 300 UNITS/3 ML INSULN.PEN. SQ SCH ×6 (08:00→18:32)
[2018-09-08] MEDS: CETIRIZINE HCL 10 MG TABLET PO SCH (08:22)
[2018-09-08] MEDS: FUROSEMIDE 20 MG TABLET PO SCH (08:22)
[2018-09-08] MEDS: CITALOPRAM 20 MG TABLET. PO SCH (08:23)
[2018-09-08] MEDS: ASPIRIN ENTERIC COATED 81 MG TABLET.DR. PO SCH (08:23)
[2018-09-08] MEDS: PROPRANOLOL ER 60 MG CAP.SA.24H. PO SCH (08:23)
[2018-09-08] MEDS: GABAPENTIN 300 MG CAPSULE. PO SCH ×3 (08:23→21:14)
[2018-09-08] MEDS: buPROPion XL 300 MG TAB.ER.24H. PO SCH (08:23)
[2018-09-08] MEDS: PIOGLITAZONE 15 MG TABLET. PO SCH (08:23)
[2018-09-08] MEDS: valACYclovir 500 MG TABLET. PO SCH (08:24)
[2018-09-08] MEDS: POTASSIUM CHLORIDE 20 MEQ TABLET.ER. PO SCH (08:24)
[2018-09-08] MEDS: metFORMIN 500 MG TABLET PO SCH ×2 (08:24→18:33)
[2018-09-08] MEDS: NON FORMULARY ITEM (Canagliflozin (Invokana) 300 MG) PO SCH (08:31)
[2018-09-08] MEDS ORDERED: IBUPROFEN 800 MG TABLET. PO ONE (08:52)
[2018-09-08] MEDS: CYCLOBENZAPRINE 10 MG TABLET. PO SCH ×3 (08:53→21:14)
--- NOTE | 2018-09-08 08:55 | NUR ---
IP: patient has hx of +MRSA screen 03/04/18, requires contact precautions until 2 negative results 7 days apart. HAs 1 negative from 06/21/18. Will no longer need contact precautions if the pending screen is negative.
[2018-09-08] MEDS ORDERED: INSULIN GLARGINE 300 UNITS/3 ML INSULN.PEN. SQ SCH (09:00)
[2018-09-08] MEDS ORDERED: IBUPROFEN 800 MG TABLET. PO PRN (09:00)
[2018-09-08] MEDS ORDERED: VANCOMYCIN PER PHARMACY MC PRN (09:30)
--- NOTE | 2018-09-08 12:10 | NUR ---
PT not feeling well today. Pt refused breakfast stating that she cannot eat when she is not hungry. Pt has odd behavior at times, however, pt is able to verbalize understanding of poc. Kwadwo REDDY
[2018-09-08] MEDS ORDERED: SUMAtriptan SUCCINATE 50 MG TABLET PO PRN (12:45)
[2018-09-08] MEDS: IBUPROFEN 800 MG TABLET. PO PRN ×2 (13:17→18:33)
[2018-09-08] MEDS ORDERED: CALCIUM CARBONATE 500 MG TAB.CHEW PO PRN (15:30)
[2018-09-08] MEDS: ACETAMINOPHEN 500 MG TABLET PO PRN (15:44)
[2018-09-08 19:55] LABS: BARBITURATES NEG (NEG); BENZODIAZEPINES NEG (NEG); CANNABINOIDS NEG (NEG); COCAINE NEG (NEG); METHADONE NEG (NEG); OPIATES NEG (NEG); PHENCYCLIDINE NEG (NEG)
[2018-09-08 19:56] LABS: AMPHETAMINE/METHAMPHETAMINE NEG (NEG)
[2018-09-08] MEDS: PANTOPRAZOLE 40 MG TABLET. PO SCH (21:14)
[2018-09-08] MEDS: MELATONIN 3 MG TABLET PO SCH (21:14)
[2018-09-08] MEDS: LACTOBACILLUS RHAMNOSUS GG 1 CAPSULE. PO SCH (21:14)
[2018-09-08] MEDS: DOXYCYCLINE HYCLATE 100 MG TABLET PO SCH (21:14)
[2018-09-08] MEDS: INSULIN GLARGINE 300 UNITS/3 ML INSULN.PEN. SQ SCH (21:17)
[2018-09-09] VITALS (21 sets, daily range): BP systolic 80–129; BP diastolic 50–83
[2018-09-09 00:08] LABS: HEMOGLOBIN A1C 11.1 % (4.8-5.6)
[2018-09-09] MEDS: IV NORMAL SALINE 1,000ML 1,000 ML IV SCH (02:36)
[2018-09-09] MEDS: ACETAMINOPHEN 500 MG TABLET PO PRN (05:32)
[2018-09-09] MEDS: LEVOTHYROXINE 137 MCG TABLET PO SCH (05:32)
[2018-09-09 06:37] LABS: CALCIUM 8.1 mg/dL (8.5-10.1); CREATININE 0.8 mg/dL (0.6-1.0); GFR 77.6; POTASSIUM 4.2 mmol/L (3.5-5.1)
[2018-09-09 06:38] LABS: BASO % 1 % (0-3); EOS # 0.2 x10^3/uL (0.0-0.7); EOS % 6 % (0-3); HEMATOCRIT 37.2 % (36.0-47.0); HEMOGLOBIN 12.1 g/dL (12.0-15.5); LYMPH # 1.3 x10^3/uL (1.0-4.8); LYMPH % 30 % (24-48); MEAN CORPUSCULAR HEMOGLOBIN 26 pg (25-35); MEAN CORPUSCULAR HGB CONC 33 g/dL (31-37); MEAN CORPUSCULAR VOLUME 81 fL (79-100); MONO # 0.4 x10^3/uL (0.0-1.1); MONO % 9 % (0-9); NEUT # 2.3 x10^3uL (1.8-7.7); NEUT % 55 % (31-73); PLATELET COUNT 163 x10^3/uL (140-400); RED BLOOD COUNT 4.62 x10^6/uL (3.50-5.40); WHITE BLOOD COUNT 4.3 x10^3/uL (4.0-11.0)
[2018-09-09] MEDS: INSULIN LISPRO 300 UNITS/3 ML INSULN.PEN. SQ SCH ×6 (08:00→17:45)
[2018-09-09] MEDS: POTASSIUM CHLORIDE 20 MEQ TABLET.ER. PO SCH (08:12)
[2018-09-09] MEDS: PROPRANOLOL ER 60 MG CAP.SA.24H. PO SCH (08:12)
[2018-09-09] MEDS: LACTOBACILLUS RHAMNOSUS GG 1 CAPSULE. PO SCH ×2 (08:12→21:43)
[2018-09-09] MEDS: metFORMIN 500 MG TABLET PO SCH ×2 (08:13→17:47)
[2018-09-09] MEDS: CYCLOBENZAPRINE 10 MG TABLET. PO SCH ×3 (08:13→21:43)
[2018-09-09] MEDS: FUROSEMIDE 20 MG TABLET PO SCH (08:13)
[2018-09-09] MEDS: GABAPENTIN 300 MG CAPSULE. PO SCH ×3 (08:13→21:43)
[2018-09-09] MEDS: PIOGLITAZONE 15 MG TABLET. PO SCH (08:13)
[2018-09-09] MEDS: ASPIRIN ENTERIC COATED 81 MG TABLET.DR. PO SCH (08:13)
[2018-09-09] MEDS: CITALOPRAM 20 MG TABLET. PO SCH (08:13)
[2018-09-09] MEDS: buPROPion XL 300 MG TAB.ER.24H. PO SCH (08:13)
[2018-09-09] MEDS: valACYclovir 500 MG TABLET. PO SCH (08:13)
[2018-09-09] MEDS: PANTOPRAZOLE 40 MG TABLET. PO SCH ×2 (08:14→21:43)
[2018-09-09] MEDS: CETIRIZINE HCL 10 MG TABLET PO SCH (08:14)
[2018-09-09] MEDS: DOXYCYCLINE HYCLATE 100 MG TABLET PO SCH ×2 (08:15→21:43)
[2018-09-09] MEDS: NON FORMULARY ITEM (Canagliflozin (Invokana) 300 MG) PO SCH (08:17)
[2018-09-09] MEDS: IBUPROFEN 800 MG TABLET. PO PRN (08:23)
[2018-09-09] MEDS ORDERED: diphenhydrAMINE 50 MG/ML VIAL IVP PRN (08:45)
[2018-09-09] MEDS ORDERED: KETOROLAC 30 MG/ML VIAL. IV PRN (08:45)
[2018-09-09] MEDS ORDERED: PROCHLORPERAZINE 10 MG/2 ML VIAL. IV PRN (08:45)
--- NOTE | 2018-09-09 12:54 | NUR ---
Pt having multiple complaints today of migraine, panic attack, and numbness in extremities. Dr Roberts at bedside. PT has had some hypotensive episode, no dizziness at the time of drop in BP. PT is able to verbalize understanding of poc. Kwadwo REDDY
--- NOTE | 2018-09-09 14:09 | PN ---
DATE: SUBJECTIVE: The patient was admitted with elevated blood sugars of over 780. The patient has multiple excoriations, cellulitis to her jaw. I put her on antibiotic for such. PHYSICAL EXAMINATION: VITAL SIGNS: She is feeling somewhat better, although blood pressure is down to 91/56 (____), respiratory rate 17, pulse 70, afebrile. GENERAL: The patient is alert, oriented. LUNGS: Diminished, poor movement of air. CARDIOVASCULAR: Regular sinus rhythm, S1, S2. ABDOMEN: Soft, nontender, protuberant. EXTREMITIES: Without clubbing, cyanosis; +1,+2 pitting edema. LABORATORY DATA: The patient's blood sugars are still somewhat elevated, although markedly improved. We will go ahead and continue to adjust her insulin on that. IMPRESSION: Otherwise, impression is type 2 diabetes, extremely poor control; severe hyperglycemia, severe dehydration, morbid obesity, generalized weakness, hyponatremia. PLAN: Continue to monitor the patient and make further evaluation on her blood sugars. CHIKA WARREN MD DR: MOUNA/glenn JOB#: [id number] / [id number]
[2018-09-09] MEDS: NYSTATIN TOPICAL POWDER 15GM BOTTLE. TP SCH (21:44)
[2018-09-09] MEDS: INSULIN GLARGINE 300 UNITS/3 ML INSULN.PEN. SQ SCH (21:47)
[2018-09-09] MEDS: HEPARIN for SUB-Q USE 5,000 UNIT/ML VIAL. SQ SCH (21:48)
[2018-09-09] MEDS: MELATONIN 3 MG TABLET PO SCH (21:50)
[2018-09-10] VITALS (10 sets, daily range): BP systolic 98–141; BP diastolic 62–95
[2018-09-10] MEDS: LEVOTHYROXINE 137 MCG TABLET PO SCH (06:12)
[2018-09-10] MEDS: HEPARIN for SUB-Q USE 5,000 UNIT/ML VIAL. SQ SCH (06:15)
[2018-09-10 06:21] LABS: BASO # 0.1 x10^3/uL (0.0-0.2); BASO % 1 % (0-3); EOS # 0.3 x10^3/uL (0.0-0.7); EOS % 6 % (0-3); HEMATOCRIT 40.4 % (36.0-47.0); LYMPH # 1.6 x10^3/uL (1.0-4.8); LYMPH % 28 % (24-48); MEAN CORPUSCULAR HEMOGLOBIN 26 pg (25-35); MEAN CORPUSCULAR HGB CONC 32 g/dL (31-37); MEAN CORPUSCULAR VOLUME 80 fL (79-100); MONO # 0.5 x10^3/uL (0.0-1.1); MONO % 8 % (0-9); NEUT # 3.3 x10^3uL (1.8-7.7); NEUT % 57 % (31-73); PLATELET COUNT 178 x10^3/uL (140-400); RED BLOOD COUNT 5.03 x10^6/uL (3.50-5.40); RED CELL DISTRIBUTION WIDTH 15.1 % (11.5-14.5); WHITE BLOOD COUNT 5.8 x10^3/uL (4.0-11.0)
[2018-09-10 06:30] LABS: CALCIUM 8.7 mg/dL (8.5-10.1); CREATININE 0.8 mg/dL (0.6-1.0); GFR 77.6; POTASSIUM 3.6 mmol/L (3.5-5.1)
[2018-09-10] MEDS: INSULIN LISPRO 300 UNITS/3 ML INSULN.PEN. SQ SCH ×4 (08:00→12:30)
[2018-09-10] MEDS: metFORMIN 500 MG TABLET PO SCH (08:48)
[2018-09-10] MEDS: NYSTATIN TOPICAL POWDER 15GM BOTTLE. TP SCH (08:48)
[2018-09-10] MEDS: POTASSIUM CHLORIDE 20 MEQ TABLET.ER. PO SCH (08:48)
[2018-09-10] MEDS: DOXYCYCLINE HYCLATE 100 MG TABLET PO SCH (08:48)
[2018-09-10] MEDS: GABAPENTIN 300 MG CAPSULE. PO SCH (08:49)
[2018-09-10] MEDS: PROPRANOLOL ER 60 MG CAP.SA.24H. PO SCH (08:51)
[2018-09-10] MEDS: CETIRIZINE HCL 10 MG TABLET PO SCH (08:52)
[2018-09-10] MEDS: PANTOPRAZOLE 40 MG TABLET. PO SCH (08:52)
[2018-09-10] MEDS: CITALOPRAM 20 MG TABLET. PO SCH (08:52)
[2018-09-10] MEDS: IBUPROFEN 800 MG TABLET. PO PRN (08:52)
[2018-09-10] MEDS: LACTOBACILLUS RHAMNOSUS GG 1 CAPSULE. PO SCH (08:52)
[2018-09-10] MEDS: FUROSEMIDE 20 MG TABLET PO SCH (08:52)
[2018-09-10] MEDS: ASPIRIN ENTERIC COATED 81 MG TABLET.DR. PO SCH (08:52)
[2018-09-10] MEDS: valACYclovir 500 MG TABLET. PO SCH (08:52)
[2018-09-10] MEDS: buPROPion XL 300 MG TAB.ER.24H. PO SCH (08:53)
[2018-09-10] MEDS: CYCLOBENZAPRINE 10 MG TABLET. PO SCH (08:53)
[2018-09-10] MEDS: PIOGLITAZONE 15 MG TABLET. PO SCH (08:53)
[2018-09-10] MEDS: NON FORMULARY ITEM (Canagliflozin (Invokana) 300 MG) PO SCH (09:00)
--- NOTE | 2018-09-10 13:34 | NUR ---
Patient remains A&O x 4, pleasant and cooperative with cares. c/o headache and soreness in BLE. Pain medications help with the soreness in BLE however her headache is still there. blood sugar is stable at this time. Patient educated on taking her DM medications and different resources that could be available to help pay for medications. Discharge orders received. Patient to discharge home with self care. IV's removed. No other concerns at this time. will continue to monitor and care per plan of care.
--- NOTE | 2018-09-10 15:23 | PN ---
DATE: 09/09/2018 SUBJECTIVE: The patient comes in with severe hyperglycemia, sugar was almost 800. She is resting fairly comfortably, making fairly good progress overall. The patient's sugars have come down. She is having a lot of anxiety attacks, still lot of infection of her chin area. Started on Vibramycin. She is resting fairly comfortably, making fairly good progress overall. The patient is alert and oriented, though very, very anxious. OBJECTIVE: VITAL SIGNS: Blood pressure 105/60, respiratory rate 16, pulse 68, afebrile. GENERAL: The patient is alert and oriented. LUNGS: Diminished, but clear. CARDIOVASCULAR: Stable. ABDOMEN: Soft, nontender, protuberant. She will continue to be monitored carefully, make further evaluation on her as indicated, and give her lorazepam as indicated. IMPRESSION: Therefore, severe hyperglycemia, cellulitis, anxiety attack, morbid obesity, and type 2 diabetes, poorly controlled. CHIKA WARREN MD DR: MOUNA/glenn JOB#: [id number] / [id number]
--- NOTE | 2018-09-25 14:41 | DS ---
DATE OF DISCHARGE: 09/10/2018 HOSPITAL COURSE: A 47-year-old female, came in through the Emergency Room, elevated blood sugars. The patient was feeling lightheaded, dizzy. She apparently lost her bag of medications, and her blood sugar was approximately 780. Sodium was also low at 120. The patient was admitted for severe hyperglycemia. The patient has extreme morbid obesity, greater than 40. The patient's blood sugars were brought down into the low 100s and 80s. Her A1c was 11.1. Chest x-ray was unremarkable. The patient made fairly good progress with IV fluids and IV insulin, also had quite a bit of anxiety attacks. She also had an infection of her chin, placed on Vibramycin for that. The patient made good progress during the rest of her hospitalization. Sugars were brought down. Prescriptions were given for her new medications, and the patient will be monitored carefully as an outpatient, given instructions on her diet. IMPRESSION: Therefore of severe hyperglycemia, greater than 700; change in mental status; severe morbid obesity, greater than 40; generalized weakness; hyponatremia; and poor drug compliance. PLAN: As above, continue with diabetic diet, decrease her weight, and make further evaluation on her as an outpatient. CHIKA WARREN MD DR: MOUNA/glenn JOB#: [id number] / [id number]
== END 2018-09-10 13:59 | disposition home or self-care (01) | DRG 637 ==
LOC: ER 11:40 → ICU 12:54
PROVIDERS: ADMIT Family Medicine; ATTEND Family Medicine
DX: E11.00 Type 2 diabetes mellitus with hyperosmolarity without nonketotic hyperglycemic-hyperosmolar coma (NKHHC) (principal); N17.0 Acute kidney failure with tubular necrosis; E87.1 Hypo-osmolality and hyponatremia; L03.90 Cellulitis, unspecified; E11.65 Type 2 diabetes mellitus with hyperglycemia; E03.9 Hypothyroidism, unspecified; E66.01 Morbid (severe) obesity due to excess calories; E78.00 Pure hypercholesterolemia, unspecified; E86.0 Dehydration; F41.1 Generalized anxiety disorder; G47.30 Sleep apnea, unspecified; G47.419 Narcolepsy without cataplexy; N18.1 Chronic kidney disease, stage 1; E11.22 Type 2 diabetes mellitus with diabetic chronic kidney disease; I25.10 Atherosclerotic heart disease of native coronary artery without angina pectoris; K21.9 Gastro-esophageal reflux disease without esophagitis; J45.909 Unspecified asthma, uncomplicated; Z79.4 Long term (current) use of insulin; Z81.8 Family history of other mental and behavioral disorders; Z82.49 Family history of ischemic heart disease and other diseases of the circulatory system; Z85.819 Personal history of malignant neoplasm of unspecified site of lip, oral cavity, and pharynx; Z83.3 Family history of diabetes mellitus; Z85.828 Personal history of other malignant neoplasm of skin; Z86.711 Personal history of pulmonary embolism; Z86.73 Personal history of transient ischemic attack (TIA), and cerebral infarction without residual deficits; Z91.5 Personal history of self-harm; F32.9 Major depressive disorder, single episode, unspecified; F41.9 Anxiety disorder, unspecified; G43.909 Migraine, unspecified, not intractable, without status migrainosus
CPT/HCPCS: 36415; 71045; 80048; 80053; 80307; 81001; 82010; 82947; 83036; 84100; 85025; 87641; 93005; J0780; J1200; J1644; J1815; J2405; J7030

== ENCOUNTER 2018-09-16 17:30 | Inpatient (IN) | payer MEDICARE, MEDICAID ==
[~2018-09-16] VITALS: Ht 172.7 cm; Wt 172.8 kg
[~2018-09-16 17:30] MED LIST changes: +ALBU2.5V8 INH; +LEVO137T3 PO
[2018-09-16] MEDS ORDERED: IV NORMAL SALINE 1,000ML 1,000 ML IV ONE (17:45)
[2018-09-16 18:00] LABS: BASO # 0.1 x10^3/uL (0.0-0.2); BASO % 2 % (0-3); EOS # 0.2 x10^3/uL (0.0-0.7); EOS % 2 % (0-3); HEMOGLOBIN 13.6 g/dL (12.0-15.5); LYMPH # 1.2 x10^3/uL (1.0-4.8); LYMPH % 17 % (24-48); MEAN CORPUSCULAR HEMOGLOBIN 26 pg (25-35); MEAN CORPUSCULAR HGB CONC 32 g/dL (31-37); MEAN CORPUSCULAR VOLUME 83 fL (79-100); MONO # 0.6 x10^3/uL (0.0-1.1); MONO % 8 % (0-9); NEUT # 5.1 x10^3uL (1.8-7.7); NEUT % 71 % (31-73); PLATELET COUNT 228 x10^3/uL (140-400); RED BLOOD COUNT 5.18 x10^6/uL (3.50-5.40); RED CELL DISTRIBUTION WIDTH 15.4 % (11.5-14.5); WHITE BLOOD COUNT 7.1 x10^3/uL (4.0-11.0)
--- NOTE | 2018-09-16 18:03 | PHYS DOC ---
Past History Past Medical History: Angina, Anxiety, Asthma, Cancer, Depression, Diabetes, GERD, Hypothyroid, Migraines, STD, TIA, Other (GERTRUDE SÁNCHEZ DO) Past Surgical History: Cholecystectomy, Other Additional Past Surgical Histo: Eye, bilateral ankles, right thumb. (GERTRUDE SÁNCHEZ DO) Smoking: Non-smoker Alcohol Use: None Drug Use: None (GERTRUDE SÁNCHEZ DO) Adult General Chief Complaint Chief Complaint: RECTAL BLEED HPI HPI 47-year-old female presents with rectal bleeding, vomiting, and diarrhea. Patient states that she has had diarrhea for the last 2 days. The diarrhea has been getting worse today. She has gone as frequently as every 15 minutes. The last 3 episodes she had what she describes as medium colored blood. She also has a burning sensation in her rectum. The patient has had nausea and intermittent vomiting throughout the day as well. She now has diffuse abdominal pain and states it is painful even to touch her skin. The patient was recently in this hospital for DKA. She denies fever or chills. (GERTRUDE SÁNCHEZ DO) Review of Systems Review of Systems Constitutional: Denies fever or chills [] Eyes: Denies change in visual acuity, redness, or eye pain [] HENT: Denies nasal congestion or sore throat [] Respiratory: Denies cough or shortness of breath [] Cardiovascular: No additional information not addressed in HPI [] GI: abdominal pain, nausea, vomiting, bloody diarrhea [] : Denies dysuria or hematuria [] Musculoskeletal: Denies back pain or joint pain [] Integument: Denies new rash or skin lesions [] Neurologic: Headache. Denies focal weakness or sensory changes [] Endocrine: Denies polyuria or polydipsia [] All other systems were reviewed and found to be within normal limits, except as documented in this note. (GERTRUDE SÁNCHEZ DO) Current Medications Current Medications Current Medications Medications (Trade) Dose Ordered Sig/Carlie Start Time Stop Time Status Last Admin Dose Admin Sodium Chloride 1,000 ml @ 1,000 mls/hr 1X ONCE 09/16/18 17:45 09/16/18 18:44 (GERTRUDE SÁNCHEZ DO) Allergies Allergies Allergies Coded Allergies Type Severity Reaction Last Updated Verified amoxicillin Allergy Severe 09/07/18 Yes black pepper Allergy Severe 09/07/18 Yes methylnaltrexone Allergy Severe 09/07/18 Yes onion Allergy Severe Anaphylaxis 09/08/18 Yes Latex, Natural Rubber Allergy Intermediate 09/07/18 Yes Penicillins Allergy Intermediate 09/07/18 Yes Sulfa (Sulfonamide Antibiotics) Allergy Intermediate 09/07/18 Yes hydrogen peroxide Allergy Intermediate 09/07/18 Yes lanolin Allergy Intermediate 09/07/18 Yes tetanus immune globulin Allergy Intermediate 09/07/18 No tomato Allergy Mild Nausea 09/08/18 Yes I S O L A T I O N *CONTACT* Allergy Unknown 09/07/18 Yes sumatriptan Adverse Reaction Severe N/V 09/07/18 Yes adhesive Adverse Reaction Intermediate Rash 09/07/18 Yes (GERTRUDE SÁNCHEZ DO) Physical Exam Physical Exam Constitutional: Well developed, morbid obesity, well nourished, no acute distress, non-toxic appearance. [] HENT: Normocephalic, atraumatic, bilateral external ears normal, oropharynx moist, no oral exudates, nose normal. [] Eyes: PERRLA, EOMI, conjunctiva normal, no discharge. [] Neck: Normal range of motion, no tenderness, supple, no stridor. [] Cardiovascular:Heart rate regular rhythm, no murmur [] Lungs & Thorax: Bilateral breath sounds clear to auscultation [] Abdomen: Bowel sounds normal, soft, diffuse tenderness, no masses, no pulsatile masses. [] Skin: Warm, dry, no erythema, no rash. [] Back: No tenderness, no CVA tenderness. [] Extremities: No tenderness, no cyanosis, no clubbing, ROM intact, no edema. [] Neurologic: Alert and oriented X 3, normal motor function, normal sensory function, no focal deficits noted. [] Psychologic: Affect normal, judgement normal, mood anxious. [] (GERTRUDE SÁNCHEZ DO) EKG EKG [] (GERTRUDE SÁNCHEZ DO) Radiology/Procedures Radiology/Procedures [] (GERTRUDE SÁNCHEZ DO) Impressions: PROCEDURE: CT ABD PELV W/ IV CONTRST ONLY CT abdomen and pelvis with contrast: Reason for examination: Abdominal pain with bloody diarrhea. Helical images were obtained through the abdomen and pelvis with intravenous administration of 100 cc Omnipaque 300. Reconstruction was performed in sagittal and coronal planes. Exposure: One or more of the following individualized dose reduction techniques were utilized for this examination: 1. Automated exposure control 2. Adjustment of the mA and/or kV according to patient size 3. Use of iterative reconstruction technique. The lung bases are clear. The heart size is normal with no pericardial effusion. There is some fatty infiltration in the liver without a focal lesion. No abnormality seen at the spleen, adrenal glands or pancreas. The gallbladder is surgically absent. The abdominal aorta and inferior vena cava show no abnormalities. No abnormality seen at the appendix. The colon shows no diverticulosis or diverticulitis. The stomach is not distended. The duodenum and proximal jejunum show some mild dilatation or wall thickening which may reflect some enteritis. The distal small intestinal tract shows no abnormalities and there is no small bowel obstruction evident. The kidneys show no renal masses, renal calculi, hydronephrosis or evidence of obstructive uropathy. No abnormality seen at the bladder, uterus or ovaries. No free fluid or free air is seen in the abdomen or pelvis. No acute bony abnormalities are seen. IMPRESSION: Fatty liver but no focal lesions. Mild wall thickening and dilatation of the duodenum and proximal jejunum. This may reflect enteritis. No other acute abnormalities are seen in the abdomen or pelvis. Electronically signed by: Pretty Randolph MD (09/16/2018 10:18 PM) [facility] (KELLI BALTAZAR Jr., DO) Course & Med Decision Making Course & Med Decision Making Pertinent Labs and Imaging studies reviewed. (See chart for details) Patient's workup is pending. I'm signing her out to Dr. Baltazar at 1800. [] (GERTRUDE SÁNCHEZ DO) Dragon Disclaimer Dragon Disclaimer This electronic medical record was generated, in whole or in part, using a voice recognition dictation system. (GERTRUDE SÁNCHEZ DO) Departure Departure: Impression: Primary Impression: Hyperglycemia due to type 2 diabetes mellitus Additional Impressions: Enteritis Hematochezia Disposition: ADMITTED INPATIENT Admitting Physician: Chika Warren (KELLI BALTAZAR Jr., DO) Condition: IMPROVED Referrals: CHIKA WARREN MD (PCP) Problem Qualifiers Primary Impression: Hyperglycemia due to type 2 diabetes mellitus Diabetes mellitus half-way insulin use: unspecified half-way insulin use status Qualified Codes: E11.65 - Type 2 diabetes mellitus with hyperglycemia GERTRUDE SÁNCHEZ DO Sep 16, 2018 18:03 KELLI BALTAZAR Jr., DO Sep 16, 2018 22:59
[2018-09-16] MEDS ORDERED: MORPHINE SULFATE 4 MG/ML DISP.SYRIN. IV ONE (18:15)
[2018-09-16] MEDS ORDERED: ONDANSETRON PF 4 MG/2 ML VIAL. IV ONE (18:15)
[2018-09-16 18:17] LABS: ALBUMIN 3.1 g/dL (3.4-5.0); ALBUMIN/GLOBULIN RATIO 0.7 (1.0-1.7); CALCIUM 9.4 mg/dL (8.5-10.1); CREATININE 1.3 mg/dL (0.6-1.0); GFR 44.3; POTASSIUM 4.4 mmol/L (3.5-5.1); TOTAL BILIRUBIN 0.3 mg/dL (0.2-1.0); TOTAL PROTEIN 7.8 g/dL (6.4-8.2)
[2018-09-16] MEDS ORDERED: INSULIN REGULAR 100 UNIT/ML 3ML VIAL. IV ONE (19:00)
[2018-09-16 19:07] LABS: BACTERIA,URINE FEW /HPF (0-FEW); BILIRUBIN,URINE NEG (NEG); CLARITY,URINE CLEAR; COLOR,URINE STRAW; GLUCOSE,URINE >=1000 mg/dL (NEG); NITRITE,URINE NEG (NEG); RBC,URINE 0 /HPF (0-2); SQUAMOUS EPITHELIAL CELL,UR OCC /LPF; UROBILINOGEN,URINE 0.2 mg/dL (0.2 mg/dL); WBC,URINE OCC /HPF (0-4); YEAST,URINE PRESENT /HPF
[2018-09-16] MEDS ORDERED: IOHEXOL 300 MG/ML 75 ML VIAL. IV ONE ×2 (20:15)
--- NOTE | 2018-09-16 22:21 | RAD ---
CT abdomen and pelvis with contrast: Reason for examination: Abdominal pain with bloody diarrhea. Helical images were obtained through the abdomen and pelvis with intravenous administration of 100 cc Omnipaque 300. Reconstruction was performed in sagittal and coronal planes. Exposure: One or more of the following individualized dose reduction techniques were utilized for this examination: 1. Automated exposure control 2. Adjustment of the mA and/or kV according to patient size 3. Use of iterative reconstruction technique. The lung bases are clear. The heart size is normal with no pericardial effusion. There is some fatty infiltration in the liver without a focal lesion. No abnormality seen at the spleen, adrenal glands or pancreas. The gallbladder is surgically absent. The abdominal aorta and inferior vena cava show no abnormalities. No abnormality seen at the appendix. The colon shows no diverticulosis or diverticulitis. The stomach is not distended. The duodenum and proximal jejunum show some mild dilatation or wall thickening which may reflect some enteritis. The distal small intestinal tract shows no abnormalities and there is no small bowel obstruction evident. The kidneys show no renal masses, renal calculi, hydronephrosis or evidence of obstructive uropathy. No abnormality seen at the bladder, uterus or ovaries. No free fluid or free air is seen in the abdomen or pelvis. No acute bony abnormalities are seen. IMPRESSION: Fatty liver but no focal lesions. Mild wall thickening and dilatation of the duodenum and proximal jejunum. This may reflect enteritis. No other acute abnormalities are seen in the abdomen or pelvis. Electronically signed by: Pretty Randolph MD (09/16/2018 10:18 PM) [facility]
[2018-09-16] MEDS ORDERED: IV NORMAL SALINE 1,000ML 1,000 ML IV SCH (23:00)
[2018-09-16] MEDS ORDERED: ONDANSETRON PF 4 MG/2 ML VIAL. IV PRN (23:00)
[2018-09-17] MEDS ORDERED: DEXTROSE 50% 25 GM / 50ML DISP.SYRIN. IV PRN
[2018-09-17 00:11] VITALS: BP 100/65
[2018-09-17 08:13] LABS: CALCIUM 8.9 mg/dL (8.5-10.1); CREATININE 0.8 mg/dL (0.6-1.0); GFR 77.6; POTASSIUM 3.9 mmol/L (3.5-5.1)
[2018-09-17 08:14] LABS: BASO # 0.1 x10^3/uL (0.0-0.2); BASO % 1 % (0-3); EOS # 0.2 x10^3/uL (0.0-0.7); EOS % 5 % (0-3); HEMATOCRIT 39.5 % (36.0-47.0); HEMOGLOBIN 12.9 g/dL (12.0-15.5); LYMPH # 1.4 x10^3/uL (1.0-4.8); LYMPH % 28 % (24-48); MEAN CORPUSCULAR HEMOGLOBIN 26 pg (25-35); MEAN CORPUSCULAR HGB CONC 33 g/dL (31-37); MEAN CORPUSCULAR VOLUME 80 fL (79-100); MONO # 0.5 x10^3/uL (0.0-1.1); MONO % 9 % (0-9); NEUT % 58 % (31-73); PLATELET COUNT 197 x10^3/uL (140-400); RED BLOOD COUNT 4.93 x10^6/uL (3.50-5.40); RED CELL DISTRIBUTION WIDTH 14.8 % (11.5-14.5); WHITE BLOOD COUNT 5.1 x10^3/uL (4.0-11.0)
[2018-09-17] MEDS ORDERED: LORazepam 1 MG TABLET PO PRN (08:30)
[2018-09-17] MEDS ORDERED: ALBUTEROL SULFATE 2.5 MG/3 ML NEBU. INH PRN (08:30)
[2018-09-17] MEDS ORDERED: FUROSEMIDE 20 MG TABLET PO SCH (09:00)
[2018-09-17] MEDS: IPRATRPIUM/ALBUTEROL 0.5/2.5MG 3 ML NEBU. NEB SCH ×3 (09:00→17:00)
[2018-09-17] MEDS ORDERED: NON FORMULARY ITEM (Canagliflozin (Invokana) 300 MG) PO SCH (09:00)
[2018-09-17] MEDS ORDERED: IPRATRPIUM/ALBUTEROL 0.5/2.5MG 3 ML NEBU. NEB SCH (09:00)
[2018-09-17] MEDS ORDERED: PANTOPRAZOLE 40 MG TABLET. PO SCH (09:30)
[2018-09-17] MEDS ORDERED: PROPRANOLOL ER 60 MG CAP.SA.24H. PO SCH (09:30)
[2018-09-17] MEDS ORDERED: LEVOTHYROXINE 137 MCG TABLET PO SCH (09:30)
[2018-09-17] MEDS ORDERED: IBUPROFEN 800 MG TABLET. PO PRN (09:30)
[2018-09-17] MEDS ORDERED: CYCLOBENZAPRINE 10 MG TABLET. PO PRN (09:30)
[2018-09-17] MEDS ORDERED: valACYclovir 500 MG TABLET. PO SCH (09:30)
[2018-09-17] MEDS ORDERED: INSULIN GLARGINE 300 UNITS/3 ML INSULN.PEN. SQ SCH ×2 (09:30→21:00)
[2018-09-17] MEDS ORDERED: CITALOPRAM 20 MG TABLET. PO SCH (09:30)
[2018-09-17] MEDS ORDERED: ACETAMINOPHEN 500 MG TABLET PO PRN (09:30)
[2018-09-17] MEDS ORDERED: PIOGLITAZONE 15 MG TABLET. PO SCH (09:30)
[2018-09-17] MEDS ORDERED: buPROPion XL 300 MG TAB.ER.24H. PO SCH (09:30)
[2018-09-17] MEDS ORDERED: MELATONIN 3 MG TABLET PO PRN (09:45)
[2018-09-17] MEDS ORDERED: SUMAtriptan SUCCINATE 50 MG TABLET PO PRN (09:45)
[2018-09-17] MEDS ORDERED: ALBUTEROL SULFATE 2.5 MG/3 ML NEBU. NEB PRN (10:00)
[2018-09-17] MEDS: GABAPENTIN 300 MG CAPSULE. PO SCH ×2 (10:04→14:33)
[2018-09-17] MEDS: INSULIN LISPRO 300 UNITS/3 ML INSULN.PEN. SQ SCH ×2 (10:08→12:21)
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
[2018-09-17 10:53] VITALS: BP 118/76
[2018-09-17] MEDS ORDERED: INSULIN LISPRO 300 UNITS/3 ML INSULN.PEN. SQ SCH (12:00)
[2018-09-17] MEDS ORDERED: metFORMIN 500 MG TABLET PO SCH (17:00)
[2018-09-17] MEDS ORDERED: MELATONIN 3 MG TABLET PO SCH (21:00)
[2018-09-18] MEDS ORDERED: ASPIRIN 81 MG TAB.CHEW PO SCH (08:00)
[2018-09-18] MEDS ORDERED: CETIRIZINE HCL 10 MG TABLET PO SCH (09:00)
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
== END 2018-09-17 17:00 | disposition home or self-care (01) | DRG 391 ==
LOC: ER 17:30 → 1 SOUTH 23:00
PROVIDERS: ADMIT Family Medicine; ATTEND Family Medicine
DX: K52.9 Noninfective gastroenteritis and colitis, unspecified (principal); E11.00 Type 2 diabetes mellitus with hyperosmolarity without nonketotic hyperglycemic-hyperosmolar coma (NKHHC); Z68.43 Body mass index [BMI] 50.0-59.9, adult; G43.909 Migraine, unspecified, not intractable, without status migrainosus; F32.9 Major depressive disorder, single episode, unspecified; M19.90 Unspecified osteoarthritis, unspecified site; E03.9 Hypothyroidism, unspecified; K21.9 Gastro-esophageal reflux disease without esophagitis; F41.9 Anxiety disorder, unspecified; Z90.49 Acquired absence of other specified parts of digestive tract; Z91.040 Latex allergy status; Z88.0 Allergy status to penicillin; Z88.2 Allergy status to sulfonamides; Z88.8 Allergy status to other drugs, medicaments and biological substances; Z91.018 Allergy to other foods; E86.0 Dehydration; Z86.73 Personal history of transient ischemic attack (TIA), and cerebral infarction without residual deficits; E66.01 Morbid (severe) obesity due to excess calories; Z82.49 Family history of ischemic heart disease and other diseases of the circulatory system; Z83.3 Family history of diabetes mellitus; Z81.8 Family history of other mental and behavioral disorders; E78.00 Pure hypercholesterolemia, unspecified; G47.30 Sleep apnea, unspecified; G47.419 Narcolepsy without cataplexy; J45.909 Unspecified asthma, uncomplicated; K76.0 Fatty (change of) liver, not elsewhere classified; Z85.828 Personal history of other malignant neoplasm of skin
CPT/HCPCS: 36415; 74177; 80048; 80053; 81001; 82947; 85025; 87641; 94640; 96361; 96374; 96375; J1815; J2270; J2405; J7620; Q9967; 99285-25; J7030

== ENCOUNTER 2018-11-07 19:10 | Emergency (ER) | payer MEDICARE, MEDICAID ==
--- NOTE | 2018-11-07 19:15 | ED.ADGEN ---
Past History Past Medical History: Angina, Anxiety, Asthma, Cancer, Depression, Diabetes, GERD, Hypothyroid, Migraines, STD, TIA, Other Past Surgical History: Cholecystectomy, Other Additional Past Surgical Histo: Eye, bilateral ankles, right thumb. Smoking: Non-smoker Alcohol Use: None Drug Use: None Adult General Chief Complaint Chief Complaint ",, My butt area hurts really bad.. it feels Iike .. I got a burn to my butt area..." HPI HPI Patient is a 48 year old female who presents with above hx and complaints rectal pain. Pt. has complaints of recent yeast rash. Patient does have a pending GI colonoscopy. Patient does have a history of previous herpes infections of labia's. Patient has not been on suppressive acyclovir. Patient has multiple allergies. No changes in toilet paper. Patient has history of multiple medical conditions including angina, arthritis, depression, diabetes, GERD, STDs, TIAs, asthma, anxiety, morbid obesity, hypothyroidism, and deconditioning. Pt. follows with Dr. Roberts. Review of Systems Review of Systems Constitutional: Denies fever or chills [] Eyes: Denies change in visual acuity, redness, or eye pain [] HENT: Denies nasal congestion or sore throat [] Respiratory: Denies cough or shortness of breath [] Cardiovascular: No additional information not addressed in HPI [] GI: Denies abdominal pain, nausea, vomiting, bloody stools or diarrhea []complaining of rectal pain : Denies dysuria or hematuria [] Musculoskeletal: Denies back pain or joint pain [] Integument: Denies rash or skin lesions [] Neurologic: Denies headache, focal weakness or sensory changes [] Endocrine: Denies polyuria or polydipsia [] All other systems were reviewed and found to be within normal limits, except as documented in this note. Family History Family History Noncontributory Current Medications Current Medications Current Medications Medications (Trade) Dose Ordered Sig/Carlie Start Time Stop Time Status Last Admin Dose Admin Acyclovir (Zovirax) 800 mg 1X ONCE 11/07/18 20:15 11/07/18 20:16 DC 11/07/18 20:22 800 MG Fluconazole (Diflucan) 100 mg 1X ONCE 11/07/18 20:15 11/07/18 20:16 DC 11/07/18 20:23 100 MG Morphine Sulfate (Morphine 10mg Syringe) 10 mg 1X ONCE 11/07/18 20:15 11/07/18 20:16 DC 11/07/18 20:23 10 MG Allergies Allergies Allergies Coded Allergies Type Severity Reaction Last Updated Verified amoxicillin Allergy Severe 09/07/18 Yes black pepper Allergy Severe 09/07/18 Yes methylnaltrexone Allergy Severe 09/07/18 Yes onion Allergy Severe Anaphylaxis 09/08/18 Yes Latex, Natural Rubber Allergy Intermediate 09/07/18 Yes Penicillins Allergy Intermediate 09/07/18 Yes Sulfa (Sulfonamide Antibiotics) Allergy Intermediate 09/07/18 Yes hydrogen peroxide Allergy Intermediate 09/07/18 Yes lanolin Allergy Intermediate 09/07/18 Yes tetanus immune globulin Allergy Intermediate 09/07/18 No tomato Allergy Mild Nausea 09/08/18 Yes I S O L A T I O N *CONTACT* Allergy Unknown 09/07/18 Yes sumatriptan Adverse Reaction Severe N/V 09/07/18 Yes adhesive Adverse Reaction Intermediate Rash 09/07/18 Yes Physical Exam Physical Exam Constitutional: in acute distress, non-toxic appearance. [] HENT: Normocephalic, atraumatic, bilateral external ears normal, oropharynx moist, no oral exudates, nose normal. [] Eyes: PERRLA, EOMI, conjunctiva normal, no discharge. [] Neck: Normal range of motion, no tenderness, supple, no stridor. [] Cardiovascular:Heart rate regular rhythm, no murmur [] Lungs & Thorax: Bilateral breath sounds clear to auscultation [] Abdomen: Bowel sounds normal, soft, no tenderness, no masses, no pulsatile masses. [Obese. Old surgical scars. His labial and perirectal ulcers and blisters consistent with herpes exacerbation. Hard stool in rectal vault Skin: Warm, dry, no erythema, no rash. [] Back: No tenderness, no CVA tenderness. [] Extremities: No tenderness, no cyanosis, no clubbing, ROM intact, no edema. [] Neurologic: Alert and oriented X 3, normal motor function, normal sensory function, no focal deficits noted. [] Psychologic: Affect anxious, judgement normal, mood normal. [] Current Patient Data Vital Signs Vital Signs Date Time Temp Pulse Resp B/P (MAP) Pulse Ox O2 Delivery O2 Flow Rate FiO2 11/07/18 20:37 96 16 130/88 (102) 99 Room Air 11/07/18 19:15 98.2 Lab Results Laboratory Tests Test 11/07/18 19:20 11/07/18 20:00 Urine Collection Type Unknown Urine Color Yellow Urine Clarity Hazy Urine pH 5.0 Urine Specific [place] <=1.005 Urine Protein Neg (NEG-TRACE) Urine Glucose (UA) >=1000 mg/dL (NEG) Urine Ketones (Stick) Trace mg/dL (NEG) Urine Blood Neg (NEG) Urine Nitrite Neg (NEG) Urine Bilirubin Neg (NEG) Urine Urobilinogen Dipstick 0.2 mg/dL (0.2 mg/dL) Urine Leukocyte Esterase Neg (NEG) Urine RBC 0 /HPF (0-2) Urine WBC 0 /HPF (0-4) Urine Squamous Epithelial Cells Occ /LPF Urine Bacteria Few /HPF (0-FEW) Urine Opiates Screen Neg (NEG) Urine Methadone Screen Neg (NEG) Urine Barbiturates Neg (NEG) Urine Phencyclidine Screen Neg (NEG) Urine Amphetamine/Methamphetamine Neg (NEG) Urine Benzodiazepines Screen Neg (NEG) Urine Cocaine Screen Neg (NEG) Urine Cannabinoids Screen Neg (NEG) Urine Ethyl Alcohol Neg (NEG) POC Urine HCG, Qualitative hcg negative (Negative) EKG EKG [] Radiology/Procedures Radiology/Procedures [] Course & Med Decision Making Course & Med Decision Making Pertinent Labs and Imaging studies reviewed. (See chart for details) Patient resumed acyclovir 400 mg 5 times a day. After 10 days. Return to suppressing therapy of 400 mg twice a day. Follow-up primary care. Wouldn't resume Diflucan 100 mg a day. Follow-up primary care. Keep follow-up with GI. Re turn if any concerns. When frequent sitz baths or showers after stooling. [] Final Impression Final Impression 1. Rectal Pain[]- has multiple herpetic blisters and ulcers Ruddy rectal and labial Dragon Disclaimer Dragon Disclaimer This electronic medical record was generated, in whole or in part, using a voice recognition dictation system. Discharge Summary Visit Information Final Diagnosis Problems Medical Problems: (1) Anogenital herpes simplex virus (HSV) infection Status: Acute Brief Hospital Course Allergies Allergies Coded Allergies Type Severity Reaction Last Updated Verified amoxicillin Allergy Severe 09/07/18 Yes black pepper Allergy Severe 09/07/18 Yes methylnaltrexone Allergy Severe 09/07/18 Yes onion Allergy Severe Anaphylaxis 09/08/18 Yes Latex, Natural Rubber Allergy Intermediate 09/07/18 Yes Penicillins Allergy Intermediate 09/07/18 Yes Sulfa (Sulfonamide Antibiotics) Allergy Intermediate 09/07/18 Yes hydrogen peroxide Allergy Intermediate 09/07/18 Yes lanolin Allergy Intermediate 09/07/18 Yes tetanus immune globulin Allergy Intermediate 09/07/18 No tomato Allergy Mild Nausea 09/08/18 Yes I S O L A T I O N *CONTACT* Allergy Unknown 09/07/18 Yes sumatriptan Adverse Reaction Severe N/V 09/07/18 Yes adhesive Adverse Reaction Intermediate Rash 09/07/18 Yes Vital Signs Vital Signs Date Time Temp Pulse Resp B/P (MAP) Pulse Ox O2 Delivery O2 Flow Rate FiO2 11/07/18 20:37 96 16 130/88 (102) 99 Room Air 11/07/18 19:15 98.2 Lab Results Laboratory Tests Test 11/07/18 19:20 11/07/18 20:00 Urine Collection Type Unknown Urine Color Yellow Urine Clarity Hazy Urine pH 5.0 Urine Specific [place] <=1.005 Urine Protein Neg (NEG-TRACE) Urine Glucose (UA) >=1000 mg/dL (NEG) Urine Ketones (Stick) Trace mg/dL (NEG) Urine Blood Neg (NEG) Urine Nitrite Neg (NEG) Urine Bilirubin Neg (NEG) Urine Urobilinogen Dipstick 0.2 mg/dL (0.2 mg/dL) Urine Leukocyte Esterase Neg (NEG) Urine RBC 0 /HPF (0-2) Urine WBC 0 /HPF (0-4) Urine Squamous Epithelial Cells Occ /LPF Urine Bacteria Few /HPF (0-FEW) Urine Opiates Screen Neg (NEG) Urine Methadone Screen Neg (NEG) Urine Barbiturates Neg (NEG) Urine Phencyclidine Screen Neg (NEG) Urine Amphetamine/Methamphetamine Neg (NEG) Urine Benzodiazepines Screen Neg (NEG) Urine Cocaine Screen Neg (NEG) Urine Cannabinoids Screen Neg (NEG) Urine Ethyl Alcohol Neg (NEG) Bedside Urine HCG, Qualitative hcg negative (Negative) Brief Hospital Course Ms. Ho is a 48 old female who presented with ruddy rectal and labial blisters and ulcers- Herpetic Discharge Information Condition at Discharge: Stable Disposition/Orders: D/C to Home Dischare Medications Current Medications Morphine Sulfate (Morphine 10mg Syringe) 10 mg 1X ONCE SQ Last administered on 11/07/18at 20:23; Admin Dose 10 MG; Start 11/07/18 at 20:15; Stop 11/07/18 at 20:16; Status DC Acyclovir (Zovirax) 800 mg 1X ONCE PO Last administered on 11/07/18at 20:22; Admin Dose 800 MG; Start 11/07/18 at 20:15; Stop 11/07/18 at 20:16; Status DC Fluconazole (Diflucan) 100 mg 1X ONCE PO Last administered on 11/07/18at 20:23; Admin Dose 100 MG; Start 11/07/18 at 20:15; Stop 11/07/18 at 20:16; Status DC Active Scripts Active Hydrocodone-Ibuprofen 7.5-200 (Hydrocodone/Ibuprofen) 1 Each Tablet 1 Tab PO PRN Q6HRS PRN Acyclovir 400 Mg Tablet 400 Mg PO 5XDAY 10 Days Acyclovir 400 Mg Tablet 1 Tab PO BID Diflucan (Fluconazole) 100 Mg Tablet 100 Mg PO DAILY 30 Days Duoneb 0.5-3(2.5) Mg/3 Ml (Albuterol/Ipratropium) 3 Ml Ampul.neb 3 Ml NEB QID 30 Days Duoneb 0.5-3(2.5) Mg/3 Ml (Albuterol/Ipratropium) 3 Ml Ampul.neb 3 Ml NEB TID 30 Days Reported Cyclobenzaprine Hcl 10 Mg Tablet 1 Tab PO PRN TID PRN Levothyroxine Sodium 137 Mcg Tablet 1 Tab PO DAILY Proair Hfa Inhaler (Albuterol Sulfate) 8.5 Gm Hfa.aer.ad 2 Puff INH PRN Q6HRS PRN Rizatriptan (Rizatriptan Benzoate) 10 Mg Tablet 1 Tab PO DAILY PRN Novolog Flexpen (Insulin Aspart) 100 Unit/1 Ml Insuln.pen 20 Unit SQ TIDWMEALS LAST DOSE GIVEN: DATE: TIME: NEXT DOSE DUE: DATE: TIME: Aspir-Low (Aspirin) 81 Mg Tablet.dr 81 Mg PO DAILY LAST DOSE GIVEN: DATE: TIME: NEXT DOSE DUE: DATE: TIME: Acetaminophen 500 Mg Tablet 500 Mg PO PRN Q6HRS PRN LAST DOSE GIVEN: DATE: TIME: NEXT DOSE DUE: DATE: TIME: Invokana (Canagliflozin) 300 Mg Tablet 300 Mg PO DAILY LAST DOSE GIVEN: DATE: TIME: NEXT DOSE DUE: DATE: TIME: Furosemide 20 Mg Tablet 20 Mg PO DAILY LAST DOSE GIVEN: DATE: TIME: NEXT DOSE DUE: DATE: TIME: Melatonin 3 Mg Tablet 10 Mg PO QHS LAST DOSE GIVEN: DATE: TIME: NEXT DOSE DUE: DATE: TIME: Propranolol Hcl 120 Mg Cap.sa.24h 120 Mg PO DAILY LAST DOSE GIVEN: DATE: TIME: NEXT DOSE DUE: DATE: TIME: Escitalopram Oxalate 10 Mg Tablet 20 Mg PO DAILY LAST DOSE GIVEN: DATE: TIME: NEXT DOSE DUE: DATE: TIME: Bupropion Xl (Bupropion Hcl) 300 Mg Tab.er.24h 300 Mg PO DAILYWBKFT LAST DOSE GIVEN: DATE: TIME: NEXT DOSE DUE: DATE: TIME: Pioglitazone Hcl 15 Mg Tablet 15 Mg PO DAILY LAST DOSE GIVEN: DATE: TIME: NEXT DOSE DUE: DATE: TIME: Cetirizine Hcl 10 Mg Tablet 10 Mg PO DAILY LAST DOSE GIVEN: DATE: TIME: NEXT DOSE DUE: DATE: TIME: Ibuprofen 800 Mg Tablet 800 Mg PO TID PRN LAST DOSE GIVEN: DATE: TIME: NEXT DOSE DUE: DATE: TIME: Tresiba Flextouch U-100 (Insulin Degludec) 100 Unit/1 Ml Insuln.pen 80 Unit SQ DAILY LAST DOSE GIVEN: DATE: TIME: NEXT DOSE DUE: DATE: TIME: Valacyclovir (Valacyclovir Hcl) 500 Mg Tablet 500 Mg PO DAILY LAST DOSE GIVEN: DATE: TIME: NEXT DOSE DUE: DATE: TIME: Omeprazole 20 Mg Tablet.dr 40 Mg PO DAILY LAST DOSE GIVEN: DATE: TIME: NEXT DOSE DUE: DATE: TIME: Ativan (Lorazepam) 1 Mg Tablet 1 Mg PO BID PRN LAST DOSE GIVEN: DATE: TIME: NEXT DOSE DUE: DATE: TIME: Gabapentin (Gabapentin) 300 Mg Capsule 600 Mg PO TID LAST DOSE GIVEN: DATE: TIME: NEXT DOSE DUE: DATE: TIME: Metformin Hcl 500 Mg Tablet 1,000 Mg PO BIDWMEALS LAST DOSE GIVEN: DATE: TIME: NEXT DOSE DUE: DATE: TIME: Discharge Summary Visit Information Final Diagnosis Problems Medical Problems: (1) Anogenital herpes simplex virus (HSV) infection Status: Acute Brief Hospital Course Allergies Allergies Coded Allergies Type Severity Reaction Last Updated Verified amoxicillin Allergy Severe 09/07/18 Yes black pepper Allergy Severe 09/07/18 Yes methylnaltrexone Allergy Severe 09/07/18 Yes onion Allergy Severe Anaphylaxis 09/08/18 Yes Latex, Natural Rubber Allergy Intermediate 09/07/18 Yes Penicillins Allergy Intermediate 09/07/18 Yes Sulfa (Sulfonamide Antibiotics) Allergy Intermediate 09/07/18 Yes hydrogen peroxide Allergy Intermediate 09/07/18 Yes lanolin Allergy Intermediate 09/07/18 Yes tetanus immune globulin Allergy Intermediate 09/07/18 No tomato Allergy Mild Nausea 09/08/18 Yes I S O L A T I O N *CONTACT* Allergy Unknown 09/07/18 Yes sumatriptan Adverse Reaction Severe N/V 09/07/18 Yes adhesive Adverse Reaction Intermediate Rash 09/07/18 Yes Vital Signs Vital Signs Date Time Temp Pulse Resp B/P (MAP) Pulse Ox O2 Delivery O2 Flow Rate FiO2 11/07/18 20:37 96 16 130/88 (102) 99 Room Air 11/07/18 19:15 98.2 Lab Results Laboratory Tests Test 11/07/18 19:20 11/07/18 20:00 Urine Collection Type Unknown Urine Color Yellow Urine Clarity Hazy Urine pH 5.0 Urine Specific [place] <=1.005 Urine Protein Neg (NEG-TRACE) Urine Glucose (UA) >=1000 mg/dL (NEG) Urine Ketones (Stick) Trace mg/dL (NEG) Urine Blood Neg (NEG) Urine Nitrite Neg (NEG) Urine Bilirubin Neg (NEG) Urine Urobilinogen Dipstick 0.2 mg/dL (0.2 mg/dL) Urine Leukocyte Esterase Neg (NEG) Urine RBC 0 /HPF (0-2) Urine WBC 0 /HPF (0-4) Urine Squamous Epithelial Cells Occ /LPF Urine Bacteria Few /HPF (0-FEW) Urine Opiates Screen Neg (NEG) Urine Methadone Screen Neg (NEG) Urine Barbiturates Neg (NEG) Urine Phencyclidine Screen Neg (NEG) Urine Amphetamine/Methamphetamine Neg (NEG) Urine Benzodiazepines Screen Neg (NEG) Urine Cocaine Screen Neg (NEG) Urine Cannabinoids Screen Neg (NEG) Urine Ethyl Alcohol Neg (NEG) Bedside Urine HCG, Qualitative hcg negative (Negative) Brief Hospital Course Ms. Ho is a 48 old female who presented with herpetic blisters of ruddy rectal and labial area. Discharge Information Condition at Discharge: Stable Disposition/Orders: D/C to Home Dischare Medications Current Medications Morphine Sulfate (Morphine 10mg Syringe) 10 mg 1X ONCE SQ Last administered on 11/07/18at 20:23; Admin Dose 10 MG; Start 11/07/18 at 20:15; Stop 11/07/18 at 2 0:16; Status DC Acyclovir (Zovirax) 800 mg 1X ONCE PO Last administered on 11/07/18at 20:22; Admin Dose 800 MG; Start 11/07/18 at 20:15; Stop 11/07/18 at 20:16; Status DC Fluconazole (Diflucan) 100 mg 1X ONCE PO Last administered on 11/07/18at 20:23; Admin Dose 100 MG; Start 11/07/18 at 20:15; Stop 11/07/18 at 20:16; Status DC Active Scripts Active Hydrocodone-Ibuprofen 7.5-200 (Hydrocodone/Ibuprofen) 1 Each Tablet 1 Tab PO PRN Q6HRS PRN Acyclovir 400 Mg Tablet 400 Mg PO 5XDAY 10 Days Acyclovir 400 Mg Tablet 1 Tab PO BID Diflucan (Fluconazole) 100 Mg Tablet 100 Mg PO DAILY 30 Days Duoneb 0.5-3(2.5) Mg/3 Ml (Albuterol/Ipratropium) 3 Ml Ampul.neb 3 Ml NEB QID 30 Days Duoneb 0.5-3(2.5) Mg/3 Ml (Albuterol/Ipratropium) 3 Ml Ampul.neb 3 Ml NEB TID 30 Days Reported Cyclobenzaprine Hcl 10 Mg Tablet 1 Tab PO PRN TID PRN Levothyroxine Sodium 137 Mcg Tablet 1 Tab PO DAILY Proair Hfa Inhaler (Albuterol Sulfate) 8.5 Gm Hfa.aer.ad 2 Puff INH PRN Q6HRS PRN Rizatriptan (Rizatriptan Benzoate) 10 Mg Tablet 1 Tab PO DAILY PRN Novolog Flexpen (Insulin Aspart) 100 Unit/1 Ml Insuln.pen 20 Unit SQ TIDWMEALS LAST DOSE GIVEN: DATE: TIME: NEXT DOSE DUE: DATE: TIME: Aspir-Low (Aspirin) 81 Mg Tablet.dr 81 Mg PO DAILY LAST DOSE GIVEN: DATE: TIME: NEXT DOSE DUE: DATE: TIME: Acetaminophen 500 Mg Tablet 500 Mg PO PRN Q6HRS PRN LAST DOSE GIVEN: DATE: TIME: NEXT DOSE DUE: DATE: TIME: Invokana (Canagliflozin) 300 Mg Tablet 300 Mg PO DAILY LAST DOSE GIVEN: DATE: TIME: NEXT DOSE DUE: DATE: TIME: Furosemide 20 Mg Tablet 20 Mg PO DAILY LAST DOSE GIVEN: DATE: TIME: NEXT DOSE DUE: DATE: TIME: Melatonin 3 Mg Tablet 10 Mg PO QHS LAST DOSE GIVEN: DATE: TIME: NEXT DOSE DUE: DATE: TIME: Propranolol Hcl 120 Mg Cap.sa.24h 120 Mg PO DAILY LAST DOSE GIVEN: DATE: TIME: NEXT DOSE DUE: DATE: TIME: Escitalopram Oxalate 10 Mg Tablet 20 Mg PO DAILY LAST DOSE GIVEN: DATE: TIME: NEXT DOSE DUE: DATE: TIME: Bupropion Xl (Bupropion Hcl) 300 Mg Tab.er.24h 300 Mg PO DAILYWBKFT LAST DOSE GIVEN: DATE: TIME: NEXT DOSE DUE: DATE: TIME: Pioglitazone Hcl 15 Mg Tablet 15 Mg PO DAILY LAST DOSE GIVEN: DATE: TIME: NEXT DOSE DUE: DATE: TIME: Cetirizine Hcl 10 Mg Tablet 10 Mg PO DAILY LAST DOSE GIVEN: DATE: TIME: NEXT DOSE DUE: DATE: TIME: Ibuprofen 800 Mg Tablet 800 Mg PO TID PRN LAST DOSE GIVEN: DATE: TIME: NEXT DOSE DUE: DATE: TIME: Tresiba Flextouch U-100 (Insulin Degludec) 100 Unit/1 Ml Insuln.pen 80 Unit SQ DAILY LAST DOSE GIVEN: DATE: TIME: NEXT DOSE DUE: DATE: TIME: Valacyclovir (Valacyclovir Hcl) 500 Mg Tablet 500 Mg PO DAILY LAST DOSE GIVEN: DATE: TIME: NEXT DOSE DUE: DATE: TIME: Omeprazole 20 Mg Tablet.dr 40 Mg PO DAILY LAST DOSE GIVEN: DATE: TIME: NEXT DOSE DUE: DATE: TIME: Ativan (Lorazepam) 1 Mg Tablet 1 Mg PO BID PRN LAST DOSE GIVEN: DATE: TIME: NEXT DOSE DUE: DATE: TIME: Gabapentin (Gabapentin) 300 Mg Capsule 600 Mg PO TID LAST DOSE GIVEN: DATE: TIME: NEXT DOSE DUE: DATE: TIME: Metformin Hcl 500 Mg Tablet 1,000 Mg PO BIDWMEALS LAST DOSE GIVEN: DATE: TIME: NEXT DOSE DUE: DATE: TIME: Dragon Disclaimer This chart was dictated in whole or in part using Voice Recognition software in a busy, high-work load, and often noisy Emergency Department environment. It may contain unintended and wholly unrecognized errors or omissions. Dragon Disclaimer This chart was dictated in whole or in part using Voice Recognition software in a busy, high-work load, and often noisy Emergency Department environment. It may contain unintended and wholly unrecognized errors or omissions. LIVIER GOINS MD Nov 07, 2018 19:15
[2018-11-07] MEDS ORDERED: ACYC400T PO ×2 (19:57)
[2018-11-07] MEDS ORDERED: HYDR-1179 PO (19:57)
[2018-11-07] MEDS ORDERED: FLUC100T7 PO (19:57)
[2018-11-07] MEDS ORDERED: ACYCLOVIR 200 MG CAPSULE PO ONE (20:15)
[2018-11-07] MEDS ORDERED: MORPHINE SULFATE 10 MG/ML SYRINGE. SQ ONE (20:15)
[2018-11-07] MEDS ORDERED: FLUCONAZOLE 100 MG TABLET. PO ONE (20:15)
[2018-11-07 20:20] LABS: AMPHETAMINE/METHAMPHETAMINE NEG (NEG); BARBITURATES NEG (NEG); BENZODIAZEPINES NEG (NEG); CANNABINOIDS NEG (NEG); COCAINE NEG (NEG); METHADONE NEG (NEG); OPIATES NEG (NEG); PHENCYCLIDINE NEG (NEG)
[2018-11-07 20:22] LABS: BILIRUBIN,URINE NEG (NEG); CLARITY,URINE HAZY; COLOR,URINE YELLOW; GLUCOSE,URINE >=1000 mg/dL (NEG)
[2018-11-07 20:23] LABS: BACTERIA,URINE FEW /HPF (0-FEW); NITRITE,URINE NEG (NEG); RBC,URINE 0 /HPF (0-2); SQUAMOUS EPITHELIAL CELL,UR OCC /LPF; UROBILINOGEN,URINE 0.2 mg/dL (0.2 mg/dL); WBC,URINE 0 /HPF (0-4)
[2018-11-07 20:37] VITALS: BP 130/88
== END 2018-11-07 20:38 | disposition home or self-care (01) ==
LOC: ER 19:10
DX: B00.89 Other herpesviral infection (principal); F41.9 Anxiety disorder, unspecified; J45.909 Unspecified asthma, uncomplicated; E11.9 Type 2 diabetes mellitus without complications; K21.9 Gastro-esophageal reflux disease without esophagitis; E03.9 Hypothyroidism, unspecified; F32.9 Major depressive disorder, single episode, unspecified; G43.909 Migraine, unspecified, not intractable, without status migrainosus; Z86.73 Personal history of transient ischemic attack (TIA), and cerebral infarction without residual deficits; Z90.49 Acquired absence of other specified parts of digestive tract; Z88.1 Allergy status to other antibiotic agents; Z88.0 Allergy status to penicillin; Z88.2 Allergy status to sulfonamides; Z91.041 Radiographic dye allergy status; Z88.8 Allergy status to other drugs, medicaments and biological substances; Z91.040 Latex allergy status; Z88.7 Allergy status to serum and vaccine; Z91.018 Allergy to other foods
CPT/HCPCS: 36415; 80307; 81001; 81025; 96372; 99284; J2270

== ENCOUNTER → 2018-11-10 | Outpatient (CLI) | payer MEDICARE, MEDICAID ==
[2018-11-07 20:37] VITALS: BP 130/88
[~2018-11-10] MED LIST changes: +ACYC400T PO; +DIPH1TAB PO; +FLUC100T7 PO; +HYDR-1179 PO
[2018-11-10 12:38] LABS: BASO # 0.1 x10^3/uL (0.0-0.2); BASO % 1 % (0-3); EOS # 0.2 x10^3/uL (0.0-0.7); EOS % 3 % (0-3); HEMATOCRIT 47.3 % (36.0-47.0); HEMOGLOBIN 15.6 g/dL (12.0-15.5); LYMPH # 2.2 x10^3/uL (1.0-4.8); LYMPH % 37 % (24-48); MEAN CORPUSCULAR HEMOGLOBIN 28 pg (25-35); MEAN CORPUSCULAR HGB CONC 33 g/dL (31-37); MEAN CORPUSCULAR VOLUME 84 fL (79-100); MONO # 0.4 x10^3/uL (0.0-1.1); MONO % 7 % (0-9); NEUT # 3.2 x10^3uL (1.8-7.7); NEUT % 52 % (31-73); PLATELET COUNT 194 x10^3/uL (140-400); RED BLOOD COUNT 5.66 x10^6/uL (3.50-5.40); RED CELL DISTRIBUTION WIDTH 15.4 % (11.5-14.5); WHITE BLOOD COUNT 6.1 x10^3/uL (4.0-11.0)
[2018-11-10 12:45] LABS: ALBUMIN 3.5 g/dL (3.4-5.0); ALBUMIN/GLOBULIN RATIO 0.8 (1.0-1.7); CALCIUM 9.4 mg/dL (8.5-10.1); CREATININE 0.9 mg/dL (0.6-1.0); GFR 67.4; POTASSIUM 4.4 mmol/L (3.5-5.1); TOTAL BILIRUBIN 0.5 mg/dL (0.2-1.0)
[2018-11-11 17:07] LABS: HEMOGLOBIN A1C 13.7 % (4.8-5.6)
== END | disposition home or self-care (01) ==
LOC: LAB 11:38
PROVIDERS: ATTEND Physician Assistant
DX: E11.65 Type 2 diabetes mellitus with hyperglycemia (principal); B37.3 Candidiasis of vulva and vagina; I10 Essential (primary) hypertension; R10.84 Generalized abdominal pain
CPT/HCPCS: 36415; 80053; 80061; 83036; 83690; 85025

== ENCOUNTER 2018-11-11 10:06 | Emergency (ER) | payer MEDICARE, MEDICAID ==
[~2018-11-11] VITALS: Ht 172.7 cm; Wt 160.1 kg
[~2018-11-11 10:06] MED LIST changes: -DIPH1TAB PO
[2018-11-11] MEDS ORDERED: IV NORMAL SALINE 1,000ML 1,000 ML IV SCH (10:36)
--- NOTE | 2018-11-11 10:48 | PHYS DOC ---
Past History Past Medical History: Anxiety, Depression, Diabetes, GERD, Other Additional Past Medical Histor: herpesvirus Past Surgical History: Cholecystectomy Additional Past Surgical Histo: Eye, bilateral ankles, right thumb. Smoking: Non-smoker Alcohol Use: None Drug Use: None Adult General Chief Complaint Chief Complaint: DIARRHEA HPI HPI Patient is a 48-year-old female presents waning of diarrhea for the past 3 days. No blood in the stool. No nausea or vomiting. No relief with Imodium, 2 tablets daily for the past 2 days. (Imodium normally works for diarrhea in the past) the diarrhea is aggravating the herpesvirus outbreak in her rectal region. This is causing severe pain. She reports frequent stools. No travel. No fever. Nothing makes the symptoms better. No radiation of the discomfort.[] Review of Systems Review of Systems Constitutional: Denies fever or chills [] Eyes: Denies change in visual acuity, redness, or eye pain [] HENT: Denies nasal congestion or sore throat [] Respiratory: Denies cough or shortness of breath [] Cardiovascular: No chest pain or palpitations[] GI: See history of present illness[] : Denies dysuria or hematuria [] Musculoskeletal: Denies back pain or joint pain [] Integument: Denies rash or skin lesions [] Neurologic: Denies headache, focal weakness or sensory changes [] Endocrine: Denies polyuria or polydipsia [] All other systems were reviewed and found to be within normal limits, except as documented in this note. Allergies Allergies Allergies Coded Allergies Type Severity Reaction Last Updated Verified amoxicillin Allergy Severe 09/07/18 Yes black pepper Allergy Severe 09/07/18 Yes methylnaltrexone Allergy Severe 09/07/18 Yes onion Allergy Severe Anaphylaxis 09/08/18 Yes Latex, Natural Rubber Allergy Intermediate 09/07/18 Yes Penicillins Allergy Intermediate 09/07/18 Yes Sulfa (Sulfonamide Antibiotics) Allergy Intermediate 09/07/18 Yes hydrogen peroxide Allergy Intermediate 09/07/18 Yes lanolin Allergy Intermediate 09/07/18 Yes tetanus immune globulin Allergy Intermediate 09/07/18 No tomato Allergy Mild Nausea 09/08/18 Yes I S O L A T I O N *CONTACT* Allergy Unknown 09/07/18 Yes sumatriptan Adverse Reaction Severe N/V 09/07/18 Yes adhesive Adverse Reaction Intermediate Rash 09/07/18 Yes Physical Exam Physical Exam Constitutional: Well developed, well nourished, no acute distress, non-toxic appearance. [] HENT: Normocephalic, atraumatic, bilateral external ears normal, oropharynx moist, no oral exudates, nose normal. [] Eyes: PERRLA, EOMI, conjunctiva normal, no discharge. [] Neck: Normal range of motion, no tenderness, supple, no stridor. [] Cardiovascular:Heart rate regular rhythm, no murmur [] Lungs & Thorax: Bilateral breath sounds clear to auscultation [] Abdomen: Bowel sounds normal, soft, obese, no tenderness, no masses, no pulsatile masses. [] Skin: Warm, dry, no erythema, no rash. Multiple sores scattered diffusely insistent with patient's history of "picking when anxious." [] Back: No tenderness, no CVA tenderness. [] Extremities: No tenderness, no cyanosis, no clubbing, ROM intact, no edema. [] Neurologic: Alert and oriented X 3, normal motor function, normal sensory function, no focal deficits noted. [] Psychologic: Affect anxious, judgement normal, mood depressed. [] Current Patient Data Vital Signs Vital Signs Date Time Temp Pulse Resp B/P (MAP) Pulse Ox O2 Delivery O2 Flow Rate FiO2 11/11/18 10:22 97.0 104 22 95 Room Air EKG EKG [] Radiology/Procedures Radiology/Procedures [] Course & Med Decision Making Course & Med Decision Making Pertinent Labs and Imaging studies reviewed. (See chart for details) Medical decision making: Patient with diarrhea without any significant electrolyte abnormality. Her blood sugar is elevated however no evidence of diabetic ketoacidosis. Will attempt better pain management through better diarrhea control.[] Dragon Disclaimer Dragon Disclaimer This electronic medical record was generated, in whole or in part, using a voice recognition dictation system. Departure Departure: Impression: Primary Impression: Hyperglycemia due to type 2 diabetes mellitus Additional Impression: Diarrhea Disposition: 01 HOME, SELF-CARE Condition: IMPROVED Referrals: CHIKA WARREN MD (PCP) Follow-up in 2 days Patient Instructions: 1800 Calorie Diet for Diabetes Meal Planning, Diarrhea, Diet for Diarrhea, Adult, Sitz Bath Additional Instructions: Drink plenty of fluids, frequent small sips. No fatty foods, no milk, and no pepper for the next 48 hours. For the next 48 hours eat a diet rich in carbohydrates with foods such as bananas, rice, applesauce, and toast. Performance sitz bath after each bowel movement and for other times per day to keep the area clean to allow for the best healing. Follow-up with your regular doctor in 2 days. Continue your medicines as prescribed. Return to the ER if worsening discomfort, blood in the stool, or any other concerns. 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
[2018-11-11] MEDS ORDERED: HYOSCYAMINE 0.125 MG TAB.RAPDIS PO ONE (11:14)
[2018-11-11 11:15] LABS: BASO # 0.1 x10^3/uL (0.0-0.2); BASO % 2 % (0-3); EOS # 0.1 x10^3/uL (0.0-0.7); EOS % 3 % (0-3); HEMATOCRIT 45.5 % (36.0-47.0); HEMOGLOBIN 14.7 g/dL (12.0-15.5); LYMPH % 22 % (24-48); MEAN CORPUSCULAR HEMOGLOBIN 27 pg (25-35); MEAN CORPUSCULAR HGB CONC 32 g/dL (31-37); MEAN CORPUSCULAR VOLUME 84 fL (79-100); MONO # 0.3 x10^3/uL (0.0-1.1); MONO % 6 % (0-9); NEUT % 67 % (31-73); PLATELET COUNT 177 x10^3/uL (140-400); RED CELL DISTRIBUTION WIDTH 15.1 % (11.5-14.5); WHITE BLOOD COUNT 4.5 x10^3/uL (4.0-11.0)
[2018-11-11] MEDS ORDERED: KETOROLAC 30 MG/ML VIAL. IV ONE (11:15)
[2018-11-11 11:52] LABS: ALBUMIN/GLOBULIN RATIO 0.8 (1.0-1.7); CALCIUM 9.2 mg/dL (8.5-10.1); GFR 59.7; POTASSIUM 4.6 mmol/L (3.5-5.1); TOTAL BILIRUBIN 0.5 mg/dL (0.2-1.0); TOTAL PROTEIN 6.8 g/dL (6.4-8.2)
[2018-11-11] MEDS ORDERED: DIPH1TAB PO (12:13)
[2018-11-11 12:25] VITALS: BP 141/79
== END 2018-11-11 12:29 | disposition home or self-care (01) ==
LOC: ER 10:06
DX: E11.65 Type 2 diabetes mellitus with hyperglycemia (principal); R19.7 Diarrhea, unspecified; Z79.4 Long term (current) use of insulin; F41.9 Anxiety disorder, unspecified; F32.9 Major depressive disorder, single episode, unspecified; K21.9 Gastro-esophageal reflux disease without esophagitis; Z88.1 Allergy status to other antibiotic agents; Z91.041 Radiographic dye allergy status; Z91.040 Latex allergy status; Z88.0 Allergy status to penicillin; Z88.2 Allergy status to sulfonamides; Z88.7 Allergy status to serum and vaccine; Z88.8 Allergy status to other drugs, medicaments and biological substances; Z91.018 Allergy to other foods
CPT/HCPCS: 36415; 80053; 83690; 85025; 96361; 96374; 99284; J1885; J7030

== ENCOUNTER 2018-11-23 15:50 | Emergency (ER) | payer MEDICARE, MEDICAID ==
[~2018-11-23] VITALS: Ht 172.7 cm; Wt 156.5 kg
[~2018-11-23 15:50] MED LIST changes: +DIPH1TAB PO
[2018-11-23] MEDS ORDERED: IV NORMAL SALINE 1,000ML 1,000 ML IV ONE (16:30)
--- NOTE | 2018-11-23 16:38 | PHYS DOC ---
Past History Past Medical History: Anxiety, Depression, Diabetes, GERD, Other Additional Past Medical Histor: herpesvirus Past Surgical History: Cholecystectomy Additional Past Surgical Histo: Eye, bilateral ankles, right thumb. Smoking: Non-smoker Alcohol Use: None Drug Use: None Adult General Chief Complaint Chief Complaint: ABDOMINAL PAIN HPI HPI 48-year-old female presents with diffuse abdominal pain, vomiting, and diarrhea. Patient states that she had some of the symptoms last week but they seem to the weekend. She began have more difficulty with solids again on Wednesday. Today she is unable to keep down liquids or solids without vomiting. She also has multiple episodes of diarrhea. We'll treat his episode was in the ED. Her most recent vomiting was just prior to arrival. The patient is diabetic and has been out of her medications for 3 weeks. She just restarted her insulin yesterday. She st ates that her blood sugars have been averaging 300-400. She has not measured a fever, but states she has had chills. Her abdominal pain is diffuse and started after the vomiting. Does seem worse in the epigastric area. Review of Systems Review of Systems Constitutional: chills [] Eyes: Denies change in visual acuity, redness, or eye pain [] HENT: Denies nasal congestion or sore throat [] Respiratory: Denies cough or shortness of breath [] Cardiovascular: No additional information not addressed in HPI [] GI: abdominal pain, nausea, vomiting, diarrhea [] : Denies dysuria or hematuria [] Musculoskeletal: Denies back pain or joint pain [] Integument: Denies new rash or skin lesions [] Neurologic: Denies headache, focal weakness or sensory changes [] Endocrine: Denies polyuria or polydipsia [] All other systems were reviewed and found to be within normal limits, except as documented in this note. Current Medications Current Medications Current Medications Medications (Trade) Dose Ordered Sig/Carlie Start Time Stop Time Status Last Admin Dose Admin Loperamide HCl (Imodium) 4 mg 1X ONCE 11/23/18 16:45 11/23/18 16:46 Sodium Chloride 1,000 ml @ 1,000 mls/hr 1X ONCE 11/23/18 16:30 11/23/18 17:29 Allergies Allergies Allergies Coded Allergies Type Severity Reaction Last Updated Verified amoxicillin Allergy Severe 09/07/18 Yes black pepper Allergy Severe 09/07/18 Yes methylnaltrexone Allergy Severe 09/07/18 Yes onion Allergy Severe Anaphylaxis 09/08/18 Yes Latex, Natural Rubber Allergy Intermediate 09/07/18 Yes Penicillins Allergy Intermediate 09/07/18 Yes Sulfa (Sulfonamide Antibiotics) Allergy Intermediate 09/07/18 Yes hydrogen peroxide Allergy Intermediate 09/07/18 Yes lanolin Allergy Intermediate 09/07/18 Yes tetanus immune globulin Allergy Intermediate 09/07/18 No tomato Allergy Mild Nausea 09/08/18 Yes I S O L A T I O N *CONTACT* Allergy Unknown 09/07/18 Yes sumatriptan Adverse Reaction Severe N/V 09/07/18 Yes adhesive Adverse Reaction Intermediate Rash 09/07/18 Yes Physical Exam Physical Exam Constitutional: Well developed, morbid obesity, well nourished, no acute distress, non-toxic appearance. [] HENT: Normocephalic, atraumatic, bilateral external ears normal, oropharynx moist, no oral exudates, nose normal. [] Eyes: PERRLA, EOMI, conjunctiva normal, no discharge. [] Neck: Normal range of motion, no tenderness, supple, no stridor. [] Cardiovascular:Heart rate regular rhythm, no murmur [] Lungs & Thorax: Bilateral breath sounds clear to auscultation [] Abdomen: Bowel sounds normal, soft, diffuse tenderness, no masses, no pulsatile masses. [] Skin: Warm, dry, no erythema, no rash. [] Back: No tenderness, no CVA tenderness. [] Extremities: No tenderness, no cyanosis, no clubbing, ROM intact, no edema. [] Neurologic: Alert and oriented X 3, normal motor function, normal sensory function, no focal deficits noted. [] Psychologic: Affect normal, judgement normal, mood normal. [] Current Patient Data Vital Signs Vital Signs Date Time Temp Pulse Resp B/P (MAP) Pulse Ox O2 Delivery O2 Flow Rate FiO2 11/23/18 16:07 98.0 84 18 96 Room Air Lab Results Laboratory Tests Test 11/23/18 16:25 Glucose (Fingerstick) 178 mg/dL (70-99) H EKG EKG [] Radiology/Procedures Radiology/Procedures [] Course & Med Decision Making Course & Med Decision Making Pertinent Labs and Imaging studies reviewed. (See chart for details) The patient's labs are unremarkable. Her blood sugars less than 200. We have given her 1 L normal saline, 4 mg of Zofran, 4 mg of loperamide. Her vomiting has been controlled in the ED. The patient does not appear to have a surgical abdomen. This is likely a viral gastroenteritis. We'll discharge her on Zofran. She is stable for discharge at this time. [] Dragon Disclaimer Dragon Disclaimer This electronic medical record was generated, in whole or in part, using a voice recognition dictation system. Departure Departure: Impression: Primary Impression: Gastroenteritis and colitis, viral Disposition: 01 HOME, SELF-CARE Condition: STABLE Referrals: CHIKA WARREN MD (PCP) Patient Instructions: Diarrhea, [id number], Nausea and Vomiting, [id number] Scripts Ondansetron (ONDANSETRON ODT) 4 Mg Tab.rapdis 1 TAB PO PRN Q6-8HRS PRN for VOMITING, #16 TAB Prov: GERTRUDE SÁNCHEZ DO 11/23/18 GERTRUDE SÁNCHEZ DO Nov 23, 2018 16:37
[2018-11-23 16:40] LABS: BASO # 0.1 x10^3/uL (0.0-0.2); BASO % 1 % (0-3); EOS # 0.2 x10^3/uL (0.0-0.7); EOS % 3 % (0-3); HEMATOCRIT 45.3 % (36.0-47.0); HEMOGLOBIN 15.1 g/dL (12.0-15.5); LYMPH # 1.7 x10^3/uL (1.0-4.8); LYMPH % 27 % (24-48); MEAN CORPUSCULAR HEMOGLOBIN 27 pg (25-35); MEAN CORPUSCULAR HGB CONC 33 g/dL (31-37); MEAN CORPUSCULAR VOLUME 82 fL (79-100); MONO # 0.5 x10^3/uL (0.0-1.1); MONO % 7 % (0-9); NEUT # 3.9 x10^3uL (1.8-7.7); NEUT % 61 % (31-73); PLATELET COUNT 236 x10^3/uL (140-400); RED BLOOD COUNT 5.53 x10^6/uL (3.50-5.40); RED CELL DISTRIBUTION WIDTH 14.7 % (11.5-14.5); WHITE BLOOD COUNT 6.4 x10^3/uL (4.0-11.0)
[2018-11-23] MEDS ORDERED: LOPERAMIDE 2 MG CAPSULE PO ONE (16:45)
[2018-11-23] MEDS ORDERED: ONDANSETRON PF 4 MG/2 ML VIAL. IV ONE (16:45)
[2018-11-23 16:52] LABS: ALBUMIN 3.2 g/dL (3.4-5.0); ALBUMIN/GLOBULIN RATIO 0.9 (1.0-1.7); CALCIUM 9.3 mg/dL (8.5-10.1); CREATININE 0.8 mg/dL (0.6-1.0); GFR 77.2; POTASSIUM 3.6 mmol/L (3.5-5.1); TOTAL BILIRUBIN 0.5 mg/dL (0.2-1.0); TOTAL PROTEIN 6.8 g/dL (6.4-8.2)
[2018-11-23] MEDS ORDERED: ONDA4TAB12 PO (17:46)
[2018-11-23 18:33] LABS: BILIRUBIN,URINE NEG (NEG); CLARITY,URINE CLOUDY; COLOR,URINE YELLOW; GLUCOSE,URINE NEG (NEG)
[2018-11-23 18:34] VITALS: BP 143/83
[2018-11-23 18:34] LABS: BACTERIA,URINE FEW /HPF (0-FEW); NITRITE,URINE NEG (NEG); RBC,URINE 0 /HPF (0-2); SQUAMOUS EPITHELIAL CELL,UR OCC /LPF; UROBILINOGEN,URINE 0.2 mg/dL (0.2 mg/dL); WBC,URINE OCC /HPF (0-4)
[2018-11-23 18:35] LABS: AMPHETAMINE/METHAMPHETAMINE NEG (NEG); BARBITURATES NEG (NEG); BENZODIAZEPINES NEG (NEG); CANNABINOIDS NEG (NEG); COCAINE NEG (NEG); METHADONE NEG (NEG); OPIATES NEG (NEG); PHENCYCLIDINE NEG (NEG)
== END 2018-11-23 18:50 | disposition home or self-care (01) ==
LOC: ER 15:50
DX: A08.4 Viral intestinal infection, unspecified (principal); R11.2 Nausea with vomiting, unspecified; F41.9 Anxiety disorder, unspecified; F32.9 Major depressive disorder, single episode, unspecified; E11.9 Type 2 diabetes mellitus without complications; K21.9 Gastro-esophageal reflux disease without esophagitis; Z90.49 Acquired absence of other specified parts of digestive tract; Z88.1 Allergy status to other antibiotic agents; Z91.040 Latex allergy status; Z91.041 Radiographic dye allergy status; Z88.0 Allergy status to penicillin; Z88.2 Allergy status to sulfonamides; Z88.7 Allergy status to serum and vaccine; Z88.8 Allergy status to other drugs, medicaments and biological substances; Z91.018 Allergy to other foods
CPT/HCPCS: 36415; 80053; 80307; 81001; 82947; 83690; 85025; 87086; 96361; 96374; 99284; J2405; J7030

== ENCOUNTER 2018-12-14 14:11 | Inpatient (IN) | payer MEDICARE, MEDICAID ==
[~2018-12-14] VITALS: Ht 172.7 cm; Wt 162.5 kg
[~2018-12-14 14:11] MED LIST changes: +ONDA4TAB12 PO
[2018-12-14] MEDS ORDERED: IV NORMAL SALINE 1,000ML 1,000 ML IV ONE ×2 (15:00→16:00)
[2018-12-14] MEDS ORDERED: ONDANSETRON PF 4 MG/2 ML VIAL. IV ONE ×2 (15:00→15:15)
--- NOTE | 2018-12-14 15:04 | PHYS DOC ---
Past History Past Medical History: Anxiety, Depression, Diabetes, GERD, Other Additional Past Medical Histor: herpesvirus Past Surgical History: Cholecystectomy Additional Past Surgical Histo: Eye, bilateral ankles, right thumb. Smoking: Non-smoker Alcohol Use: None Drug Use: None Adult General Chief Complaint Chief Complaint: ABDOMINAL PAIN HPI HPI 48 yo female presents with diffuse abdominal pain and diarrhea. She tells me that she's had abdominal pain for the last 4 days. She is also had diarrhea with no normal stools for 9 days. The patient went to her PCP who took a stool sample and sent her to the ED. She has been taking [id number] medicines for diarrhea, which have slowed it, but did not make it stop. Abdominal pain is a cramping sensation all over. She has had some nausea, but no vomiting. She has history of cholecystectomy. She still has an appendix. No history of [employer] surgery. She currently takes omeprazole for a hiatal hernia, but has not taken for the last 2 days. Anytime she eats or drinks something she gets diarrhea. She has not measured a fever at home. Review of Systems Review of Systems Constitutional: Denies fever or chills [] Eyes: Denies change in visual acuity, redness, or eye pain [] HENT: Denies nasal congestion or sore throat [] Respiratory: Denies cough or shortness of breath [] Cardiovascular: No additional information not addressed in HPI [] GI: Diffuse abdominal pain, nausea, diarrhea. Denies vomiting, bloody stools. [] : Denies dysuria or hematuria [] Musculoskeletal: Denies back pain or joint pain [] Integument: Denies rash or skin lesions [] Neurologic: Denies headache, focal weakness or sensory changes [] Endocrine: Denies polyuria or polydipsia [] All other systems were reviewed and found to be within normal limits, except as documented in this note. Allergies Allergies Allergies Coded Allergies Type Severity Reaction Last Updated Verified amoxicillin Allergy Severe 09/07/18 Yes black pepper Allergy Severe 09/07/18 Yes methylnaltrexone Allergy Severe 09/07/18 Yes onion Allergy Severe Anaphylaxis 09/08/18 Yes Latex, Natural Rubber Allergy Intermediate 09/07/18 Yes Penicillins Allergy Intermediate 09/07/18 Yes Sulfa (Sulfonamide Antibiotics) Allergy Intermediate 09/07/18 Yes hydrogen peroxide Allergy Intermediate 09/07/18 Yes lanolin Allergy Intermediate 09/07/18 Yes tetanus immune globulin Allergy Intermediate 09/07/18 No tomato Allergy Mild Nausea 09/08/18 Yes I S O L A T I O N *CONTACT* Allergy Unknown 09/07/18 Yes sumatriptan Adverse Reaction Severe N/V 09/07/18 Yes adhesive Adverse Reaction Intermediate Rash 09/07/18 Yes Physical Exam Physical Exam Constitutional: Well developed, morbidly obese, well nourished, no acute distress, non-toxic appearance. [] HENT: Normocephalic, atraumatic, bilateral external ears normal, oropharynx moist, no oral exudates, nose normal. [] Eyes: PERRLA, EOMI, conjunctiva normal, no discharge. [] Neck: Normal range of motion, no tenderness, supple, no stridor. [] Cardiovascular:Heart rate regular rhythm, no murmur [] Lungs & Thorax: Bilateral breath sounds clear to auscultation [] Abdomen: Bowel sounds normal, soft, diffuse abdominal tenderness, no masses, no pulsatile masses. [] Skin: Warm, dry, no erythema, no rash. [] Back: No tenderness, no CVA tenderness. [] Extremities: No tenderness, no cyanosis, no clubbing, ROM intact, no edema. [] Neurologic: Alert and oriented X 3, normal motor function, normal sensory functi on, no focal deficits noted. [] Psychologic: Affect normal, judgement normal, mood normal. [] Current Patient Data Vital Signs Vital Signs Date Time Temp Pulse Resp B/P (MAP) Pulse Ox O2 Delivery O2 Flow Rate FiO2 12/14/18 14:22 98.4 97 19 92 Room Air EKG EKG [] Radiology/Procedures Radiology/Procedures [] Impressions: AP view of the abdomen Clinical indications: Abdominal pain and diarrhea for 9 days. FINDINGS: No obstructive bowel pattern is seen. No significant fecal retention is seen. Splenomegaly is evident. The osseous structures are intact. Cholecystectomy clips are present. IMPRESSION: Splenomegaly. Electronically signed by: Hayley Hearn MD (12/14/2018 3:18 PM) [place] [id number] DICTATED AND SIGNED BY: HAYLEY HEARN MD DATE: 12/14/18 0534 CC: GERTRUDE SÁNCHEZ DO; SHERIF WARREN MD ~ Course & Med Decision Making Course & Med Decision Making Pertinent Labs and Imaging studies reviewed. (See chart for details) The patient has a blood sugar of over 500. She has a normal anion gap. I will start her on an insulin drip and admit her to the hospital. C. difficile results from the PCP office are still pending. Spoke with Dr. Harris and he has agreed to admit the patient. 32 minutes of critical care time was spent on this patient exclusive of other billable procedures. [] Dragon Disclaimer Dragon Disclaimer This electronic medical record was generated, in whole or in part, using a voice recognition dictation system. Departure Departure: Impression: Primary Impression: Hyperglycemia due to type 2 diabetes mellitus Additional Impression: Diarrhea Disposition: ADMITTED INPATIENT Admitting Physician: Sherif Warren Condition: GUARDED Referrals: SHERIF WARREN MD (PCP) Problem Qualifiers Primary Impression: Hyperglycemia due to type 2 diabetes mellitus Diabetes mellitus assisted insulin use: with meterman use Qualified Codes: E11.65 - Type 2 diabetes mellitus with hyperglycemia; Z79.4 - halfway (current) use of insulin Additional Impression: Diarrhea Diarrhea type: unspecified type Qualified Codes: R19.7 - Diarrhea, unspecified GERTRUDE SÁNCHEZ DO Dec 14, 2018 15:04
[2018-12-14 15:06] LABS: BASO # 0.1 x10^3/uL (0.0-0.2); BASO % 1 % (0-3); EOS # 0.2 x10^3/uL (0.0-0.7); EOS % 3 % (0-3); HEMATOCRIT 46.4 % (36.0-47.0); LYMPH # 1.4 x10^3/uL (1.0-4.8); LYMPH % 24 % (24-48); MEAN CORPUSCULAR HEMOGLOBIN 28 pg (25-35); MEAN CORPUSCULAR HGB CONC 32 g/dL (31-37); MEAN CORPUSCULAR VOLUME 86 fL (79-100); MONO # 0.4 x10^3/uL (0.0-1.1); MONO % 7 % (0-9); NEUT # 3.9 x10^3uL (1.8-7.7); NEUT % 65 % (31-73); PLATELET COUNT 195 x10^3/uL (140-400); RED CELL DISTRIBUTION WIDTH 14.7 % (11.5-14.5); WHITE BLOOD COUNT 5.9 x10^3/uL (4.0-11.0)
[2018-12-14] MEDS ORDERED: MORPHINE SULFATE 4 MG/ML DISP.SYRIN. IV ONE (15:15)
--- NOTE | 2018-12-14 15:21 | RAD ---
AP view of the abdomen Clinical indications: Abdominal pain and diarrhea for 9 days. FINDINGS: No obstructive bowel pattern is seen. No significant fecal retention is seen. Splenomegaly is evident. The osseous structures are intact. Cholecystectomy clips are present. IMPRESSION: Splenomegaly. Electronically signed by: Jerel Hearn MD (12/14/2018 3:18 PM) [facility]
[2018-12-14 15:40] LABS: ALBUMIN 3.2 g/dL (3.4-5.0); ALBUMIN/GLOBULIN RATIO 0.8 (1.0-1.7); CALCIUM 9.8 mg/dL (8.5-10.1); CREATININE 1.1 mg/dL (0.6-1.0); GFR 53.5; POTASSIUM 4.2 mmol/L (3.5-5.1); TOTAL BILIRUBIN 0.6 mg/dL (0.2-1.0); TOTAL PROTEIN 7.4 g/dL (6.4-8.2)
[2018-12-14] MEDS ORDERED: INSULIN REGULAR VIAL 150 UNIT in 0.9 % SODIUM CHLORIDE 150ML 150 ML IV PRN (16:30)
[2018-12-14] MEDS ORDERED: DEXTROSE 50% 25 GM / 50ML DISP.SYRIN. IV PRN (16:30)
[2018-12-14] MEDS ORDERED: ONDANSETRON PF 4 MG/2 ML VIAL. IV PRN (16:45)
[2018-12-14 16:51] LABS: BILIRUBIN,URINE NEG (NEG); CLARITY,URINE CLEAR; COLOR,URINE YELLOW; GLUCOSE,URINE >=1000 mg/dL (NEG)
[2018-12-14 16:52] LABS: BACTERIA,URINE 0 /HPF (0-FEW); NITRITE,URINE NEG (NEG); SQUAMOUS EPITHELIAL CELL,UR OCC /LPF; UROBILINOGEN,URINE 0.2 mg/dL (0.2 mg/dL); WBC,URINE RARE /HPF (0-4)
[2018-12-14] MEDS: MORPHINE SULFATE 2 MG/ML DISP.SYRIN. IV PRN (17:43)
[2018-12-14 18:05] VITALS: BP 99/74
[2018-12-14 19:00] VITALS: BP 92/61
[2018-12-14] MEDS ORDERED: IV NORMAL SALINE 500ML 500 ML IV ONE (19:30)
[2018-12-14 20:01] VITALS: BP 100/63
[2018-12-14] MEDS ORDERED: ALBUTEROL SULFATE 2.5 MG/3 ML NEBU. INH PRN (20:15)
[2018-12-14 21:03] VITALS: BP 92/50
[2018-12-14] MEDS: IV NORMAL SALINE 1,000ML 1,000 ML IV SCH (21:04)
[2018-12-14 21:17] LABS: CALCIUM 9.2 mg/dL (8.5-10.1); CREATININE 0.7 mg/dL (0.6-1.0); GFR 90.1; POTASSIUM 3.4 mmol/L (3.5-5.1)
[2018-12-14] MEDS: LORazepam 1 MG TABLET PO PRN (21:40)
[2018-12-14] MEDS: NYSTATIN TOPICAL POWDER 15GM BOTTLE. TP SCH (21:40)
[2018-12-14] MEDS: GABAPENTIN 300 MG CAPSULE. PO SCH (21:40)
[2018-12-14] MEDS: INSULIN GLARGINE 300 UNITS/3 ML INSULN.PEN. SQ SCH (21:42)
[2018-12-14] MEDS: HEPARIN for SUB-Q USE 5,000 UNIT/ML VIAL. SQ SCH (21:43)
[2018-12-14] MEDS ORDERED: POTASSIUM CHLORIDE 20 MEQ TABLET.ER. PO ONE (21:45)
[2018-12-14 21:56] VITALS: BP 97/60
[2018-12-14] MEDS: MELATONIN 3 MG TABLET PO SCH (21:57)
[2018-12-14 22:58] VITALS: BP 102/60
[2018-12-15] VITALS (16 sets, daily range): BP systolic 82–117; BP diastolic 53–76
[2018-12-15] MEDS: IV NORMAL SALINE 1,000ML 1,000 ML IV SCH ×5 (01:52→21:05)
[2018-12-15] MEDS: LEVOTHYROXINE 137 MCG TABLET PO SCH (05:36)
[2018-12-15] MEDS: HEPARIN for SUB-Q USE 5,000 UNIT/ML VIAL. SQ SCH ×2 (05:36→14:00)
[2018-12-15 05:52] LABS: BASO # 0.1 x10^3/uL (0.0-0.2); BASO % 1 % (0-3); EOS # 0.2 x10^3/uL (0.0-0.7); EOS % 4 % (0-3); HEMATOCRIT 39.8 % (36.0-47.0); LYMPH # 2.1 x10^3/uL (1.0-4.8); LYMPH % 40 % (24-48); MEAN CORPUSCULAR HEMOGLOBIN 28 pg (25-35); MEAN CORPUSCULAR HGB CONC 33 g/dL (31-37); MEAN CORPUSCULAR VOLUME 86 fL (79-100); MONO # 0.5 x10^3/uL (0.0-1.1); MONO % 9 % (0-9); NEUT # 2.3 x10^3uL (1.8-7.7); NEUT % 46 % (31-73); PLATELET COUNT 203 x10^3/uL (140-400); RED BLOOD COUNT 4.62 x10^6/uL (3.50-5.40); RED CELL DISTRIBUTION WIDTH 14.6 % (11.5-14.5); WHITE BLOOD COUNT 5.1 x10^3/uL (4.0-11.0)
[2018-12-15 05:59] LABS: CALCIUM 8.8 mg/dL (8.5-10.1); CREATININE 0.7 mg/dL (0.6-1.0); GFR 90.1; PHOSPHORUS 4.4 mg/dL (2.6-4.7); POTASSIUM 3.6 mmol/L (3.5-5.1)
[2018-12-15] MEDS: ASPIRIN ENTERIC COATED 81 MG TABLET.DR. PO SCH ×2 (08:00→08:49)
[2018-12-15] MEDS: GABAPENTIN 300 MG CAPSULE. PO SCH ×3 (08:49→20:40)
[2018-12-15] MEDS: PIOGLITAZONE 15 MG TABLET. PO SCH (08:49)
[2018-12-15] MEDS: CETIRIZINE HCL 10 MG TABLET PO SCH (08:50)
[2018-12-15] MEDS: NYSTATIN TOPICAL POWDER 15GM BOTTLE. TP SCH ×2 (08:50→20:52)
[2018-12-15] MEDS: buPROPion XL 300 MG TAB.ER.24H. PO SCH (08:50)
[2018-12-15] MEDS: metFORMIN 500 MG TABLET PO SCH ×2 (08:50→18:32)
[2018-12-15] MEDS: CITALOPRAM 20 MG TABLET. PO SCH (08:50)
[2018-12-15] MEDS: INSULIN LISPRO 300 UNITS/3 ML INSULN.PEN. SQ SCH ×3 (08:51→18:31)
[2018-12-15] MEDS: DICYCLOMINE HCL 10 MG CAPSULE PO SCH ×3 (09:16→20:40)
[2018-12-15] MEDS: LORazepam 1 MG TABLET PO PRN (09:24)
--- NOTE | 2018-12-15 09:53 | RAD ---
CHEST PA LATERAL CLINICAL INDICATION: Hypotension. COMPARISON: 09/07/2018. FINDINGS: Heart is normal in size. Lungs are clear. No pneumothorax or pleural effusion. Stable right bony thorax deformity. IMPRESSION: No acute pulmonary process Electronically signed by: Bradley Machuca DO (12/15/2018 9:50 AM) [facility]
[2018-12-15 11:21] LABS: FECAL OB PT POSITIVE (NEG)
--- NOTE | 2018-12-15 12:17 | PN ---
DATE: SUBJECTIVE: A 48-year-old female, morbidly obese, came in to the Emergency Room, initially seen in the office with severe diarrhea for the last 8 weeks as well as having problems with severe abdominal pain, hypotensive and blood sugars of greater than 500. The patient otherwise seemed to be doing a little better this morning. Urine output has not been recorded. The patient's blood sugars were brought down from over 500 down into the 100 range. Potassium slightly low at 3.4. She is breathing easier. She does have an elevated D-dimer but it is noted that this patient continually has one over the last several admissions to , which encompasses the last 6 months or so. In any case, the patient is resting comfortably, receiving IV normal saline 200 mL an hour, still having severe abdominal pain. We will get a CAT scan. C. difficile is still pending. The patient describes that she has been eating junk food and may have been responsible for her sugars. The diarrhea is something new, although she has had a history of C. diff in the past, although presently there is no note at least on the I and O sheets of a bowel movement. PHYSICAL EXAMINATION: VITAL SIGNS: Blood pressure presently 104/70, respiratory rate 19, pulse 70, afebrile. GENERAL: The patient is alert and oriented. LUNGS: Diminished throughout, but clear. CARDIOVASCULAR: Regular sinus rhythm. ABDOMEN: Markedly massively protuberant. The abdomen itself although being markedly protuberant was tender primarily in the left lower quadrant, left mid quadrant area. EXTREMITIES: Without clubbing, cyanosis, with trace edema. Pulses noted distally. LABORATORY DATA: Otherwise, her amylase and lipase were negative and liver enzymes were basically stable. IMPRESSION: Hyperglycemia, diarrhea, severe morbid obesity, BMI greater than 50, hypokalemia, moderate protein malnutrition; elevated D-dimer, chronic. PLAN: The patient will be continued to be monitored, fluids and make further evaluation on her as indicated. CHIKA WARREN MD DR: MOUNA/glenn JOB#: [id number] / [id number]
--- NOTE | 2018-12-15 12:53 | RAD ---
PQRS Compliance statement: One or more of the following individualized dose reduction techniques were utilized for this examination: 1. Automated exposure control. 2. Adjustment of the mA and/or kV according to patient size. 3. Use of iterative reconstruction technique. Indication:Abdominal pain. TECHNIQUE: CT abdomen and pelvis without IV contrast with multiplanar reformats. COMPARISON: 09/16/2018. FINDINGS: Limited evaluation of solid abdominal and pelvic organs due to lack of IV contrast. Heart is normal in size. No pericardial or pleural effusion. Clear lung bases. Liver, spleen, pancreas, adrenals within normal limits. Status post cholecystectomy. No nephrolithiasis or hydronephrosis. No enlarged retroperitoneal or pelvic adenopathy. No free pelvic fluid or ascites. No bowel obstruction. Anteverted uterus. Urinary bladder demonstrates no radiopaque stone. No suspicious bony lesion. IMPRESSION: Limited evaluation of solid abdominal and pelvic organs due to lack of IV contrast. No acute findings. Electronically signed by: Bradley Machuca DO (12/15/2018 12:50 PM) [facility]
[2018-12-15] MEDS: MORPHINE SULFATE 2 MG/ML DISP.SYRIN. IV PRN (15:35)
[2018-12-15] MEDS: MELATONIN 3 MG TABLET PO SCH (20:40)
[2018-12-15] MEDS: INSULIN GLARGINE 300 UNITS/3 ML INSULN.PEN. SQ SCH (20:47)
[2018-12-15] MEDS: CYCLOBENZAPRINE 10 MG TABLET. PO PRN (21:03)
[2018-12-15] MEDS: IBUPROFEN 800 MG TABLET. PO PRN (21:05)
[2018-12-16] VITALS (10 sets, daily range): BP systolic 83–114; BP diastolic 57–77
[2018-12-16] MEDS: IV NORMAL SALINE 1,000ML 1,000 ML IV SCH ×3 (02:30→12:12)
[2018-12-16] MEDS: IBUPROFEN 800 MG TABLET. PO PRN (04:40)
[2018-12-16] MEDS: CYCLOBENZAPRINE 10 MG TABLET. PO PRN (05:05)
[2018-12-16 05:15] LABS: BILIRUBIN,URINE NEG (NEG); CLARITY,URINE CLEAR; COLOR,URINE YELLOW; GLUCOSE,URINE NEG (NEG); NITRITE,URINE NEG (NEG); UROBILINOGEN,URINE 0.2 mg/dL (0.2 mg/dL)
[2018-12-16 05:16] LABS: BACTERIA,URINE 0 /HPF (0-FEW); RBC,URINE 0 /HPF (0-2); SQUAMOUS EPITHELIAL CELL,UR MANY /LPF
[2018-12-16] MEDS: LEVOTHYROXINE 137 MCG TABLET PO SCH (06:11)
[2018-12-16 06:19] LABS: CALCIUM 8.9 mg/dL (8.5-10.1); CREATININE 0.8 mg/dL (0.6-1.0); GFR 77.2; POTASSIUM 3.5 mmol/L (3.5-5.1)
[2018-12-16 06:24] LABS: BASO % 1 % (0-3); EOS # 0.2 x10^3/uL (0.0-0.7); EOS % 4 % (0-3); HEMATOCRIT 37.6 % (36.0-47.0); HEMOGLOBIN 12.3 g/dL (12.0-15.5); LYMPH # 1.5 x10^3/uL (1.0-4.8); LYMPH % 36 % (24-48); MEAN CORPUSCULAR HEMOGLOBIN 28 pg (25-35); MEAN CORPUSCULAR HGB CONC 33 g/dL (31-37); MEAN CORPUSCULAR VOLUME 86 fL (79-100); MONO # 0.3 x10^3/uL (0.0-1.1); MONO % 7 % (0-9); NEUT # 2.2 x10^3uL (1.8-7.7); NEUT % 53 % (31-73); PLATELET COUNT 185 x10^3/uL (140-400); RED BLOOD COUNT 4.39 x10^6/uL (3.50-5.40); RED CELL DISTRIBUTION WIDTH 14.3 % (11.5-14.5); WHITE BLOOD COUNT 4.3 x10^3/uL (4.0-11.0)
[2018-12-16] MEDS: ASPIRIN ENTERIC COATED 81 MG TABLET.DR. PO SCH ×2 (08:00→09:37)
[2018-12-16] MEDS: CETIRIZINE HCL 10 MG TABLET PO SCH (09:37)
[2018-12-16] MEDS: GABAPENTIN 300 MG CAPSULE. PO SCH (09:37)
[2018-12-16] MEDS: CITALOPRAM 20 MG TABLET. PO SCH (09:37)
[2018-12-16] MEDS: metFORMIN 500 MG TABLET PO SCH (09:37)
[2018-12-16] MEDS: DICYCLOMINE HCL 10 MG CAPSULE PO SCH (09:37)
[2018-12-16] MEDS: buPROPion XL 300 MG TAB.ER.24H. PO SCH (09:37)
[2018-12-16] MEDS: PIOGLITAZONE 15 MG TABLET. PO SCH (09:37)
[2018-12-16] MEDS: NYSTATIN TOPICAL POWDER 15GM BOTTLE. TP SCH (09:38)
[2018-12-16] MEDS: INSULIN LISPRO 300 UNITS/3 ML INSULN.PEN. SQ SCH ×2 (09:40→12:00)
[2018-12-16] MEDS ORDERED: DICY10CA3 PO (11:49)
[2018-12-16] MEDS ORDERED: NYST60PO TP (11:49)
[2018-12-16 23:09] LABS: HEMOGLOBIN A1C 12.2 % (4.8-5.6)
== END 2018-12-16 13:05 | disposition home or self-care (01) | DRG 638 ==
LOC: ER 14:11 → ICU 17:03
PROVIDERS: ADMIT Family Medicine; ATTEND Family Medicine
DX: E11.65 Type 2 diabetes mellitus with hyperglycemia (principal); E44.0 Moderate protein-calorie malnutrition; Z68.43 Body mass index [BMI] 50.0-59.9, adult; K21.9 Gastro-esophageal reflux disease without esophagitis; F41.9 Anxiety disorder, unspecified; F32.9 Major depressive disorder, single episode, unspecified; E66.01 Morbid (severe) obesity due to excess calories; I95.9 Hypotension, unspecified; E87.6 Hypokalemia; K44.9 Diaphragmatic hernia without obstruction or gangrene; Z90.49 Acquired absence of other specified parts of digestive tract; Z88.0 Allergy status to penicillin; Z88.2 Allergy status to sulfonamides; Z88.7 Allergy status to serum and vaccine; Z88.8 Allergy status to other drugs, medicaments and biological substances; Z91.040 Latex allergy status
CPT/HCPCS: 36415; 71046; 74018; 74176; 80048; 80053; 81001; 82010; 82274; 82947; 83036; 83605; 84100; 84484; 85025; 85379; 87086; 87186; 87641; 96365; 96375; J1644; J1815; J2270; J2405; J7040; 99291-25; J7030

== ENCOUNTER 2018-12-21 13:02 | Emergency (ER) | payer MEDICARE, MEDICAID ==
[~2018-12-21] VITALS: Ht 172.7 cm; Wt 173.0 kg
[~2018-12-21 13:02] MED LIST changes: +DICY10CA3 PO
[2018-12-21 13:27] VITALS: BP 108/77
[2018-12-21] MEDS: IV NORMAL SALINE 1,000ML 1,000 ML IV SCH (14:30)
[2018-12-21] MEDS: PROCHLORPERAZINE 10 MG/2 ML VIAL. IV ONE (14:50)
[2018-12-21] MEDS: HYOSCYAMINE 0.125 MG TAB.RAPDIS PO ONE (14:50)
[2018-12-21] MEDS: KETOROLAC 30 MG/ML VIAL. IV ONE (14:51)
[2018-12-21 14:53] LABS: BILIRUBIN,URINE NEG (NEG); CLARITY,URINE HAZY; COLOR,URINE YELLOW; GLUCOSE,URINE NEG (NEG); UROBILINOGEN,URINE 0.2 mg/dL (0.2 mg/dL)
[2018-12-21 14:54] LABS: BACTERIA,URINE FEW /HPF (0-FEW); NITRITE,URINE NEG (NEG); RBC,URINE 0 /HPF (0-2); SQUAMOUS EPITHELIAL CELL,UR MANY /LPF
--- NOTE | 2018-12-21 14:55 | PHYS DOC ---
Past History Past Medical History: Diabetes, Hypotension Additional Past Medical Histor: herpesvirus Past Surgical History: Cholecystectomy Additional Past Surgical Histo: Eye, bilateral ankles, right thumb. Smoking: Non-smoker Alcohol Use: None Drug Use: None Adult General Chief Complaint Chief Complaint: MULTIPLE COMPLAINTS HPI HPI Patient is a 48-year-old female presents complaining of diffuse abdominal and flank pain. This started 3 days ago. Patient was admitted to the hospital approximately a week ago for 2 days due to similar discomfort. She reports that the medicine that she was given, Bentyl, is not improving her discomfort. She also notes that she's had diarrhea for the past 3 days. No blood in the stool. No fever. No nausea or vomiting. Nothing specifically makes the discomfort better or worse. Patient is concerned because she has had previous history of C. difficile. She denies having been on any recent antibiotics. No dysuria. No fever.[] Review of Systems Review of Systems Constitutional: Denies fever or chills [] Eyes: Denies change in visual acuity, redness, or eye pain [] HENT: Denies nasal congestion or sore throat [] Respiratory: Denies cough or shortness of breath [] Cardiovascular: No chest pain or palpitations[] GI: See history of present illness[] : Denies dysuria or hematuria [] Musculoskeletal: Denies back pain or joint pain [] Integument: Denies rash or skin lesions [] Neurologic: Denies headache, focal weakness or sensory changes [] Endocrine: Denies polyuria or polydipsia [] All other systems were reviewed and found to be within normal limits, except as documented in this note. Current Medications Current Medications Current Medications Medications (Trade) Dose Ordered Sig/Carlie Start Time Stop Time Status Last Admin Dose Admin Hyoscyamine (Anaspaz) 0.25 mg 1X ONCE 12/21/18 14:30 12/21/18 14:39 DC 12/21/18 14:50 0.25 MG Ketorolac Tromethamine (Toradol 30mg Vial) 30 mg 1X ONCE 12/21/18 14:30 12/21/18 14:39 DC 12/21/18 14:51 30 MG Prochlorperazine Edisylate (Compazine) 5 mg 1X ONCE 12/21/18 14:30 12/21/18 14:39 DC 12/21/18 14:50 5 MG Sodium Chloride 1,000 ml @ 1,000 mls/hr Q1H 12/21/18 14:30 12/21/18 15:29 Allergies Allergies Allergies Coded Allergies Type Severity Reaction Last Updated Verified amoxicillin Allergy Severe 09/07/18 Yes black pepper Allergy Severe 09/07/18 Yes methylnaltrexone Allergy Severe 09/07/18 Yes onion Allergy Severe Anaphylaxis 09/08/18 Yes Latex, Natural Rubber Allergy Intermediate 09/07/18 Yes Penicillins Allergy Intermediate 09/07/18 Yes Sulfa (Sulfonamide Antibiotics) Allergy Intermediate 09/07/18 Yes hydrogen peroxide Allergy Intermediate 09/07/18 Yes lanolin Allergy Intermediate 09/07/18 Yes tetanus immune globulin Allergy Intermediate 09/07/18 No tomato Allergy Mild Nausea 09/08/18 Yes I S O L A T I O N *CONTACT* Allergy Unknown 09/07/18 Yes sumatriptan Adverse Reaction Severe N/V 09/07/18 Yes adhesive Adverse Reaction Intermediate Rash 09/07/18 Yes Physical Exam Physical Exam Constitutional: Well developed, well nourished, no acute distress, non-toxic appearance. [] HENT: Normocephalic, atraumatic, bilateral external ears normal, oropharynx moist, no oral exudates, nose normal. [] Eyes: PERRLA, EOMI, conjunctiva normal, no discharge. [] Neck: Normal range of motion, no tenderness, supple, no stridor. [] Cardiovascular:Heart rate regular rhythm, no murmur [] Lungs & Thorax: Bilateral breath sounds clear to auscultation [] Abdomen: Bowel sounds normal, soft, obese, diffuse tenderness, no rebound, no guarding, no rigidity, no masses, no pulsatile masses. [] Skin: Warm, dry, no erythema, no rash. [] Back: No tenderness, no CVA tenderness. [] Extremities: No tenderness, no cyanosis, no clubbing, ROM intact, no edema. [] Neurologic: Alert and oriented X 3, normal motor function, normal sensory function, no focal deficits noted. [] Psychologic: Affect normal, judgement normal, mood normal. [] Current Patient Data Vital Signs Vital Signs Date Time Temp Pulse Resp B/P (MAP) Pulse Ox O2 Delivery O2 Flow Rate FiO2 12/21/18 13:27 98.7 77 16 98 Room Air EKG EKG [] Radiology/Procedures Radiology/Procedures [] Course & Med Decision Making Course & Med Decision Making Pertinent Labs and Imaging studies reviewed. (See chart for details) ED course: Patient arrived, was placed in bed, and tolerated exam well. She was transported to and from radiology with any complications. Shortly after returning from radiology she reported feeling anxious. Medicine was given for her history of anxiety. She continued to elect to leave AGAINST MEDICAL ADVICE. She was warned of the risks to include or permanent disability and was able to state the risks in her own words. She appears able to make an informed decision.[] Dragon Disclaimer Dragon Disclaimer This electronic medical record was generated, in whole or in part, using a voice recognition dictation system. Departure Departure: Impression: Primary Impression: Abdominal pain Disposition: 07 AGAINST MEDICAL ADVICE Referrals: CHIKA WARREN MD (PCP) Problem Qualifiers Primary Impression: Abdominal pain Abdominal location: unspecified location Qualified Codes: R10.9 - Unspecified abdominal pain ELKE NEGRETE DO Dec 21, 2018 14:55
[2018-12-21 14:57] LABS: BASO # 0.1 x10^3/uL (0.0-0.2); BASO % 1 % (0-3); EOS # 0.2 x10^3/uL (0.0-0.7); EOS % 3 % (0-3); HEMATOCRIT 41.5 % (36.0-47.0); HEMOGLOBIN 13.5 g/dL (12.0-15.5); LYMPH % 41 % (24-48); MEAN CORPUSCULAR HEMOGLOBIN 28 pg (25-35); MEAN CORPUSCULAR HGB CONC 33 g/dL (31-37); MEAN CORPUSCULAR VOLUME 87 fL (79-100); MONO # 0.4 x10^3/uL (0.0-1.1); MONO % 8 % (0-9); NEUT # 2.2 x10^3uL (1.8-7.7); NEUT % 46 % (31-73); PLATELET COUNT 202 x10^3/uL (140-400); RED CELL DISTRIBUTION WIDTH 14.5 % (11.5-14.5); WHITE BLOOD COUNT 4.9 x10^3/uL (4.0-11.0)
[2018-12-21 15:08] LABS: ALBUMIN 2.8 g/dL (3.4-5.0); ALBUMIN/GLOBULIN RATIO 0.7 (1.0-1.7); CALCIUM 9.5 mg/dL (8.5-10.1); CREATININE 0.8 mg/dL (0.6-1.0); GFR 77.2; TOTAL BILIRUBIN 0.4 mg/dL (0.2-1.0); TOTAL PROTEIN 6.8 g/dL (6.4-8.2)
[2018-12-21 15:09] LABS: POTASSIUM 4.8 mmol/L (3.5-5.1)
[2018-12-21 15:10] LABS: PREG TEST PT QUAL NEGATIVE (NEG)
[2018-12-21] MEDS ORDERED: LORazepam 1 MG TABLET PO ONE (15:30)
--- NOTE | 2018-12-21 15:34 | RAD ---
CT ABDOMEN PELVIS WO CONTRAST Indication: Abdominal pain. Worse on the left. Exposure: One or more of the following individualized dose reduction techniques were utilized for this examination: 1. Automated exposure control 2. Adjustment of the mA and/or kV according to patient size 3. Use of iterative reconstruction technique. Comparison: December 15, 2018 Technique: No intravenous contrast given. No oral contrast per request. Findings: Evaluation of solid viscera, bowel and vasculature is compromised by the noncontrast technique. Lung bases are clear. Liver and spleen are not enlarged. Pancreas appears unremarkable. No evidence of adrenal mass. No evidence of renal calculus or hydronephrosis. Gallbladder surgically absent. Small metallic density between the upper pole the right kidney and the inferior right lobe of the liver may represent a surgical clip. Aorta is nonaneurysmal. No pathologic lymph node enlargement is identified. No significant small bowel distention. No evidence of acute colitis. The appendix is normal. No evidence of ascites. No evidence of pneumoperitoneum. Suboptimal evaluation of pelvic structures due to artifact produced by body habitus. The uterus appears somewhat large and lobulated could be due to fibroids. Urinary bladder is not distended. Degenerative changes of the spine are again identified. Degenerative changes at both hips. IMPRESSION: 1. Uterus is somewhat large and lobulated. Evaluation limited due to artifact but could be due to fibroids. 2. No definite acute findings. Electronically signed by: David Fay MD (12/21/2018 3:31 PM) [facility]
== END 2018-12-21 15:35 | disposition left against medical advice (07) ==
LOC: ER 13:02
DX: R10.84 Generalized abdominal pain (principal); R19.7 Diarrhea, unspecified; E11.9 Type 2 diabetes mellitus without complications; Z90.49 Acquired absence of other specified parts of digestive tract; Z88.1 Allergy status to other antibiotic agents; Z91.041 Radiographic dye allergy status; Z91.040 Latex allergy status; Z88.0 Allergy status to penicillin; Z88.2 Allergy status to sulfonamides; Z88.7 Allergy status to serum and vaccine; Z88.8 Allergy status to other drugs, medicaments and biological substances; Z91.018 Allergy to other foods
CPT/HCPCS: 36415; 74176; 80053; 81001; 83690; 84703; 85025; 96361; 96374; 96375; 99285; J0780; J1885; J7030

== ENCOUNTER 2018-12-26 21:22 | Emergency (ER) | payer MEDICARE, MEDICAID ==
[~2018-12-26] VITALS: Ht 172.7 cm; Wt 173.0 kg
[2018-12-26 21:25] VITALS: BP 120/66
--- NOTE | 2018-12-26 21:32 | PHYS DOC ---
Past History Past Medical History: Diabetes, Hypotension Additional Past Medical Histor: herpesvirus Past Surgical History: Cholecystectomy Additional Past Surgical Histo: Eye, bilateral ankles, right thumb. Smoking: Non-smoker Alcohol Use: None Drug Use: None Adult General HPI HPI Patient is a 48-year-old female presenting with left foot ankle and knee pain. 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 She has a history of previous open reduction and internal fixation of the left ankle. This happened approximately 2 hours ago. Increased pain with movement. No new numbness or tingling. Difficulty walking secondary to pain. She took an ibuprofen 800 mg and a Flexeril for the pain without any significant improvement. She was brought in by EMS due to the discomfort. Pain is moderate to severe in intensity.[] Review of Systems Review of Systems Constitutional: Denies fever or chills [] Eyes: Denies change in visual acuity, redness, or eye pain [] HENT: Denies nasal congestion or sore throat [] Respiratory: Denies cough or shortness of breath [] Cardiovascular: No chest pain or palpitations[] GI: Denies abdominal pain, nausea, vomiting, bloody stools or diarrhea [] : Denies dysuria or hematuria [] Musculoskeletal: Denies back pain, see history of present illness[] Integument: Denies rash or skin lesions [] Neurologic: Denies headache, focal weakness or sensory changes [] Endocrine: Denies polyuria or polydipsia [] All other systems were reviewed and found to be within normal limits, except as documented in this note. Allergies Allergies Allergies Coded Allergies Type Severity Reaction Last Updated Verified amoxicillin Allergy Severe 09/07/18 Yes black pepper Allergy Severe 09/07/18 Yes methylnaltrexone Allergy Severe 09/07/18 Yes onion Allergy Severe Anaphylaxis 09/08/18 Yes Latex, Natural Rubber Allergy Intermediate 09/07/18 Yes Penicillins Allergy Intermediate 09/07/18 Yes Sulfa (Sulfonamide Antibiotics) Allergy Intermediate 09/07/18 Yes hydrogen peroxide Allergy Intermediate 09/07/18 Yes lanolin Allergy Intermediate 09/07/18 Yes tetanus immune globulin Allergy Intermediate 09/07/18 No tomato Allergy Mild Nausea 09/08/18 Yes I S O L A T I O N *CONTACT* Allergy Unknown 09/07/18 Yes sumatriptan Adverse Reaction Severe N/V 09/07/18 Yes adhesive Adverse Reaction Intermediate Rash 09/07/18 Yes Physical Exam Physical Exam Constitutional: Well developed, well nourished, mild discomfort, non-toxic appearance. [] HENT: Normocephalic, atraumatic, bilateral external ears normal, oropharynx moist, no oral exudates, nose normal. [] Eyes: PERRLA, EOMI, conjunctiva normal, no discharge. [] Neck: Normal range of motion, no tenderness, supple, no stridor. [] Cardiovascular:Heart rate regular rhythm, no murmur [] Lungs & Thorax: Bilateral breath sounds clear to auscultation [] Abdomen: Bowel sounds normal, soft, no tenderness, no masses, no pulsatile masses. [] Skin: Warm, dry, no erythema, no rash. [] Back: No tenderness, no CVA tenderness. [] Extremities: Left lower extremity has diffuse tenderness from the knee distally. There is no increased pain with axial loading of the long bones. Full active range of motion of the knee without varus or valgus laxity, negative drawer, negative Boby test. Ankle has diffuse tenderness to palpation. No specific medial or lateral malleolus tenderness. No laxity. Decreased active range of motion secondary to pain. Foot has diffuse tenderness. Patient is distally neuro vascularly intact. No specific base of the fifth metatarsal tenderness to palpation. The other 3 extremities show: No tenderness, no cyanosis, no clubbing, ROM intact, no edema. [] Neurologic: Alert and oriented X 3, normal motor function, normal sensory function, no focal deficits noted. [] Psychologic: Affect normal, judgement normal, mood normal. [] EKG EKG [] Radiology/Procedures Radiology/Procedures X-ray of the left foot, left ankle, and left knee show no acute fracture or dislocation. She has a screw in the distal tibia and fibula that appears unchanged from previous x-ray.[] Course & Med Decision Making Course & Med Decision Making Pertinent Labs and Imaging studies reviewed. (See chart for details) ED course: Patient arrived, was placed in bed, and tolerated exam well. She was transported to and from radiology with any complications. After the return of the imaging findings these were discussed with the patient voiced understanding. As a's splint was applied. Patient was trained in crutches. She was discharged in improved condition with all questions answered. Medical decision making: There is no evidence of a fracture, dislocation, neurologic, or vascular injury. She does not appear to have loosening of the ORIF that was previously placed.[] Dragon Disclaimer Dragon Disclaimer This electronic medical record was generated, in whole or in part, using a voice recognition dictation system. Departure Departure: Impression: Primary Impression: Left ankle sprain Disposition: HOME, SELF-CARE Condition: IMPROVED Referrals: CHIKA WARREN MD (PCP) Follow-up in 2 days Patient Instructions: Ankle Sprain, Acute, with Phase I Rehab-SportsMed, Crutch Use Additional Instructions: Follow-up with your regular doctor in 2 days. Take medication as prescribed. Weight bear as tolerated. Return to the ER if worsening pain, weakness, or any other concerns. Scripts Oxaprozin (OXAPROZIN) 600 Mg Tablet 600 MG PO BID for pain, #20 TAB Prov: ELKE NEGRETE DO 12/26/18 Problem Qualifiers Primary Impression: Left ankle sprain Encounter type: initial encounter Involved ligament of ankle: unspecified ligament Qualified Codes: S93.402A - Sprain of unspecified ligament of left ankle, initial encounter ELKE NEGRETE DO Dec 26, 2018 21:32
[2018-12-26] MEDS ORDERED: OXAP600T2 PO (22:40)
--- NOTE | 2018-12-26 23:46 | RAD ---
Exam: Left foot 3 views, left ankle 3 views, left knee 3 views INDICATION: Trauma TECHNIQUE: Frontal, lateral and oblique views of the left foot, left knee and left ankle Comparisons: None FINDINGS: Left foot: Bone mineralization and development of normal. No acute radial fractures. Soft tissues are unremarkable. Joint spaces are well-maintained. Left ankle: Syndesmotic screw at the distal tib-fib joint is noted. Bone mineralization and development normal. No acute fracture. Soft tissues are unremarkable. Left knee: Bone mineralization and development normal. No acute or healed fractures. Soft tissues are unremarkable. Joint spaces are well-maintained. IMPRESSION: 1. No acute osseous abnormality of the left knee 2. Orthopedic fixation at the left ankle without acute osseous abnormality identified. 3. No acute osseous abnormality of the left foot. Electronically signed by: Melany Goodrich MD (12/26/2018 11:43 PM) [facility]
== END 2018-12-26 23:25 | disposition home or self-care (01) ==
LOC: ER 21:22
DX: S93.402A Sprain of unspecified ligament of left ankle, initial encounter (principal); M25.562 Pain in left knee; E11.9 Type 2 diabetes mellitus without complications; I10 Essential (primary) hypertension; Z88.1 Allergy status to other antibiotic agents; Z91.041 Radiographic dye allergy status; Z91.040 Latex allergy status; Z88.2 Allergy status to sulfonamides; Z88.7 Allergy status to serum and vaccine; Z88.8 Allergy status to other drugs, medicaments and biological substances; Z91.018 Allergy to other foods; X50.1XXA Overexertion from prolonged static or awkward postures, initial encounter; Y93.89 Activity, other specified; Y92.89 Other specified places as the place of occurrence of the external cause; Y99.8 Other external cause status
CPT/HCPCS: 73562; 73610; 73630; 99284

== ENCOUNTER 2019-01-06 19:28 | Emergency (ER) | payer MEDICARE, MEDICAID ==
[~2019-01-06] VITALS: Ht 172.7 cm; Wt 156.5 kg
[~2019-01-06 19:28] MED LIST changes: +OXAP600T2 PO
--- NOTE | 2019-01-06 19:42 | ED.ADGEN ---
Past History Past Medical History: Anxiety, Depression, Diabetes, Hypotension, TIA, Other Additional Past Medical Histor: herpesvirus Past Surgical History: Cholecystectomy Additional Past Surgical Histo: Eye, bilateral ankles, right thumb. Smoking: Non-smoker Alcohol Use: None Drug Use: None Adult General Chief Complaint Chief Complaint ".. I am in a really bad way.. I planning to kill myself.. they changed my meds around... because the old ones stopped working.. I am on lorazepam and Prestiq.. .. but I am planning on cutting my wrist.. I probably need to come in.. I just keep thinking .. I need to to stop everything...".. I have not been taking my meds.. my diabetes med.. s I ve just given up..." HPI HPI Patient is a 48 year old female who presents with long hx of depression and anxiety. Patient having thoughts of suicidal ideation. Patient states she plans on cutting her wrist. Patient states she just wants things to "end. Patient recently had change in her psychiatric meds Ativan and Prestig. Patient has had previous suicide attempts. Has had approximately 10 psychiatric hospitalizations for her depression. Patient has known history of hypertension diabetes. Has been noncompliant on her home meds. Review of Systems Review of Systems Constitutional: Denies fever or chills [] Eyes: Denies change in visual acuity, redness, or eye pain [] HENT: Denies nasal congestion or sore throat [] Respiratory: Denies cough or shortness of breath [] Cardiovascular: No additional information not addressed in HPI [] GI: Denies abdominal pain, nausea, vomiting, bloody stools or diarrhea [] : Denies dysuria or hematuria [] Musculoskeletal: Denies back pain or joint pain [] Integument: Denies rash or skin lesions [] Neurologic: Denies headache, focal weakness or sensory changes [] Endocrine: Denies polyuria or polydipsia [] All other systems were reviewed and found to be within normal limits, except as documented in this note. Family History Family History Diabetes and hypertension Current Medications Current Medications Current Medications Medications (Trade) Dose Ordered Sig/Carlie Start Time Stop Time Status Last Admin Dose Admin Cyclobenzaprine HCl (Flexeril) 10 mg 1X ONCE 01/07/19 00:30 01/07/19 00:31 DC 01/07/19 00:26 10 MG Insulin Human Regular (HumuLIN R VIAL) 5 unit 1X ONCE 01/07/19 02:15 01/07/19 02:16 DC 01/07/19 02:11 5 UNIT Lactated Ringer's 1,000 ml @ 1,000 mls/hr 1X ONCE 01/06/19 23:30 01/07/19 00:29 DC 01/06/19 23:41 1,000 MLS/HR Allergies Allergies Allergies Coded Allergies Type Severity Reaction Last Updated Verified amoxicillin Allergy Severe 09/07/18 Yes black pepper Allergy Severe 09/07/18 Yes methylnaltrexone Allergy Severe 09/07/18 Yes onion Allergy Severe Anaphylaxis 09/08/18 Yes Latex, Natural Rubber Allergy Intermediate 09/07/18 Yes Penicillins Allergy Intermediate 09/07/18 Yes Sulfa (Sulfonamide Antibiotics) Allergy Intermediate 09/07/18 Yes hydrogen peroxide Allergy Intermediate 09/07/18 Yes lanolin Allergy Intermediate 09/07/18 Yes tetanus immune globulin Allergy Intermediate 09/07/18 No tomato Allergy Mild Nausea 09/08/18 Yes I S O L A T I O N *CONTACT* Allergy Unknown 09/07/18 Yes sumatriptan Adverse Reaction Severe N/V 09/07/18 Yes adhesive Adverse Reaction Intermediate Rash 09/07/18 Yes Physical Exam Physical Exam Constitutional: In acute emotional distress, non-toxic appearance. [] HENT: Normocephalic, atraumatic, bilateral external ears normal, oropharynx moist, no oral exudates, nose normal. [] Eyes: PERRLA, EOMI, conjunctiva normal, no discharge. [] Neck: Normal range of motion, no tenderness, supple, no stridor. [] Cardiovascular:Heart rate regular rhythm, no murmur []PMI to the left Lungs & Thorax: Bilateral breath sounds equal apexes few basilar crackles on auscultation [] Abdomen: Bowel sounds normal, soft, no tenderness, no masses, no pulsatile masses. [] Morbid obesity. Old surgery scar. Skin: Warm, dry, no erythema, no rash. []Areas of skin lesions, pt. has picked at skin until point of erosions. . Back: No tenderness, no CVA tenderness. [] Extremities: No tenderness, no cyanosis, no clubbing, ROM intact, trace bilate ral ankle edema. [] Neurologic: Alert and oriented X 3, normal motor function, normal sensory function, no focal deficits noted. [] Psychologic: Affect anxious,, judgement emotionally impaired., mood depressed. Current Patient Data Vital Signs Vital Signs Date Time Temp Pulse Resp B/P (MAP) Pulse Ox O2 Delivery O2 Flow Rate FiO2 01/07/19 07:29 98.2 86 16 140/90 (107) 100 Room Air Lab Results Laboratory Tests Test 01/06/19 19:55 01/06/19 21:30 01/07/19 00:21 01/07/19 02:01 White Blood Count 6.2 x10^3/uL (4.0-11.0) Red Blood Count 4.93 x10^6/uL (3.50-5.40) Hemoglobin 14.1 g/dL (12.0-15.5) Hematocrit 42.2 % (36.0-47.0) Mean Corpuscular Volume 86 fL (79-100) Mean Corpuscular Hemoglobin 29 pg (25-35) Mean Corpuscular Hemoglobin Concent 33 g/dL (31-37) Red Cell Distribution Width 13.9 % (11.5-14.5) Platelet Count 211 x10^3/uL (140-400) Neutrophils (%) (Auto) 67 % (31-73) Lymphocytes (%) (Auto) 23 % (24-48) L Monocytes (%) (Auto) 8 % (0-9) Eosinophils (%) (Auto) 2 % (0-3) Basophils (%) (Auto) 0 % (0-3) Neutrophils # (Auto) 4.2 x10^3uL (1.8-7.7) Lymphocytes # (Auto) 1.4 x10^3/uL (1.0-4.8) Monocytes # (Auto) 0.5 x10^3/uL (0.0-1.1) Eosinophils # (Auto) 0.1 x10^3/uL (0.0-0.7) Basophils # (Auto) 0.0 x10^3/uL (0.0-0.2) Erythrocyte Sedimentation Rate 37 (0-25) H Prothrombin Time 9.7 SEC (9.4-11.4) Prothrombin Time INR 0.9 (0.9-1.1) Activated Partial Thromboplast Time 23 SEC (23-33) Sodium Level 132 mmol/L (136-145) L Potassium Level 3.7 mmol/L (3.5-5.1) Chloride Level 96 mmol/L (98-107) L Carbon Dioxide Level 28 mmol/L (21-32) Anion Gap 8 (6-14) Blood Urea Nitrogen 10 mg/dL (7-20) Creatinine 1.0 mg/dL (0.6-1.0) Estimated GFR (Cockcroft-Gault) 59.7 Glucose Level 427 mg/dL (70-99) H Calcium Level 9.2 mg/dL (8.5-10.1) Magnesium Level 1.7 mg/dL (1.8-2.4) L Total Bilirubin 0.4 mg/dL (0.2-1.0) Direct Bilirubin 0.1 mg/dL (0.0-0.2) Aspartate Amino Transferase (AST) 27 U/L (15-37) Alanine Aminotransferase (ALT) 28 U/L (14-59) Alkaline Phosphatase 66 U/L (46-116) Creatine Kinase 41 U/L (26-192) Troponin I Quantitative < 0.017 ng/mL (0-0.055) EI-Qym-F-Type Natriuretic Peptide 39 pg/mL (0-124) Total Protein 7.4 g/dL (6.4-8.2) Albumin 3.2 g/dL (3.4-5.0) L Lipase 155 U/L (73-393) Thyroid Stimulating Hormone (TSH) 9.906 uIU/mL (0.358-3.740) Salicylates Level 0.8 mg/dL (2.8-20.0) L Salicylate Last Dose Date Unk Salicylate Last Dose Time Unk Acetaminophen Level < 2.0 mcg/mL (10-30) L Acetaminophen Last Dose Date Unk Acetaminophen Last Dose Time Unk Urine Collection Type Unknown Urine Color Straw Urine Clarity Clear Urine pH 6.0 Urine Specific Gilbert <=1.005 Urine Protein Neg (NEG-TRACE) Urine Glucose (UA) >=1000 mg/dL (NEG) Urine Ketones (Stick) Neg mg/dL (NEG) Urine Blood Neg (NEG) Urine Nitrite Neg (NEG) Urine Bilirubin Neg (NEG) Urine Urobilinogen Dipstick 0.2 mg/dL (0.2 mg/dL) Urine Leukocyte Esterase Neg (NEG) Urine RBC 0 /HPF (0-2) Urine WBC 0 /HPF (0-4) Urine Squamous Epithelial Cells None /LPF Urine Bacteria 0 /HPF (0-FEW) Urine Test Negative (NEG) Urine Opiates Screen Neg (NEG) Urine Methadone Screen Neg (NEG) Urine Barbiturates Neg (NEG) Urine Phencyclidine Screen Neg (NEG) Urine Amphetamine/Methamphetamine Neg (NEG) Urine Benzodiazepines Screen Neg (NEG) Urine Cocaine Screen Neg (NEG) Urine Cannabinoids Screen Neg (NEG) Urine Ethyl Alcohol Neg (NEG) Glucose (Fingerstick) 251 mg/dL (70-99) H 285 mg/dL (70-99) H Test 01/07/19 02:52 Glucose (Fingerstick) 192 mg/dL (70-99) H EKG EKG I interpretation EKG shows a sinus rhythm at 89 bpm. Does have right ex deviation. Some nonspecific anterior lateral changes. But no findings acute STEMI of contralateral changes.[] Radiology/Procedures Radiology/Procedures Interpretation chest x-ray shows no acute pulmonary findings. Borderline cardiac silhouette enlargement. Course & Med Decision Making Course & Med Decision Making Pertinent Labs and Imaging studies reviewed. (See chart for details) Repeat Glucose 251. See Tele Psych Report Still awaiting Tele Psych formal report and placement. Pt. asleep without complaints 0130 hrs. Awaiting placement. Still awaiting Tele Psych. report and placement at 3:[address] . Pt[address] asleep[address] Dr[address] Pir Maddox accepts pt. at [facility] for further tx. and eval. at 04:30 hrs. Pt. has not transfer out of ED as of Shift change. Pt. endorse to Dr. Baltazar at 0600 pending any changes prior transfer to [facility] Dr. Pir Maddox. [] Final Impression Final Impression 1. Depression 2. Suicide Ideation[] 3. Mild hyponatremia 132 4. Mild elevation in sedimentation rate 37 5. Diabetes- glucose 427 ( last check - less 200) Dragon Disclaimer Dragon Disclaimer This electronic medical record was generated, in whole or in part, using a voice recognition dictation system. LIVIER GOINS MD Jan 06, 2019 19:42
[2019-01-06] MEDS ORDERED: IV RINGERS SOLUTION,LACTATED 1,000 ML IV SCH (19:43)
[2019-01-06 20:10] LABS: BASO % 0 % (0-3); EOS # 0.1 x10^3/uL (0.0-0.7); EOS % 2 % (0-3); HEMATOCRIT 42.2 % (36.0-47.0); HEMOGLOBIN 14.1 g/dL (12.0-15.5); LYMPH # 1.4 x10^3/uL (1.0-4.8); LYMPH % 23 % (24-48); MEAN CORPUSCULAR HEMOGLOBIN 29 pg (25-35); MEAN CORPUSCULAR HGB CONC 33 g/dL (31-37); MEAN CORPUSCULAR VOLUME 86 fL (79-100); MONO # 0.5 x10^3/uL (0.0-1.1); MONO % 8 % (0-9); NEUT # 4.2 x10^3uL (1.8-7.7); NEUT % 67 % (31-73); PLATELET COUNT 211 x10^3/uL (140-400); RED BLOOD COUNT 4.93 x10^6/uL (3.50-5.40); RED CELL DISTRIBUTION WIDTH 13.9 % (11.5-14.5); WHITE BLOOD COUNT 6.2 x10^3/uL (4.0-11.0)
[2019-01-06 20:25] LABS: ACETAMIN < 2.0 mcg/mL (10-30); SALIC 0.8 mg/dL (2.8-20.0)
[2019-01-06 20:30] LABS: ALBUMIN 3.2 g/dL (3.4-5.0); CALCIUM 9.2 mg/dL (8.5-10.1); TOTAL PROTEIN 7.4 g/dL (6.4-8.2)
[2019-01-06 20:31] LABS: DIRECT BILIRUBIN 0.1 mg/dL (0.0-0.2); GFR 59.7; MAGNESIUM 1.7 mg/dL (1.8-2.4); POTASSIUM 3.7 mmol/L (3.5-5.1); TOTAL BILIRUBIN 0.4 mg/dL (0.2-1.0)
[2019-01-06 21:16] LABS: SEDIMENTATION RATE 37 (0-25)
[2019-01-06 21:51] LABS: AMPHETAMINE/METHAMPHETAMINE NEG (NEG); BARBITURATES NEG (NEG); BENZODIAZEPINES NEG (NEG); CANNABINOIDS NEG (NEG); COCAINE NEG (NEG); METHADONE NEG (NEG); OPIATES NEG (NEG); PHENCYCLIDINE NEG (NEG)
[2019-01-06 22:01] LABS: BILIRUBIN,URINE NEG (NEG); CLARITY,URINE CLEAR; COLOR,URINE STRAW; GLUCOSE,URINE >=1000 mg/dL (NEG); NITRITE,URINE NEG (NEG); UROBILINOGEN,URINE 0.2 mg/dL (0.2 mg/dL)
[2019-01-06 22:02] LABS: BACTERIA,URINE 0 /HPF (0-FEW); RBC,URINE 0 /HPF (0-2); U PREG PATIENT NEGATIVE (NEG); WBC,URINE 0 /HPF (0-4)
[2019-01-06] MEDS ORDERED: IV RINGERS SOLUTION,LACTATED 1,000 ML IV ONE (23:30)
[2019-01-06] MEDS ORDERED: INSULIN REGULAR 100 UNIT/ML 3ML VIAL. IV ONE (23:30)
[2019-01-07] MEDS ORDERED: CYCLOBENZAPRINE 10 MG TABLET. ONE (00:23)
[2019-01-07] MEDS ORDERED: CYCLOBENZAPRINE 10 MG TABLET. PO ONE (00:30)
[2019-01-07] MEDS ORDERED: INSULIN REGULAR 100 UNIT/ML 3ML VIAL. IV ONE (02:15)
[2019-01-07 07:29] VITALS: BP 140/90
--- NOTE | 2019-01-07 10:18 | RAD ---
PORTABLE CHEST 1V Clinical Indication: Hypertension. Comparison: Two-view chest December 15, 2018. Findings: The cardiomediastinal silhouette is normal. Lungs are clear. There is no pneumothorax. No pleural effusion is appreciated. No acute bone abnormality. Redemonstrated chronic bilateral rib deformities. IMPRESSION: No acute cardiopulmonary process. Electronically signed by: Ken Jose MD (01/07/2019 10:15 AM) [facility]
== END 2019-01-07 09:00 | disposition short-term general hospital (02) ==
LOC: ER 19:28
DX: F32.9 Major depressive disorder, single episode, unspecified (principal); E87.1 Hypo-osmolality and hyponatremia; R70.0 Elevated erythrocyte sedimentation rate; E11.9 Type 2 diabetes mellitus without complications; F41.9 Anxiety disorder, unspecified; Z86.73 Personal history of transient ischemic attack (TIA), and cerebral infarction without residual deficits; Z88.1 Allergy status to other antibiotic agents; Z91.040 Latex allergy status; Z88.8 Allergy status to other drugs, medicaments and biological substances; Z91.041 Radiographic dye allergy status; Z91.013 Allergy to seafood; Z88.2 Allergy status to sulfonamides; Z88.0 Allergy status to penicillin; Z88.7 Allergy status to serum and vaccine
CPT/HCPCS: 36415; 71045; 80048; 80076; 80307; 80329; 81001; 81025; 82550; 82947; 83690; 83735; 83880; 84443; 84484; 85025; 85610; 85651; 85730; 93005; 96374; 96376; 99285; G0480; J1815; J7120; 82003

== ENCOUNTER 2019-05-05 14:28 | Emergency (ER) | payer MEDICAID, MEDICARE ==
[~2019-05-05] VITALS: Ht 172.7 cm; Wt 163.3 kg
[~2019-05-05 14:28] MED LIST changes: -BUPR300T4 PO; +BUPR300T92 PO; -MELA3TAB2 PO; +MELA3TAB56 PO
[2019-05-05 14:44] VITALS: BP 110/80
[2019-05-05] MEDS ORDERED: OXYC-325 PO (15:09)
[2019-05-05] MEDS ORDERED: CLIN300C8 PO (15:09)
--- NOTE | 2019-05-05 15:15 | PHYS DOC ---
Past History Past Medical History: Other Additional Past Medical Histor: herpesvirus Past Surgical History: No Surgical History Additional Past Surgical Histo: Eye, bilateral ankles, right thumb. 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 Allergies Allergies Allergies Coded Allergies Type Severity Reaction Last Updated Verified amoxicillin Allergy Severe 09/07/18 Yes black pepper Allergy Severe 09/07/18 Yes methylnaltrexone Allergy Severe 09/07/18 Yes onion Allergy Severe Anaphylaxis 09/08/18 Yes Latex, Natural Rubber Allergy Intermediate 09/07/18 Yes Penicillins Allergy Intermediate 09/07/18 Yes Sulfa (Sulfonamide Antibiotics) Allergy Intermediate 09/07/18 Yes hydrogen peroxide Allergy Intermediate 09/07/18 Yes lanolin Allergy Intermediate 09/07/18 Yes tetanus immune globulin Allergy Intermediate 09/07/18 No tomato Allergy Mild Nausea 09/08/18 Yes I S O L A T I O N *CONTACT* Allergy Unknown 09/07/18 Yes sumatriptan Adverse Reaction Severe N/V 09/07/18 Yes adhesive Adverse Reaction Intermediate Rash 09/07/18 Yes Physical Exam Physical Exam Constitutional: Well developed, well nourished, no acute distress, non-toxic appearance. [] HENT: poor dentition no jaw swelling visible cavity right upper molar no obvious abscess adjacent Abdomen: Bowel sounds normal, soft, no tenderness, no masses, no pulsatile masses. [] Skin: Warm, dry, no erythema, no rash. [] Back: No tenderness, no CVA tenderness. [] Extremities: No tenderness, no cyanosis, no clubbing, ROM intact, no edema. [] Neurologic: Alert and oriented X 3, normal motor function, normal sensory function, no focal deficits noted. [] Psychologic: Affect normal, judgement normal, mood normal. [] Current Patient Data Vital Signs Vital Signs Date Time Temp Pulse Resp B/P (MAP) Pulse Ox O2 Delivery O2 Flow Rate FiO2 05/05/19 14:44 98.8 85 18 99 Room Air EKG EKG [] Radiology/Procedures Radiology/Procedures [] Course & Med Decision Making Course & Med Decision Making Pertinent Labs and Imaging studies reviewed. (See chart for details) []toothache obvious cavity noted prior hx of gorlins i think reasoanble to give abx and pain control pt has dental follow up next week get imaging if pain not better then pt is agreable Lora Disclaimer Lora Disclaimer This electronic medical record was generated, in whole or in part, using a voice recognition dictation system. Departure Departure: Impression: Primary Impression: Toothache Disposition: HOME, SELF-CARE Condition: STABLE Patient Instructions: Toothache-Brief Additional Instructions: see your doctor in one week for jaw xrays if your pain is not better Scripts Ondansetron (ONDANSETRON ODT) 4 Mg Tab.rapdis 1 TAB PO PRN Q6-8HRS PRN for NAUSEA/VOMITING, #16 TAB Prov: LARISSA KEANE MD 05/05/19 Clindamycin Hcl (CLINDAMYCIN HCL) 300 Mg Capsule 1 CAP PO TID for tooth, #21 CAP Prov: LARISSA KEANE MD 05/05/19 Oxycodone HCl/Acetaminophen (Percocet 5-325 mg Tablet) 1 Each Tablet 1 TAB PO PRN BID PRN for PAIN MDD 2 Tablet(s) for 5 Days, #10 TAB 0 Refills Prov: LAIRSSA KEANE MD 05/05/19 LARISSA KEANE MD May 05, 2019 15:15
[2019-05-05] MEDS ORDERED: ONDA4TAB12 PO (15:23)
[2019-06-01] MEDS ORDERED: DOXY100C2 PO (08:47)
[2019-06-01] MEDS ORDERED: LACT1CAP19 PO (08:47)
== END 2019-05-05 15:20 | disposition home or self-care (01) ==
LOC: ER 14:28
DX: K02.9 Dental caries, unspecified (principal); Z88.1 Allergy status to other antibiotic agents; Z91.018 Allergy to other foods; Z88.0 Allergy status to penicillin; Z88.2 Allergy status to sulfonamides; Z91.041 Radiographic dye allergy status; Z88.7 Allergy status to serum and vaccine; Z88.8 Allergy status to other drugs, medicaments and biological substances
CPT/HCPCS: 99283

== ENCOUNTER 2019-05-13 03:14 | Inpatient (IN) | payer MEDICARE ==
[~2019-05-13] VITALS: Ht 172.7 cm; Wt 161.7 kg
[~2019-05-13 03:14] MED LIST changes: +CLIN300C8 PO; +OXYC-325 PO
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
[2019-05-13] MEDS ORDERED: IV RINGERS SOLUTION,LACTATED 1,000 ML IV SCH (03:45)
[2019-05-13] MEDS ORDERED: ASPIRIN 81 MG TAB.CHEW PO ONE (03:45)
--- NOTE | 2019-05-13 04:17 | RAD ---
EXAM: CHEST 1 VIEW History: Chest pain COMPARISON: 01/06/2019 TECHNIQUE: Single portable radiograph of the chest FINDINGS: The cardiac silhouette is unremarkable. The lungs are clear bilaterally. The costophrenic sulci are clear and well demarcated. Chronic bilateral rib deformities again identified. IMPRESSION: No radiographic evidence of an acute cardiopulmonary process. Electronically signed by: Yoel Nugent MD (05/13/2019 4:14 AM) [facility]
[2019-05-13] MEDS ORDERED: INSULIN REGULAR VIAL 150 UNIT in 0.9 % SODIUM CHLORIDE 150ML 150 ML IV ONE (04:30)
[2019-05-13] MEDS ORDERED: ONDANSETRON PF 4 MG/2 ML VIAL. IVP ONE ×2 (04:30→06:00)
[2019-05-13] MEDS ORDERED: 0.9 % SODIUM CHLORIDE 150ML 150 ML ONE (05:07)
[2019-05-13 05:08] LABS: BASO % 1 % (0-3); EOS # 0.1 x10^3/uL (0.0-0.7); EOS % 3 % (0-3); HEMATOCRIT 39.3 % (36.0-47.0); HEMOGLOBIN 12.7 g/dL (12.0-15.5); LYMPH # 1.4 x10^3/uL (1.0-4.8); LYMPH % 33 % (24-48); MEAN CORPUSCULAR HEMOGLOBIN 28 pg (25-35); MEAN CORPUSCULAR HGB CONC 32 g/dL (31-37); MEAN CORPUSCULAR VOLUME 87 fL (79-100); MONO # 0.4 x10^3/uL (0.0-1.1); MONO % 9 % (0-9); NEUT # 2.3 x10^3uL (1.8-7.7); NEUT % 54 % (31-73); PLATELET COUNT 153 x10^3/uL (140-400); RED BLOOD COUNT 4.53 x10^6/uL (3.50-5.40); RED CELL DISTRIBUTION WIDTH 14.5 % (11.5-14.5); WHITE BLOOD COUNT 4.3 x10^3/uL (4.0-11.0)
[2019-05-13 05:21] LABS: BARBITURATES NEG (NEG); BENZODIAZEPINES NEG (NEG); CANNABINOIDS NEG (NEG); COCAINE NEG (NEG); METHADONE NEG (NEG); OPIATES NEG (NEG); PHENCYCLIDINE NEG (NEG)
[2019-05-13 05:26] LABS: BACTERIA,URINE FEW /HPF (0-FEW); BILIRUBIN,URINE NEG (NEG); CLARITY,URINE HAZY; COLOR,URINE YELLOW; GLUCOSE,URINE >=1000 mg/dL (NEG); NITRITE,URINE NEG (NEG); SQUAMOUS EPITHELIAL CELL,UR MOD /LPF; UROBILINOGEN,URINE 0.2 mg/dL (0.2 mg/dL); WBC,URINE OCC /HPF (0-4)
[2019-05-13 05:27] LABS: YEAST,URINE PRESENT /HPF
[2019-05-13 05:30] LABS: AMPHETAMINE/METHAMPHETAMINE NEG (NEG)
[2019-05-13 05:32] LABS: ALBUMIN 3.2 g/dL (3.4-5.0); CALCIUM 8.8 mg/dL (8.5-10.1); CREATININE 0.9 mg/dL (0.6-1.0); DIRECT BILIRUBIN 0.1 mg/dL (0.0-0.2); GFR 67.4; MAGNESIUM 1.5 mg/dL (1.8-2.4); TOTAL BILIRUBIN 0.4 mg/dL (0.2-1.0); TOTAL PROTEIN 7.3 g/dL (6.4-8.2)
[2019-05-13 05:38] LABS: INFLUENZA A PATIENT NEGATIVE (NEGATIVE); INFLUENZA B PATIENT NEGATIVE (NEGATIVE)
--- NOTE | 2019-05-13 05:55 | NUR ---
Pt refused ABG, SHE STARTED SCREAMING AND SAID, STOP, STOP, I CANT DO THIS.
[2019-05-13] MEDS ORDERED: oxyCODONE/APAP 5/325 1 TAB TABLET PO ONE (06:00)
[2019-05-13] MEDS ORDERED: ACETAMINOPHEN 325 MG TABLET PO PRN (06:00)
[2019-05-13] MEDS ORDERED: ONDANSETRON PF 4 MG/2 ML VIAL. IV PRN (06:00)
[2019-05-13] MEDS ORDERED: oxyCODONE/APAP 5/325 1 TAB TABLET PO PRN (06:00)
[2019-05-13 06:20] LABS: SEDIMENTATION RATE 25 (0-25)
--- NOTE | 2019-05-13 07:34 | EKG ---
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
[2019-05-13] MEDS ORDERED: IPRATRPIUM/ALBUTEROL 0.5/2.5MG 3 ML NEBU. NEB SCH (08:00)
[2019-05-13 08:02] VITALS: BP 135/81
--- NOTE | 2019-05-13 08:03 | NUR ---
The patient, CHIQUITA BLAIR, 48 y/o, F admitted by CHIKA WARREN MD, was given written information regarding hospital policies, unit procedures and contact persons. Valuables were checked and left with pt. Pt denies any N/V at this time. Pt reports mentally she is struggling because she is supposed to see her son that she has not seen in 4 months.
[2019-05-13] MEDS ORDERED: IV NORMAL SALINE 1,000ML 1,000 ML IV SCH ×2 (09:00)
[2019-05-13] MEDS ORDERED: FLU VAX QS 2019-20 (36MOS+)/PF 0.5 ML SYRINGE. VAX IM ONE (10:15)
[2019-05-13] MEDS ORDERED: DEXTROSE 50% 25 GM / 50ML DISP.SYRIN. IV PRN (10:30)
[2019-05-13] MEDS: ENOXAPARIN ** NOTE DOSE ** SYRINGE SQ SCH ×2 (10:35→20:38)
[2019-05-13] MEDS: MAGNESIUM SULFATE 2GM 50 ML IV SCH (10:36)
--- NOTE | 2019-05-13 11:01 | RAD ---
Bilateral lower extremity venous ultrasound, : History: Leg pain Sonographic evaluation including grayscale, color flow and spectral Doppler analysis of the deep veins of the lower extremities was performed. The femoral and popliteal veins demonstrate normal compressibility and normal responses to distal augmentation maneuvers. Color imaging of those vessels shows no evidence of intraluminal clot. The visualized deep veins in both calves are patent. IMPRESSION: There is no sonographic evidence of deep vein thrombosis in either lower extremity. Electronically signed by: Ryan Stout MD (05/13/2019 10:57 AM) [facility]
--- NOTE | 2019-05-13 11:03 | RAD ---
Bilateral upper extremity venous Doppler. HISTORY: Bilateral arm pain Venous Doppler was used to evaluate the veins of the upper extremity. Real-time imaging with compression, color flow imaging and Doppler were utilized for evaluation. Both jugular veins are compressible and have flow with color imaging. Both subclavian veins have normal flow with color imaging and Doppler. The axillary, brachial, radial, and ulnar veins of both upper extremities is are compressible and have flow with color imaging. Basilic and cephalic veins of both upper extremities are compressible and have flow with color imaging. IMPRESSION: 1. Bilateral upper extremity venous Doppler negative for deep venous thrombosis. Electronically signed by: Ryan Stout MD (05/13/2019 11:00 AM) [facility]
[2019-05-13 11:21] VITALS: BP 118/77
[2019-05-13] MEDS ORDERED: PIOG15TA42 PO (12:00)
[2019-05-13] MEDS ORDERED: MULT-245 PO (12:06)
[2019-05-13] MEDS ORDERED: VILA10TA PO (12:06)
[2019-05-13] MEDS ORDERED: HYDR25TA PO (12:06)
[2019-05-13] MEDS ORDERED: DESV50TA PO (12:06)
[2019-05-13] MEDS ORDERED: PIND10TA PO (12:06)
[2019-05-13] MEDS ORDERED: SEMA0.25 SQ (12:08)
[2019-05-13] MEDS ORDERED: TOPI100T42 PO (12:08)
[2019-05-13] MEDS ORDERED: ACYC800T PO (12:09)
[2019-05-13] MEDS: INSULIN LISPRO 300 UNITS/3 ML VIAL. SQ SCH ×3 (12:28→17:09)
[2019-05-13] MEDS ORDERED: IBUPROFEN 800 MG TABLET. PO PRN (13:15)
[2019-05-13] MEDS ORDERED: ALBUTEROL SULFATE 2.5 MG/3 ML NEBU. INH PRN (13:15)
[2019-05-13] MEDS ORDERED: ALBUTEROL SULFATE 2.5 MG/3 ML NEBU. NEB PRN (13:30)
[2019-05-13] MEDS ORDERED: ONDANSETRON ODT 4 MG TAB.RAPDIS PO PRN (13:30)
[2019-05-13] MEDS: IBUPROFEN 600 MG TABLET. PO SCH ×2 (13:55→20:39)
[2019-05-13] MEDS: GABAPENTIN 300 MG CAPSULE. PO SCH ×2 (13:55→20:40)
[2019-05-13] MEDS: DICYCLOMINE HCL 10 MG CAPSULE PO SCH ×2 (13:55→20:40)
[2019-05-13] MEDS: oxyCODONE/APAP 5/325 1 TAB TABLET PO PRN (13:56)
[2019-05-13] MEDS ORDERED: STARTER PACK-hydrOXYzine 1 STARTPACK TABLET PO SCH (14:00)
[2019-05-13 16:00] VITALS: BP 132/79
[2019-05-13] MEDS: ACYCLOVIR 200 MG CAPSULE PO SCH (17:02)
[2019-05-13] MEDS: metFORMIN 500 MG TABLET PO SCH (17:02)
[2019-05-13 19:37] VITALS: BP 127/77
[2019-05-13] MEDS: TOPIRAMATE 100 MG TABLET. PO SCH (20:40)
[2019-05-13] MEDS: INSULIN GLARGINE SYRINGE. SQ SCH (20:51)
[2019-05-13] MEDS: VILAZODONE HYDROCHLORIDE 20 MG PO SCH (21:00)
[2019-05-13] MEDS: NYSTATIN TOPICAL POWDER 15GM BOTTLE. TP SCH (21:00)
[2019-05-13 22:43] VITALS: BP 111/71
[2019-05-14 05:26] VITALS: BP 116/75
--- NOTE | 2019-05-14 06:49 | NUR ---
Pt teary and holding cheek last night c/o infected tooth; also c/o sharp pains "up and down legs" intermittently. Slept soundly all night. Woke up "stiff and in pain" and moaning. C/o pounding edmondson, dizziness, and weakness in right hand that she's had for "a really long time and can't figure it out." Pt slightly unsteady but ambulatory with walker. Will continue to monitor.
[2019-05-14 07:13] LABS: BASO % 1 % (0-3); EOS # 0.2 x10^3/uL (0.0-0.7); EOS % 4 % (0-3); HEMATOCRIT 38.3 % (36.0-47.0); HEMOGLOBIN 12.8 g/dL (12.0-15.5); LYMPH # 1.4 x10^3/uL (1.0-4.8); LYMPH % 40 % (24-48); MEAN CORPUSCULAR HEMOGLOBIN 29 pg (25-35); MEAN CORPUSCULAR HGB CONC 33 g/dL (31-37); MEAN CORPUSCULAR VOLUME 85 fL (79-100); MONO # 0.2 x10^3/uL (0.0-1.1); MONO % 7 % (0-9); NEUT # 1.7 x10^3uL (1.8-7.7); NEUT % 48 % (31-73); PLATELET COUNT 161 x10^3/uL (140-400); RED BLOOD COUNT 4.49 x10^6/uL (3.50-5.40); RED CELL DISTRIBUTION WIDTH 15.2 % (11.5-14.5); WHITE BLOOD COUNT 3.5 x10^3/uL (4.0-11.0)
[2019-05-14 07:24] LABS: CREATININE 0.8 mg/dL (0.6-1.0); GFR 77.2; POTASSIUM 3.3 mmol/L (3.5-5.1)
[2019-05-14] MEDS: ACYCLOVIR 200 MG CAPSULE PO SCH (08:36)
[2019-05-14] MEDS: PIOGLITAZONE 15 MG TABLET. PO SCH (08:36)
[2019-05-14] MEDS: metFORMIN 500 MG TABLET PO SCH ×2 (08:36→17:37)
[2019-05-14] MEDS: TOPIRAMATE 100 MG TABLET. PO SCH ×2 (08:36→21:00)
[2019-05-14] MEDS: PANTOPRAZOLE 40 MG TABLET. PO SCH (08:37)
[2019-05-14] MEDS: ATENOLOL 50 MG TABLET PO SCH (08:37)
[2019-05-14] MEDS: GABAPENTIN 300 MG CAPSULE. PO SCH ×3 (08:37→21:00)
[2019-05-14] MEDS: FUROSEMIDE 20 MG TABLET PO SCH (08:37)
[2019-05-14] MEDS: DICYCLOMINE HCL 10 MG CAPSULE PO SCH ×3 (08:38→21:00)
[2019-05-14] MEDS: MULTIVITAMIN with MINERAL TABLET. PO SCH (08:38)
[2019-05-14] MEDS: ENOXAPARIN ** NOTE DOSE ** SYRINGE SQ SCH ×2 (08:38→21:00)
[2019-05-14] MEDS: CETIRIZINE HCL 10 MG TABLET PO SCH (08:38)
[2019-05-14] MEDS: IBUPROFEN 600 MG TABLET. PO SCH ×3 (08:38→21:00)
[2019-05-14] MEDS: NYSTATIN TOPICAL POWDER 15GM BOTTLE. TP SCH ×2 (08:39→21:00)
[2019-05-14] MEDS: LEVOTHYROXINE 137 MCG TABLET PO SCH (08:39)
[2019-05-14] MEDS: DESVENLAFAXINE SUCCINATE 25 MG TAB.ER.24H PO SCH (08:39)
[2019-05-14] MEDS: INSULIN LISPRO 300 UNITS/3 ML VIAL. SQ SCH ×6 (08:46→17:00)
[2019-05-14] MEDS ORDERED: ELECTROLYTE (NON-ICU) PROTOCOL MC PRN (09:15)
[2019-05-14] MEDS ORDERED: POTASSIUM CHLORIDE 20 MEQ TABLET.ER. PO ONE (10:00)
[2019-05-14] MEDS: MAGNESIUM SULFATE 2GM 50 ML IV SCH (10:48)
[2019-05-14 11:00] VITALS: BP 107/72
[2019-05-14] MEDS: oxyCODONE/APAP 5/325 1 TAB TABLET PO PRN (11:06)
[2019-05-14] MEDS ORDERED: ONDANSETRON PF 4 MG/2 ML VIAL. IVP PRN (14:30)
[2019-05-14] MEDS ORDERED: LORazepam 1 MG TABLET PO PRN (14:45)
[2019-05-14 15:00] VITALS: BP 113/68
[2019-05-14 19:53] VITALS: BP 133/84
[2019-05-14] MEDS: INSULIN GLARGINE SYRINGE. SQ SCH (20:30)
[2019-05-14] MEDS: VILAZODONE HYDROCHLORIDE 20 MG PO SCH (21:00)
[2019-05-14] MEDS ORDERED: [UNRECOGNIZED DRUG - OTHER] PO SCH (21:00)
[2019-05-14 23:05] VITALS: BP 110/67
[2019-05-15 05:39] VITALS: BP 111/78
[2019-05-15] MEDS: LEVOTHYROXINE 137 MCG TABLET PO SCH (05:45)
[2019-05-15 06:23] LABS: CALCIUM 8.3 mg/dL (8.5-10.1); CREATININE 0.7 mg/dL (0.6-1.0); GFR 90.1; POTASSIUM 3.9 mmol/L (3.5-5.1)
[2019-05-15] MEDS: INSULIN LISPRO 300 UNITS/3 ML VIAL. SQ SCH ×6 (08:00→17:00)
--- NOTE | 2019-05-15 08:19 | NUR ---
IP: patient has multiple negative nasla screens for MRSA, no longer requires contact precautions.
[2019-05-15] MEDS: MAGNESIUM SULFATE 2GM 50 ML IV SCH (08:42)
[2019-05-15] MEDS: metFORMIN 500 MG TABLET PO SCH ×2 (08:43→17:10)
[2019-05-15] MEDS: ENOXAPARIN ** NOTE DOSE ** SYRINGE SQ SCH (08:43)
[2019-05-15] MEDS: MULTIVITAMIN with MINERAL TABLET. PO SCH (08:43)
[2019-05-15] MEDS: ACYCLOVIR 200 MG CAPSULE PO SCH (08:43)
[2019-05-15] MEDS: ATENOLOL 50 MG TABLET PO SCH (08:44)
[2019-05-15] MEDS: FUROSEMIDE 20 MG TABLET PO SCH (08:44)
[2019-05-15] MEDS: PANTOPRAZOLE 40 MG TABLET. PO SCH (08:45)
[2019-05-15] MEDS: TOPIRAMATE 100 MG TABLET. PO SCH ×2 (08:45→20:58)
[2019-05-15] MEDS: IBUPROFEN 600 MG TABLET. PO SCH ×3 (08:45→20:58)
[2019-05-15] MEDS: DICYCLOMINE HCL 10 MG CAPSULE PO SCH ×3 (08:45→20:57)
[2019-05-15] MEDS: CETIRIZINE HCL 10 MG TABLET PO SCH (08:45)
[2019-05-15] MEDS: PIOGLITAZONE 15 MG TABLET. PO SCH (08:46)
[2019-05-15] MEDS: DESVENLAFAXINE SUCCINATE 25 MG TAB.ER.24H PO SCH (08:47)
[2019-05-15] MEDS: NYSTATIN TOPICAL POWDER 15GM BOTTLE. TP SCH ×2 (09:00→20:57)
[2019-05-15] MEDS: GABAPENTIN 300 MG CAPSULE. PO SCH ×4 (09:13→20:57)
[2019-05-15] MEDS: oxyCODONE/APAP 5/325 1 TAB TABLET PO PRN ×2 (09:14→17:12)
--- NOTE | 2019-05-15 10:00 | HP ---
ADMIT DATE: 05/13/2019 HISTORY OF PRESENT ILLNESS: A 48-year-old female came in through the Emergency Room and had recently been traveling down in [place] and been in and out of different facilities down there for Mental Health. The patient was admitted because she has severe pain all over her body. Her blood sugars were also markedly elevated, approximately 500. She was also low on her potassium and her sodium and multiple other complaints, where she was not able to function. As a result of this, the patient was admitted to the hospital for further evaluation and treatment of her multiplicity and complicated medical problems and also required IV fluids and hydration as well. PAST MEDICAL HISTORY: Right jaw surgery for a basal cell carcinoma nevoid; TIAs; headaches; heart murmurs; cardiac catheterizations; hypercholesterolemia; pneumonias; sleep apnea; cholecystectomy in 2019; hiatal hernia; morbid obesity; sexually transmitted disorders; osteoarthritis; degenerative disk disease; scoliosis; bilateral ankle symptoms with hardware; endocrine disorder; hypothyroidism; psychiatric PTSD; panic disorders; MDD, major depressive disorder's personality; bipolar disease; narcolepsy, skin cancer, and Gorlin syndrome. IMMUNIZATIONS: Tetanus, diphtheria ____ up-to-date. She has also had a history of C. diff. She has had a history of MRSA and developmental delay. The patient otherwise has history of a heart murmur, smoking, bipolar, and asthma. FAMILY HISTORY: Basal cell carcinoma in a brother. There is also a family history of diabetes, depression, allergies, and colon problems. ALLERGIES: LATEX, NATURAL RUBBER, PENICILLIN, SULFUR, ADHESIVES, AMOXICILLIN, BLACK PEPPER, and others ____. SOCIAL HISTORY: No smoking or drinking ____ hospitals. REVIEW OF SYSTEMS: Positive for leg cramps, generalized achiness all over the body, just unable to move, very crampy sensations. PHYSICAL EXAMINATION: VITAL SIGNS: The patient's blood pressure is 116/75, respiratory rate 20, pulse 84, and afebrile. GENERAL: The patient is alert and oriented and baseline for her. Some mild mental retardation. HEENT: The patient's head was atraumatic and normocephalic. Eyes: PERRLA without jaundice. Mouth and throat: Poor dentition. NECK: Supple, without JVD, carotid bruits, or thyromegaly. LUNGS: Diminished throughout, but clear. CARDIOVASCULAR: Regular sinus rhythm, S1 and S2. ABDOMEN: Markedly protuberant. EXTREMITIES: Legs show marked tenderness, there is +1 pitting edema, and as well has the multiple trigger points throughout the legs themselves. NEUROLOGIC: The patient is alert and oriented x 3. LABORATORY DATA: The patient's labs show white count of 3.5, hemoglobin and hematocrit of 12 and 38, potassium low at 3, sugar as high as 498 and has come down gradually. Magnesium low at 1.7. Albumin of 3.2. Thyroid elevated slightly at 7. Sodium low at 133. The patient continued to be monitored. We will replace her electrolytes. Try to adjust her pain medication and continue with PT and OT and make further evaluation on her. CHIKA WARREN MD DR: MOUNA/glenn JOB#: [id number] / [id number]
--- NOTE | 2019-05-15 10:00 | PN ---
DATE: SUBJECTIVE: The patient has been having severe spasms and cramps in her legs. She has in the past taken muscle relaxers, did not do her any good. She has also been taking, she says, quinine which seems to help her with that. Otherwise, patient complains of severe pain all over her body. The patient has been having multiple other problems of diarrhea and apparently, she has been in and out of several [facility] in [place]. She has numerous complaints. In any case, she seems to be doing a little bit better today outside of the cramping. OBJECTIVE: VITAL SIGNS: Blood pressure 160/75, respiratory rate ____, and afebrile. GENERAL: The patient is alert and oriented. LUNGS: Diminished, but clear. CARDIOVASCULAR: Stable. ABDOMEN: Soft, markedly protuberant. EXTREMITIES: No clubbing or cyanosis. Trace edema is noted in her legs. The patient otherwise continued to be monitored carefully to make further evaluation on her and try some quinine. Her potassium was a little bit low at 3.3. The magnesium was also low. She was given magnesium for electrolyte replacement. Influenza negative. Group A strep negative. Urine unremarkable. PLAN: We will continue to monitor the patient, accordingly make further evaluation on her as indicated per those results. CHIKA WARREN MD DR: MOUNA/glenn JOB#: [id number] / [id number]
[2019-05-15 10:50] VITALS: BP 118/76
--- NOTE | 2019-05-15 14:51 | NUR ---
Pharmacy called asking about 100 units of insulin ordered HS on patient. Notified Dr. Roberts, per 's orders, continue to administer 100 units of insulin d/t high blood sugars. Will continue to monitor and assess as ordered and appropiate.
[2019-05-15 14:52] VITALS: BP 118/76
--- NOTE | 2019-05-15 15:57 | NUR ---
Refaxed joel consult today to Dr. Carbajal/ [facility] per physician's request.
[2019-05-15 19:24] VITALS: BP 110/68
[2019-05-15] MEDS: VILAZODONE HYDROCHLORIDE 20 MG PO SCH (21:00)
[2019-05-15] MEDS: INSULIN GLARGINE SYRINGE. SQ SCH (21:04)
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
[2019-05-16] MEDS: LEVOTHYROXINE 137 MCG TABLET PO SCH (06:10)
[2019-05-16 06:15] VITALS: BP 127/78
[2019-05-16] MEDS: INSULIN LISPRO 300 UNITS/3 ML VIAL. SQ SCH ×4 (08:10→12:34)
[2019-05-16] MEDS: metFORMIN 500 MG TABLET PO SCH (08:55)
[2019-05-16] MEDS: GABAPENTIN 300 MG CAPSULE. PO SCH ×2 (08:55→12:51)
[2019-05-16] MEDS: ACYCLOVIR 200 MG CAPSULE PO SCH (08:55)
[2019-05-16] MEDS: CETIRIZINE HCL 10 MG TABLET PO SCH (08:55)
[2019-05-16] MEDS: ATENOLOL 50 MG TABLET PO SCH (08:56)
[2019-05-16] MEDS: PANTOPRAZOLE 40 MG TABLET. PO SCH (08:56)
[2019-05-16] MEDS: TOPIRAMATE 100 MG TABLET. PO SCH (08:56)
[2019-05-16] MEDS: FUROSEMIDE 20 MG TABLET PO SCH (08:56)
[2019-05-16] MEDS: MULTIVITAMIN with MINERAL TABLET. PO SCH (08:56)
[2019-05-16] MEDS: IBUPROFEN 600 MG TABLET. PO SCH ×2 (08:56→14:31)
[2019-05-16] MEDS: DICYCLOMINE HCL 10 MG CAPSULE PO SCH ×2 (08:56→14:31)
[2019-05-16] MEDS: DESVENLAFAXINE SUCCINATE 25 MG TAB.ER.24H PO SCH (08:57)
[2019-05-16] MEDS: PIOGLITAZONE 15 MG TABLET. PO SCH (08:57)
[2019-05-16] MEDS: NYSTATIN TOPICAL POWDER 15GM BOTTLE. TP SCH (08:57)
[2019-05-16 10:41] VITALS: BP 136/77
[2019-05-16] MEDS: oxyCODONE/APAP 5/325 1 TAB TABLET PO PRN (12:52)
--- NOTE | 2019-05-16 13:50 | NUR ---
Pt tearful today regarding family issues. Case Management currently trying to find placement for pt. Pt states "I have nowhere to go except to the homeless correction and they'll kick me out at 3:00pm. Pt asked if she could be left at the library. RN explained that we could not discharge her to the library and that case management working on placement. Pt continues to complain of bilateral Lower extremity shooting pain. Administered pain meds per as prescribed. Pt's blood sugar high at 0700 and at 1200, pt requested ice cream. RN explained to patient that real ice cream would not beneficial to her as her blood sugar has been high. Staff offered other alternatives such as sherbet or low-fat yogurt. Pt was ok with not receiving the ice cream. Will continue to treat, monitor, as indicated.
[2019-05-16 15:01] VITALS: BP 120/78
--- NOTE | 2019-05-16 16:16 | NUR ---
Discharge Note: CHIQUITA BLAIR [address] Discharge instructions and discharge home medications reviewed with Patient and a copy given. All questions have been answered and understanding verbalized. The following instructions and handouts were given: Get on the taxi to the library, take medications as prescribed. Discontinued lines and drains: peripheral iv removed, pressure dressing applied, no complications, catheter tip intact. Patient discharged to prior facility.
--- NOTE | 2019-05-16 16:18 | NUR ---
Pt's blood sugar continously high throughout shift. When telling pt she was discharged from hospital and giving her discharged instructions, pt started crying tell us that she had no place to go. Pt is homeless, RN and staff worked with pt to figure out where the best option for her to go was. Pt then called nurses' station, complaining of light headed nurse and sweating. BARRY Barlow witnessed pt pour cold water on own head. NET LEAD DEVELOPER checked blood sugar which was 49. Staff searched pt belongings and discovered three Insulin pens and mulitple medicines in pt's purse which has been with pt the entire hospital stay. Explained to pt that she should not be taking own insulin. RN and staff confiscated medicines, treated low blood with 12.5g DR via IV push. Pt refused to drink juice or milk. Staff then returned medications with Yen REDDY, and Loulou REDDY present.
--- NOTE | 2019-06-11 17:53 | DS ---
DATE OF DISCHARGE: 05/16/2019 HOSPITAL SUMMARY: The patient came in through the Emergency Room, been traveling to [place], been in and out of different facilities down there apparently Mental Health facilities. Her blood sugar was over 500. Her potassium was low. She had multiple other complaints baseline for her. The patient had a blood sugar brought down and apparently they have been according her brought down her medications. The patient made good progress during the rest of her hospitalization. The patient negative for any DVTs in both the upper and lower extremities and the patient had had a previous workup and it was negative. In any case, the patient made good progress and she was discharged home. IMPRESSION: Dehydration, hyperglycemia, blood sugar greater than 500, hypokalemia, hypomagnesemia, morbid obesity, multiple muscle spasms, noncompliance. PLAN: The patient will be discharged home. Follow up as an outpatient and continue to take her medications on a regular basis. CHIKA WARREN MD DR: MOUNA/glenn JOB#: [id number] / [id number]
[2019-06-12] MEDS ORDERED: NON FORMULARY ITEM (Semaglutide (Ozempic) 0.25 MG) SQ SCH (09:00)
== END 2019-05-16 16:28 | disposition home or self-care (01) | DRG 640 ==
LOC: ER 03:14 → ICU 03:45 → 1 SOUTH 14:45
PROVIDERS: ADMIT Family Medicine; ATTEND Family Medicine
DX: E87.1 Hypo-osmolality and hyponatremia (principal); E11.00 Type 2 diabetes mellitus with hyperosmolarity without nonketotic hyperglycemic-hyperosmolar coma (NKHHC); E44.0 Moderate protein-calorie malnutrition; Z68.43 Body mass index [BMI] 50.0-59.9, adult; E11.65 Type 2 diabetes mellitus with hyperglycemia; F31.9 Bipolar disorder, unspecified; M79.7 Fibromyalgia; I10 Essential (primary) hypertension; M19.90 Unspecified osteoarthritis, unspecified site; K21.9 Gastro-esophageal reflux disease without esophagitis; G89.29 Other chronic pain; G43.909 Migraine, unspecified, not intractable, without status migrainosus; I25.10 Atherosclerotic heart disease of native coronary artery without angina pectoris; J45.909 Unspecified asthma, uncomplicated; G47.30 Sleep apnea, unspecified; E66.01 Morbid (severe) obesity due to excess calories; F43.10 Post-traumatic stress disorder, unspecified; F41.0 Panic disorder [episodic paroxysmal anxiety]; E03.9 Hypothyroidism, unspecified; E78.00 Pure hypercholesterolemia, unspecified; E78.5 Hyperlipidemia, unspecified; Z91.19 Patient's noncompliance with other medical treatment and regimen; Z85.828 Personal history of other malignant neoplasm of skin; Z86.73 Personal history of transient ischemic attack (TIA), and cerebral infarction without residual deficits; Z90.49 Acquired absence of other specified parts of digestive tract; Z86.14 Personal history of Methicillin resistant Staphylococcus aureus infection; Z83.3 Family history of diabetes mellitus; Z81.8 Family history of other mental and behavioral disorders; Z80.8 Family history of malignant neoplasm of other organs or systems; Z82.5 Family history of asthma and other chronic lower respiratory diseases; Z88.0 Allergy status to penicillin; Z88.2 Allergy status to sulfonamides; Z88.7 Allergy status to serum and vaccine; Z88.8 Allergy status to other drugs, medicaments and biological substances; Z91.411 Personal history of adult psychological abuse; Z91.410 Personal history of adult physical and sexual abuse
CPT/HCPCS: 36415; 71045; 80048; 80076; 80307; 81001; 82550; 82947; 83690; 83735; 83880; 84443; 84484; 85025; 85379; 85610; 85651; 85730; 87070; 87641; 87804; 87880; 90471; 90686; 93005; 93970; 96361; 96365; 96366; 96375; 96376; J1650; J1815; J2405; J3475; J7120; 97110; 97530; 99285-25; J7030

== ENCOUNTER 2019-05-30 13:30 | Inpatient (IN) | payer MEDICARE ==
[~2019-05-30] VITALS: Ht 172.7 cm; Wt 156.9 kg
[2019-05-30] MEDS: VANCOMYCIN 2 GM in IV NORMAL SALINE 500ML 500 ML IV ONE ×2 (00:28→21:00)
[~2019-05-30 13:30] MED LIST changes: +ACYC800T PO; +DESV50TA PO; +HYDR25TA PO; +MULT-245 PO; +PIND10TA PO; +PIOG15TA42 PO; +SEMA0.25 SQ; +TOPI100T42 PO; +VILA10TA PO
[2019-05-30 13:52] VITALS: BP 137/51
[2019-05-30] MEDS ORDERED: ONDANSETRON PF 4 MG/2 ML VIAL. IVP PRN (14:00)
[2019-05-30 14:19] LABS: HEMOGLOBIN 13.6 g/dL (12.0-15.5); RED BLOOD COUNT 4.77 x10^6/uL (3.50-5.40); RED CELL DISTRIBUTION WIDTH 14.1 % (11.5-14.5); WHITE BLOOD COUNT 5.3 x10^3/uL (4.0-11.0)
[2019-05-30] MEDS: IV NORMAL SALINE 1,000ML 1,000 ML IV SCH (14:20)
[2019-05-30 14:46] LABS: ALBUMIN 3.3 g/dL (3.4-5.0); ALBUMIN/GLOBULIN RATIO 0.9 (1.0-1.7); C REACTIVE PROTEIN 14.7 mg/L (0-3.3); CALCIUM 8.9 mg/dL (8.5-10.1); CREATININE 0.8 mg/dL (0.6-1.0); GFR 77.2; TOTAL BILIRUBIN 0.4 mg/dL (0.2-1.0)
[2019-05-30 14:54] LABS: POTASSIUM 4.3 mmol/L (3.5-5.1)
--- NOTE | 2019-05-30 16:10 | RAD ---
EXAM: Chest, 2 views. HISTORY: Cough. COMPARISON: 05/13/2019 FINDINGS: 2 views of the chest are obtained. There is no infiltrate, pleural effusion or pneumothorax. The heart is normal in size. There are stable bilateral superior rib deformities. IMPRESSION: No acute pulmonary finding. Electronically signed by: Bia Veliz MD (05/30/2019 4:07 PM) [facility]
--- NOTE | 2019-05-30 16:53 | RAD ---
Examination: CT of the abdomen pelvis without contrast HISTORY: History of nausea, vomiting COMPARISON: 12/21/2018 TECHNIQUE: Axial CT images of the abdomen pelvis were performed without contrast. Coronal and sagittal reformats are performed Exposure: One or more of the following individualized dose reduction techniques were utilized for this examination: 1. Automated exposure control 2. Adjustment of the mA and/or kV according to patient size 3. Use of iterative reconstruction technique Findings: The bibasilar lungs are clear. No evidence of free air identified in the abdomen. There is diffuse decreased attenuation noted in the liver likely hepatic steatosis. The spleen, adrenals grossly appears unremarkable. Cholecystectomy clips identified. The stomach is mildly distended. The visualized pancreas grossly appears unremarkable. The small bowel is nondilated. Feces and gas noted in the colon. The urinary bladder is mildly distended. No evidence of hydronephrosis Moderate degenerative disease identified in the lumbar spine. Examination limited due to patient body habitus IMPRESSION: 1. Mild hepatic steatosis. 3. Cholecystectomy changes. Electronically signed by: Yoel Nugent MD (05/30/2019 4:50 PM) [id number]
[2019-05-30] MEDS ORDERED: ALBUTEROL SULFATE 2.5 MG/3 ML NEBU. INH PRN (18:30)
[2019-05-30] MEDS ORDERED: IBUPROFEN 800 MG TABLET. PO PRN (18:30)
[2019-05-30 19:29] VITALS: BP 115/73
[2019-05-30] MEDS ORDERED: DEXTROSE 50% 25 GM / 50ML DISP.SYRIN. IV PRN (19:45)
[2019-05-30] MEDS: NYSTATIN TOPICAL POWDER 15GM BOTTLE. TP SCH (21:00)
[2019-05-30] MEDS: VILAZODONE HYDROCHLORIDE 20 MG PO SCH (21:00)
[2019-05-30] MEDS ORDERED: PINDOLOL 10 MG PO SCH (21:00)
[2019-05-30] MEDS ORDERED: STARTER PACK-hydrOXYzine 1 STARTPACK TABLET PO SCH (21:00)
[2019-05-30] MEDS ORDERED: INSULIN LISPRO 300 UNITS/3 ML VIAL. SQ ONE (21:00)
[2019-05-30] MEDS ORDERED: OXAPROZIN 600 MG PO SCH (21:00)
[2019-05-30] MEDS: TOPIRAMATE 100 MG TABLET. PO SCH (21:25)
[2019-05-30] MEDS: GABAPENTIN 300 MG CAPSULE. PO SCH (21:25)
[2019-05-30] MEDS: DICYCLOMINE HCL 10 MG CAPSULE PO SCH (21:26)
[2019-05-30] MEDS ORDERED: ALBUTEROL SULFATE 2.5 MG/3 ML NEBU. NEB PRN (21:30)
[2019-05-30] MEDS ORDERED: IV NORMAL SALINE 500ML 500 ML ONE (22:26)
[2019-05-30] MEDS ORDERED: VANCOMYCIN 1 GM VIAL. ONE (22:27)
[2019-05-30 22:32] VITALS: BP 117/75
[2019-05-31 03:06] LABS: HEMOGLOBIN A1C 11.1 % (4.8-5.6)
[2019-05-31] MEDS: VANCOMYCIN PER PHARMACY MC PRN (03:14)
[2019-05-31 05:52] VITALS: BP 121/77
[2019-05-31] MEDS: IV NORMAL SALINE 1,000ML 1,000 ML IV SCH ×2 (06:29→15:32)
[2019-05-31] MEDS: INSULIN LISPRO 300 UNITS/3 ML VIAL. SQ SCH ×6 (07:14→16:31)
[2019-05-31] MEDS: metFORMIN 500 MG TABLET PO SCH ×2 (07:14→08:56)
[2019-05-31] MEDS: PANTOPRAZOLE 40 MG TABLET. PO SCH (07:30)
[2019-05-31] MEDS ORDERED: INSULIN LISPRO 300 UNITS/3 ML VIAL. SQ SCH (08:00)
[2019-05-31] MEDS: ONDANSETRON ODT 4 MG TAB.RAPDIS PO PRN (08:00)
[2019-05-31] MEDS: hydrOXYzine HCL 25 MG TABLET PO SCH ×3 (08:54→20:14)
[2019-05-31] MEDS: ACYCLOVIR 200 MG CAPSULE PO SCH (08:54)
[2019-05-31] MEDS: ATENOLOL 50 MG TABLET PO SCH (08:55)
[2019-05-31] MEDS: MULTIVITAMIN with MINERAL TABLET. PO SCH (08:55)
[2019-05-31] MEDS: CETIRIZINE HCL 10 MG TABLET PO SCH (08:55)
[2019-05-31] MEDS: GABAPENTIN 300 MG CAPSULE. PO SCH ×3 (08:55→20:13)
[2019-05-31] MEDS: FUROSEMIDE 20 MG TABLET PO SCH (08:55)
[2019-05-31] MEDS: DICYCLOMINE HCL 10 MG CAPSULE PO SCH ×3 (08:56→20:13)
[2019-05-31] MEDS: IBUPROFEN 600 MG TABLET. PO SCH ×4 (08:56→21:22)
[2019-05-31] MEDS: NYSTATIN TOPICAL POWDER 15GM BOTTLE. TP SCH ×2 (08:56→20:18)
[2019-05-31] MEDS: INSULIN GLARGINE SYRINGE. SQ SCH (08:56)
[2019-05-31] MEDS: TOPIRAMATE 100 MG TABLET. PO SCH ×2 (08:56→20:13)
[2019-05-31] MEDS: PIOGLITAZONE 15 MG TABLET. PO SCH (08:57)
[2019-05-31] MEDS: DESVENLAFAXINE 50 MG TAB.ER.24H. PO SCH (09:00)
[2019-05-31] MEDS ORDERED: LEVOTHYROXINE 137 MCG TABLET PO SCH (09:00)
[2019-05-31] MEDS: VANCOMYCIN 1.5 GM in IV NORMAL SALINE 500ML 500 ML IV SCH ×3 (09:17→20:39)
[2019-05-31] MEDS: oxyCODONE/APAP 5/325 1 TAB TABLET PO PRN ×2 (10:41→22:52)
[2019-05-31 10:46] VITALS: BP 115/76
--- NOTE | 2019-05-31 11:00 | PN ---
DATE: SUBJECTIVE: A 48-year-old female came in with nausea, vomiting, diarrhea and also an infection in her left antecubital area. She has been placed on IV antibiotic therapy and her diarrhea, nausea and vomiting has slowed down, her blood sugars are still very high. We are having to give her additional insulin on top of her sliding scale to control that, her A1c is 11. Otherwise, her blood pressure is 120/77, respiratory rate 16, pulse 68. She is afebrile, morbidly overweight 155 kilos. We will continue with IV antibiotic therapy and adjust her medications and try to get her blood sugar down and make further evaluation on her as indicated. CHIKA WARREN MD DR: MOUNA/glenn JOB#: [id number] / [id number]
[2019-05-31 15:03] VITALS: BP 104/72
[2019-05-31 19:36] VITALS: BP 114/74
[2019-05-31] MEDS: LACTOBACILLUS RHAMNOSUS GG 1 CAPSULE. PO SCH (20:14)
[2019-05-31] MEDS: VILAZODONE HYDROCHLORIDE 20 MG PO SCH (20:16)
[2019-05-31 22:52] VITALS: BP 108/71
[2019-06-01 05:13] VITALS: BP 105/71
[2019-06-01] MEDS: IV NORMAL SALINE 1,000ML 1,000 ML IV SCH (05:29)
[2019-06-01] MEDS: VANCOMYCIN 1.5 GM in IV NORMAL SALINE 500ML 500 ML IV SCH ×2 (05:29→12:35)
[2019-06-01] MEDS ORDERED: LEVOTHYROXINE 137 MCG TABLET PO SCH (06:00)
[2019-06-01] MEDS: LACTOBACILLUS RHAMNOSUS GG 1 CAPSULE. PO SCH (07:28)
[2019-06-01] MEDS: oxyCODONE/APAP 5/325 1 TAB TABLET PO PRN (07:28)
[2019-06-01] MEDS: hydrOXYzine HCL 25 MG TABLET PO SCH ×2 (07:28→13:24)
[2019-06-01] MEDS: GABAPENTIN 300 MG CAPSULE. PO SCH ×2 (07:28→13:24)
[2019-06-01] MEDS: metFORMIN 500 MG TABLET PO SCH (07:28)
[2019-06-01] MEDS: PIOGLITAZONE 15 MG TABLET. PO SCH (07:28)
[2019-06-01] MEDS: MULTIVITAMIN with MINERAL TABLET. PO SCH (07:29)
[2019-06-01] MEDS: CETIRIZINE HCL 10 MG TABLET PO SCH (07:29)
[2019-06-01] MEDS: IBUPROFEN 600 MG TABLET. PO SCH ×2 (07:29→13:25)
[2019-06-01] MEDS: ONDANSETRON ODT 4 MG TAB.RAPDIS PO PRN (07:29)
[2019-06-01] MEDS: DICYCLOMINE HCL 10 MG CAPSULE PO SCH ×2 (07:29→13:25)
[2019-06-01] MEDS: TOPIRAMATE 100 MG TABLET. PO SCH (07:29)
[2019-06-01] MEDS: ACYCLOVIR 200 MG CAPSULE PO SCH (07:29)
[2019-06-01] MEDS: FUROSEMIDE 20 MG TABLET PO SCH (07:30)
[2019-06-01] MEDS: DESVENLAFAXINE 50 MG TAB.ER.24H. PO SCH (07:30)
[2019-06-01] MEDS: PANTOPRAZOLE 40 MG TABLET. PO SCH (07:30)
[2019-06-01] MEDS: NYSTATIN TOPICAL POWDER 15GM BOTTLE. TP SCH (07:30)
[2019-06-01] MEDS: ATENOLOL 50 MG TABLET PO SCH (07:30)
[2019-06-01] MEDS: INSULIN LISPRO 300 UNITS/3 ML VIAL. SQ SCH ×4 (07:47→12:00)
[2019-06-01] MEDS ORDERED: LACT1CAP19 PO (08:47)
[2019-06-01] MEDS ORDERED: DOXY100C2 PO (08:47)
[2019-06-01] MEDS: INSULIN GLARGINE SYRINGE. SQ SCH (09:00)
[2019-06-01 11:04] VITALS: BP 102/67
[2019-06-01 12:52] LABS: VANC TR 27.4 mcg/mL (10.0-20.0)
[2019-06-01 13:44] LABS: CREATININE 0.9 mg/dL (0.6-1.0); GFR 67.4
[2019-06-01] MEDS: VANCOMYCIN PER PHARMACY MC PRN (14:08)
[2019-06-01 14:58] VITALS: BP 135/81
[2019-06-01] MEDS ORDERED: VANCOMYCIN RANDOM LEVEL. MC ONE (21:00)
[2019-06-29] MEDS ORDERED: NON FORMULARY ITEM (Semaglutide (Ozempic) 0.25 MG) SQ SCH (09:00)
== END 2019-06-01 15:13 | disposition home or self-care (01) | DRG 638 ==
LOC: 1 SOUTH 13:30
PROVIDERS: ADMIT Family Medicine; ATTEND Family Medicine
DX: E11.65 Type 2 diabetes mellitus with hyperglycemia (principal); L03.114 Cellulitis of left upper limb; F33.1 Major depressive disorder, recurrent, moderate; Z68.43 Body mass index [BMI] 50.0-59.9, adult; J06.9 Acute upper respiratory infection, unspecified; K52.9 Noninfective gastroenteritis and colitis, unspecified; K21.9 Gastro-esophageal reflux disease without esophagitis; E66.9 Obesity, unspecified; J45.909 Unspecified asthma, uncomplicated; Z79.899 Other long term (current) drug therapy; Z88.8 Allergy status to other drugs, medicaments and biological substances; E03.9 Hypothyroidism, unspecified; F60.3 Borderline personality disorder; F43.10 Post-traumatic stress disorder, unspecified; Z88.0 Allergy status to penicillin; Z91.040 Latex allergy status
CPT/HCPCS: 36415; 71046; 74176; 80053; 80202; 82150; 82565; 82947; 83036; 83690; 85027; 85651; 86140; 87086; 87186; J1815; J2405; J3370; J7040; Q0162; J7030

== ENCOUNTER 2019-07-19 15:35 | Emergency (ER) | payer MEDICARE ==
[~2019-07-19] VITALS: Ht 172.7 cm; Wt 160.0 kg
[~2019-07-19 15:35] MED LIST changes: +DOXY100C2 PO; +LACT1CAP19 PO; -VALA500T PO; +VALA500T9 PO
[2019-07-19] MEDS ORDERED: KETOROLAC 15 MG/ML VIAL. IVP ONE (16:00)
[2019-07-19] MEDS ORDERED: IV NORMAL SALINE 1,000ML 1,000 ML IV ONE (16:00)
[2019-07-19] MEDS ORDERED: FAMOTIDINE 20 MG/2 ML VIAL IVP ONE (16:00)
[2019-07-19] MEDS ORDERED: ACETAMINOPHEN 500 MG TABLET PO ONE (16:00)
[2019-07-19] MEDS ORDERED: ONDANSETRON PF 4 MG/2 ML VIAL. IVP ONE (16:00)
--- NOTE | 2019-07-19 16:22 | PHYS DOC ---
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 Patient states that cough started on Wednesday, July 17 and has been constant since. She describes it as a nonproductive cough. She does have some throat tightening, chest discomfort, and shortness of breath associated with the cough. She saw her PCP yesterday who diagnosed her with upper respiratory infection and prescribed a 10 day course of doxycycline. She stated that she received the first dose last night. She attempted to take her morning medications and immediately became nauseous and vomited. She has since vomited 6 times since 0900 this morning. She denies any hematemesis. She does have generalized upper abdominal pain that she states is secondary to vomiting. Her son was with her over the weekend and had similar symptoms of cough and rhinorrhea. (ANTOINE RUBIN DO) Review of Systems Review of Systems Constitutional: Reports fever, chills, and body aches HENT: Reports rhinorrhea and sore throat Respiratory: Reports cough and shortness of breath Cardiovascular: Reports chest discomfort/tightness, denies palpitations GI: Reports abdominal pain, nausea, and vomiting : Denies dysuria or hematuria Integument: Denies rash, reports skin lesions secondary to skin picking Complete systems were reviewed and found to be within normal limits, except as documented in this note. (ANTOINE RUBIN DO) Family History Family History No pertinent family history (ANTOINE RUBIN DO) Allergies Allergies Allergies Coded Allergies Type Severity Reaction Last Updated Verified amoxicillin Allergy Severe 05/13/19 Yes black pepper Allergy Severe 05/13/19 Yes methylnaltrexone Allergy Severe 05/13/19 Yes onion Allergy Severe Anaphylaxis 05/13/19 Yes Latex, Natural Rubber Allergy Intermediate 05/13/19 Yes Penicillins Allergy Intermediate 05/13/19 Yes Sulfa (Sulfonamide Antibiotics) Allergy Intermediate 05/13/19 Yes hydrogen peroxide Allergy Intermediate 05/13/19 Yes lanolin Allergy Intermediate 05/13/19 Yes tetanus immune globulin Allergy Intermediate 05/13/19 No tomato Allergy Mild Nausea 05/13/19 Yes sumatriptan Adverse Reaction Severe N/V 05/13/19 Yes adhesive Adverse Reaction Intermediate Rash 05/13/19 Yes (ANTOINE RUBIN DO) Physical Exam Physical Exam Constitutional: Well developed, well nourished, no acute distress, uncomfortable appearance, obese HENT: Normocephalic, atraumatic, oropharynx dry Eyes: EOMI, conjunctiva normal, no discharge Neck: Normal range of motion, no tenderness, supple Cardiovascular: Heart rate rapid, regular rhythm Lungs & Thorax: Bilateral breath sounds clear to auscultation, no wheezing Abdomen: Soft, generalized tenderness to palpation in upper abdomen Skin: Warm, dry, no erythema, multiple lesions consistent with reported skin picking Extremities: ROM intact, bilateral lower extremity nonpitting edema and tenderness to palpation Neurologic: Alert and oriented, normal motor function, normal sensory function, no focal deficits noted Psychologic: Affect normal, judgment normal (ANTOINE RUBIN DO) EKG EKG 07/19/2019 @1634 Sinus tachycardia with a heart rate of [address] elevations noted (ANTOINE RUBIN DO) Radiology/Procedures Radiology/Procedures PROCEDURE: CHEST PA & LATERAL EXAM: AP View of the chest DATE: 07/19/2019 3:57 PM INDICATION: Cough, URI symptoms COMPARISON: 05/30/2019 FINDINGS: The heart is not enlarged. Mediastinal and hilar contours are normal. No focal parenchymal airspace opacity. No pleural effusion or pneumothorax. Bilateral rib deformities are grossly stable. IMPRESSION: 1. No radiographic evidence for acute cardiopulmonary process. Electronically signed by: Magdaleno Fisher MD (07/19/2019 4:24 PM) [facility] (ANTOINE RUBIN DO) Radiology/Procedures [address] [address] IMAGING REPORT Signed PATIENT: CHIQUITA BLAIR ACCOUNT: [id number] : 1970 LOCATION: ER AGE: 48 SEX: F EXAM STATUS: REG ER ORD. PHYSICIAN: ANTOINE RUBIN DO REASON: cough, URI symptoms PROCEDURE: CHEST PA & LATERAL EXAM: AP View of the chest DATE: 07/19/2019 3:57 PM INDICATION: Cough, URI symptoms COMPARISON: 05/30/2019 FINDINGS: The heart is not enlarged. Mediastinal and hilar contours are normal. No focal parenchymal airspace opacity. No pleural effusion or pneumothorax. Bilateral rib deformities are grossly stable. IMPRESSION: 1. No radiographic evidence for acute cardiopulmonary process. Electronically signed by: Magdaleno Fisher MD (07/19/2019 4:24 PM) [facility] DICTATED AND SIGNED BY: MAGDALENO FISHER MD DATE: 07/19/19 [id number] CC: CHIKA WARREN MD; ANTOINE RUBIN DO ~ (LIVIER MORE MD) Course & Med Decision Making Course & Med Decision Making Pertinent Labs and Imaging studies reviewed. (See chart for details) She is a 48-year-old female who presented to the ED with cough, fever, shortness of breath, and nausea/vomiting. Her cough and shortness of breath started July 17 and has been constant since that time. It is a nonproductive cough and has shortness of breath associated with it. She was seen by her PCP yesterday and diagnosed with an upper respiratory infection and given a 10 day course of doxycycline. She received the first dose last night. She was unable to receive her second dose this morning due to nausea and vomiting shortly after taking her morning medications. She stated that her son had similar symptoms over the weekend. She did receive a flu shot. She also has chest tightness/discomfort she states is secondary to cough. She was seen in the ED and worked up for an infectious respiratory infections versus asthma exacerbation versus cardiac causes of chest discomfort. She was febrile in the ED with a temperature of 103 Fahrenheit. Labs obtained and pending. A chest x-ray was ordered and showed no acute cardiopulmonary process, EKG was performed to rule out any acute DE causes of chest discomfort and shows no sinus tachycardia with a heart rate of 107 beats per minutes with no ST elevations. 1800: Influenza nasal swab was negative, urine showed yeast present, Diflucan ordered. Other labs currently pending, handoff to Dr. More for further evaluation and final disposition. Discussed current findings and plan with patient, who acknowledges understanding and agreement. (ANTOINE RUBIN DO) Course & Med Decision Making Impression: 1. Viral Syndrome 2. Hypokalemia magnesium 1.5 3. Leukopenia 0.6 4. Thrombocytopenia 126 5 Diabetes glucose 345 6. Malnutrition albumin 3.0 7. Bronchitis 8. Exposure to Son- influenza Patient to continue her doxycycline. Patient take a Diflucan tablet after she completes her doxycycline. We'll start patient on Tamiflu 75 mg a day. For prophylaxis since she has exposures to her son who has influenza. Patient remain on a clear fluid diet if actively vomiting no milk.products. No solids. Continue to use MDI as directed. Better diet control for glucose levels. Pt currently declines admission. Tylenol and ibuprofen for discomfort and fever. (LIVIER MORE MD) Dragon Disclaimer Dragon Disclaimer This electronic medical record was generated, in whole or in part, using a voice recognition dictation system. (ANTOINE RUBIN DO) Departure Departure: Impression: Primary Impression: Upper respiratory infection Additional Impressions: Yeast cystitis Nausea & vomiting Fever Disposition: HOME/RESIDENCE PRIOR TO ADM Referrals: CHIKA WARREN MD (PCP) Scripts Oseltamivir Phosphate (TAMIFLU) 75 Mg Capsule 75 MG PO DAILY for Exposure Influ for 10 Days, #10 CAP Prov: LIVIER MORE MD 07/19/19 Fluconazole (DIFLUCAN) 100 Mg Tablet 100 MG PO DAILY for uti for 3 Days, #3 TAB Prov: LIVIER MORE MD 07/19/19 Dragon Disclaimer This chart was dictated in whole or in part using Voice Recognition software in a busy, high-work load, and often noisy Emergency Department environment. It may contain unintended and wholly unrecognized errors or omissions. (LIVIER MORE MD) Problem Qualifiers Primary Impression: Upper respiratory infection URI type: unspecified URI Qualified Codes: J06.9 - Acute upper respiratory infection, unspecified Additional Impressions: Nausea & vomiting Vomiting type: unspecified Vomiting Intractability: non-intractable Qualified Codes: R11.2 - Nausea with vomiting, unspecified Fever Fever type: unspecified Qualified Codes: R50.9 - Fever, unspecified ANTOINE RUBIN DO Jul 19, 2019 16:22 LIVIER MORE MD Jul 19, 2019 18:09
--- NOTE | 2019-07-19 16:27 | RAD ---
EXAM: AP View of the chest DATE: 07/19/2019 3:57 PM INDICATION: Cough, URI symptoms COMPARISON: 05/30/2019 FINDINGS: The heart is not enlarged. Mediastinal and hilar contours are normal. No focal parenchymal airspace opacity. No pleural effusion or pneumothorax. Bilateral rib deformities are grossly stable. IMPRESSION: 1. No radiographic evidence for acute cardiopulmonary process. Electronically signed by: Magdaleno Maddox MD (07/19/2019 4:24 PM) ALONSO
[2019-07-19 17:02] LABS: BILIRUBIN,URINE NEG (NEG); CLARITY,URINE HAZY; COLOR,URINE YELLOW; GLUCOSE,URINE 500 mg/dL (NEG); NITRITE,URINE NEG (NEG); UROBILINOGEN,URINE 0.2 mg/dL (0.2 mg/dL)
[2019-07-19 17:03] LABS: BACTERIA,URINE 0 /HPF (0-FEW); SQUAMOUS EPITHELIAL CELL,UR FEW /LPF; U PREG PATIENT NEGATIVE (NEG); WBC,URINE 0 /HPF (0-4); YEAST,URINE PRESENT /HPF
[2019-07-19 17:08] LABS: INFLUENZA A PATIENT NEGATIVE (NEGATIVE); INFLUENZA B PATIENT NEGATIVE (NEGATIVE)
--- NOTE | 2019-07-19 17:27 | EKG ---
[address] [address] Test Date: 2019-07-19 Test Time: 16:34:57 Pat Name: CHIQUITA BLAIR Department: Room: Gender: F [employer] Of [employer]: : 1970 Requested By: ANTOINE RUBIN Order Number: [id number] Reading MD: Measurements Intervals [place] Rate: 107 P: 0 ND: 132 QRS: 88 QRSD: 92 T: 37 QT: 336 QTc: 454 Interpretive Statements SINUS TACHYCARDIA NO SPECIFIC ECG ABNORMALITIES RI6.01 No previous ECG available for comparison
[2019-07-19] MEDS ORDERED: FLUCONAZOLE 100 MG TABLET. PO ONE (18:00)
[2019-07-19 18:22] LABS: BASO % 0 % (0-3); EOS % 1 % (0-3); HEMATOCRIT 38.1 % (36.0-47.0); HEMOGLOBIN 12.6 g/dL (12.0-15.5); LYMPH # 0.3 x10^3/uL (1.0-4.8); LYMPH % 11 % (24-48); MEAN CORPUSCULAR HEMOGLOBIN 28 pg (25-35); MEAN CORPUSCULAR HGB CONC 33 g/dL (31-37); MEAN CORPUSCULAR VOLUME 86 fL (79-100); MONO # 0.4 x10^3/uL (0.0-1.1); MONO % 15 % (0-9); NEUT # 1.9 x10^3uL (1.8-7.7); NEUT % 74 % (31-73); PLATELET COUNT 126 x10^3/uL (140-400); RED BLOOD COUNT 4.44 x10^6/uL (3.50-5.40); RED CELL DISTRIBUTION WIDTH 13.9 % (11.5-14.5); WHITE BLOOD COUNT 2.6 x10^3/uL (4.0-11.0)
[2019-07-19 18:24] LABS: CALCIUM 8.4 mg/dL (8.5-10.1); CREATININE 0.9 mg/dL (0.6-1.0); GFR 67.4; POTASSIUM 3.9 mmol/L (3.5-5.1)
[2019-07-19 18:30] LABS: ALBUMIN/GLOBULIN RATIO 0.8 (1.0-1.7); MAGNESIUM 1.5 mg/dL (1.8-2.4); TOTAL BILIRUBIN 0.4 mg/dL (0.2-1.0); TOTAL PROTEIN 6.7 g/dL (6.4-8.2)
[2019-07-19] MEDS ORDERED: MAGNESIUM HYDROXIDE 2,400 MG/30 ML ORAL.SUSP. PO ONE (19:30)
[2019-07-19] MEDS ORDERED: OSEL75CA PO (19:38)
[2019-07-19] MEDS ORDERED: FLUC100T7 PO (19:38)
[2019-07-19] MEDS ORDERED: OSELTAMIVIR 75 MG CAPSULE PO ONE (19:45)
[2019-07-19 20:07] VITALS: BP 133/77
== END 2019-07-19 19:52 | disposition home or self-care (01) ==
LOC: ER 15:35 → EDBD 15:35 → ER 19:52
DX: J06.9 Acute upper respiratory infection, unspecified (principal); B34.9 Viral infection, unspecified; N30.90 Cystitis, unspecified without hematuria; B96.89 Other specified bacterial agents as the cause of diseases classified elsewhere; E46 Unspecified protein-calorie malnutrition; Z68.43 Body mass index [BMI] 50.0-59.9, adult; E87.6 Hypokalemia; D69.6 Thrombocytopenia, unspecified; J45.909 Unspecified asthma, uncomplicated; E11.9 Type 2 diabetes mellitus without complications; Z88.1 Allergy status to other antibiotic agents; Z88.0 Allergy status to penicillin; Z91.018 Allergy to other foods; Z88.2 Allergy status to sulfonamides; Z88.8 Allergy status to other drugs, medicaments and biological substances
CPT/HCPCS: 36415; 71046; 80053; 81001; 81025; 82553; 83605; 83690; 83735; 83880; 84484; 85025; 87804; 93005; 96361; 96374; 96375; 99285; J1885; J2405; J3490; J7030

== ENCOUNTER 2019-08-12 15:14 | Inpatient (IN) | payer MEDICARE ==
[~2019-08-12] VITALS: Ht 172.7 cm; Wt 152.0 kg
[~2019-08-12 15:14] MED LIST changes: +MELA3TAB4 PO; -MELA3TAB56 PO
[2019-08-12] MEDS ORDERED: IV NORMAL SALINE 1,000ML 1,000 ML IV SCH (15:57)
[2019-08-12] MEDS ORDERED: ONDANSETRON PF 4 MG/2 ML VIAL. IVP ONE (16:00)
[2019-08-12 16:38] LABS: ALBUMIN 3.4 g/dL (3.4-5.0); ALBUMIN/GLOBULIN RATIO 0.9 (1.0-1.7); CALCIUM 9.3 mg/dL (8.5-10.1); CREATININE 1.2 mg/dL (0.6-1.0); GFR 48.4; MAGNESIUM 1.9 mg/dL (1.8-2.4); TOTAL BILIRUBIN 0.4 mg/dL (0.2-1.0); TOTAL PROTEIN 7.2 g/dL (6.4-8.2)
[2019-08-12 16:39] LABS: BASO # 0.1 x10^3/uL (0.0-0.2); BASO % 1 % (0-3); EOS # 0.1 x10^3/uL (0.0-0.7); EOS % 3 % (0-3); HEMATOCRIT 39.8 % (36.0-47.0); HEMOGLOBIN 13.2 g/dL (12.0-15.5); LYMPH # 1.4 x10^3/uL (1.0-4.8); LYMPH % 30 % (24-48); MEAN CORPUSCULAR HEMOGLOBIN 28 pg (25-35); MEAN CORPUSCULAR HGB CONC 33 g/dL (31-37); MEAN CORPUSCULAR VOLUME 85 fL (79-100); MONO # 0.4 x10^3/uL (0.0-1.1); MONO % 9 % (0-9); NEUT # 2.7 x10^3uL (1.8-7.7); NEUT % 57 % (31-73); PLATELET COUNT 154 x10^3/uL (140-400); RED BLOOD COUNT 4.68 x10^6/uL (3.50-5.40); RED CELL DISTRIBUTION WIDTH 13.7 % (11.5-14.5); WHITE BLOOD COUNT 4.8 x10^3/uL (4.0-11.0)
[2019-08-12] MEDS ORDERED: INSULIN REGULAR 100 UNIT/ML 3ML VIAL. IV ONE (16:45)
[2019-08-12] MEDS ORDERED: INSULIN REGULAR VIAL 100 UNIT in IV NORMAL SALINE 100ML 100 ML IV ONE (16:45)
[2019-08-12 16:49] LABS: BILIRUBIN,URINE NEG (NEG); CLARITY,URINE CLEAR; COLOR,URINE YELLOW; GLUCOSE,URINE >=1000 mg/dL (NEG); NITRITE,URINE NEG (NEG); UROBILINOGEN,URINE 0.2 mg/dL (0.2 mg/dL)
[2019-08-12 16:53] LABS: BACTERIA,URINE FEW /HPF (0-FEW); RBC,URINE RARE /HPF (0-2); SQUAMOUS EPITHELIAL CELL,UR OCC /LPF; WBC,URINE RARE /HPF (0-4); YEAST,URINE PRESENT /HPF
[2019-08-12] MEDS ORDERED: IV NORMAL SALINE 100ML 100 ML ONE (16:53)
--- NOTE | 2019-08-12 17:22 | RAD ---
CHEST PA LATERAL History: Cough Comparison: July 19, 2019 Findings: No consolidation or pleural effusion. Normal heart size. No pneumothorax. Deformity of the upper chest bilaterally, unchanged. Impression: 1. No acute cardiopulmonary process. Electronically signed by: Edgardo Ho DO (08/12/2019 5:19 PM) [id number]
--- NOTE | 2019-08-12 17:43 | PHYS DOC ---
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 Patient states she has had frequent episodes of vomiting for the last 2 days and since yesterday had several episodes of nonbloody diarrhea with lower abdominal cramping pain. Patient stated she has had a chronic cough and wheezing for one month after she diagnosed with influenza at that did not get better with home inhaler. Patient denies fever and chills, urinary symptom, sick contact. Patient had blood sugar of more than 500 by EMS. Review of Systems Review of Systems Constitutional: Denies fever or chills [] Eyes: Denies change in visual acuity, redness, or eye pain [] HENT: Denies nasal congestion or sore throat [] Respiratory: Reports cough and shortness of breath Cardiovascular: No additional information not addressed in HPI [] GI: Reports abdominal pain, nausea, vomiting, diarrhea : Denies dysuria or hematuria [] Musculoskeletal: Denies back pain or joint pain [] Integument: Denies rash or skin lesions [] Neurologic: Denies headache, focal weakness or sensory changes [] Endocrine: Denies polyuria or polydipsia [] All other systems were reviewed and found to be within normal limits, except as documented in this note. Current Medications Current Medications Current Medications Medications (Trade) Dose Ordered Sig/Carlie Start Time Stop Time Status Last Admin Dose Admin Insulin Human Regular (HumuLIN R VIAL) 10 unit 1X ONCE 08/12/19 16:45 08/12/19 16:46 DC 08/12/19 17:10 10 UNIT Insulin Human Regular 100 unit/ Sodium Chloride 101 ml @ 0 mls/hr 1X ONCE 08/12/19 16:45 08/12/19 16:46 DC 08/12/19 17:11 10 MLS/HR Ondansetron HCl (Zofran) 4 mg 1X ONCE 08/12/19 16:00 08/12/19 16:01 DC 3/14/20 16:41 4 MG Sodium Chloride 1,000 ml @ 100 mls/hr Q10H 08/12/19 17:27 08/13/19 17:26 Allergies Allergies Allergies Coded Allergies Type Severity Reaction Last Updated Verified amoxicillin Allergy Severe 05/13/19 Yes black pepper Allergy Severe 05/13/19 Yes methylnaltrexone Allergy Severe 05/13/19 Yes onion Allergy Severe Anaphylaxis 05/13/19 Yes Latex, Natural Rubber Allergy Intermediate 05/13/19 Yes Penicillins Allergy Intermediate 05/13/19 Yes Sulfa (Sulfonamide Antibiotics) Allergy Intermediate 05/13/19 Yes hydrogen peroxide Allergy Intermediate 05/13/19 Yes lanolin Allergy Intermediate 05/13/19 Yes tetanus immune globulin Allergy Intermediate 05/13/19 No tomato Allergy Mild Nausea 05/13/19 Yes sumatriptan Adverse Reaction Severe N/V 05/13/19 Yes adhesive Adverse Reaction Intermediate Rash 05/13/19 Yes Physical Exam Physical Exam Constitutional: Well nourished, mild distress, non-toxic appearance, morbidly obese. [] HENT: Normocephalic, atraumatic. Eyes: PERRLA, EOMI, conjunctiva normal, no discharge. [] Neck: Normal range of motion, no tenderness, supple, no stridor. [] Cardiovascular:Heart rate regular rhythm, no murmur [] Lungs & Thorax: Bilateral breath sounds clear to auscultation [] Abdomen: Bowel sounds normal, soft, no tenderness, no masses, no pulsatile masses. [] Skin: Warm, dry, no erythema, no rash. [] Back: No tenderness, no CVA tenderness. [] Extremities: No tenderness, no cyanosis, no clubbing, ROM intact, no edema. [] Neurologic: Alert and oriented X 3, no focal deficits noted. [] Psychologic: Affect anxious, judgement normal, mood normal. [] Current Patient Data Vital Signs Vital Signs Date Time Temp Pulse Resp B/P (MAP) Pulse Ox O2 Delivery O2 Flow Rate FiO2 08/12/19 17:28 83 20 140/87 (104) 98 Room Air Lab Results Laboratory Tests Test 08/12/19 15:55 08/12/19 16:04 08/12/19 16:22 08/12/19 16:35 Prothrombin Time 9.6 SEC (9.4-11.4) Prothrombin Time INR 0.9 (0.9-1.1) Urine Collection Type Unknown Urine Color Yellow Urine Clarity Clear Urine pH 5.0 Urine Specific [place] <=1.005 Urine Protein Neg (NEG-TRACE) Urine Glucose (UA) >=1000 mg/dL (NEG) Urine Ketones (Stick) Trace mg/dL (NEG) Urine Blood Neg (NEG) Urine Nitrite Neg (NEG) Urine Bilirubin Neg (NEG) Urine Urobilinogen Dipstick 0.2 mg/dL (0.2 mg/dL) Urine Leukocyte Esterase Neg (NEG) Urine RBC Rare /HPF (0-2) Urine WBC Rare /HPF (0-4) Urine Squamous Epithelial Cells Occ /LPF Urine Bacteria Few /HPF (0-FEW) Urine Yeast Present /HPF Sodium Level 130 mmol/L (136-145) L Potassium Level 4.0 mmol/L (3.5-5.1) Chloride Level 93 mmol/L (98-107) L Carbon Dioxide Level 27 mmol/L (21-32) Anion Gap 10 (6-14) Blood Urea Nitrogen 11 mg/dL (7-20) Creatinine 1.2 mg/dL (0.6-1.0) H Estimated GFR (Cockcroft-Gault) 48.4 BUN/Creatinine Ratio 9 (6-20) Glucose Level 674 mg/dL (70-99) *H Calcium Level 9.3 mg/dL (8.5-10.1) Magnesium Level 1.9 mg/dL (1.8-2.4) Total Bilirubin 0.4 mg/dL (0.2-1.0) Aspartate Amino Transferase (AST) 33 U/L (15-37) Alanine Aminotransferase (ALT) 33 U/L (14-59) Alkaline Phosphatase 63 U/L (46-116) Total Protein 7.2 g/dL (6.4-8.2) Albumin 3.4 g/dL (3.4-5.0) Albumin/Globulin Ratio 0.9 (1.0-1.7) L Lipase 191 U/L (73-393) Acetone Level Sm pos (NEG) Glucose (Fingerstick) 596 mg/dL (70-99) *H White Blood Count 4.8 x10^3/uL (4.0-11.0) Red Blood Count 4.68 x10^6/uL (3.50-5.40) Hemoglobin 13.2 g/dL (12.0-15.5) Hematocrit 39.8 % (36.0-47.0) Mean Corpuscular Volume 85 fL (79-100) Mean Corpuscular Hemoglobin 28 pg (25-35) Mean Corpuscular Hemoglobin Concent 33 g/dL (31-37) Red Cell Distribution Width 13.7 % (11.5-14.5) Platelet Count 154 x10^3/uL (140-400) Neutrophils (%) (Auto) 57 % (31-73) Lymphocytes (%) (Auto) 30 % (24-48) Monocytes (%) (Auto) 9 % (0-9) Eosinophils (%) (Auto) 3 % (0-3) Basophils (%) (Auto) 1 % (0-3) Neutrophils # (Auto) 2.7 x10^3uL (1.8-7.7) Lymphocytes # (Auto) 1.4 x10^3/uL (1.0-4.8) Monocytes # (Auto) 0.4 x10^3/uL (0.0-1.1) Eosinophils # (Auto) 0.1 x10^3/uL (0.0-0.7) Basophils # (Auto) 0.1 x10^3/uL (0.0-0.2) Lactic Acid Level 1.5 mmol/L (0.4-2.0) EKG EKG [] Radiology/Procedures Radiology/[place] [address] IMAGING REPORT Signed PATIENT: CHIQUITA HO ACCOUNT: [id number] : 1970 LOCATION: ER AGE: 48 SEX: F EXAM STATUS: PRE ER ORD. PHYSICIAN: BIJU CABALLERO MD REASON: cough for one month PROCEDURE: CHEST PA & LATERAL CHEST PA LATERAL History: Cough Comparison: July 19, 2019 Findings: No consolidation or pleural effusion. Normal heart size. No pneumothorax. Deformity of the upper chest bilaterally, unchanged. Impression: 1. No acute cardiopulmonary process. Electronically signed by: Edgardo Ho DO (08/12/2019 5:19 PM) [id number] DICTATED AND SIGNED BY: EDGARDO HO DO DATE: 08/12/19 6619 CC: CHIKA WARREN MD; BIJU CABALLERO MD ~ Course & Med Decision Making Course & Med Decision Making Pertinent Labs and Imaging studies reviewed. (See chart for details) Evaluation of patient in ER showed 48-year-old female patient with complaining of nausea and vomiting and diarrhea and cough. Patient had unremarkable chest x- ray. Labs showed blood sugar of 670 for an insulin bolus and drip was started. Patient requiring admission for further evaluation and treatment. Discussed with Dr. Warren who is in agreement with admission. Discussed findings and plan with patient and family, who acknowledge understanding and agreement. Dragon Disclaimer Dragon Disclaimer This electronic medical record was generated, in whole or in part, using a voice recognition dictation system. Departure Departure: Impression: Primary Impression: Type 2 diabetes mellitus with hyperglycemia Additional Impressions: Nausea vomiting and diarrhea Morbid obesity Anxiety Chronic cough Disposition: ADMITTED INPATIENT (at 1718) Admitting Physician: Chika Warren (accepted admission at 1717) Condition: IMPROVED Referrals: CHIKA WARREN MD (PCP) Problem Qualifiers Primary Impression: Type 2 diabetes mellitus with hyperglycemia Diabetes mellitus retirement insulin use: unspecified retirement insulin use status Qualified Codes: E11.65 - Type 2 diabetes mellitus with hyperglycemia BIJU CABALLERO MD Aug 12, 2019 17:43
--- NOTE | 2019-08-12 18:20 | NUR ---
The patient, CHIQUITA BLAIR, 48 y/o, F admitted by CHIKA WARREN MD, was given written information regarding hospital policies, unit procedures and contact persons. Valuables were checked and will be left with patient and her purse will be sent with nursing supervisor webbing to be locked up. Pt is comfortable and comes in via ems, wearing a mask and states she has had an upper respiratory infection x 1 month and still has a cough. Pt denies fever at this time. Pt's BG on arrival is 450, she continues on the insulin drip at 7.8 ml/hr.
[2019-08-12 18:30] VITALS: BP 124/80
--- NOTE | 2019-08-12 18:57 | NUR ---
REPORT GIVEN TO BARRY HARKINS TRANSFER OF CARE.
[2019-08-12] MEDS ORDERED: ALBUTEROL SULFATE 2.5 MG/3 ML NEBU. INH PRN (19:15)
[2019-08-12] MEDS ORDERED: INSULIN REGULAR VIAL 100 UNIT in IV NORMAL SALINE 100ML 100 ML IV PRN (19:15)
[2019-08-12] MEDS ORDERED: BENZ100C PO (19:34)
[2019-08-12] MEDS ORDERED: GUAI600T47 PO (19:34)
[2019-08-12] MEDS ORDERED: ALBU2.5V5 NEB (19:34)
[2019-08-12 20:00] VITALS: BP 117/62
[2019-08-12] MEDS: DICYCLOMINE HCL 10 MG CAPSULE PO SCH (20:18)
[2019-08-12] MEDS: LACTOBACILLUS RHAMNOSUS GG 1 CAPSULE. PO SCH (20:18)
[2019-08-12] MEDS: IV NORMAL SALINE 1,000ML 1,000 ML IV SCH (20:18)
[2019-08-12] MEDS: IBUPROFEN 600 MG TABLET. PO SCH (20:19)
[2019-08-12] MEDS: BENZONATATE 100 MG CAPSULE. PO PRN (20:19)
[2019-08-12] MEDS: TOPIRAMATE 100 MG TABLET. PO SCH (20:19)
[2019-08-12] MEDS: oxyCODONE/APAP 5/325 1 TAB TABLET PO PRN (20:19)
[2019-08-12] MEDS: GABAPENTIN 300 MG CAPSULE. PO SCH (20:19)
--- NOTE | 2019-08-12 20:30 | NUR ---
Pt states she wants to keep her purse with her at bedside.
[2019-08-12 21:00] VITALS: BP 128/72
[2019-08-12] MEDS: VILAZODONE HYDROCHLORIDE 20 MG PO SCH (21:00)
[2019-08-12] MEDS ORDERED: NON FORMULARY ITEM (Doxycycline Hyclate 1 CAP) PO SCH (21:00)
--- NOTE | 2019-08-12 21:30 | NUR ---
Pt refused ABG to be collected
[2019-08-12] MEDS: ONDANSETRON ODT 4 MG TAB.RAPDIS PO PRN (21:57)
[2019-08-12 22:00] VITALS: BP 110/70
[2019-08-12 23:00] VITALS: BP 106/71
[2019-08-13] VITALS (16 sets, daily range): BP systolic 90–129; BP diastolic 53–86
[2019-08-13] MEDS: IV NORMAL SALINE 1,000ML 1,000 ML IV SCH (05:35)
[2019-08-13] MEDS: LEVOTHYROXINE 150 MCG TABLET PO SCH (05:35)
[2019-08-13] MEDS ORDERED: LEVOTHYROXINE 137 MCG TABLET PO SCH (06:00)
[2019-08-13 07:50] LABS: CALCIUM 8.5 mg/dL (8.5-10.1); CREATININE 0.9 mg/dL (0.6-1.0); GFR 67.4
[2019-08-13 08:17] LABS: PHOSPHORUS 4.3 mg/dL (2.6-4.7); POTASSIUM 3.1 mmol/L (3.5-5.1)
[2019-08-13] MEDS ORDERED: DEXTROSE 50% 25 GM / 50ML DISP.SYRIN. IV PRN (09:00)
[2019-08-13] MEDS ORDERED: FLUCONAZOLE 100 MG TABLET. PO SCH (09:00)
[2019-08-13] MEDS: LACTOBACILLUS RHAMNOSUS GG 1 CAPSULE. PO SCH ×2 (09:03→22:13)
[2019-08-13] MEDS: TOPIRAMATE 100 MG TABLET. PO SCH ×2 (09:04→22:14)
[2019-08-13] MEDS: BENZONATATE 100 MG CAPSULE. PO PRN (09:04)
[2019-08-13] MEDS: GABAPENTIN 300 MG CAPSULE. PO SCH ×3 (09:05→22:14)
[2019-08-13] MEDS: DICYCLOMINE HCL 10 MG CAPSULE PO SCH ×3 (09:06→22:13)
[2019-08-13] MEDS: IBUPROFEN 600 MG TABLET. PO SCH (09:07)
[2019-08-13] MEDS: FUROSEMIDE 20 MG TABLET PO SCH (09:07)
[2019-08-13] MEDS: CETIRIZINE HCL 10 MG TABLET PO SCH (09:07)
[2019-08-13] MEDS: metFORMIN 500 MG TABLET PO SCH ×2 (09:08→17:03)
[2019-08-13] MEDS: PIOGLITAZONE 15 MG TABLET. PO SCH (09:08)
[2019-08-13] MEDS: ATENOLOL 50 MG TABLET PO SCH (09:09)
[2019-08-13] MEDS: NYSTATIN TOPICAL POWDER 15GM BOTTLE. TP SCH ×2 (09:11→22:13)
[2019-08-13] MEDS: PANTOPRAZOLE 40 MG TABLET. PO SCH (09:12)
[2019-08-13] MEDS: ACYCLOVIR 200 MG CAPSULE PO SCH (09:45)
[2019-08-13] MEDS: DESVENLAFAXINE 50 MG TAB.ER.24H. PO SCH (09:45)
[2019-08-13] MEDS: INSULIN GLARGINE SYRINGE. SQ SCH ×2 (09:46→22:24)
[2019-08-13] MEDS ORDERED: guaiFENesin DM 200MG/20MG 10 ML SYRUP PO PRN (11:45)
[2019-08-13] MEDS ORDERED: ELECTROLYTE (NON-ICU) PROTOCOL MC PRN (11:45)
[2019-08-13] MEDS: INSULIN LISPRO 300 UNITS/3 ML VIAL. SQ SCH ×2 (12:25→17:04)
[2019-08-13] MEDS ORDERED: POTASSIUM CHLORIDE 20 MEQ TABLET.ER. PO ONE (12:30)
[2019-08-13] MEDS: IV RINGERS SOLUTION,LACTATED 1,000 ML IV SCH (12:30)
[2019-08-13] MEDS: oxyCODONE/APAP 5/325 1 TAB TABLET PO PRN (12:31)
[2019-08-13] MEDS: ONDANSETRON ODT 4 MG TAB.RAPDIS PO PRN (13:11)
[2019-08-13] MEDS ORDERED: PROCHLORPERAZINE 10 MG/2 ML VIAL. IM PRN (15:15)
[2019-08-13] MEDS ORDERED: PROCHLORPERAZINE 10 MG/2 ML VIAL. IV PRN (15:30)
[2019-08-13] MEDS: METOCLOPRAMIDE HCL 10 MG/2 ML VIAL. IVP SCH ×2 (17:03→22:13)
--- NOTE | 2019-08-13 17:38 | RAD ---
CT ABDOMEN PELVIS WO CONTRAST History: Nausea and vomiting Technique: Noncontrast examination of the abdomen and pelvis. Coronal and sagittal reconstructions were performed. Exposure: One or more of the following individualized dose reduction techniques were utilized for this examination: 1. Automated exposure control 2. Adjustment of the mA and/or kV according to patient size 3. Use of iterative reconstruction technique. Comparison: May 30, 2019 Findings: Lower chest: No consolidation or pleural effusion. Abdomen and pelvis: Hepatic steatosis. The spleen, adrenal glands, and pancreas are unremarkable. Prior cholecystectomy. No biliary ductal dilatation. Unremarkable appearance of the kidneys. No hydronephrosis. Degraded evaluation of the pelvis due to patient's body habitus. Normal appendix. No evidence of bowel obstruction. Decompressed urinary bladder. No pathologic lymphadenopathy. No ascites. Bones: No pathologic osseous lesions. Impression: 1. No acute abdominal or pelvic pathology. 2. Hepatic steatosis. 3. Prior cholecystectomy. Electronically signed by: Edgardo Ho DO (08/13/2019 5:35 PM) [id number]
[2019-08-13] MEDS ORDERED: INSULIN LISPRO 300 UNITS/3 ML VIAL. SQ ONE (18:30)
--- NOTE | 2019-08-13 20:44 | HP ---
ADMIT DATE: 08/12/2019 HISTORY OF PRESENT ILLNESS: The patient came in through the Emergency Room as noted with an elevated blood sugar of greater than 600. She had acetone and ketone in her blood and urine respectively. She was placed on a day insulin drip and placed into the ICU for further evaluation and treatment for her DKA. She has also been having severe nausea and vomiting, abdominal pain for the last week or so, has not been taking her insulin or eating and has become highly uncontrolled in her blood sugars. PAST MEDICAL HISTORY: Multiple, lazy eye, right jaw surgery, basal cell carcinoma, TIAs, headaches, heart murmurs, cardiomyopathy, coronary artery disease, hypercholesterolemia, respiratory disorders, deviated septum, asthma, sleep apnea, gastrointestinal symptoms of gastroparesis, esophageal strictures, cholecystectomy, morbid obesity, herpes, UTIs, multiple incontinence, chronic muscle spasms, fibromyalgia, degenerative disk disease, scoliosis, orthopedic surgeries, bilateral ankle surgeries with hardware fractures of bilateral ankle, diabetes, hypothyroidism, liver disease, psychiatric problems, panic disorder, PTSD, bipolar disease, major depressive disorder, anxiety, history of self-mutilation, narcolepsy, Gorlin syndrome, nevoid basal cell carcinoma. ALLERGIES: THE PATIENT HAS AN ALLERGY TO TETANUS TOXOID. SHE HAS ALLERGIES TO LATEX, NATURAL RUBBER, PENICILLIN, SULFUR, ADHESIVES, AMOXICILLIN, BLACK PEPPER, HYDROGEN PEROXIDE, LANOLIN, METHYLNALTREXONE, ONIONS, SUMATRIPTAN, TETANUS, IMMUNOGLOBULINS AND TOMATOES. IMMUNIZATIONS: She has also had MRSA and influenza vaccine itself is up-to-date. FAMILY HISTORY: She has had long family history of brothers with heart disease, bipolar, asthma and basal cell carcinoma and other members with depression, diabetes and multiple allergies. SOCIAL HISTORY: She denies smoking, alcohol or drug use. She is full code. REVIEW OF SYSTEMS: The patient notes as noted nausea and vomiting, but denies any headaches, visual change, blurred vision, double vision. Denies chest pain. Does have some shortness of breath. Does have abdominal discomfort in the mid epigastric area with severe nausea and vomiting. Denies any problems with urination. Denies any problems with her bowels, and neurologically, the patient is baseline for her. PHYSICAL EXAMINATION: GENERAL: This is an ill-appearing white female. VITAL SIGNS: Blood pressure 120/70, respiratory rate 18, pulse 75 and afebrile. The patient is morbidly obese. Speech is fluent and spontaneous. HEENT: Atraumatic, normocephalic. Eyes: PERRLA without jaundice. The mouth and throat were normal. NECK: Supple, without JVD, carotid bruits or thyromegaly. LUNGS: Diminished, but clear. CARDIOVASCULAR: Regular sinus rhythm. ABDOMEN: Protuberant, tender in the epigastric area. No rebound or guarding. Positive bowel sounds. EXTREMITIES: No clubbing, cyanosis. Trace lymphedema, ankle is swollen from previous surgeries. NEUROLOGIC: Intact. LABORATORY DATA: The patient's UA unremarkable. CBC unremarkable. The patient's labs did show as noted a sugar of 674 as well as electrolytes slightly low potassium and so forth. The patient otherwise has acetones in her blood, ketones in her urine. IMPRESSION: Diabetic ketoacidosis, morbid obesity, abdominal pain, gastroparesis, type 2 diabetes, multiple psychiatric issues, bipolar disease, fibromyalgia. PLAN: We will go ahead control her blood sugar, put her on some gastroparetic medication and continue to monitor her accordingly for nausea, vomiting. If it does not subside, we will have to go ahead and possibly transfer for GI consult. CHIKA WARREN MD DR: MOUNA/glenn JOB#: [id number] / [id number]
[2019-08-13] MEDS: VILAZODONE HYDROCHLORIDE 20 MG PO SCH (21:00)
[2019-08-14] MEDS: IV RINGERS SOLUTION,LACTATED 1,000 ML IV SCH (02:05)
[2019-08-14] MEDS: oxyCODONE/APAP 5/325 1 TAB TABLET PO PRN (03:30)
[2019-08-14 05:00] VITALS: BP 91/54
--- NOTE | 2019-08-14 05:40 | NUR ---
Pt slept well most of the night. Awoke a few times but able to return to sleep quickly. Pt complained of pain all over at approx 0330, see MAR for pain med intervention and follow up. Pt frequently complains of various things while awake. Pts needs addressed each time. Assessment unchanged this AM.
[2019-08-14] MEDS: LEVOTHYROXINE 150 MCG TABLET PO SCH (05:44)
[2019-08-14 06:43] LABS: CALCIUM 8.4 mg/dL (8.5-10.1); CREATININE 0.8 mg/dL (0.6-1.0); GFR 77.2; POTASSIUM 3.9 mmol/L (3.5-5.1)
[2019-08-14 08:00] VITALS: BP 96/67
[2019-08-14] MEDS ORDERED: METO10TA81 PO (08:36)
[2019-08-14] MEDS: ACYCLOVIR 200 MG CAPSULE PO SCH (08:48)
[2019-08-14] MEDS: GABAPENTIN 300 MG CAPSULE. PO SCH (08:49)
[2019-08-14] MEDS: TOPIRAMATE 100 MG TABLET. PO SCH (08:49)
[2019-08-14] MEDS: BENZONATATE 100 MG CAPSULE. PO PRN (08:49)
[2019-08-14] MEDS: DESVENLAFAXINE 50 MG TAB.ER.24H. PO SCH (08:49)
[2019-08-14] MEDS: DICYCLOMINE HCL 10 MG CAPSULE PO SCH (08:49)
[2019-08-14] MEDS: metFORMIN 500 MG TABLET PO SCH (08:49)
[2019-08-14] MEDS: PANTOPRAZOLE 40 MG TABLET. PO SCH (08:49)
[2019-08-14] MEDS: CETIRIZINE HCL 10 MG TABLET PO SCH (08:49)
[2019-08-14] MEDS: METOCLOPRAMIDE HCL 10 MG/2 ML VIAL. IVP SCH (08:50)
[2019-08-14] MEDS: PIOGLITAZONE 15 MG TABLET. PO SCH (08:50)
[2019-08-14] MEDS: LACTOBACILLUS RHAMNOSUS GG 1 CAPSULE. PO SCH (08:51)
[2019-08-14] MEDS: FUROSEMIDE 20 MG TABLET PO SCH (08:51)
[2019-08-14 08:53] VITALS: BP 91/54
[2019-08-14] MEDS: ATENOLOL 50 MG TABLET PO SCH (08:53)
[2019-08-14] MEDS: NYSTATIN TOPICAL POWDER 15GM BOTTLE. TP SCH (08:54)
[2019-08-14] MEDS: INSULIN GLARGINE SYRINGE. SQ SCH (08:57)
[2019-08-14] MEDS: INSULIN LISPRO 300 UNITS/3 ML VIAL. SQ SCH (08:59)
--- NOTE | 2019-08-14 10:55 | NUR ---
Discharge Note: CHIQUITA BLAIR ICU BED 2 Discharge instructions and discharge home medications reviewed with Patient and a copy given. All questions have been answered and understanding verbalized. Discontinued periperal IV line. Patient was discharged to home. Patient left the unit via ambulation. Patient left with all personal belongings including cell phone and cell phone furnace charger. Patient was taken home per [employer]. Prescription was called in [place], [place] location.
== END 2019-08-14 10:55 | disposition home or self-care (01) | DRG 637 ==
LOC: ER 15:14 → ICU 17:58
PROVIDERS: ADMIT Family Medicine; ATTEND Family Medicine
DX: E11.10 Type 2 diabetes mellitus with ketoacidosis without coma (principal); N17.0 Acute kidney failure with tubular necrosis; I42.9 Cardiomyopathy, unspecified; Z68.43 Body mass index [BMI] 50.0-59.9, adult; E11.43 Type 2 diabetes mellitus with diabetic autonomic (poly)neuropathy; K31.84 Gastroparesis; F41.9 Anxiety disorder, unspecified; M19.90 Unspecified osteoarthritis, unspecified site; G62.9 Polyneuropathy, unspecified; G47.30 Sleep apnea, unspecified; E66.01 Morbid (severe) obesity due to excess calories; I25.10 Atherosclerotic heart disease of native coronary artery without angina pectoris; E78.00 Pure hypercholesterolemia, unspecified; J45.909 Unspecified asthma, uncomplicated; M79.7 Fibromyalgia; F31.9 Bipolar disorder, unspecified; E03.9 Hypothyroidism, unspecified; F43.10 Post-traumatic stress disorder, unspecified; Z90.49 Acquired absence of other specified parts of digestive tract; Z88.0 Allergy status to penicillin; Z88.2 Allergy status to sulfonamides; Z88.7 Allergy status to serum and vaccine; Z88.8 Allergy status to other drugs, medicaments and biological substances; Z91.040 Latex allergy status; Z86.73 Personal history of transient ischemic attack (TIA), and cerebral infarction without residual deficits; Z82.5 Family history of asthma and other chronic lower respiratory diseases; Z81.8 Family history of other mental and behavioral disorders; Z80.8 Family history of malignant neoplasm of other organs or systems; Z83.3 Family history of diabetes mellitus
CPT/HCPCS: 36415; 71046; 74176; 80048; 80053; 81001; 82010; 82947; 83605; 83690; 83735; 84100; 85025; 85610; 96361; 96365; 96375; 96376; J0780; J1815; J2405; J2765; J7120; Q0162; 99285-25; J7030

== ENCOUNTER 2019-12-07 12:13 | Emergency (ER) | payer MEDICARE ==
[~2019-12-07] VITALS: Ht 172.7 cm; Wt 144.4 kg
[~2019-12-07 12:13] MED LIST changes: +ALBU2.5V5 NEB; +BENZ100C PO; +GUAI600T47 PO; +METO10TA81 PO
[2019-12-07] MEDS ORDERED: IV NORMAL SALINE 1,000ML 1,000 ML IV ONE ×2 (12:15→14:00)
--- NOTE | 2019-12-07 12:28 | PHYS DOC ---
Past History Past Medical History: Anxiety, Arthritis, Asthma, Cancer, Depression, Diabetes, Fibromyalgia, Hypothyroid, Migraines, TIA, Other Additional Past Medical Histor: herpesvirus; neuropathy, PTSD, GASTROPARESIS Past Surgical History: Cancer Surgery, Cholecystectomy Additional Past Surgical Histo: Eye, bilateral ankles, right thumb;oral surgery for cancerous cysts in jaw Smoking: Quit Greater Than 1 Year Alcohol Use: Rarely Drug Use: None General Adult EDM: Chief Complaint: DIZZY/LIGHT HEADED HPI: HPI: 49-year-old female with past medical history of diabetes mellitus presents with report of dizziness and associated nausea which is been ongoing for the past few days. Patient reports she thinks it is secondary to large swings in her blood glucose. Patient reports she was recently admitted up in [facility] for DKA on 12/02/2019. Patient reports last night her blood sugar read "high ". Patient reports she took 40 units of insulin at that time. Patient reports her blood sugar only decreased into the 400s. Today she noted to have continued elevated blood sugar and has taken a total of 100 units over 4 hours and ended up dropping down to 70. Patient reports she is currently living with some friends and therefore her diet has not been optimal. Patient also reports she is under "high stress "which typically causes her blood sugars to rise. Patient also reports she currently is experiencing a headache. Denies trauma. Denies . Review of Systems: Review of Systems: Constitutional: Denies fever or chills; reports malaise Eyes: Denies redness or eye pain HENT: Denies nasal congestion or sore throat Respiratory: Denies cough or shortness of breath Cardiovascular: Denies chest pain or palpitations GI: Denies abdominal pain; reports nausea : Denies dysuria or hematuria Musculoskeletal: Denies back pain or neck pain Integument: Denies rash or skin lesions Neurologic: Reports headache and dizziness; denies focal weakness or sensory changes Complete systems were reviewed and found to be within normal limits, except as documented in this note. Current Medications: Current Meds: Current Medications Medications (Trade) Dose Ordered Sig/Carlie Start Time Stop Time Status Last Admin Dose Admin Ondansetron HCl (Zofran) 4 mg 1X ONCE 12/07/19 12:30 12/07/19 12:31 Sodium Chloride 1,000 ml @ 1,000 mls/hr 1X ONCE 12/07/19 12:15 12/07/19 13:14 Allergies: Allergies: Allergies Coded Allergies Type Severity Reaction Last Updated Verified amoxicillin Allergy Severe 05/13/19 Yes black pepper Allergy Severe 05/13/19 Yes methylnaltrexone Allergy Severe 05/13/19 Yes onion Allergy Severe Anaphylaxis 05/13/19 Yes Latex, Natural Rubber Allergy Intermediate 05/13/19 Yes Penicillins Allergy Intermediate 05/13/19 Yes Sulfa (Sulfonamide Antibiotics) Allergy Intermediate 05/13/19 Yes hydrogen peroxide Allergy Intermediate 05/13/19 Yes lanolin Allergy Intermediate 05/13/19 Yes tetanus immune globulin Allergy Intermediate 05/13/19 No tomato Allergy Mild Nausea 05/13/19 Yes sumatriptan Adverse Reaction Severe N/V 05/13/19 Yes adhesive Adverse Reaction Intermediate Rash 05/13/19 Yes Physical Exam: PE: Constitutional: Well developed, obese, no acute distress, non-toxic appearance HENT: Normocephalic, atraumatic Eyes: PERRL, EOMI, conjunctiva normal, no discharge, no nystagmus Neck: Normal range of motion, no tenderness, supple, no meningeal signs Lungs & Thorax: No respiratory distress, equal chest rise and fall Abdomen: Soft, obese, no tenderness Skin: Warm, dry, no erythema, no rash Extremities: No tenderness, ROM intact, 1+ BLE edema Neurologic: Alert and oriented X 3, normal motor function, normal sensory function, no focal deficits noted Psychologic: Affect anxious, judgment normal Current Patient Data: Labs: Laboratory Tests Test 12/07/19 12:19 Glucose (Fingerstick) 267 mg/dL (70-99) H Vital Signs: Vital Signs Date Time Temp Pulse Resp B/P (MAP) Pulse Ox O2 Delivery O2 Flow Rate FiO2 12/07/19 12:21 98.4 87 16 108/74 (85) 100 Room Air EKG: EKG: @1221 NSR at 86bpm, NO ST elevation, QRS 96ms, QT/QTc 392/472ms Radiology/Procedures: Radiology/Procedures: [] Course & Med Decision Making: Course & Med Decision Making Pertinent Lab studies reviewed. (See chart for details) Patient presents with multiple complaints including dizziness, nausea, and headache which patient attributes to large fluctuations in her blood sugar. Patient reports she is under a lot of stress recently as well as not eating her typical diabetic diet. Patient neurologically intact. Patient complaining of nausea. Symptomatic treatment provided. IV fluid hydration given. Accu-Chek obtained which noted blood sugar at 267. Labs obtained and posted to chart. Blood glucose now in the 374. Acetone negative. UA without signs of infection. Insulin provided. IVF hydration x 2L provided. Repeat blood sugar improved down to 329. Headache addressed. UA with yeast. Diflucan provided. Patient stable for discharge with outpatient follow-up with PCP. Advised to watch diet and take medications as prescribed. Discussed findings and plan with patient, who acknowledges understanding and agreement. Lora Disclaimer: Lora Disclaimer: This electronic medical record was generated, in whole or in part, using a voice recognition dictation system. Departure Departure: Impression: Primary Impression: Hyperglycemia Additional Impressions: Headache Qualified Codes: R51 - Headache Yeast cystitis Disposition: HOME/RESIDENCE PRIOR TO ADM Condition: STABLE Referrals: CHIKA WARREN MD (PCP) Patient Instructions: Melinda Infection, Adult, Diet - 2000 Calorie Diabetic, Headache, FAQs, Hyperglycemia, Iajf-sk-Ojuw Scripts Butalb/Acetaminophen/Caffeine ([id number] 50-325-40) 1 Each Tablet 1 EACH PO Q6HRS PRN for HEADACHE, #14 TAB Prov: ANTOINE RUBIN DO 12/07/19 Fluconazole (DIFLUCAN) 200 Mg Tablet 1 TAB PO DAILY for yeast infection, #1 TAB Take this medication on 12/14/19 for any further symptoms Prov: ANTOINE RUBIN DO 12/07/19 Ondansetron (ONDANSETRON ODT) 4 Mg Tab.rapdis 1 TAB PO PRN Q6-8HRS PRN for NAUSEA, #16 TAB Prov: ANTOINE RUBIN DO 12/07/19 Justification of Admission: Justification of Admission: Justification of Admission Dx: N/A ANTOINE RUBIN DO Dec 07, 2019 12:27
[2019-12-07] MEDS ORDERED: ONDANSETRON PF 4 MG/2 ML VIAL. IVP ONE (12:30)
[2019-12-07 13:19] LABS: BASO % 1 % (0-3); EOS # 0.1 x10^3/uL (0.0-0.7); EOS % 1 % (0-3); HEMATOCRIT 40.9 % (36.0-47.0); HEMOGLOBIN 13.9 g/dL (12.0-15.5); LYMPH # 1.3 x10^3/uL (1.0-4.8); LYMPH % 21 % (24-48); MEAN CORPUSCULAR HEMOGLOBIN 30 pg (25-35); MEAN CORPUSCULAR HGB CONC 34 g/dL (31-37); MEAN CORPUSCULAR VOLUME 89 fL (79-100); MONO # 0.5 x10^3/uL (0.0-1.1); MONO % 8 % (0-9); NEUT # 4.2 x10^3uL (1.8-7.7); NEUT % 69 % (31-73); PLATELET COUNT 178 x10^3/uL (140-400); RED BLOOD COUNT 4.62 x10^6/uL (3.50-5.40); RED CELL DISTRIBUTION WIDTH 12.9 % (11.5-14.5); WHITE BLOOD COUNT 6.1 x10^3/uL (4.0-11.0)
[2019-12-07] MEDS ORDERED: METOCLOPRAMIDE HCL 10 MG/2 ML VIAL. IVP ONE (13:30)
[2019-12-07] MEDS ORDERED: KETOROLAC 15 MG/ML VIAL. IVP ONE (13:30)
[2019-12-07] MEDS ORDERED: diphenhydrAMINE 50 MG/ML VIAL IVP ONE (13:30)
[2019-12-07 13:33] LABS: CALCIUM 9.4 mg/dL (8.5-10.1); GFR 59.4; POTASSIUM 3.5 mmol/L (3.5-5.1)
[2019-12-07 13:47] LABS: ALBUMIN 3.3 g/dL (3.4-5.0); ALBUMIN/GLOBULIN RATIO 0.9 (1.0-1.7); MAGNESIUM 1.7 mg/dL (1.8-2.4); TOTAL BILIRUBIN 0.7 mg/dL (0.2-1.0); TOTAL PROTEIN 6.8 g/dL (6.4-8.2)
[2019-12-07] MEDS ORDERED: INSULIN REGULAR 100 UNIT/ML 3ML VIAL. SQ ONE (13:55)
[2019-12-07 14:01] LABS: BARBITURATES NEG (NEG); BENZODIAZEPINES NEG (NEG); CANNABINOIDS NEG (NEG); COCAINE NEG (NEG); METHADONE NEG (NEG); OPIATES NEG (NEG); PHENCYCLIDINE NEG (NEG)
[2019-12-07 14:02] VITALS: BP 155/77
[2019-12-07 14:11] LABS: CLARITY,URINE CLOUDY; COLOR,URINE YELLOW
[2019-12-07 14:12] LABS: BACTERIA,URINE MOD /HPF (0-FEW); BILIRUBIN,URINE NEG (NEG); GLUCOSE,URINE >=1000 mg/dL (NEG); NITRITE,URINE NEG (NEG); UROBILINOGEN,URINE 0.2 mg/dL (0.2 mg/dL)
[2019-12-07 14:13] LABS: SQUAMOUS EPITHELIAL CELL,UR MANY /LPF; YEAST,URINE PRESENT /HPF
[2019-12-07 14:19] LABS: AMPHETAMINE/METHAMPHETAMINE NEG (NEG)
[2019-12-07] MEDS ORDERED: FLUC200T PO (14:33)
[2019-12-07] MEDS ORDERED: BUTA1TAB23 PO (14:33)
[2019-12-07] MEDS ORDERED: ONDA4TAB12 PO (14:33)
[2019-12-07] MEDS ORDERED: FLUCONAZOLE 100 MG TABLET. PO ONE (14:40)
--- NOTE | 2019-12-07 17:58 | EKG ---
[address] [address] Test Date: 2019-12-07 Test Time: 12:21:05 Pat Name: CHIQUITA BLAIR Department: Room: Gender: F Rn Flight: : 1970 Requested By: ANTOINE RUBIN Order Number: [id number] Reading MD: Measurements Intervals [place] Rate: 86 P: 53 HI: 162 QRS: 121 QRSD: 96 T: 48 QT: 392 QTc: 472 Interpretive Statements SINUS RHYTHM NO SPECIFIC ECG ABNORMALITIES RI6.02 No previous ECG available for comparison
== END 2019-12-07 14:48 | disposition home or self-care (01) ==
LOC: ER 12:13
DX: E11.65 Type 2 diabetes mellitus with hyperglycemia (principal); B37.41 Candidal cystitis and urethritis; G43.909 Migraine, unspecified, not intractable, without status migrainosus; F41.9 Anxiety disorder, unspecified; M19.90 Unspecified osteoarthritis, unspecified site; J45.909 Unspecified asthma, uncomplicated; E11.10 Type 2 diabetes mellitus with ketoacidosis without coma; F32.9 Major depressive disorder, single episode, unspecified; M79.7 Fibromyalgia; E03.9 Hypothyroidism, unspecified; Z86.73 Personal history of transient ischemic attack (TIA), and cerebral infarction without residual deficits; E11.40 Type 2 diabetes mellitus with diabetic neuropathy, unspecified; F43.10 Post-traumatic stress disorder, unspecified; Z87.891 Personal history of nicotine dependence; Z88.1 Allergy status to other antibiotic agents; Z88.0 Allergy status to penicillin; Z88.2 Allergy status to sulfonamides; Z91.018 Allergy to other foods; Z88.7 Allergy status to serum and vaccine; Z88.8 Allergy status to other drugs, medicaments and biological substances; Z91.040 Latex allergy status
CPT/HCPCS: 36415; 80053; 80307; 81001; 82010; 82553; 82947; 83735; 84484; 85025; 87086; 93005; 96361; 96372; 96374; 96375; 99284; G0480; J1200; J1815; J1885; J2405; J2765; J7030

== ENCOUNTER 2020-01-15 18:34 | Inpatient (IN) | payer MEDICARE ==
[~2020-01-15] VITALS: Ht 172.7 cm; Wt 140.9 kg
[~2020-01-15 18:34] MED LIST changes: +BUTA1TAB23 PO; +FLUC200T PO
[2020-01-15] MEDS ORDERED: ONDANSETRON PF 4 MG/2 ML VIAL. IVP ONE ×2 (18:45→22:30)
[2020-01-15] MEDS ORDERED: IV NORMAL SALINE 1,000ML 1,000 ML IV ONE (18:45)
--- NOTE | 2020-01-15 19:22 | PHYS DOC ---
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 This all started this morning. After she started vomiting, she developed diffuse abdominal cramping. Patient is a diabetic on insulin. Her blood sugars have been anywhere from 83-400 today. She is unable to keep down any liquids or solids. She is worried about getting dehydrated. She was feeling fine yesterday. She has no other complaints this time. She denies fever chills. No known COVID-19 exposures. Review of Systems: Review of Systems: Constitutional: Denies fever or chills Eyes: Denies change in visual acuity HENT: Denies nasal congestion or sore throat Respiratory: Denies cough or shortness of breath Cardiovascular: Denies chest pain or edema GI: Diffuse, generalized abdominal pain, nausea, vomiting, diarrhea : Denies dysuria Musculoskeletal: Denies back pain or joint pain Integument: Denies rash Neurologic: Denies headache, focal weakness or sensory changes Endocrine: Denies polyuria or polydipsia Lymphatic: Denies swollen glands Psychiatric: Denies depression or anxiety Heart Score: Risk Factors: Risk Factors: DM, Current or recent (<one month) smoker, HTN, HLP, family history of CAD, obesity. Risk Scores: Score 0 - 3: 2.5% MACE over next 6 weeks - Discharge Home Score 4 - 6: 20.3% MACE over next 6 weeks - Admit for Clinical Observation Score 7 - 10: 72.7% MACE over next 6 weeks - Early Invasive Strategies Current Medications: Current Meds: Current Medications Medications (Trade) Dose Ordered Sig/Carlie Start Time Stop Time Status Last Admin Dose Admin Ondansetron HCl (Zofran) 4 mg 1X ONCE 01/15/20 18:45 01/15/20 19:06 DC Sodium Chloride 1,000 ml @ 1,000 mls/hr 1X ONCE 01/15/20 18:45 01/15/20 19:44 Allergies: Allergies: Allergies Coded Allergies Type Severity Reaction Last Updated Verified amoxicillin Allergy Severe 05/13/19 Yes black pepper Allergy Severe 05/13/19 Yes methylnaltrexone Allergy Severe 05/13/19 Yes onion Allergy Severe Anaphylaxis 05/13/19 Yes Latex, Natural Rubber Allergy Intermediate 05/13/19 Yes Penicillins Allergy Intermediate 05/13/19 Yes Sulfa (Sulfonamide Antibiotics) Allergy Intermediate 05/13/19 Yes hydrogen peroxide Allergy Intermediate 05/13/19 Yes lanolin Allergy Intermediate 05/13/19 Yes tetanus immune globulin Allergy Intermediate 05/13/19 No tomato Allergy Mild Nausea 05/13/19 Yes sumatriptan Adverse Reaction Severe N/V 05/13/19 Yes adhesive Adverse Reaction Intermediate Rash 05/13/19 Yes Physical Exam: PE: Constitutional: Well developed, morbidly obese, well nourished, no acute distress, non-toxic appearance. [] HENT: Normocephalic, atraumatic, bilateral external ears normal, oropharynx moist, no oral exudates, nose normal. [] Eyes: PERRLA, EOMI, conjunctiva normal, no discharge. [] Neck: Normal range of motion, no tenderness, supple, no stridor. [] Cardiovascular: Heart rate regular rhythm, no murmur [] Lungs & Thorax: Bilateral breath sounds clear to auscultation [] Abdomen: Bowel sounds normal, soft, mild lower abdominal tenderness, no masses, no pulsatile masses. [] Skin: Warm, dry, no erythema, no rash. [] Back: No tenderness, no CVA tenderness. [] Extremities: No tenderness, no cyanosis, no clubbing, ROM intact, no edema. [] Neurologic: Alert and oriented X 3, normal motor function, normal sensory function, no focal deficits noted. [] Psychologic: Affect normal, judgement normal, mood normal. [] Current Patient Data: Vital Signs: Vital Signs Date Time Temp Pulse Resp B/P (MAP) Pulse Ox O2 Delivery O2 Flow Rate FiO2 01/15/20 18:42 98.4 82 16 155/77 (103) 98 Room Air EKG: EKG: [] Radiology/Procedures: Radiology/Procedures: [] Impressions: Study: CR KUB Indication: Abdominal pain. Comparison: CT abdomen/pelvis 05/30/2019 Findings: Nonobstructive bowel gas pattern. No free air. Right upper quadrant surgical clips. Impression: Nonobstructive bowel gas pattern. Electronically signed by: ZHAO STORM MD (01/15/2020 7:43 PM) [id number] DICTATED AND SIGNED BY: ZHAO STORM MD DATE: 01/15/201942 CC: GERTRUDE SÁNCHEZ DO; CHIKA WARREN MD ~ Course & Med Decision Making: Course & Med Decision Making Pertinent Labs and Imaging studies reviewed. (See chart for details) The patient's KUB is unremarkable. Her labs are remarkable for blood sugar of 219. She has been given 1 L normal saline and is feeling a bit better. She was also given Zofran and has had no more vomiting. The patient is required a second dose of Zofran. She continues to have diarrhea. I will admit her for further hydration and monitoring. I spoke with Dr. Harris and he has accepted the patient for admission. [] Dragon Disclaimer: Dragon Disclaimer: This electronic medical record was generated, in whole or in part, using a voice recognition dictation system. Departure Departure: Impression: Primary Impression: Nausea vomiting and diarrhea Additional Impressions: Morbid obesity Type 2 diabetes mellitus with hyperglycemia Disposition: ADMITTED INPATIENT Admitting Physician: Chika Warren Condition: STABLE Referrals: CHIKA WARREN MD (PCP) Justification of Admission: Justification of Admission: Justification of Admission Dx: Comment: Comments: dehydration, hyperglycemia GERTRUDE SÁNCHEZ DO Jan 15, 2020 19:22
--- NOTE | 2020-01-15 19:46 | RAD ---
Study: CR KUB Indication: Abdominal pain. Comparison: CT abdomen/pelvis 05/30/2019 Findings: Nonobstructive bowel gas pattern. No free air. Right upper quadrant surgical clips. Impression: Nonobstructive bowel gas pattern. Electronically signed by: ZHAO STORM MD (01/15/2020 7:43 PM) [id number]
[2020-01-15 20:24] LABS: BASO % 1 % (0-3); EOS % 0 % (0-3); HEMATOCRIT 45.1 % (36.0-47.0); HEMOGLOBIN 15.3 g/dL (12.0-15.5); LYMPH # 0.7 x10^3/uL (1.0-4.8); LYMPH % 10 % (24-48); MEAN CORPUSCULAR HEMOGLOBIN 29 pg (25-35); MEAN CORPUSCULAR HGB CONC 34 g/dL (31-37); MEAN CORPUSCULAR VOLUME 87 fL (79-100); MONO # 0.3 x10^3/uL (0.0-1.1); MONO % 4 % (0-9); NEUT % 85 % (31-73); PLATELET COUNT 180 x10^3/uL (140-400); RED BLOOD COUNT 5.19 x10^6/uL (3.50-5.40); RED CELL DISTRIBUTION WIDTH 12.4 % (11.5-14.5); WHITE BLOOD COUNT 7.1 x10^3/uL (4.0-11.0)
[2020-01-15 20:29] LABS: CALCIUM 9.4 mg/dL (8.5-10.1); CREATININE 0.9 mg/dL (0.6-1.0); GFR 67.1; POTASSIUM 3.6 mmol/L (3.5-5.1)
[2020-01-15 20:35] LABS: ALBUMIN 3.3 g/dL (3.4-5.0); ALBUMIN/GLOBULIN RATIO 0.8 (1.0-1.7); TOTAL BILIRUBIN 0.6 mg/dL (0.2-1.0); TOTAL PROTEIN 7.3 g/dL (6.4-8.2)
[2020-01-15 20:53] LABS: AMPHETAMINE/METHAMPHETAMINE NEG (NEG); BARBITURATES NEG (NEG); BENZODIAZEPINES NEG (NEG); CANNABINOIDS NEG (NEG); COCAINE NEG (NEG); METHADONE NEG (NEG); OPIATES NEG (NEG); PHENCYCLIDINE NEG (NEG)
[2020-01-15 21:00] LABS: BILIRUBIN,URINE NEG (NEG); CLARITY,URINE HAZY; COLOR,URINE YELLOW; GLUCOSE,URINE 100 mg/dL (NEG); NITRITE,URINE NEG (NEG); UROBILINOGEN,URINE 0.2 mg/dL (0.2 mg/dL)
[2020-01-15 21:01] LABS: BACTERIA,URINE MOD /HPF (0-FEW); HYALINE CASTS, URINE FEW /HPF; SQUAMOUS EPITHELIAL CELL,UR MOD /LPF; YEAST,URINE PRESENT /HPF
[2020-01-15] MEDS ORDERED: ONDANSETRON PF 4 MG/2 ML VIAL. IVP PRN (22:15)
[2020-01-15] MEDS ORDERED: FLUCONAZOLE 100 MG TABLET. PO ONE (22:30)
[2020-01-15 23:32] VITALS: BP 128/67
[2020-01-16] MEDS ORDERED: LEVO150T5 PO (07:22)
[2020-01-16] MEDS ORDERED: GABA600T7 PO (07:22)
[2020-01-16] MEDS ORDERED: VALA500T9 PO (07:22)
[2020-01-16] MEDS ORDERED: BREX1TAB PO (07:22)
[2020-01-16] MEDS ORDERED: INSU100V SQ (07:38)
[2020-01-16 08:00] VITALS: BP 110/74
[2020-01-16] MEDS ORDERED: INSULIN LISPRO 300 UNITS/3 ML VIAL. SQ SCH (08:00)
[2020-01-16] MEDS ORDERED: ONDANSETRON ODT 4 MG TAB.RAPDIS PO PRN (08:00)
[2020-01-16] MEDS ORDERED: ALBUTEROL SULFATE 2.5 MG/3 ML NEBU. INH PRN (08:00)
[2020-01-16] MEDS: VILAZODONE HYDROCHLORIDE 40 MG PO SCH (09:00)
[2020-01-16] MEDS: NYSTATIN TOPICAL POWDER 15GM BOTTLE. TP SCH ×2 (09:00→20:04)
[2020-01-16] MEDS: NON FORMULARY ITEM (Semaglutide (Ozempic) 1 MG) SQ SCH (09:00)
[2020-01-16] MEDS: NON FORMULARY ITEM (Brexpiprazole (Rexulti) 1 TAB) PO SCH (09:00)
--- NOTE | 2020-01-16 09:08 | RAD ---
CT ABDOMEN PELVIS WO CONTRAST INDICATION: abd pain EXAM: Noncontrast CT of the abdomen and pelvis. Coronal and sagittal reformatted images were performed. PQRS compliance statement: One or more of the following individualized dose reduction techniques were utilized for this examination: 1. Automated exposure control 2. Adjustment of the mA and/or kV according to patient size 3. Use of iterative reconstruction technique COMPARISON: 08/13/2019 FINDINGS: No free air, free fluid, or fluid collection. Lower chest: The visualized lower lungs are aerated. No pleural or pericardial effusion. ABDOMEN: Liver: The noncontrast liver is homogeneous in attenuation. Gallbladder and biliary: Cholecystectomy. Normal caliber bile ducts. Spleen: Normal spleen. Pancreas: The noncontrast pancreas is homogeneous in attenuation without peripancreatic inflammatory changes. Adrenal glands: Normal adrenal glands. Kidneys and ureters: No opaque urinary calculi. Normal kidneys and ureters. GI tract: The stomach is decompressed and poorly evaluated. Normal caliber small bowel and colon. Normal appendix. Vascular structures: Normal caliber abdominal aorta. Lymph nodes: No lymphadenopathy in the abdomen or pelvis. PELVIS: Pelvic structures partially obscured by artifact. Genitourinary system: Urinary bladder is decompressed. Uterus is present. SKELETAL STRUCTURES AND SOFT TISSUES: No fracture or destructive lesion in the visualized skeleton. IMPRESSION: No acute findings. Electronically signed by: Adrian Son MD (01/16/2020 9:05 AM) [id number]
[2020-01-16] MEDS: PIOGLITAZONE 15 MG TABLET. PO SCH (09:39)
[2020-01-16] MEDS: valACYclovir 500 MG TABLET. PO SCH ×2 (09:39→20:04)
[2020-01-16] MEDS: hydrOXYzine HCL 25 MG TABLET PO PRN (09:40)
[2020-01-16] MEDS: TOPIRAMATE 100 MG TABLET. PO SCH ×2 (09:40→20:04)
[2020-01-16] MEDS: LEVOTHYROXINE 150 MCG TABLET PO SCH (09:40)
[2020-01-16] MEDS: GABAPENTIN 300 MG CAPSULE. PO SCH ×3 (09:40→20:04)
[2020-01-16] MEDS: PANTOPRAZOLE 40 MG TABLET. PO SCH (09:40)
[2020-01-16] MEDS: FUROSEMIDE 20 MG TABLET PO SCH (09:40)
[2020-01-16 11:00] VITALS: BP 111/71
[2020-01-16] MEDS ORDERED: IBUPROFEN 800 MG TABLET. PO ONE (11:09)
[2020-01-16] MEDS ORDERED: ACETAMINOPHEN 325 MG TABLET PO PRN (11:15)
[2020-01-16] MEDS ORDERED: IBUPROFEN 800 MG TABLET. PO PRN (11:15)
[2020-01-16] MEDS ORDERED: CYCLOBENZAPRINE 10 MG TABLET. PO PRN (11:15)
[2020-01-16] MEDS ORDERED: INSULIN LISPRO SQ SCH (11:30)
--- NOTE | 2020-01-16 11:34 | HP ---
ADMIT DATE: 01/15/2020 HISTORY OF PRESENT ILLNESS: A 49-year-old female, came in through the Emergency Room with severe nausea, vomiting and diarrhea for the last 24 hours. The patient notes she has not been able to keep medications down. She is a diabetic and with her vomiting, her blood sugars dropped from 400 down to 83. She is not feeling very well. She is unable to keep down any liquids or solid and she is having problems controlling her sugar. The patient came in through the Emergency Room with severe abdominal pain primarily in the right to mid lower quadrant with some guarding, but no rebounding. The patient was admitted for observation for further evaluation of her abdominal pain, nausea, vomiting, diarrhea and of course her history of diabetes. PAST MEDICAL HISTORY: Extensive including nearsighted lazy eye; right jaw surgery for nevoid basal cell carcinoma; TIA; peripheral neuropathy; headaches; heart murmur; cardiomyopathy; cardiac catheterizations; hypercholesterolemia; respiratory disorders; deviated septum; pulmonary emboli; pneumonia; sleep apnea, on CPAP; gastroparesis; esophageal stretching and strictures; cholecystectomy; hiatal hernia; morbid obesity with a BMI greater than 50; psychiatric, lot of stress, depression. The patient also has a history of herpes, urinary tract infections, musculoskeletal problems, fibromyalgia, osteoarthritis, degenerative disk disease, scoliosis, back pain, endocrine disorders, diabetes, hypothyroidism, psychiatric problems, personality disorder, panic attacks, PTSD, also an enlarged liver, self-mutilation, alcohol abuse, smoking exposure 21 years, possible narcolepsy, Gorlin syndrome. Tetanus, diphtheria, influenza vaccines up-to-date. The patient also has a tendency of picking and scabbing at her skin and she has had a history of MRSA and developmental delay. ALLERGIES: LATEX, NATURAL RUBBER, PENICILLIN, SULFUR, SULFONAMIDE, ADHESIVE, BLACK PEPPER, HYDROGEN PEROXIDE, LANOLIN, METHYLNALTREXONE, ONION, SUMATRIPTAN, TETANUS, IMMUNOGLOBULINS AND TOMATOES. SOCIAL HISTORY: The patient has about [id number] history of smoking and does have heavy drinking binges at times, although she has been clear for a while. She is a full code. Denies hard drug use. REVIEW OF SYSTEMS: The patient notes generalized weakness, lethargy, nausea, vomiting, abdominal pain. Denies chest pain, shortness of breath. Denies any blood in her stool, but does have several stools and nausea, vomiting ____. Neurologically, alert and oriented, baseline for her. No neurological deficits. FAMILY HISTORY: Brothers with heart murmurs, smoking, bipolar disease, asthma, and basal cell carcinoma. There is also history of depression, diabetes and other GI problems there. PHYSICAL EXAMINATION: GENERAL: The patient otherwise is a pleasant white morbidly obese female. VITAL SIGNS: Blood pressure 146/73, respiratory rate 18, pulse 75, afebrile. HEENT: The patient's head was atraumatic, normocephalic. Eyes: PERRLA without jaundice. The mouth and throat were normal. NECK: Supple ____ thyromegaly. LUNGS: Diminished throughout, but clear. CARDIOVASCULAR: Regular sinus rhythm, S1, S2, without murmur, rub, thrill, or extra heart sounds. ABDOMEN: Protuberant, definitely enlarged, but tender in the right mid to right lower quadrant areas and periumbilical area. There is definite tender on pressing. There is no rebounding. Positive bowel sounds, active. EXTREMITIES: Without clubbing, cyanosis or edema. NEUROLOGIC: The patient is alert and oriented x 3. Stool hemoccult negative. LABORATORY DATA: UA is unremarkable. Sodium and potassium 136, 3.6. BUN and creatinine stable at 8 and 0.9. Sugar 220. Albumin low slightly at 3.3. White count 7, hemoglobin and hematocrit 15 and 45. The patient denies eating anything yesterday, rule out food poisoning per se. At any case, the patient's abdominal series did not show any particular blockage. We will get a CT scan because she is still having a lot of tenderness there and may consider stool workup if the diarrhea continues otherwise. IMPRESSION: Significant diarrhea, dehydration, mild protein malnutrition, morbid obesity, type 2 diabetes, history of severe psychiatric issues of depression and self-mutilation in the past. PLAN: The patient will be admitted; placed on fluids; monitor her nausea, vomiting; make further assessment on her blood sugars. CHIKA WARREN MD DR: MOUNA/glenn JOB#: [id number] / [id number]
[2020-01-16] MEDS: METOCLOPRAMIDE 10 MG TABLET PO SCH ×3 (12:29→20:04)
[2020-01-16] MEDS: BUTALB/APAP/CAFEIN 50/325/40MG TABLET. PO PRN ×2 (12:48→20:04)
[2020-01-16] MEDS: INSULIN LISPRO 300 UNITS/3 ML VIAL. SQ SCH ×4 (12:53→20:06)
[2020-01-16 13:00] VITALS: BP 125/79
[2020-01-16] MEDS: KETOROLAC 30 MG/ML VIAL. IVP PRN (14:14)
[2020-01-16 17:00] VITALS: BP 110/67
[2020-01-16] MEDS ORDERED: MORPHINE SULFATE 4 MG/ML DISP.SYRIN. IV PRN (18:15)
[2020-01-16 19:35] VITALS: BP 109/81
[2020-01-16] MEDS ORDERED: INSULIN GLARGINE SYRINGE. SQ SCH (21:00)
[2020-01-17 00:20] VITALS: BP 117/71
[2020-01-17] MEDS: hydrOXYzine HCL 25 MG TABLET PO PRN (00:59)
[2020-01-17] MEDS: KETOROLAC 30 MG/ML VIAL. IVP PRN ×2 (00:59→10:27)
[2020-01-17 05:09] LABS: HEMOGLOBIN A1C 13.1 % (4.8-5.6)
[2020-01-17] MEDS: LEVOTHYROXINE 150 MCG TABLET PO SCH (05:56)
[2020-01-17 06:34] VITALS: BP 127/73
[2020-01-17 06:50] LABS: BASO # 0.1 x10^3/uL (0.0-0.2); BASO % 1 % (0-3); EOS # 0.2 x10^3/uL (0.0-0.7); EOS % 3 % (0-3); HEMATOCRIT 39.5 % (36.0-47.0); HEMOGLOBIN 13.4 g/dL (12.0-15.5); LYMPH # 2.2 x10^3/uL (1.0-4.8); LYMPH % 37 % (24-48); MEAN CORPUSCULAR HEMOGLOBIN 30 pg (25-35); MEAN CORPUSCULAR HGB CONC 34 g/dL (31-37); MEAN CORPUSCULAR VOLUME 88 fL (79-100); MONO # 0.4 x10^3/uL (0.0-1.1); MONO % 7 % (0-9); NEUT % 52 % (31-73); PLATELET COUNT 158 x10^3/uL (140-400); RED BLOOD COUNT 4.48 x10^6/uL (3.50-5.40); RED CELL DISTRIBUTION WIDTH 12.6 % (11.5-14.5); WHITE BLOOD COUNT 5.8 x10^3/uL (4.0-11.0)
[2020-01-17 07:03] LABS: CREATININE 1.1 mg/dL (0.6-1.0); GFR 53.2; POTASSIUM 3.2 mmol/L (3.5-5.1)
[2020-01-17] MEDS ORDERED: POTASSIUM CHLORIDE 20 MEQ TABLET.ER. PO ONE (07:40)
[2020-01-17] MEDS: PANTOPRAZOLE 40 MG TABLET. PO SCH (08:08)
--- NOTE | 2020-01-17 08:09 | RAD ---
RS Compliance Statement: One or more of the following individualized dose reduction techniques were utilized for this examination: 1. Automated exposure control 2. Adjustment of the mA and/or kV according to patient size 3. Use of iterative reconstruction technique CT HEAD WITHOUT CONTRAST History: intractable headache Comparison: CT head without contrast, June 13, 2018. Procedure: Axial images are obtained of the head from the skull base through the vertex without IV contrast. Findings: The ventricles and sulci are normal for the patient's age. No mass-effect, midline shift, hemorrhage, extra-axial fluid collection, or obvious acute infarction is identified. Basilar cisterns are patent. Bone windows demonstrate no acute calvarial abnormality. The visualized paranasal sinuses are clear. Mastoid air cells are well aerated. IMPRESSION: No acute intracranial abnormality. Electronically signed by: Ken Jose MD (01/17/2020 8:05 AM) [id number]
[2020-01-17] MEDS: GABAPENTIN 300 MG CAPSULE. PO SCH ×2 (08:10→13:22)
[2020-01-17] MEDS: TOPIRAMATE 100 MG TABLET. PO SCH (08:10)
[2020-01-17] MEDS: valACYclovir 500 MG TABLET. PO SCH (08:10)
[2020-01-17] MEDS: METOCLOPRAMIDE 10 MG TABLET PO SCH ×2 (08:11→11:56)
[2020-01-17] MEDS: PIOGLITAZONE 15 MG TABLET. PO SCH (08:11)
[2020-01-17] MEDS: NYSTATIN TOPICAL POWDER 15GM BOTTLE. TP SCH (08:11)
[2020-01-17] MEDS: FUROSEMIDE 20 MG TABLET PO SCH (08:12)
[2020-01-17] MEDS: INSULIN LISPRO 300 UNITS/3 ML VIAL. SQ SCH ×4 (08:15→11:58)
[2020-01-17] MEDS: NON FORMULARY ITEM (Brexpiprazole (Rexulti) 1 TAB) PO SCH (08:34)
[2020-01-17] MEDS: NON FORMULARY ITEM (Semaglutide (Ozempic) 1 MG) SQ SCH (08:34)
[2020-01-17] MEDS: VILAZODONE HYDROCHLORIDE 40 MG PO SCH (08:34)
[2020-01-17] MEDS ORDERED: DICY20TA3 PO (08:41)
[2020-01-17] MEDS ORDERED: BUTALB/APAP/CAFEIN 50/325/40MG TABLET. PO PRN (10:30)
[2020-01-17 11:08] VITALS: BP 120/72
[2020-01-17] MEDS ORDERED: METO10TA81 PO (12:22)
[2020-01-17] MEDS ORDERED: DIHYDROERGOTAMINE 1 MG/ML AMPUL. IVP ONE (14:30)
[2020-01-17] MEDS ORDERED: ONDANSETRON PF 4 MG/2 ML VIAL. ONE (14:55)
[2020-01-17 15:26] VITALS: BP 144/98
== END 2020-01-17 16:05 | disposition home or self-care (01) | DRG 392 ==
LOC: ER 18:34 → ICU 22:05
PROVIDERS: ADMIT Family Medicine; ATTEND Family Medicine
DX: A08.4 Viral intestinal infection, unspecified (principal); I42.9 Cardiomyopathy, unspecified; E44.1 Mild protein-calorie malnutrition; Z68.42 Body mass index [BMI] 45.0-49.9, adult; E11.65 Type 2 diabetes mellitus with hyperglycemia; E86.0 Dehydration; G43.909 Migraine, unspecified, not intractable, without status migrainosus; F41.9 Anxiety disorder, unspecified; F32.9 Major depressive disorder, single episode, unspecified; E66.01 Morbid (severe) obesity due to excess calories; M79.7 Fibromyalgia; G47.30 Sleep apnea, unspecified; F41.0 Panic disorder [episodic paroxysmal anxiety]; F43.10 Post-traumatic stress disorder, unspecified; J45.909 Unspecified asthma, uncomplicated; E03.9 Hypothyroidism, unspecified; F60.9 Personality disorder, unspecified; E78.00 Pure hypercholesterolemia, unspecified; M19.90 Unspecified osteoarthritis, unspecified site; Z86.711 Personal history of pulmonary embolism; Z86.14 Personal history of Methicillin resistant Staphylococcus aureus infection; Z87.891 Personal history of nicotine dependence; Z80.8 Family history of malignant neoplasm of other organs or systems; Z86.73 Personal history of transient ischemic attack (TIA), and cerebral infarction without residual deficits; Z85.828 Personal history of other malignant neoplasm of skin; Z83.3 Family history of diabetes mellitus; Z82.5 Family history of asthma and other chronic lower respiratory diseases; Z81.8 Family history of other mental and behavioral disorders; Z79.4 Long term (current) use of insulin
CPT/HCPCS: 36415; 70450; 74018; 74176; 80048; 80053; 80307; 81001; 82947; 83036; 83690; 85025; 87086; 96361; 96374; 96376; J1110; J1815; J1885; J2270; J2405; J8597; Q0162; 99285-25; J7030; J7613

== ENCOUNTER 2020-03-12 14:58 | Emergency (ER) | payer MEDICARE ==
[~2020-03-12] VITALS: Ht 174 cm; Wt 133.0 kg
[~2020-03-12 14:58] MED LIST changes: +BREX1TAB PO; +DICY20TA3 PO; +GABA600T7 PO; +INSU100V SQ; +LEVO150T5 PO
--- NOTE | 2020-03-12 15:40 | PHYS DOC ---
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 States that she tripped, twisted her left ankle and sat on it. She regularly takes Ibuprofen 800 mg for her chronic back pain, so she took some earlier with no relief. States pain is located on her left ankle and foot. Severity rated at 9/10. Review of Systems: Review of Systems: Constitutional: Denies fever or chills Eyes: Denies change in visual acuity HENT: Denies nasal congestion or sore throat Respiratory: Denies cough or shortness of breath Cardiovascular: Denies chest pain or edema GI: Denies abdominal pain, nausea, vomiting, bloody stools or diarrhea : Denies dysuria Musculoskeletal: Denies back pain or joint pain Integument: Denies rash Neurologic: Denies headache, focal weakness or sensory changes Endocrine: Denies polyuria or polydipsia Lymphatic: Denies swollen glands Psychiatric: Denies depression or anxiety Allergies: Allergies: Allergies Coded Allergies Type Severity Reaction Last Updated Verified amoxicillin Allergy Severe 05/13/19 Yes black pepper Allergy Severe 05/13/19 Yes methylnaltrexone Allergy Severe 05/13/19 Yes onion Allergy Severe Anaphylaxis 05/13/19 Yes Latex, Natural Rubber Allergy Intermediate 05/13/19 Yes Penicillins Allergy Intermediate 05/13/19 Yes Sulfa (Sulfonamide Antibiotics) Allergy Intermediate 05/13/19 Yes hydrogen peroxide Allergy Intermediate 05/13/19 Yes lanolin Allergy Intermediate 05/13/19 Yes tetanus immune globulin Allergy Intermediate 05/13/19 No tomato Allergy Mild Nausea 05/13/19 Yes sumatriptan Adverse Reaction Severe N/V 05/13/19 Yes adhesive Adverse Reaction Intermediate Rash 05/13/19 Yes Physical Exam: PE: Constitutional: Well developed, well nourished, no acute distress, non-toxic appearance HENT: Normocephalic, atraumatic Eyes: PERRL, EOMI, conjunctiva normal, no discharge Neck: Normal range of motion, no tenderness, supple Lungs & Thorax: No respiratory distress, equal chest rise and fall Abdomen: Soft, no tenderness Skin: Warm, dry, no erythema, no rash Back: No tenderness, no CVA tenderness Extremities: Left ankle tenderness to palpation over medial malleolus, ROM limited due to pain, 2+ pedal pulses intact bilaterally, <2 seconds capillary refill Neurologic: Alert and oriented X 3, normal motor function, normal sensory function, no focal deficits noted Psychologic: Affect normal, judgment normal EKG: EKG: [] Radiology/Procedures: Radiology/Procedures: PROCEDURE: FOOT LEFT 3V Three-view left foot and ankle radiographs 03/12/2020 CLINICAL HISTORY: Left foot and ankle pain post fall. AP, lateral and oblique digital radiographs of the left ankle and left foot were obtained. Comparison study is dated 12/26/2018. A bone screw is seen extending along the distal left tibial metaphysis to the distal left fibula. Lucency surrounds the screw within the left fibula. The left ankle mortise is intact. No acute fracture or dislocation of the left ankle is seen. No acute fracture or dislocation of the left foot is noted. Mild to moderate enthesophyte formation is seen involving the posterior left calcaneus. Mild to moderate degenerative changes are seen scattered throughout the interphalangeal, MTP and tarsometatarsal joints of the left foot. IMPRESSION: No acute fracture or dislocation of the left foot or ankle is seen. Electronically signed by: Javy Sorto MD (03/12/2020 4:00 PM) [id number] PROCEDURE: ANKLE LEFT 3V Three-view left foot and ankle radiographs 03/12/2020 CLINICAL HISTORY: Left foot and ankle pain post fall. AP, lateral and oblique digital radiographs of the left ankle and left foot were obtained. Comparison study is dated 12/26/2018. A bone screw is seen extending along the distal left tibial metaphysis to the distal left fibula. Lucency surrounds the screw within the left fibula. The left ankle mortise is intact. No acute fracture or dislocation of the left ankle is seen. No acute fracture or dislocation of the left foot is noted. Mild to moderate enthesophyte formation is seen involving the posterior left calcaneus. Mild to moderate degenerative changes are seen scattered throughout the interphalangeal, MTP and tarsometatarsal joints of the left foot. IMPRESSION: No acute fracture or dislocation of the left foot or ankle is seen. Electronically signed by: Javy Sorto MD (03/12/2020 4:00 PM) [id number] Course & Med Decision Making: Course & Med Decision Making Pertinent Imaging studies reviewed. (See chart for details) 49-year-old female who presents to the ED with left ankle pain after fall. Left foot and ankle x-rays were negative. Patient stable for discharge with outpatient follow-up with PCP. Discussed findings and plan with patient, who acknowledges understanding and agreement. Dragon Disclaimer: DragCorepair Disclaimer: This electronic medical record was generated, in whole or in part, using a voice recognition dictation system. Departure Departure: Impression: Primary Impression: Left ankle sprain Qualified Codes: S93.402A - Sprain of unspecified ligament of left ankle, initial encounter Disposition: 01 DC HOME SELF CARE/HOMELESS Condition: STABLE Referrals: CHIKA WARREN MD (PCP) NICKY MARINELLI MD Patient Instructions: Ankle Sprain, [id number], Crutch Use, [id number], Elastic Bandage and RICE Scripts Hydrocodone Bit/Acetaminophen (NORCO 5-325 TABLET) 1 Each Tablet 0.5-1 TAB PO Q6HRS PRN for PAIN, #10 TAB Prov: ANTOINE RUBIN DO 03/12/20 ANTOINE RUBIN DO Mar 12, 2020 15:40
--- NOTE | 2020-03-12 16:03 | RAD ---
Three-view left foot and ankle radiographs 03/12/2020 CLINICAL HISTORY: Left foot and ankle pain post fall. AP, lateral and oblique digital radiographs of the left ankle and left foot were obtained. Comparison study is dated 12/26/2018. A bone screw is seen extending along the distal left tibial metaphysis to the distal left fibula. Lucency surrounds the screw within the left fibula. The left ankle mortise is intact. No acute fracture or dislocation of the left ankle is seen. No acute fracture or dislocation of the left foot is noted. Mild to moderate enthesophyte formation is seen involving the posterior left calcaneus. Mild to moderate degenerative changes are seen scattered throughout the interphalangeal, MTP and tarsometatarsal joints of the left foot. IMPRESSION: No acute fracture or dislocation of the left foot or ankle is seen. Electronically signed by: Javy Sorto MD (03/12/2020 4:00 PM) [id number]
[2020-03-12] MEDS ORDERED: HYDR-3165 PO (16:19)
[2020-03-12 16:35] VITALS: BP 121/77
== END 2020-03-12 16:45 | disposition home or self-care (01) ==
LOC: ER 14:58
DX: S93.402A Sprain of unspecified ligament of left ankle, initial encounter (principal); M19.90 Unspecified osteoarthritis, unspecified site; J45.909 Unspecified asthma, uncomplicated; F32.9 Major depressive disorder, single episode, unspecified; M79.7 Fibromyalgia; E03.9 Hypothyroidism, unspecified; G43.909 Migraine, unspecified, not intractable, without status migrainosus; E11.40 Type 2 diabetes mellitus with diabetic neuropathy, unspecified; Z86.73 Personal history of transient ischemic attack (TIA), and cerebral infarction without residual deficits; Z87.891 Personal history of nicotine dependence; Z88.1 Allergy status to other antibiotic agents; Z91.018 Allergy to other foods; Z91.040 Latex allergy status; Z88.0 Allergy status to penicillin; Z88.2 Allergy status to sulfonamides; Z88.7 Allergy status to serum and vaccine; Z88.8 Allergy status to other drugs, medicaments and biological substances; W01.0XXA Fall on same level from slipping, tripping and stumbling without subsequent striking against object, initial encounter; Y93.89 Activity, other specified; Y92.89 Other specified places as the place of occurrence of the external cause; Y99.8 Other external cause status
CPT/HCPCS: 29515; 73610; 73630; 96372; 99284; J3010

== ENCOUNTER → 2020-03-28 | Outpatient (CLI) | payer MEDICARE ==
[2020-03-12 16:35] VITALS: BP 121/77
[2020-03-28 12:23] LABS: BASO % 1 % (0-3); EOS # 0.1 x10^3/uL (0.0-0.7); EOS % 2 % (0-3); HEMATOCRIT 46.2 % (36.0-47.0); HEMOGLOBIN 15.4 g/dL (12.0-15.5); LYMPH # 1.7 x10^3/uL (1.0-4.8); LYMPH % 31 % (24-48); MEAN CORPUSCULAR HEMOGLOBIN 29 pg (25-35); MEAN CORPUSCULAR HGB CONC 33 g/dL (31-37); MEAN CORPUSCULAR VOLUME 88 fL (79-100); MONO # 0.4 x10^3/uL (0.0-1.1); MONO % 7 % (0-9); NEUT # 3.3 x10^3uL (1.8-7.7); NEUT % 60 % (31-73); PLATELET COUNT 210 x10^3/uL (140-400); RED BLOOD COUNT 5.28 x10^6/uL (3.50-5.40); RED CELL DISTRIBUTION WIDTH 12.4 % (11.5-14.5); WHITE BLOOD COUNT 5.5 x10^3/uL (4.0-11.0)
[2020-03-28 13:31] LABS: ALBUMIN 3.5 g/dL (3.4-5.0); ALBUMIN/GLOBULIN RATIO 0.8 (1.0-1.7); CALCIUM 9.6 mg/dL (8.5-10.1); GFR 59.4; POTASSIUM 3.8 mmol/L (3.5-5.1); TOTAL BILIRUBIN 0.8 mg/dL (0.2-1.0); TOTAL PROTEIN 7.8 g/dL (6.4-8.2)
[2020-03-29 07:12] LABS: HEMOGLOBIN A1C 14.5 % (4.8-5.6)
[2020-03-29 14:39] LABS: FREE T4 0.97 ng/dL (0.76-1.46)
[2020-03-29 14:40] LABS: THYROID STIM HORMONE (TSH) 10.359 uIU/mL (0.358-3.740)
== END ==
LOC: LAB 11:46
PROVIDERS: ATTEND Family Medicine
DX: I10 Essential (primary) hypertension (principal); E11.65 Type 2 diabetes mellitus with hyperglycemia; E03.9 Hypothyroidism, unspecified
CPT/HCPCS: 36415; 80053; 80061; 83036; 84439; 84443; 85025

== ENCOUNTER 2020-05-06 11:23 | Inpatient (IN) | payer MEDICARE ==
[~2020-05-06] VITALS: Ht 175.3 cm; Wt 135.0 kg
[2020-05-06] MEDS ORDERED: ASPIRIN CHEWABLE 81 MG TABLET. PO ONE (11:30)
--- NOTE | 2020-05-06 11:48 | PHYS DOC ---
Past History Past Medical History: Asthma, Cancer, Diabetes, Fibromyalgia Additional Past Medical Histor: Gorlin's, basal cell nevus Past Surgical History: Cholecystectomy, Other Additional Past Surgical Histo: right ankle and left ankle surgery Smoking: Quit Greater Than 1 Year Alcohol Use: Rarely Drug Use: None General Adult EDM: Chief Complaint: SHORTNESS OF BREATH HPI: HPI: Patient is a 49-year-old female who arrives via EMS with a chief complaint of chest pain. Patient woke this morning with substernal chest pain is currently 9 out of 10 described as sharp in nature and worse with deep breaths. Patient states it was radiating to her bilateral arms earlier which has since improved. Patient complains of short of breath. Patient has had a chronic cough. Patient also has a possible COVID-19 exposure. Patient has no current nausea but had vomiting 2 days ago. Review of Systems: Review of Systems: Constitutional: Denies fever or chills Eyes: Denies change in visual acuity HENT: Denies nasal congestion or sore throat Respiratory: Complains of cough and shortness of breath Cardiovascular: Complains of chest pain but no new edema GI: Denies abdominal pain, nausea, vomiting, bloody stools or diarrhea : Denies dysuria Musculoskeletal: Denies back pain or joint pain Integument: Denies rash Neurologic: Denies headache, focal weakness or sensory changes Endocrine: Denies polyuria or polydipsia Lymphatic: Denies swollen glands Psychiatric: Denies depression or anxiety Current Medications: Current Meds: Current Medications Medications (Trade) Dose Ordered Sig/Carlie Start Time Stop Time Status Last Admin Dose Admin Aspirin (Aspirin Chewable) 324 mg 1X ONCE 05/06/20 11:30 05/06/20 11:31 DC Allergies: Allergies: Allergies Coded Allergies Type Severity Reaction Last Updated Verified amoxicillin Allergy Severe 05/13/19 Yes black pepper Allergy Severe 05/13/19 Yes methylnaltrexone Allergy Severe 05/13/19 Yes onion Allergy Severe Anaphylaxis 05/13/19 Yes Latex, Natural Rubber Allergy Intermediate 05/13/19 Yes Penicillins Allergy Intermediate 05/13/19 Yes Sulfa (Sulfonamide Antibiotics) Allergy Intermediate 05/13/19 Yes hydrogen peroxide Allergy Intermediate 05/13/19 Yes lanolin Allergy Intermediate 05/13/19 Yes tetanus immune globulin Allergy Intermediate 05/13/19 No tomato Allergy Mild Nausea 05/13/19 Yes sumatriptan Adverse Reaction Severe N/V 05/13/19 Yes adhesive Adverse Reaction Intermediate Rash 05/13/19 Yes Physical Exam: PE: Constitutional: Well developed, well nourished, no acute distress, non-toxic appearance. [] HENT: Normocephalic, atraumatic, bilateral external ears normal, no trismus nose normal. [] Eyes: PERRLA, EOMI, conjunctiva normal, no discharge. [] Neck: Normal range of motion, no tenderness, supple, no stridor. [] Cardiovascular:Heart rate regular rhythm, peripheral pulses are intact cap refill is brisk Lungs & Thorax: Bilateral breath sounds clear, no respiratory distress Abdomen: soft, no tenderness, no masses, no pulsatile masses. [] Skin: Warm, dry, no erythema, multiple healing lesions predominantly on the anterior chest wall Back: No tenderness, no CVA tenderness. [] Extremities: No tenderness, no cyanosis, no clubbing, ROM intact, no edema. [] Neurologic: Alert and oriented X 3, normal motor function, normal sensory f unction, no focal deficits noted. [] Psychologic: Affect normal, judgement normal, mood normal. [] Current Patient Data: Labs: Laboratory Tests Test 05/06/20 11:30 05/06/20 11:34 05/06/20 12:50 Serum Test, Qualitative Negative D-Dimer (Milly) 0.62 mg/L Sodium Level 131 mmol/L Potassium Level 4.1 mmol/L Chloride Level 94 mmol/L Carbon Dioxide Level 26 mmol/L Anion Gap 11 Blood Urea Nitrogen 11 mg/dL Creatinine 0.9 mg/dL Estimated GFR (Cockcroft-Gault) 67.1 BUN/Creatinine Ratio 12 Glucose Level 580 mg/dL Calcium Level 9.5 mg/dL Magnesium Level 1.7 mg/dL Total Bilirubin 0.5 mg/dL Aspartate Amino Transf (AST/SGOT) 21 U/L Alanine Aminotransferase (ALT/SGPT) 27 U/L Alkaline Phosphatase 68 U/L Troponin I Quantitative < 0.017 ng/mL [id number] Natriuretic Peptide 97 pg/mL Total Protein 7.7 g/dL Albumin 3.4 g/dL Albumin/Globulin Ratio 0.8 Lipase 751 U/L White Blood Count 6.4 x10^3/uL Red Blood Count 4.88 x10^6/uL Hemoglobin 14.1 g/dL Hematocrit 42.8 % Mean Corpuscular Volume 88 fL Mean Corpuscular Hemoglobin 29 pg Mean Corpuscular Hemoglobin Concent 33 g/dL Red Cell Distribution Width 13.0 % Platelet Count 176 x10^3/uL Neutrophils (%) (Auto) 64 % Lymphocytes (%) (Auto) 28 % Monocytes (%) (Auto) 6 % Eosinophils (%) (Auto) 2 % Basophils (%) (Auto) 1 % Neutrophils # (Auto) 4.1 x10^3uL Lymphocytes # (Auto) 1.8 x10^3/uL Monocytes # (Auto) 0.4 x10^3/uL Eosinophils # (Auto) 0.1 x10^3/uL Basophils # (Auto) 0.1 x10^3/uL Current Medications Medications (Trade) Dose Ordered Sig/Carlie Route PRN Reason Start Time Stop Time Status Last Admin Dose Admin Aspirin (Aspirin Chewable) 324 mg 1X ONCE PO 05/06/20 11:30 05/06/20 11:31 DC Sodium Chloride 1,000 ml @ 1,000 mls/hr 1X ONCE IV 05/06/20 12:30 05/06/20 13:29 DC 05/06/20 13:16 Ondansetron HCl (Zofran) 4 mg 1X ONCE IVP 05/06/20 12:30 05/06/20 12:31 DC Morphine Sulfate (Morphine 4mg Syringe) 4 mg 1X ONCE IV 05/06/20 12:30 05/06/20 12:31 DC Iohexol (Omnipaque 350 Mg/ml) 100 ml 1X ONCE IV 05/06/20 12:30 05/06/20 12:34 DC 05/06/20 13:20 Info (Do NOT chart on this entry -- for MONITORING) 1 each PRN DAILY PRN MC SEE COMMENTS 05/06/20 12:45 05/08/20 12:44 Insulin Human Regular 100 unit/ Sodium Chloride 101 ml @ 0 mls/hr CONT PRN IV SEE I/O RECORD 05/06/20 13:00 Dextrose (Dextrose 50%-Water Syringe) 12.5 gm PRN Q15MIN PRN IV LOW BLOOD SUGAR 05/06/20 13:00 UNV Dextrose (Dextrose 50%-Water Syringe) 12.5 gm PRN Q15MIN PRN IV SEE COMMENTS 05/06/20 13:00 Ondansetron HCl (Zofran) 4 mg PRN Q4HRS PRN IVP NAUSEA/VOMITING 05/06/20 13:00 05/07/20 12:59 Morphine Sulfate (Morphine 4mg Syringe) 4 mg PRN Q2HR PRN IVP PAIN 05/06/20 13:00 05/07/20 12:59 Vital Signs: Vital Signs Date Time Temp Pulse Resp B/P (MAP) Pulse Ox O2 Delivery O2 Flow Rate FiO2 05/06/20 12:57 95 18 159/93 (115) 99 Room Air 05/06/20 11:23 99.3 EKG: EKG: [] EKG interpreted by me normal sinus rhythm with rate 85 right axis deviation, incomplete right bundle branch block, nonspecific ST changes Radiology/Procedures: Radiology/Procedures: [][address] [address] IMAGING REPORT Signed PATIENT: CHIQUITA BLAIR ACCOUNT: [id number] : 1970 LOCATION: ER AGE: 49 SEX: F EXAM STATUS: REG ER ORD. PHYSICIAN: ABILIO FLORES MD REASON: cp PROCEDURE: PORTABLE CHEST 1V Examination: PORTABLE CHEST 1V History: cp Comparison/Correlation: 08/12/2019 Findings: Portable upright frontal view of the chest was obtained. Heart size and pulmonary vasculature are normal. No infiltrate or effusion. Mild deformity of upper ribs and scoliosis are similar to prior exam. No acute bony process. Impression: No acute process. Electronically signed by: Adiel Post MD (05/06/2020 12:02 PM) [id number] DICTATED AND SIGNED BY: ADIEL POST MD DATE: 05/06/20 1202 CC: ABILIO FLORES MD; CHIKA WARREN MD ~MTH0 [address] [address] IMAGING REPORT Signed PATIENT: CHIQUITA BLAIR ACCOUNT: [id number] : 1970 LOCATION: ER AGE: 49 SEX: F EXAM STATUS: REG ER ORD. PHYSICIAN: ABILIO FLORES MD REASON: chest pain, elevated d dimer PROCEDURE: CT ANGIOGRAPHY CHEST CT ANGIOGRAPHY CHEST INDICATION: Reason: chest pain, elevated d dimer / Spl. Instructions: / History: . Comparison: None. TECHNIQUE: Following the uneventful administration of intravenous contrast, 75 cc Omnipaque 350, axial CT sections were obtained through the lungs and upper abdomen. Multiplanar reconstructions and MIP images were obtained. PQRS compliance statement: One or more of the following individualized dose reduction techniques were utilized for this examination: 1. Automated exposure control 2. Adjustment of the mA and/or kV according to patient size 3. Use of iterative reconstruction technique FINDINGS: Pulmonary arteries: No evidence of pulmonary thromboembolic disease. Lungs and Airways: No pulmonary mass or consolidation. No abnormality of the central airways. Pleura: The pleural spaces are normal. Heart and Mediastinum: The visualized thyroid is normal in size and attenuation. No axillary or supraclavicular lymphadenopathy. No mediastinal, hilar or retrocrural lymphadenopathy. The heart and pericardium are within normal limits. The great vessels of the thorax are normal. Abdomen: Cholecystectomy. Bones and Soft Tissues: Degenerative changes of the spine. Unchanged developmental deformity of the cervicothoracic spine and upper chest wall osseous structures appear IMPRESSION: 1. No evidence of pulmonary thromboembolic disease. 2. No pulmonary mass or consolidation. Electronically signed by: Alberto Son MD (05/06/2020 1:44 PM) [id number] DICTATED AND SIGNED BY: ALBERTO SON MD DATE: 05/06/20 1344 CC: ABILIO FLORES MD; CHIKA WARREN MD ~MTH0 0 Heart Score: HEART Score for Chest Pain: HEART Score for Chest Pain Response (Comments) Value History Moderately Suspicious 1 ECG Nonspecific Repolarizatio 1 Age >45 - < 65 1 Risk Factors 1 or 2 Risk Factors 1 Troponin < Normal Limit 0 Total 4 Risk Factors: Risk Factors: DM, Current or recent (<one month) smoker, HTN, HLP, family history of CAD, obesity. Risk Scores: Score 0 - 3: 2.5% MACE over next 6 weeks - Discharge Home Score 4 - 6: 20.3% MACE over next 6 weeks - Admit for Clinical Observation Score 7 - 10: 72.7% MACE over next 6 weeks - Early Invasive Strategies Course & Med Decision Making: Course & Med Decision Making Pertinent Labs and Imaging studies reviewed. (See chart for details) [Patient declines aspirin, states it causes her to feel nauseous and causes severe abdominal pain] 49-year-old female arrives with a chief complaint of chest pain. Patient has a heart score of 4 with a negative troponin. Patient will need admission for rule out ND. Patient also found to have profound hyperglycemia and was started on insulin infusion. Patient has elevated D-dimer therefore she underwent a CT angiogram which ruled out pulmonary embolism. There is no evidence of thoracic aorta dissection on CTA. Discussed the case with Dr. Warren who will admit the patient. Patient will also be swabbed for COVID-19 as she has had exposure. Dragon Disclaimer: DragSiteBrains Disclaimer: This electronic medical record was generated, in whole or in part, using a voice recognition dictation system. Departure Departure: Impression: Primary Impression: Hyperglycemia due to type 2 diabetes mellitus Additional Impressions: Chest pain Suspected COVID-19 virus infection Disposition: ADMITTED INPT THIS HOSP Admitting Physician: Chika Warren Condition: GUARDED Referrals: CHIKA WARREN MD (PCP) ABILIO FLORES MD May 06, 2020 11:48
[2020-05-06 12:05] LABS: PREG TEST PT QUAL NEGATIVE (NEG)
--- NOTE | 2020-05-06 12:05 | RAD ---
Examination: PORTABLE CHEST 1V History: cp Comparison/Correlation: 08/12/2019 Findings: Portable upright frontal view of the chest was obtained. Heart size and pulmonary vasculature are normal. No infiltrate or effusion. Mild deformity of upper ribs and scoliosis are similar to prior exam. No acute bony process. Impression: No acute process. Electronically signed by: Adiel Byrd MD (05/06/2020 12:02 PM) [id number]
--- NOTE | 2020-05-06 12:12 | EKG ---
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
[2020-05-06 12:13] LABS: ALBUMIN 3.4 g/dL (3.4-5.0); ALBUMIN/GLOBULIN RATIO 0.8 (1.0-1.7); CALCIUM 9.5 mg/dL (8.5-10.1); CREATININE 0.9 mg/dL (0.6-1.0); GFR 67.1; MAGNESIUM 1.7 mg/dL (1.8-2.4); POTASSIUM 4.1 mmol/L (3.5-5.1); TOTAL BILIRUBIN 0.5 mg/dL (0.2-1.0); TOTAL PROTEIN 7.7 g/dL (6.4-8.2)
[2020-05-06] MEDS ORDERED: ONDANSETRON PF 4 MG/2 ML VIAL. IVP ONE (12:30)
[2020-05-06] MEDS ORDERED: MORPHINE SULFATE 4 MG/ML DISP.SYRIN. IV ONE (12:30)
[2020-05-06] MEDS ORDERED: IOHEXOL 350 MG/ML 100 ML VIAL. IV ONE (12:30)
[2020-05-06] MEDS ORDERED: IV NORMAL SALINE 1,000ML 1,000 ML IV ONE (12:30)
[2020-05-06] MEDS ORDERED: CONTRAST GIVEN. MC PRN (12:45)
[2020-05-06] MEDS ORDERED: MORPHINE SULFATE 4 MG/ML DISP.SYRIN. IVP PRN (13:00)
[2020-05-06] MEDS ORDERED: ONDANSETRON PF 4 MG/2 ML VIAL. IVP PRN (13:00)
[2020-05-06] MEDS ORDERED: INSULIN REGULAR VIAL 100 UNIT in IV NORMAL SALINE 100ML 100 ML IV PRN (13:00)
[2020-05-06] MEDS ORDERED: DEXTROSE 50% 25 GM / 50ML DISP.SYRIN. IV PRN ×3 (13:00→19:45)
[2020-05-06 13:07] LABS: BASO # 0.1 x10^3/uL (0.0-0.2); BASO % 1 % (0-3); EOS # 0.1 x10^3/uL (0.0-0.7); EOS % 2 % (0-3); HEMATOCRIT 42.8 % (36.0-47.0); HEMOGLOBIN 14.1 g/dL (12.0-15.5); LYMPH # 1.8 x10^3/uL (1.0-4.8); LYMPH % 28 % (24-48); MEAN CORPUSCULAR HEMOGLOBIN 29 pg (25-35); MEAN CORPUSCULAR HGB CONC 33 g/dL (31-37); MEAN CORPUSCULAR VOLUME 88 fL (79-100); MONO # 0.4 x10^3/uL (0.0-1.1); MONO % 6 % (0-9); NEUT # 4.1 x10^3uL (1.8-7.7); NEUT % 64 % (31-73); PLATELET COUNT 176 x10^3/uL (140-400); RED BLOOD COUNT 4.88 x10^6/uL (3.50-5.40); WHITE BLOOD COUNT 6.4 x10^3/uL (4.0-11.0)
--- NOTE | 2020-05-06 13:47 | RAD ---
CT ANGIOGRAPHY CHEST INDICATION: Reason: chest pain, elevated d dimer / Spl. Instructions: / History: . Comparison: None. TECHNIQUE: Following the uneventful administration of intravenous contrast, 75 cc Omnipaque 350, axial CT sections were obtained through the lungs and upper abdomen. Multiplanar reconstructions and MIP images were obtained. RS compliance statement: One or more of the following individualized dose reduction techniques were utilized for this examination: 1. Automated exposure control 2. Adjustment of the mA and/or kV according to patient size 3. Use of iterative reconstruction technique FINDINGS: Pulmonary arteries: No evidence of pulmonary thromboembolic disease. Lungs and Airways: No pulmonary mass or consolidation. No abnormality of the central airways. Pleura: The pleural spaces are normal. Heart and Mediastinum: The visualized thyroid is normal in size and attenuation. No axillary or supraclavicular lymphadenopathy. No mediastinal, hilar or retrocrural lymphadenopathy. The heart and pericardium are within normal limits. The great vessels of the thorax are normal. Abdomen: Cholecystectomy. Bones and Soft Tissues: Degenerative changes of the spine. Unchanged developmental deformity of the cervicothoracic spine and upper chest wall osseous structures appear IMPRESSION: 1. No evidence of pulmonary thromboembolic disease. 2. No pulmonary mass or consolidation. Electronically signed by: Adrian Son MD (05/06/2020 1:44 PM) [id number]
[2020-05-06] MEDS ORDERED: ALBUTEROL SULFATE 2.5 MG/3 ML NEBU. INH PRN (17:15)
[2020-05-06] MEDS ORDERED: ONDANSETRON ODT 4 MG TAB.RAPDIS PO PRN (17:15)
[2020-05-06] MEDS ORDERED: hydrOXYzine HCL 25 MG TABLET PO PRN (17:45)
--- NOTE | 2020-05-06 17:45 | NUR ---
Patient arrived to the unit via EMS via gurney. Patient is alert and oriented. Patients Insulin gtt was not infusing when she arrived to the unit ER stopped the infusion per reported Lapping Machine Set Up Operator. Insulin drip was resumed immediately. Patient glucose was 314 upon arrival. Glucostabalizer was also initiated. Patient was oriented to unit routines, side rails up x's 2 with call light in reach. [facility]
[2020-05-06 17:49] VITALS: BP 133/78
[2020-05-06] MEDS ORDERED: ALBUTEROL SULFATE 8GM INHALER. INH PRN (18:00)
[2020-05-06] MEDS: GABAPENTIN 300 MG CAPSULE. PO SCH (20:52)
[2020-05-06] MEDS: valACYclovir 500 MG TABLET. PO SCH (20:52)
[2020-05-06] MEDS: METOCLOPRAMIDE 10 MG TABLET PO SCH (20:52)
[2020-05-06] MEDS: TOPIRAMATE 100 MG TABLET. PO SCH (20:52)
[2020-05-06] MEDS: DOXYCYCLINE HYCLATE 100 MG TABLET PO SCH (20:52)
[2020-05-06] MEDS: HYDROcodone/APAP 5/325MG 1 TAB TABLET PO PRN (20:52)
[2020-05-06] MEDS: NYSTATIN TOPICAL POWDER 15GM BOTTLE. TP SCH (20:53)
[2020-05-06] MEDS: DICYCLOMINE HCL 20 MG TABLET PO SCH (20:53)
[2020-05-06] MEDS: INSULIN LISPRO 300 UNITS/3 ML VIAL. SQ SCH (20:53)
[2020-05-06] MEDS: INSULIN GLARGINE SYRINGE. SQ SCH (20:54)
[2020-05-06] MEDS ORDERED: NON FORMULARY ITEM (Insulin Lispro (Humalog) 0 UNITS) SQ SCH (21:00)
[2020-05-06] MEDS ORDERED: NON FORMULARY ITEM (Insulin Degludec (Tresiba Flextouch U-100) 100 UNIT) SQ SCH (21:00)
[2020-05-06 21:41] LABS: AMPHETAMINE/METHAMPHETAMINE NEG (NEG); BARBITURATES NEG (NEG); BENZODIAZEPINES NEG (NEG); COCAINE NEG (NEG); METHADONE NEG (NEG); OPIATES POS (NEG)
[2020-05-06 21:42] LABS: CANNABINOIDS NEG (NEG); PHENCYCLIDINE NEG (NEG)
[2020-05-06 22:52] VITALS: BP 126/67
[2020-05-07] MEDS: LEVOTHYROXINE 150 MCG TABLET PO SCH (06:42)
[2020-05-07 07:00] VITALS: BP 146/72
[2020-05-07] MEDS: NON FORMULARY ITEM (Semaglutide (Ozempic) 1 MG) SQ SCH (09:00)
[2020-05-07] MEDS: NON FORMULARY ITEM (Brexpiprazole (Rexulti) 1 TAB) PO SCH (09:00)
[2020-05-07] MEDS: NYSTATIN TOPICAL POWDER 15GM BOTTLE. TP SCH ×2 (09:00→20:34)
[2020-05-07] MEDS: VILAZODONE HYDROCHLORIDE 40 MG PO SCH (09:00)
[2020-05-07] MEDS: PANTOPRAZOLE 40 MG TABLET. PO SCH (09:16)
[2020-05-07] MEDS: METOCLOPRAMIDE 10 MG TABLET PO SCH ×4 (09:16→20:35)
[2020-05-07] MEDS: PIOGLITAZONE 15 MG TABLET. PO SCH (09:16)
[2020-05-07] MEDS: DICYCLOMINE HCL 20 MG TABLET PO SCH ×3 (09:16→20:35)
[2020-05-07] MEDS: valACYclovir 500 MG TABLET. PO SCH ×2 (09:16→20:35)
[2020-05-07] MEDS: GABAPENTIN 300 MG CAPSULE. PO SCH ×3 (09:16→20:35)
[2020-05-07] MEDS: HYDROcodone/APAP 5/325MG 1 TAB TABLET PO PRN ×2 (09:16→18:18)
[2020-05-07] MEDS: FUROSEMIDE 20 MG TABLET PO SCH (09:17)
[2020-05-07] MEDS: TOPIRAMATE 100 MG TABLET. PO SCH ×2 (09:17→20:35)
[2020-05-07] MEDS: DOXYCYCLINE HYCLATE 100 MG TABLET PO SCH ×2 (09:17→20:35)
[2020-05-07] MEDS ORDERED: BUTALB/APAP/CAFEIN 50/325/40MG TABLET. PO PRN (09:30)
[2020-05-07] MEDS: INSULIN LISPRO 300 UNITS/3 ML VIAL. SQ SCH ×4 (09:40→20:44)
[2020-05-07 11:00] VITALS: BP 146/82
[2020-05-07 11:31] LABS: ALBUMIN 2.8 g/dL (3.4-5.0); DIRECT BILIRUBIN 0.1 mg/dL (0.0-0.2); TOTAL BILIRUBIN 0.3 mg/dL (0.2-1.0); TOTAL PROTEIN 6.6 g/dL (6.4-8.2)
[2020-05-07 15:00] VITALS: BP 127/67
[2020-05-07 19:40] VITALS: BP 137/77
[2020-05-07] MEDS: INSULIN GLARGINE SYRINGE. SQ SCH (20:35)
--- NOTE | 2020-05-07 21:38 | HP ---
ADMIT DATE: 05/06/2020 HISTORY OF PRESENT ILLNESS: A 49-year-old female came in through the Emergency Room. She was complaining of substernal chest pain, currently 9/10, felt like an elephant standing on her chest, ____ bilateral arms since improved. She also complains of a chronic cough and possible COVID-19 exposure. She has had no nausea, vomiting, fever or chills here in the last 2-3 days. The patient was admitted for rule out MT protocol. PAST MEDICAL HISTORY: Gorlin basal cell nevus, asthma, fibromyalgia, nearsighted, lazy eye, TIAs, peripheral neuropathy, headaches, heart murmurs, cardiomyopathy, coronary artery disease, cardiac catheterization, hypercholesterolemia, respiratory disorders, deviated septum, history of pulmonary emboli, pneumonia, sleep apnea, uses CPAP, gastroparesis, esophageal stretching for strictures, cholecystectomy, hiatal hernia, morbid obesity, GERD, herpes, urinary tract infection, musculoskeletal chronic fibromyalgia, liver disease, psychiatric problems, PTSD, panic disorder, PPD personality disorder, depression, MDD, self-mutilation, narcolepsies, methicillin-resistant Staph on her nares on 03/17. FAMILY HISTORY: Positive for heart murmur, smoking, bipolar disorder in a brother, asthma in a brother, otherwise, history of hypertension, diabetes, depression. ALLERGIES: Overall, her medical allergies to medications, LATEX, NATURAL RUBBER, PENICILLIN, SULFUR, ADHESIVES, AMOXICILLIN, BLACK PEPPER, HYDROGEN PEROXIDE, METHYLNALTREXONE, ONIONS, SUMATRIPTAN, TOMATOES CAUSE NAUSEA, TETANUS IMMUNOGLOBULIN, LANOLIN ADHESIVE REACTION. SOCIAL HISTORY: The patient presently denies any smoking, alcohol or drug use and is a full code. HOME MEDICATIONS: Include that of doxycycline 100 mg b.i.d., valacyclovir 500 b.i.d., dicyclomine 20 mg daily, albuterol, ibuprofen 800, hydrocodone 5/325, gabapentin 600, Topamax, Viibryd 40, Rexulti, hydroxyzine, furosemide 20, Zofran, metoclopramide, Prilosec 40, metformin 1000 b.i.d., Ozempic, Tresiba, Humalog, levothyroxine, Actos, and nystatin powder. REVIEW OF SYSTEMS: The patient denies any headaches, visual changes, blurred vision, double vision. Denies any melena, hematochezia, hematemesis. Does have chest discomfort, shortness of breath, no more than usual. The patient is morbidly obese. Neurologically, the patient is alert and stable ____ urinary problems, mild incontinence. PHYSICAL EXAMINATION: GENERAL: This is a pleasant white female complaining of chest pain, morbidly obese. VITAL SIGNS: Blood pressure 149/80, respiratory rate 14, pulse 90, afebrile, 98% oxygen saturation, weight 133 kg. HEENT: The patient, otherwise, head was atraumatic, normocephalic. Eyes: PERRLA without jaundice. Poor dentition. NECK: Supple, without JVD, carotid bruits. No thyromegaly. LUNGS: Diminished throughout, poor movement of air. CARDIOVASCULAR: Regular sinus rhythm, S1, S2, without murmur, rub, thrill, or extra heart sound. ABDOMEN: Soft, protuberant. No rebounding, no guarding. Positive bowel sounds. No hepatosplenomegaly was noted. EXTREMITIES: No clubbing, cyanosis, nor edema. NEUROLOGIC: The patient was alert and oriented x 3. IMPRESSION: Chest pain, rule out angina, morbid obesity, type 2 diabetes, moderate protein malnutrition, elevated D-dimer. The patient's CTA was negative for blood clots. No pulmonary mass or consolidation noted. The initial lab did show she had an elevated lipase of over 700, which put her in the range of pancreatitis, although it came down to 129 with rest and getting her sugar down. Type 2 diabetes was poorly controlled. Her initial blood sugar on admission was 580. Apparently, she had stopped taking her medications. PLAN: The patient continued to be monitored for rule out MT protocol and make further evaluation at that time. CHIKA WARREN MD DR: MOUNA/glenn JOB#: [id number] / [id number]
[2020-05-08 04:54] VITALS: BP 108/70
[2020-05-08] MEDS: LEVOTHYROXINE 150 MCG TABLET PO SCH (05:01)
--- NOTE | 2020-05-08 05:15 | NUR ---
Pt awake in bed at change of shift on cellphone, video chatting. Pt is A&Ox4. VSS. Pt informed that her Covid result was negative, seemed excited. Pt slept great during night but woke up with this AM with a "really bad migraine....it hurts to even have my eyes open!" Pt given PRN Fioricet. After medication be given, pt immediately got on cellphone, placed her headphones on and started watching videos.
[2020-05-08] MEDS: DICYCLOMINE HCL 20 MG TABLET PO SCH ×2 (08:46→14:05)
[2020-05-08] MEDS: PIOGLITAZONE 15 MG TABLET. PO SCH (08:46)
[2020-05-08] MEDS: METOCLOPRAMIDE 10 MG TABLET PO SCH ×2 (08:46→12:02)
[2020-05-08] MEDS: TOPIRAMATE 100 MG TABLET. PO SCH (08:46)
[2020-05-08] MEDS: valACYclovir 500 MG TABLET. PO SCH (08:46)
[2020-05-08] MEDS: DOXYCYCLINE HYCLATE 100 MG TABLET PO SCH (08:46)
[2020-05-08] MEDS: PANTOPRAZOLE 40 MG TABLET. PO SCH (08:46)
[2020-05-08] MEDS: GABAPENTIN 300 MG CAPSULE. PO SCH ×2 (08:46→14:05)
[2020-05-08] MEDS: FUROSEMIDE 20 MG TABLET PO SCH (08:47)
[2020-05-08] MEDS: INSULIN LISPRO 300 UNITS/3 ML VIAL. SQ SCH ×2 (08:50→12:05)
[2020-05-08] MEDS: NON FORMULARY ITEM (Brexpiprazole (Rexulti) 1 TAB) PO SCH (09:00)
[2020-05-08] MEDS: NYSTATIN TOPICAL POWDER 15GM BOTTLE. TP SCH (09:00)
[2020-05-08] MEDS: NON FORMULARY ITEM (Semaglutide (Ozempic) 1 MG) SQ SCH (09:00)
[2020-05-08] MEDS: VILAZODONE HYDROCHLORIDE 40 MG PO SCH (09:00)
--- NOTE | 2020-05-08 13:50 | NUR ---
Patient provided discharge education including medication compliance and follow up appointments; she acknowledged teaching. Removed patient's PIV, she tolerated procedure well. Patient escorted to hospital entrance where she was picked up by family member.
== END 2020-05-08 13:50 | disposition home or self-care (01) | DRG 391 ==
LOC: ER 11:23 → ICU 12:50
PROVIDERS: ADMIT Family Medicine; ATTEND Family Medicine
DX: K21.9 Gastro-esophageal reflux disease without esophagitis (principal); E11.00 Type 2 diabetes mellitus with hyperosmolarity without nonketotic hyperglycemic-hyperosmolar coma (NKHHC); I42.9 Cardiomyopathy, unspecified; E44.0 Moderate protein-calorie malnutrition; Z68.41 Body mass index [BMI] 40.0-44.9, adult; E11.65 Type 2 diabetes mellitus with hyperglycemia; E78.00 Pure hypercholesterolemia, unspecified; F41.0 Panic disorder [episodic paroxysmal anxiety]; J45.909 Unspecified asthma, uncomplicated; E66.01 Morbid (severe) obesity due to excess calories; F32.9 Major depressive disorder, single episode, unspecified; E11.42 Type 2 diabetes mellitus with diabetic polyneuropathy; I25.119 Atherosclerotic heart disease of native coronary artery with unspecified angina pectoris; Z81.8 Family history of other mental and behavioral disorders; Z82.49 Family history of ischemic heart disease and other diseases of the circulatory system; Z82.5 Family history of asthma and other chronic lower respiratory diseases; Z83.3 Family history of diabetes mellitus; Z86.711 Personal history of pulmonary embolism; Z86.73 Personal history of transient ischemic attack (TIA), and cerebral infarction without residual deficits; Z87.891 Personal history of nicotine dependence; Z88.0 Allergy status to penicillin; Z88.2 Allergy status to sulfonamides; Z88.7 Allergy status to serum and vaccine; Z88.8 Allergy status to other drugs, medicaments and biological substances; Z88.1 Allergy status to other antibiotic agents; Z91.040 Latex allergy status; Z90.49 Acquired absence of other specified parts of digestive tract; Z20.828 Contact with and (suspected) exposure to other viral communicable diseases
CPT/HCPCS: 36415; 71045; 71275; 80053; 80076; 80307; 82947; 83605; 83690; 83735; 83880; 84484; 84703; 85025; 85379; 93005; 96361; 96365; 96366; 96375; J1815; J2270; J7613; J8597; Q9967; U0003; 99285-25; J7030

== ENCOUNTER 2020-09-11 00:15 | Observation (INO) | payer MEDICARE, MEDICAID ==
[~2020-09-11] VITALS: Ht 174 cm; Wt 129.9 kg
[~2020-09-11 00:15] MED LIST changes: -CLIN300C8 PO; +CLIN300C9 PO
--- NOTE | 2020-09-11 00:41 | PHYS DOC ---
Past History Past Medical History: Asthma, Cancer, Diabetes, Fibromyalgia, Other Additional Past Medical Histor: Gorlin's, basal cell carcinomous nevus Past Surgical History: Cancer Surgery, Cholecystectomy, Other Additional Past Surgical Histo: right ankle and left ankle surgery Smoking: Quit Greater Than 1 Year Alcohol Use: Rarely Drug Use: None General Adult EDM: Chief Complaint: RAPID HEART RATE HPI: HPI: ".. I got afib..but I had some weird heart beats.. like it was fast about 11:30.. I am okay now...".." I just feel washed out..." Patient is a 49 year old female who presents with above hx and complaints of rapid irregular heart rate. Patient denies any current chest pain. Patient has known history of diabetes reports her sugars been high and has had increased frequent urination last couple days. Patient denies any recent travel. Patient denies any specific ill contacts. Patient denies any immunosuppression. Patient has past medical history of poorly controlled diabetes, asthma, fibromyalgia, nearsighted, lazy eye, TIAs, peripheral neuropathy, headaches, heart murmurs, coronary artery disease, cardiac catheterizations, hypercholeste rolemia, bronchitis, deviated septum, pulmonary embolism, pneumonia, sleep apnea, gastroparesis, esophageal herpes, urinary tract infections, fibromyalgia, hepatic dysfunction, psychiatric problems anxiety, PTSD, panic disorder, personality disorder, depression, self injury, MRSA, insomnia, morbid obesity, and excoriation of skin lesions( picks at skin lesions). Patient denies any history of drug use, tobacco, or alcohol. History of noncompliance with medical regimens and diet. Patient only follows Dr. Warren. Review of Systems: Review of Systems: Constitutional: Denies fever or chills Eyes: Denies change in visual acuity HENT: Denies nasal congestion or sore throat Respiratory: Denies cough or shortness of breath Cardiovascular: Complaints of dysrhythmia GI: Denies abdominal pain, nausea, vomiting, bloody stools or diarrhea : Denies dysuria Musculoskeletal: Denies back pain or joint pain Integument: Complains of multiple skin lesions caused by self picking Neurologic: Denies headache, focal weakness or sensory changes Endocrine: Complains of polyuria or polydipsia Lymphatic: Denies swollen glands Psychiatric: Denies depression or anxiety Family History: Family History: Family history of heart murmur, hypertension, diabetes depression, tobacco, asthma, bipolar, diagnosis with brother. Allergies: Allergies: Allergies Coded Allergies Type Severity Reaction Last Updated Verified amoxicillin Allergy Severe 05/13/19 Yes black pepper Allergy Severe 05/13/19 Yes methylnaltrexone Allergy Severe 05/13/19 Yes onion Allergy Severe Anaphylaxis 05/13/19 Yes Latex, Natural Rubber Allergy Intermediate 05/13/19 Yes Penicillins Allergy Intermediate 05/13/19 Yes Sulfa (Sulfonamide Antibiotics) Allergy Intermediate 05/13/19 Yes hydrogen peroxide Allergy Intermediate 05/13/19 Yes lanolin Allergy Intermediate 05/13/19 Yes tetanus immune globulin Allergy Intermediate 05/13/19 No tomato Allergy Mild Nausea 05/13/19 Yes sumatriptan Adverse Reaction Severe N/V 05/13/19 Yes adhesive Adverse Reaction Intermediate Rash 05/13/19 Yes Physical Exam: PE: Constitutional: Moderate acute distress, non-toxic appearance. [] HENT: Normocephalic, atraumatic, bilateral external ears normal, oropharynx moist, no oral exudates, swollen nasal turbinates and clear rhinorrhea] Eyes: PERRLA, EOMI, conjunctiva normal, no discharge. [] Neck: Normal range of motion, no tenderness, supple, no stridor. [] Cardiovascular:Heart rate regular rhythm, no murmur [] monitor shows a sinus rhythm Lungs & Thorax: Bilateral breath sounds equal apex with basilar crackles and wheezes on auscultation [] Abdomen: Bowel sounds normal, soft, no tenderness, no masses, no pulsatile masses. Morbidly obese. Old surgical scar Skin: Warm, dry, no erythema, no rash. Multiple skin erosions from picking at skin lesions Back: No tenderness, no CVA tenderness. [] Extremities: No tenderness, no cyanosis, no clubbing, ROM intact, bilateral ankle edema. [] Bilateral ankle scars. No cording appreciated Neurologic: Alert and oriented X 3, moves all extremities on request, does have distal sensory,, no gross focal deficits noted. [] Psychologic: Affect anxious, judgement normal, mood normal. [] Current Patient Data: Vital Signs: Vital Signs Date Time Temp Pulse Resp B/P (MAP) Pulse Ox O2 Delivery O2 Flow Rate FiO2 09/11/20 00:19 98.7 92 20 129/80 (96) 99 Room Air EKG: EKG: My interpretation EKG shows a sinus rhythm [at 86 bpm there is some right axis deviation. There is some nonspecific contour abnormalities in the inferior leads. But no findings of acute STEMI with contralateral changes.] Radiology/Procedures: Radiology/Procedures: [][address] [address] IMAGING REPORT Signed PATIENT: CHIQUITA BLAIR ACCOUNT: [id number] : 1970 LOCATION: ER AGE: 49 SEX: F EXAM STATUS: PRE ER ORD. PHYSICIAN: LIVIER GOINS MD REASON: Chest pain PROCEDURE: PORTABLE CHEST 1V XR CHEST 1V Clinical History: Reason: Chest pain / Spl. Instructions: / History: Technique: AP view of the chest was obtained at 09/11/2020 12:55 AM. Comparison: May 06, 2020. Findings: The cardiomediastinal silhouette is normal. The pulmonary vasculature is normal. The lungs and pleural margins are clear. Deformity of the third through sixth ribs on the right was seen previously. Impression: Stable appearance of the chest. Electronically signed by: Nicky Dent III, MD (09/11/2020 1:14 AM) [facility] DICTATED AND SIGNED BY: NICKY DENT III, MD DATE: 09/11/20 011 CC: CHIKA WARREN MD; LIVIER GOINS MD ~MTH0 0 Heart Score: C/O Chest Pain: No HEART Score for Chest Pain: HEART Score for Chest Pain Response (Comments) Value History Slighlty/Non-Suspicious 0 ECG Nonspecific Repolarizatio 1 Age < 45 0 Risk Factors 1 or 2 Risk Factors 1 Troponin < Normal Limit 0 Total 2 Risk Factors: Risk Factors: DM, Current or recent (<one month) smoker, HTN, HLP, family history of CAD, obesity. Risk Scores: Score 0 - 3: 2.5% MACE over next 6 weeks - Discharge Home Score 4 - 6: 20.3% MACE over next 6 weeks - Admit for Clinical Observation Score 7 - 10: 72.7% MACE over next 6 weeks - Early Invasive Strategies Course & Med Decision Making: Course & Med Decision Making Pertinent Labs and Imaging studies reviewed. (See chart for details) Discussed Hx, presentation, testing and tx plan with Dr. Warren. Admit to his service. Impression: 1. Complaints of dysrhythmia 2. Dehydration 3. Diabetes-glucose 584 4. Multiple skin lesions from patient self with excoriation ( Skin picking) 5. Morbidly obese [] Dragon Disclaimer: Dragon Disclaimer: This electronic medical record was generated, in whole or in part, using a voice recognition dictation system. Departure Departure: Referrals: CHIKA WARREN MD (PCP) Lora Disclaimer This chart was dictated in whole or in part using Voice Recognition software in a busy, high-work load, and often noisy Emergency Department environment. It may contain unintended and wholly unrecognized errors or omissions. Dragon Disclaimer This chart was dictated in whole or in part using Voice Recognition software in a busy, high-work load, and often noisy Emergency Department environment. It may contain unintended and wholly unrecognized errors or omissions. LIVIER GOINS MD Sep 11, 2020 00:41
[2020-09-11] MEDS ORDERED: IV RINGERS SOLUTION,LACTATED 1,000 ML IV SCH (00:45)
--- NOTE | 2020-09-11 01:17 | RAD ---
XR CHEST 1V Clinical History: Reason: Chest pain / Spl. Instructions: / History: Technique: AP view of the chest was obtained at 09/11/2020 12:55 AM. Comparison: May 06, 2020. Findings: The cardiomediastinal silhouette is normal. The pulmonary vasculature is normal. The lungs and pleura l margins are clear. Deformity of the third through sixth ribs on the right was seen previously. Impression: Stable appearance of the chest. Electronically signed by: Abdi Victoria III, MD (09/11/2020 1:14 AM) [facility]
[2020-09-11 01:21] LABS: BARBITURATES NEG (NEG); BENZODIAZEPINES NEG (NEG); CANNABINOIDS NEG (NEG); COCAINE NEG (NEG); METHADONE NEG (NEG); OPIATES NEG (NEG); PHENCYCLIDINE NEG (NEG)
[2020-09-11 01:22] LABS: AMPHETAMINE/METHAMPHETAMINE NEG (NEG)
[2020-09-11 01:27] LABS: BACTERIA,URINE 0 /HPF (0-FEW); BILIRUBIN,URINE NEG (NEG); CLARITY,URINE HAZY; COLOR,URINE YELLOW; GLUCOSE,URINE >=1000 mg/dL (NEG); NITRITE,URINE NEG (NEG); RBC,URINE RARE /HPF (0-2); SQUAMOUS EPITHELIAL CELL,UR FEW /LPF; UROBILINOGEN,URINE 0.2 mg/dL (0.2 mg/dL)
[2020-09-11 01:28] LABS: WBC,URINE OCC /HPF (0-4); YEAST,URINE PRESENT /HPF
--- NOTE | 2020-09-11 02:03 | EKG ---
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
[2020-09-11 02:04] LABS: BASO # 0.1 x10^3/uL (0.0-0.2); BASO % 2 % (0-3); EOS # 0.1 x10^3/uL (0.0-0.7); EOS % 2 % (0-3); HEMATOCRIT 41.5 % (36.0-47.0); HEMOGLOBIN 14.2 g/dL (12.0-15.5); LYMPH # 1.8 x10^3/uL (1.0-4.8); LYMPH % 31 % (24-48); MEAN CORPUSCULAR HEMOGLOBIN 30 pg (25-35); MEAN CORPUSCULAR HGB CONC 34 g/dL (31-37); MEAN CORPUSCULAR VOLUME 87 fL (79-100); MONO # 0.5 x10^3/uL (0.0-1.1); MONO % 8 % (0-9); NEUT # 3.3 x10^3uL (1.8-7.7); NEUT % 57 % (31-73); PLATELET COUNT 160 x10^3/uL (140-400); RED BLOOD COUNT 4.78 x10^6/uL (3.50-5.40); RED CELL DISTRIBUTION WIDTH 13.4 % (11.5-14.5); WHITE BLOOD COUNT 5.8 x10^3/uL (4.0-11.0)
[2020-09-11 02:24] LABS: ALBUMIN 3.2 g/dL (3.4-5.0); CREATININE 0.9 mg/dL (0.6-1.0); DIRECT BILIRUBIN 0.1 mg/dL (0.0-0.2); GFR 67.1; MAGNESIUM 1.8 mg/dL (1.8-2.4); POTASSIUM 4.1 mmol/L (3.5-5.1); TOTAL BILIRUBIN 0.3 mg/dL (0.2-1.0); TOTAL PROTEIN 6.6 g/dL (6.4-8.2)
[2020-09-11] MEDS ORDERED: IV NORMAL SALINE 100ML 100 ML ONE (02:58)
[2020-09-11] MEDS ORDERED: INSULIN REGULAR VIAL 100 UNIT in IV NORMAL SALINE 100ML 100 ML IV ONE ×2 (03:00→03:45)
[2020-09-11] MEDS ORDERED: IV NORMAL SALINE 1,000ML 1,000 ML IV ONE (03:00)
[2020-09-11] MEDS ORDERED: IV NORMAL SALINE 1,000ML 1,000 ML IV SCH (03:45)
[2020-09-11] MEDS ORDERED: ONDANSETRON PF 4 MG/2 ML VIAL. IVP PRN (03:45)
[2020-09-11] MEDS ORDERED: ACETAMINOPHEN 325 MG TABLET PO PRN (03:45)
--- NOTE | 2020-09-11 05:15 | NUR ---
Admission: The patient, CHIQUITA BLAIR, 49 y/o, F admitted by CHIKA WARREN MD, was given written information regarding hospital policies, unit procedures and contact persons. Pt arrived to ICU bed 3 via gurney, accompanied by [facility] and nursing sup. Pt here for palpitations and hyperglycemia. Tele placed showing SR with HR in the 80's. Insulin gtt infusing at 4 u/hr upon arrival, fsbs checked = 104. Gtt titrated to 0.9 u/hr and call placed to Dr. Warren to update on pt status. New orders received to DC insulin gtt and IV fluids; begin SSI #3 with accuchecks achs. Discussed POC with pt, V/U. Call light in reach. Valuables were checked and logged. Left in room with pt.
[2020-09-11 05:26] VITALS: BP 124/80
[2020-09-11] MEDS ORDERED: DEXTROSE 50% 25 GM / 50ML DISP.SYRIN. IV PRN (06:15)
[2020-09-11] MEDS ORDERED: INSULIN LISPRO 300 UNITS/3 ML VIAL. SQ SCH (08:00)
[2020-09-11 10:24] VITALS: BP 137/82
--- NOTE | 2020-09-11 11:51 | NUR ---
DISCHARGE NOTE Pt discharged home by Dr. Roberts. Pt verbalized understanding of discharge paperwork and all questions addressed. Pt ambulated to and was wheeled to exit by [employer]. Cab waiting at main entrance for pt discharge. VSS and GCS 15 upon discharge. CC, RN
[2020-09-11 20:13] LABS: THYROID STIM HORMONE (TSH) 16.522 uIU/mL (0.358-3.740)
== END 2020-09-11 11:45 | disposition home or self-care (01) ==
LOC: ER 00:15 → ICU 05:06 → INTOOBSV 05:06
PROVIDERS: ADMIT Family Medicine; ATTEND Family Medicine
DX: I49.9 Cardiac arrhythmia, unspecified (principal); E86.0 Dehydration; E66.01 Morbid (severe) obesity due to excess calories; L98.9 Disorder of the skin and subcutaneous tissue, unspecified; E11.65 Type 2 diabetes mellitus with hyperglycemia; E11.43 Type 2 diabetes mellitus with diabetic autonomic (poly)neuropathy; E78.00 Pure hypercholesterolemia, unspecified; I25.10 Atherosclerotic heart disease of native coronary artery without angina pectoris; I48.91 Unspecified atrial fibrillation; J45.909 Unspecified asthma, uncomplicated; K31.84 Gastroparesis; M79.7 Fibromyalgia; F41.0 Panic disorder [episodic paroxysmal anxiety]; F43.10 Post-traumatic stress disorder, unspecified; F60.9 Personality disorder, unspecified; Z86.711 Personal history of pulmonary embolism; Z86.73 Personal history of transient ischemic attack (TIA), and cerebral infarction without residual deficits; Z87.891 Personal history of nicotine dependence; Z91.19 Patient's noncompliance with other medical treatment and regimen; Z90.49 Acquired absence of other specified parts of digestive tract; Z79.899 Other long term (current) drug therapy; Z98.890 Other specified postprocedural states; Z68.41 Body mass index [BMI] 40.0-44.9, adult
CPT/HCPCS: 36415; 71045; 80048; 80061; 80076; 80307; 81001; 81025; 82550; 82947; 83690; 83735; 83880; 84443; 84484; 85025; 85379; 85610; 85730; 87086; 93005; 96361; 96365; 96366; 99285; G0238; G0378; J1815; J7120; G0379

== ENCOUNTER 2020-10-29 12:10 | Emergency (ER) | payer MEDICARE, MEDICAID ==
[~2020-10-29] VITALS: Ht 175.3 cm; Wt 130.0 kg
[~2020-10-29 12:10] MED LIST changes: +ACYC-12 PO; -ACYC400T PO; -ACYC800T PO; +ACYC800T88 PO
[2020-10-29 12:15] VITALS: BP 162/102
[2020-10-29] MEDS ORDERED: BACITRACIN ZINC TOPICAL OINT PACKET. TP ONE (13:15)
--- NOTE | 2020-10-29 13:21 | PHYS DOC ---
Past History Past Medical History: Asthma, CHF, Diabetes, Hypothyroid Additional Past Medical Histor: Gorlin's, basal cell carcinomous nevus (ANTOINE GALVAN APRN) Past Surgical History: Cholecystectomy Additional Past Surgical Histo: right ankle and left ankle surgery (ANTOINE GALVAN APRN) Smoking: Quit Greater Than 1 Year Alcohol Use: Rarely Drug Use: None (ANTOINE GALVAN APRN) Adult General Chief Complaint Chief Complaint: MECHANICAL FALL HPI HPI Patient is a 50-year-old female presents emergency department chief complaint that approximately 1 hour prior to arrival she slipped on Vomit that was on the floor and fell hitting her right side of her head against the wall, striking her ankle against a tote that was on the floor, and landing on her bottom. Patient denies any loss of consciousness. Patient states her ankle and buttock hurts so much that she was unable to get off the floor and called EMS to transport her to the emergency department. Patient states she has not taken any medications for the pain that she rates a 10 out of 10. Patient states she also scraped her knee during the fall but denies any knee pain. Patient reports her main concern is her left ankle and her tailbone pain. Patient denies any headaches or head pain or neck pain at this time. Patient denies any visual disturbances, denies dizziness, denies headaches. Patient denies chest pain, shortness of breath. Patient denies nausea vomiting or diarrhea. Patient denies any urinary tract infection type signs and symptoms. Patient denies any loss of bowel or loss of bladder. Patient denies seeing any blood in her stool. Patient denies any numbness or tingling to her buttocks or periarea. Patient reports her last menstrual cycle was in 2019 in which she went through menopause. Patient reports an allergy to tetanus immunization medications. Patient denies any other physical complaints or physical concerns. (ANTOINE GALVAN APRN) Review of Systems Review of Systems 14 body systems of review of systems have been reviewed. See HPI for pertinent positives and negative responses, otherwise all other systems are negative, nonpertinent or noncontributory. (ANTOINE GALVAN APRN) Current Medications Current Medications Current Medications Medications (Trade) Dose Ordered Sig/Carlie Start Time Stop Time Status Last Admin Dose Admin Bacitracin (Bacitracin Topical Pkt) 1 pkt 1X ONCE 10/29/20 13:15 10/29/20 13:16 UNV Ketorolac Tromethamine (Toradol Im) 60 mg 1X ONCE 10/29/20 13:15 10/29/20 13:16 UNV (ANTOINE GALVAN APRN) Allergies Allergies Allergies Coded Allergies Type Severity Reaction Last Updated Verified amoxicillin Allergy Severe 05/13/19 Yes black pepper Allergy Severe 05/13/19 Yes methylnaltrexone Allergy Severe 05/13/19 Yes onion Allergy Severe Anaphylaxis 05/13/19 Yes Latex, Natural Rubber Allergy Intermediate 05/13/19 Yes Penicillins Allergy Intermediate 05/13/19 Yes Sulfa (Sulfonamide Antibiotics) Allergy Intermediate 05/13/19 Yes hydrogen peroxide Allergy Intermediate 05/13/19 Yes lanolin Allergy Intermediate 05/13/19 Yes tetanus immune globulin Allergy Intermediate 05/13/19 No tomato Allergy Mild Nausea 05/13/19 Yes sumatriptan Adverse Reaction Severe N/V 05/13/19 Yes adhesive Adverse Reaction Intermediate Rash 05/13/19 Yes aspirin Adverse Reaction Mild NAUSEA 09/11/20 Yes (ANTOINE GALVAN APRN) Physical Exam Physical Exam Constitutional: Well developed, well nourished, no acute distress, non-toxic appearance. 42-year-old female, tearful during physical examination. HENT: Normocephalic, atraumatic, bilateral external ears normal, oropharynx moist, no oral exudates, nose normal. Eyes: PERRLA, EOMI, conjunctiva normal, no discharge. Neck: Normal range of motion, no tenderness, supple, no stridor. No C-spine tenderness, no nuchal rigidity, no meningismus signs. Cardiovascular:Heart rate regular rhythm, no murmur Lungs & Thorax: Bilateral breath sounds clear to auscultation no adventitious l brendan sounds appreciated. Abdomen: Bowel sounds normal, soft, no tenderness, no masses, no pulsatile masses. Skin: Warm, dry, no erythema, no rash. Minor abrasion to left knee, and top of left foot near ankle. Back: No tenderness, no CVA tenderness. No midline spinal tenderness except for distal aspect coccyx, no erythema, no crepitus, no bruising appreciated of the coccyx area. Extremities: No tenderness, no cyanosis, no clubbing, ROM intact, no edema. Pain to lateral aspect left ankle with palpation, limited passive range of motion related to complaint of pain, no bruising, no swelling, no crepitus appreciated, 2+ dorsalis pedis pulse. Distal cap refill less than 2 seconds. Neurologic: Alert and oriented X 3, normal motor function, normal sensory function, no focal deficits noted. Psychologic: Affect normal, judgement normal, mood normal. (ANTOINE GALVAN APRN) Current Patient Data Vital Signs Vital Signs Date Time Temp Pulse Resp B/P (MAP) Pulse Ox O2 Delivery O2 Flow Rate FiO2 10/29/20 12:15 98.0 78 20 162/102 (122) 100 Room Air (ANTOINE GALVAN APRN) EKG EKG [] (ANTOINE GALVAN APRN) Radiology/Procedures Radiology/Procedures PATIENT: CHIQUITA BLAIR ACCOUNT: [id number] : 1970 LOCATION: ER AGE: 50 SEX: F EXAM STATUS: REG ER ORD. PHYSICIAN: ANTOINE GALVAN APRN REASON: FALL, PAIN PROCEDURE: SACRUM & COCCYX 3V EXAM: XR EXAM OF ANKLE_LEFT 3V, XR SACRUM AND COCCYX 2+VIEWS 10/29/2020 1:23 PM CLINICAL INDICATION: Fall, pain COMPARISON: Left ankle radiograph 03/12/2020 FINDINGS: Left ankle: No acute fracture. Alignment is normal. There is a screw fragment traversing the distal tibiofibular syndesmosis. Some lucency seen around the end of the screw within the fibula is unchanged. There is sequela of old medial ankle injury. The talar dome is intact. There is mild soft tissue swelling. Sacrum and coccyx: Underpenetration on lateral view limits the exam. No definite acute fracture. Alignment is normal. The pubic symphysis and sacroiliac joints are maintained. IMPRESSION: 1. No acute osseous abnormality of the left ankle. 2. No definite osseous abnormality of the sacrum and coccyx. Evaluation is limited on lateral view. Electronically signed by: Ella Sullivan MD (10/29/2020 1:35 PM) [id number] DICTATED AND SIGNED BY: ELLA SULLIVAN MD DATE: 10/29/20 1186 CC: ANTOINE GALVAN APRN; CHIKA WARREN MD; EMERGENCY,DEPARTMENT ~MTH0 0 (ANTOINE GALVAN APRN) Heart Score C/O Chest Pain: No Risk Factors: Risk Factors: DM, Current or recent (<one month) smoker, HTN, HLP, family history of CAD, obesity. Risk Scores: Risk Factors: DM, Current or recent (<one month) smoker, HTN, HLP, family history of CAD, obesity. (ANTOINE GALVAN APRN) Course & Med Decision Making Course & Med Decision Making Pertinent Labs and Imaging studies reviewed. (See chart for details) 50-year-old female, vital signs reviewed, presents emergency department concerning left ankle pain and tailbone pain after a slip and fall on cat vomit approximately 1 hour prior to arrival. Patient's physical examination concerning for possible bony injury versus contusion of left ankle and coccyx. Will order x-ray of left ankle and sacrum coccyx, will defer rectal exam pending positive coccyx fracture. Patient is asking for Dilaudid for pain of 10 out of 10. Will give Toradol at this time and reevaluate. The patient has a reported allergy to tetanus, will defer given tetanus immunization for minor skin ab rasions. X-rays negative for acute fracture or concerning findings per house radiologist interpretation, discussed findings with patient, discussed Aden wrap to left ankle, purchasing a coccyx doughnut at the local pharmacy for tailbone pain and discomfort, discussed with patient wound care of abrasions and application of bacitracin ointment for healing process, patient states she is still hurting a 10 out of 10 pain, patient continues to ask for Dilaudid medications, discussed with no acute fracture seen on x-rays, narcotic pain medications not indicated, may use [id number] Tylenol and or Motrin for pain at home for pain and discomfort along with RICE therapy, follow-up with primary care physician for ongoing pain management. Patient gave verbal understanding discharge home instructions, follow-up with primary care, return to ER precautions or concerns, RICE therapy, patient no further questions or concerns was discharged home without incident. (ANTOINE GALVAN APRN) Course & Med Decision Making I oversaw on the above date of service of this patient and discussed the care with the [employer] SECUR[employer] CONSULTANT. I agree with the findings, plan of care, and disposition as documented. Electronically signed, Jean Carlos Chandler DO (JEAN CARLOS CHANDLER DO) Lora Disclaimer Dragon Disclaimer This electronic medical record was generated, in whole or in part, using a voice recognition dictation system. (ANTOINE GALVAN APRN) Departure Departure: Impression: Primary Impression: Fall from slipping Additional Impressions: Abrasion, left knee, initial encounter Abrasion, left ankle, initial encounter Coccyx contusion Contusion of left ankle Disposition: HOME / SELF CARE / HOMELESS Condition: GOOD Referrals: CHIKA WARREN MD (PCP) Patient Instructions: Elastic Bandage and RICE Additional Instructions: You were seen today in the emergency department for a slip and fall, you have an abrasion to your left knee and ankle, please cleanse daily and apply antibiotic ointment and bandage for healing, there were no fractures noted on the x-rays performed, please use RICE therapy as we discussed, I have attached information to this document for RICE therapy and Aden bandage use, please review, as we discussed you may purchase a coccyx donut for tailbone discomfort while you are tailbone contusion heals, you may use [id number] Tylenol and or Motrin for pain and discomfort. Please follow-up with your primary care physician for ongoing pain management soon, return to the emergency department for worsening symptoms or other concerns. Problem Qualifiers Primary Impression: Fall from slipping Encounter type: initial encounter Qualified Codes: W01.0XXA - Fall on same level from slipping, tripping and stumbling without subsequent striking against object, initial encounter Additional Impressions: Coccyx contusion Encounter type: initial encounter Qualified Codes: S30.0XXA - Contusion of lower back and pelvis, initial encounter Contusion of left ankle Encounter type: initial encounter Qualified Codes: S90.02XA - Contusion of left ankle, initial encounter ANTOINE GALVAN APRN Oct 29, 2020 13:21 JEAN CARLOS CHANDLER DO Oct 31, 2020 07:55
[2020-10-29] MEDS ORDERED: KETOROLAC 60 MG/2 ML VIAL. IM ONE (13:30)
--- NOTE | 2020-10-29 13:37 | RAD ---
EXAM: XR EXAM OF ANKLE_LEFT 3V, XR SACRUM AND COCCYX 2+VIEWS 10/29/2020 1:23 PM CLINICAL INDICATION: Fall, pain COMPARISON: Left ankle radiograph 03/12/2020 FINDINGS: Left ankle: No acute fracture. Alignment is normal. There is a screw fragment traversing the distal t ibiofibular syndesmosis. Some lucency seen around the end of the screw within the fibula is unchanged . There is sequela of old medial ankle injury. The talar dome is intact. There is mild soft tissue sw elling. Sacrum and coccyx: Underpenetration on lateral view limits the exam. No definite acute fracture. Alig nment is normal. The pubic symphysis and sacroiliac joints are maintained. IMPRESSION: 1. No acute osseous abnormality of the left ankle. 2. No definite osseous abnormality of the sacrum and coccyx. Evaluation is limited on lateral view. Electronically signed by: Halley Sullivan MD (10/29/2020 1:35 PM) [id number]
== END 2020-10-29 15:00 | disposition home or self-care (01) ==
LOC: ER 12:10
DX: S90.02XA Contusion of left ankle, initial encounter (principal); S30.0XXA Contusion of lower back and pelvis, initial encounter; S80.212A Abrasion, left knee, initial encounter; J45.909 Unspecified asthma, uncomplicated; I50.9 Heart failure, unspecified; E11.9 Type 2 diabetes mellitus without complications; E03.9 Hypothyroidism, unspecified; Z87.891 Personal history of nicotine dependence; Z88.1 Allergy status to other antibiotic agents; Z91.018 Allergy to other foods; Z88.8 Allergy status to other drugs, medicaments and biological substances; Z88.0 Allergy status to penicillin; Z88.2 Allergy status to sulfonamides; Z88.6 Allergy status to analgesic agent; W01.198A Fall on same level from slipping, tripping and stumbling with subsequent striking against other object, initial encounter; Y93.89 Activity, other specified; Y92.89 Other specified places as the place of occurrence of the external cause; Y99.8 Other external cause status
CPT/HCPCS: 72220; 73610; 96372; 99284; J1885

== ENCOUNTER → 2020-12-27 | Outpatient (CLI) | payer MEDICARE, MEDICAID ==
[~2020-12-27] MED LIST changes: -DOXY100C2 PO; +DOXY100C3 PO
--- NOTE | 2020-12-27 13:07 | RAD ---
EXAM: Pelvic sonogram. HISTORY: Dysmenorrhea. TECHNIQUE: Transabdominal and transvaginal sonographic imaging of the pelvis was performed. COMPARISON: None. FINDINGS: The uterus measures 7.7 x 5.5 x 4.9 cm. The endometrial stripe measures 2.2 mm in thickness . There is a 1.7 cm hypoechoic lesion within the anterior lower uterine segment, likely due to a fibr oid. There is also a suspected 9 mm fibroid within the posterior uterine fundus.. The ovaries are obs cured likely due to body habitus. There is no pelvic mass, cyst or free fluid. IMPRESSION: 1. Suspected small uterine fibroids measuring 1.7 cm and 0.9 cm. 2. Thin endometrial stripe. 3. Obscured ovaries. Electronically signed by: Bia Veliz MD (12/27/2020 1:05 PM) [id number]
== END ==
LOC: MAMMO 11:11
PROVIDERS: ATTEND Family Medicine
DX: N94.6 Dysmenorrhea, unspecified (principal)
CPT/HCPCS: 76830; 76856

== ENCOUNTER 2021-01-17 18:20 | Emergency (ER) | payer MEDICARE, MEDICAID ==
[~2021-01-17] VITALS: Ht 175.3 cm; Wt 130.0 kg
--- NOTE | 2021-01-17 18:32 | RAD ---
Exam: CT head INDICATION: Right-sided facial drooping TECHNIQUE: Sequential axial images through the head were obtained without the administration of IV co ntrast. Exposure: One or more of the following in the visualized dose reduction techniques were utilized for this examination: 1. Automated exposure control 2. Adjustment of the MA and/or KV according to patient size 3. Use of iterative of reconstructive technique Comparisons: None FINDINGS: No focal parenchymal lesion or hemorrhage is identified. There is no midline shift or sulcal effaceme nt. No acute vascular territory infarction is identified. Eisenberg-white distinction is preserved. The ventricular system is within normal limits without compression hydrocephalus. The basal cisterns are well maintained. The visualized portions of the paranasal sinuses and mastoid air cells are well-pneumatized. No acute fractures. IMPRESSION: No acute intracranial abnormality. FOR INTERNAL CODING PURPOSES Critical result: Findings discussed with Condra at 01/17/2021 6:28 PM. RESULT CODE: (C) Electronically signed by: Melany Goodrich MD (01/17/2021 6:30 PM) DICK
--- NOTE | 2021-01-17 19:20 | PHYS DOC ---
Past History Past Medical History: Asthma, CHF, Diabetes, Hypothyroid Additional Past Medical Histor: Gorlin's, basal cell carcinomous nevus Past Surgical History: Cholecystectomy Additional Past Surgical Histo: right ankle and left ankle surgery Smoking: Quit Greater Than 1 Year Alcohol Use: Rarely Drug Use: None Adult General Chief Complaint Chief Complaint: ALTERED MENTAL STATUS HPI HPI Patient is a 50-year-old female with a past medical history significant for TIA, CHF, insulin-dependent diabetes not on anticoagulation who presents to the emergency department with a chief complaint of facial droop and slurred speech. States that she was doing laundry between 5:30 PM and 6 PM this evening and noticed a tingling in the right side of her face around the cheek and mouth and some tingling in the right fingers. States that she and her mom both noticed some right-sided facial droop and difficulty opening the right eye fully. Denies any recent traumas, travels, illnesses, fever, chest pain, shortness of breath, abdominal pain, nausea, vomiting, dysuria, hematuria, diarrhea or blood in the stool. Denies any recent Covid/flu/cold symptoms or known ill contacts. Review of Systems Review of Systems All other systems were reviewed and found to be within normal limits, except as documented in this note. Allergies Allergies Allergies Coded Allergies Type Severity Reaction Last Updated Verified amoxicillin Allergy Severe 05/13/19 Yes black pepper Allergy Severe 05/13/19 Yes methylnaltrexone Allergy Severe 05/13/19 Yes onion Allergy Severe Anaphylaxis 05/13/19 Yes Latex, Natural Rubber Allergy Intermediate 05/13/19 Yes Penicillins Allergy Intermediate 05/13/19 Yes Sulfa (Sulfonamide Antibiotics) Allergy Intermediate 05/13/19 Yes hydrogen peroxide Allergy Intermediate 05/13/19 Yes lanolin Allergy Intermediate 05/13/19 Yes tetanus immune globulin Allergy Intermediate 05/13/19 No tomato Allergy Mild Nausea 05/13/19 Yes sumatriptan Adverse Reaction Severe N/V 05/13/19 Yes adhesive Adverse Reaction Intermediate Rash 05/13/19 Yes aspirin Adverse Reaction Mild NAUSEA 09/11/20 Yes Physical Exam Physical Exam Constitutional: Well developed, well nourished, no acute distress, non-toxic appearance. [] HENT: Normocephalic, atraumatic, bilateral external ears normal, oropharynx moist, no oral exudates, nose normal. [] Eyes: PERRLA, EOMI, conjunctiva normal, no discharge. Difficulty opening right eyelid completely. No visual field deficit. [] Neck: Normal range of motion, no tenderness, supple, no stridor. [] Cardiovascular:Heart rate regular rhythm, no murmur [] Lungs & Thorax: Bilateral breath sounds clear to auscultation [] Abdomen: Bowel sounds normal, soft, no tenderness, no masses, no pulsatile masses. [] Skin: Warm, dry, no erythema, no rash. [] Back: No tenderness, no CVA tenderness. [] Extremities: No tenderness, no cyanosis, no clubbing, ROM intact, no edema. [] Neurologic: GCS of 15, alert and oriented X 3, NIH of 3 (2 points for partial paralysis of right lower face, 1 point for mild to moderate dysarthria/slurring but can be understood), able to sit, stand and walk without issue, sensation loss to right face Psychologic: Affect normal, judgement normal, mood normal. [] Current Patient Data Vital Signs Vital Signs Date Time Temp Pulse Resp B/P (MAP) Pulse Ox O2 Delivery O2 Flow Rate FiO2 01/17/21 18:36 99 18 148/79 99 Lab Results Laboratory Tests Test 01/17/21 18:32 Glucose (Fingerstick) 540 mg/dL (70-99) *H EKG EKG [] Radiology/Procedures Radiology/Procedures []xam: CTA head and neck INDICATION: Right-sided facial TECHNIQUE: Sequential axial images through the head and neck obtained following the administration of 60 mL of Isovue-370 IV contrast. Sagittal and coronal reformatted images were reconstructed from the axial data and reviewed. Exposure: One or more of the following in the visualized dose reduction techniq ues were utilized for this examination: 1. Automated exposure control 2. Adjustment of the MA and/or KV according to patient size 3. Use of iterative of reconstructive technique Comparisons: CT head without contrast same day FINDINGS: CTA NECK: Visualized portions of the thoracic aorta are unremarkable. Standard three- vessel aortic arch anatomy. Right common carotid artery is patent without evidence of stenosis, occlusion or aneurysm. Cervical segment of the right internal carotid artery is patent w ithout evidence of stenosis, occlusion or aneurysm. Left common carotid artery is patent without evidence of stenosis, occlusion or aneurysm. Cervical segment of the internal carotid artery is patent without evidence of stenosis, occlusion or aneurysm. Right vertebral artery is patent to basilar confluence without evidence of stenosis, occlusion or aneurysm. Left vertebral artery is patent and terminates as a left PICA. Visualized paraspinal soft tissues are unremarkable. CTA HEAD: Intracranial segments of the right internal carotid artery are patent without evidence of stenosis, occlusion or aneurysm. Right MCA is patent. Right CODY is patent. Intracranial segments of the left internal carotid artery are patent without evidence of stenosis, occlusion or aneurysm. Left MCA is patent. Left CODY is patent. Basilar artery is patent without evidence of stenosis, occlusion or aneurysm. ore mixer are patent bilaterally. IMPRESSION: Patent intracranial and cervical arterial vasculature without evidence of stenosis, occlusion or aneurysm. Heart Score C/O Chest Pain: No Risk Factors: Risk Factors: DM, Current or recent (<one month) smoker, HTN, HLP, family history of CAD, obesity. Risk Scores: Risk Factors: DM, Current or recent (<one month) smoker, HTN, HLP, family history of CAD, obesity. Course & Med Decision Making Course & Med Decision Making Patient is a 50-year-old female who presents to the emergency department with a chief complaint of tingling face and slurred speech which started an hour and 45 minutes ago Vital signs notable for tachycardia and hypertension. Physical exam noted above. Initial NIH of 3. Repeat NIH 0. Blood sugar greater than 500. Initial head CT not concerning. Initial EKG noted above with no STEMI. Troponin not concerning. Covid negative. negative. Patient declined aspirin stating she was allergic. Rest of laboratory analysis not concerning. CTA of the head and neck/CT of the head not concerning. Chest x-ray not concerning. On reassessment patient was awake alert and oriented with no focal neurologic deficits. Patient given IV fluids and small dose of insulin as she did not have her insulin with her and had not taken any since this morning. Blood sugar down to 363. Advised to continue her insulin regimen at home as prescribed. Discussed all findings with patient and offered admission for observation/neurology consultation. Patient states she was feeling well and would prefer to just gone home and needed us to call her cab. Discussed with patient the risks if she indeed did have a TIA/stroke including but not limited to repeat event, a worse event, significant illness, rehospitalization, disability and even . Patient stated she was feeling better and was ready to go home. Gave strict return precautions to the ED. [] Lora Disclaimer Dragon Disclaimer This electronic medical record was generated, in whole or in part, using a voice recognition dictation system. Departure Departure: Impression: Primary Impression: Slurred speech Additional Impression: Facial tingling sensation Disposition: HOME / SELF CARE / HOMELESS Condition: IMPROVED Referrals: CHIKA WARREN MD (PCP) Patient Instructions: Hyperglycemia, Stroke Prevention Additional Instructions: Thank you for coming into the emergency department tonight and allowing us to take care of you. Please read all of the attached information above very carefully to go back over the things that we discussed in some of the risks of cardiovascular disease/stroke. We discussed admission for observation/neurology consult but you were feeling better was ready to go home. We discussed the risks including another episode, worsening episodes, significant illness, with a full stroke including disability and even . Please call your primary care physician first thing Wednesday morning to update on your ED visit and set up a follow-up as soon as possible. As discussed, please come back to the emergency department immediately with any new or concerning symptoms. Problem Qualifiers DANILO WILCOX MD Jan 17, 2021 19:20
--- NOTE | 2021-01-17 19:22 | RAD ---
Exam: Chest one view INDICATION: Cardiac workup TECHNIQUE: Frontal view of the chest Comparisons: 09/11/2020 FINDINGS: The cardiomediastinal silhouette and pulmonary vessels are within normal limits. The lung and pleural spaces are clear. IMPRESSION: No acute cardiopulmonary process. Electronically signed by: Melany Goodrich MD (01/17/2021 7:20 PM) DICK
[2021-01-17 19:40] LABS: BACTERIA,URINE FEW /HPF (0-FEW); BILIRUBIN,URINE NEG (NEG); CLARITY,URINE CLEAR; COLOR,URINE YELLOW; GLUCOSE,URINE >=1000 mg/dL (NEG); NITRITE,URINE NEG (NEG); UROBILINOGEN,URINE 0.2 mg/dL (0.2 mg/dL)
[2021-01-17 19:41] LABS: SQUAMOUS EPITHELIAL CELL,UR MOD /LPF; YEAST,URINE PRESENT /HPF
[2021-01-17] MEDS ORDERED: IOHEXOL 350 MG/ML 100 ML VIAL. IV ONE (19:45)
[2021-01-17 20:10] LABS: ALBUMIN/GLOBULIN RATIO 0.8 (1.0-1.7); CALCIUM 8.9 mg/dL (8.5-10.1); CREATININE 0.9 mg/dL (0.6-1.0); GFR 66.8; POTASSIUM 4.4 mmol/L (3.5-5.1); TOTAL BILIRUBIN 0.5 mg/dL (0.2-1.0); TOTAL PROTEIN 6.8 g/dL (6.4-8.2)
[2021-01-17 20:12] LABS: BASO % 1 % (0-3); EOS # 0.2 x10^3/uL (0.0-0.7); EOS % 3 % (0-3); HEMATOCRIT 45.3 % (36.0-47.0); HEMOGLOBIN 15.5 g/dL (12.0-15.5); LYMPH # 1.9 x10^3/uL (1.0-4.8); LYMPH % 31 % (24-48); MEAN CORPUSCULAR HEMOGLOBIN 30 pg (25-35); MEAN CORPUSCULAR HGB CONC 34 g/dL (31-37); MEAN CORPUSCULAR VOLUME 88 fL (79-100); MONO # 0.4 x10^3/uL (0.0-1.1); MONO % 7 % (0-9); NEUT # 3.7 x10^3uL (1.8-7.7); NEUT % 59 % (31-73); PLATELET COUNT 121 x10^3/uL (140-400); RED BLOOD COUNT 5.17 x10^6/uL (3.50-5.40); RED CELL DISTRIBUTION WIDTH 12.7 % (11.5-14.5); WHITE BLOOD COUNT 6.2 x10^3/uL (4.0-11.0)
[2021-01-17] MEDS ORDERED: IV RINGERS SOLUTION,LACTATED 1,000 ML IV ONE (20:45)
[2021-01-17] MEDS ORDERED: INSULIN REGULAR 100 UNIT/ML 3ML VIAL. IV ONE (20:45)
--- NOTE | 2021-01-17 20:47 | RAD ---
Exam: CTA head and neck INDICATION: Right-sided facial TECHNIQUE: Sequential axial images through the head and neck obtained following the administration of 60 mL of Isovue-370 IV contrast. Sagittal and coronal reformatted images were reconstructed from the axial data and reviewed. Exposure: One or more of the following in the visualized dose reduction techniques were utilized for this examination: 1. Automated exposure control 2. Adjustment of the MA and/or KV according to patient size 3. Use of iterative of reconstructive technique Comparisons: CT head without contrast same day FINDINGS: CTA NECK: Visualized portions of the thoracic aorta are unremarkable. Standard three-vessel aortic arch anatomy . Right common carotid artery is patent without evidence of stenosis, occlusion or aneurysm. Cervical s egment of the right internal carotid artery is patent without evidence of stenosis, occlusion or aneu rysm. Left common carotid artery is patent without evidence of stenosis, occlusion or aneurysm. Cervical se gment of the internal carotid artery is patent without evidence of stenosis, occlusion or aneurysm. Right vertebral artery is patent to basilar confluence without evidence of stenosis, occlusion or ane urysm. Left vertebral artery is patent and terminates as a left PICA. Visualized paraspinal soft tissues are unremarkable. CTA HEAD: Intracranial segments of the right internal carotid artery are patent without evidence of stenosis, o cclusion or aneurysm. Right MCA is patent. Right CODY is patent. Intracranial segments of the left internal carotid artery are patent without evidence of stenosis, oc clusion or aneurysm. Left MCA is patent. Left CODY is patent. Basilar artery is patent without evidence of stenosis, occlusion or aneurysm. power line installer and repairer are patent bilater ally. IMPRESSION: Patent intracranial and cervical arterial vasculature without evidence of stenosis, occlusion or aneu rysm. FOR INTERNAL CODING PURPOSES Critical result: Findings discussed with Sami at 01/17/2021 8:38 PM. RESULT CODE: (C) Electronically signed by: Melany Goodrich MD (01/17/2021 8:44 PM) [facility]
[2021-01-17 21:14] VITALS: BP 140/40
[2021-01-17 21:16] LABS: % EOS 5 % (0-5); % LYMPHS 38 % (24-48); % MONOS 4 % (0-10); % SEGS 53 % (35-66)
[2021-01-17 21:18] LABS: PLT ESTIMATE DECREASED (ADEQUATE)
--- NOTE | 2021-01-17 23:36 | EKG ---
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
== END 2021-01-17 22:05 | disposition home or self-care (01) ==
LOC: ER 18:20
DX: R47.81 Slurred speech (principal); R20.2 Paresthesia of skin; J45.909 Unspecified asthma, uncomplicated; I50.9 Heart failure, unspecified; E11.9 Type 2 diabetes mellitus without complications; E03.9 Hypothyroidism, unspecified; Z20.822 Contact with and (suspected) exposure to COVID-19; Z87.891 Personal history of nicotine dependence; Z88.1 Allergy status to other antibiotic agents; Z91.018 Allergy to other foods; Z91.040 Latex allergy status; Z88.8 Allergy status to other drugs, medicaments and biological substances; Z88.0 Allergy status to penicillin; Z88.2 Allergy status to sulfonamides; Z88.6 Allergy status to analgesic agent; Z88.7 Allergy status to serum and vaccine
CPT/HCPCS: 36415; 70450; 70496; 70498; 71045; 80053; 81001; 82803; 82947; 83735; 84484; 85007; 85025; 87426; 93005; 96361; 96374; 99285; C9803; J1815; J7120; Q9967; U0003

== ENCOUNTER 2021-03-12 11:20 | Emergency (ER) | payer MEDICARE, MEDICAID ==
[~2021-03-12] VITALS: Ht 175.3 cm; Wt 130.0 kg
[~2021-03-12 11:20] MED LIST changes: +CLIN-95 PO; -CLIN300C9 PO; -DULO60CA6 PO; +DULO60CA7 PO
--- NOTE | 2021-03-12 11:34 | PHYS DOC ---
Past History Past Medical History: Asthma, CHF, Diabetes, Hypothyroid Additional Past Medical Histor: Gorlin's, basal cell carcinomous nevus Past Surgical History: Cholecystectomy Additional Past Surgical Histo: right ankle and left ankle surgery Smoking: Quit Greater Than 1 Year Alcohol Use: Rarely Drug Use: None Adult General Chief Complaint Chief Complaint: FLANK PAIN HPI HPI Patient is a 50-year-old female presenting for left flank pain. Onset was yesterday without any known inciting event, trauma, ingestion or other exposure. Nothing nothing makes better, certain positional body movements and p.o. intake makes worse. Reports she woke up today with ongoing pain and felt weak and nauseous which concerned her. She was unable to take her morning medications today and so, she contacted her PCP to review symptoms and was subsequently advised to present to our ER for evaluation. EMS presented to the house and found a hemodynamically stable patient with ongoing left flank pain. POC glucose was greater than 500. They were unable to get IV access and subsequently transported to our facility for further evaluation. On arrival, patient complains that she is weak, fatigued, nauseous, has ongoing left flank pain that radiates to left pubic area and has had some urinary frequency. She has history of cholecystectomy otherwise no other intra-abdominal abnormalities, no history of kidney stones in the past. She has been afebrile, no known sick contacts or recent travel, she is fully vaccinated against COVID-19 Review of Systems Review of Systems Fourteen body systems of review of systems have been reviewed. See HPI for pertinent positives and negative responses, other villegas all other systems are negative, non-pertinent or non-contributory Allergies Allergies Allergies Coded Allergies Type Severity Reaction Last Updated Verified amoxicillin Allergy Severe 05/13/19 Yes black pepper Allergy Severe 05/13/19 Yes methylnaltrexone Allergy Severe 05/13/19 Yes onion Allergy Severe Anaphylaxis 05/13/19 Yes Latex, Natural Rubber Allergy Intermediate 05/13/19 Yes Penicillins Allergy Intermediate 05/13/19 Yes Sulfa (Sulfonamide Antibiotics) Allergy Intermediate 05/13/19 Yes hydrogen peroxide Allergy Intermediate 05/13/19 Yes lanolin Allergy Intermediate 05/13/19 Yes tetanus immune globulin Allergy Intermediate 05/13/19 No tomato Allergy Mild Nausea 05/13/19 Yes sumatriptan Adverse Reaction Severe N/V 05/13/19 Yes adhesive Adverse Reaction Intermediate Rash 05/13/19 Yes aspirin Adverse Reaction Mild NAUSEA 09/11/20 Yes Physical Exam Physical Exam Constitutional: Well developed, well nourished, no acute distress, non-toxic appearance. HENT: Normocephalic, atraumatic, bilateral external ears normal, oropharynx moist with poor dentition globally, no oral exudates, nose normal. Eyes: PERRLA, EOMI, conjunctiva normal, no discharge. Neck: Normal range of motion, no tenderness, supple, no stridor. Cardiovascular: Heart rate regular, sinus rhythm, no murmurs rubs or gallops Lungs & Thorax: Bilateral breath sounds clear to auscultation Abdomen: Bowel sounds normal, soft, no tenderness, no masses, no pulsatile m asses. Nonsurgical abdomen, no peritoneal signs Skin: Warm, dry, no erythema, no rash. Numerous self-induced excoriations in d ifferent phases of healing present to face and bilateral upper extremities Back: No midline tenderness, left CVA tenderness. Extremities: No tenderness, no cyanosis, no clubbing, ROM intact, no edema. Neurologic: Alert and oriented X 3, cranial nerves II through XII intact, moving all extremities freely into commands, normal motor & sensory function, no focal deficits noted, gait unremarkable, no saddle anesthesia. Psychologic: Odd affect, judgement normal, mood normal. Current Patient Data Vital Signs Vital Signs Date Time Temp Pulse Resp B/P (MAP) Pulse Ox O2 Delivery O2 Flow Rate FiO2 03/12/21 11:45 98.1 87 20 106/66 (79) 96 Room Air Vital Signs Date Time Temp Pulse Resp B/P (MAP) Pulse Ox O2 Delivery O2 Flow Rate FiO2 03/12/21 11:45 98.1 87 20 106/66 (79) 96 Room Air Lab Results Laboratory Tests Test 03/12/21 11:35 03/12/21 11:47 03/12/21 12:05 03/12/21 12:22 Bedside Venous pH 7.47 Bedside Venous pCO2 38 mmHg Bedside Venous pO2 33 mmHg Venous Blood HCO3 28 mmol/L POC Venous O2 Saturation ([place]) 4 % Bedside FiO2 68 White Blood Count 5.1 x10^3/uL Red Blood Count 5.15 x10^6/uL Hemoglobin 15.2 g/dL Hematocrit 44.6 % Mean Corpuscular Volume 87 fL Mean Corpuscular Hemoglobin 30 pg Mean Corpuscular Hemoglobin Concent 34 g/dL Red Cell Distribution Width 12.1 % Platelet Count 183 x10^3/uL Neutrophils (%) (Auto) 62 % Lymphocytes (%) (Auto) 27 % Monocytes (%) (Auto) 8 % Eosinophils (%) (Auto) 3 % Basophils (%) (Auto) 1 % Neutrophils # (Auto) 3.2 x10^3uL Lymphocytes # (Auto) 1.4 x10^3/uL Monocytes # (Auto) 0.4 x10^3/uL Eosinophils # (Auto) 0.1 x10^3/uL Basophils # (Auto) 0.1 x10^3/uL Sodium Level 131 mmol/L Potassium Level 4.6 mmol/L Chloride Level 96 mmol/L Carbon Dioxide Level 25 mmol/L Anion Gap 10 Blood Urea Nitrogen 12 mg/dL Creatinine 0.8 mg/dL Estimated GFR (Cockcroft-Gault) 76.6 BUN/Creatinine Ratio 15 Glucose Level 574 mg/dL Calcium Level 9.3 mg/dL Total Bilirubin 0.7 mg/dL Aspartate Amino Transf (AST/SGOT) 37 U/L Alanine Aminotransferase (ALT/SGPT) 34 U/L Alkaline Phosphatase 49 U/L Troponin I Quantitative < 0.017 ng/mL Total Protein 7.3 g/dL Albumin 3.2 g/dL Albumin/Globulin Ratio 0.8 Lipase 116 U/L Acetone Level Neg Urine Collection Type Unknown Urine Color Yellow Urine Clarity Hazy Urine pH 5.5 Urine Specific [place] 1.010 Urine Protein Neg Urine Glucose (UA) >=1000 mg/dL Urine Ketones (Stick) Trace mg/dL Urine Blood Trace Urine Nitrite Neg Urine Bilirubin Neg Urine Urobilinogen Dipstick 0.2 mg/dL Urine Leukocyte Esterase Neg Urine RBC Occ /HPF Urine WBC 1-4 /HPF Urine Squamous Epithelial Cells Mod /LPF Urine Bacteria Few /HPF Urine Yeast Present /HPF Bedside Urine HCG, Qualitative hcg negative Test 03/12/21 14:02 03/12/21 15:31 Glucose (Fingerstick) 415 mg/dL 303 mg/dL Current Medications Medications (Trade) Dose Ordered Sig/Carlie Route PRN Reason Start Time Stop Time Status Last Admin Dose Admin Sodium Chloride 1,000 ml @ 1,000 mls/hr 1X ONCE IV 03/12/21 11:45 03/12/21 12:44 DC 03/12/21 13:17 Insulin Human Regular (HumuLIN R VIAL) 15 unit 1X ONCE IV 03/12/21 13:00 03/12/21 13:01 DC 03/12/21 13:17 Sodium Chloride 1,000 ml @ 1,000 mls/hr 1X ONCE IV 03/12/21 13:15 03/12/21 14:14 DC 03/12/21 14:24 Orphenadrine Citrate (Norflex) 60 mg 1X ONCE IM 03/12/21 14:00 03/12/21 14:07 DC 03/12/21 14:24 Acetaminophen (Tylenol) 650 mg 1X ONCE PO 03/12/21 14:00 03/12/21 14:07 DC 03/12/21 14:24 EKG EKG EKG ordered and interpreted by myself at 1224 hrs. as sinus rhythm at 76 bpm, unremarkable intervals, no axis deviation, no acute ischemic findings, no STEMI Radiology/Procedures Radiology/Procedures CT ABDOMEN+PELVIS WO INDICATION: lt flank pain EXAM: Noncontrast CT of the abdomen and pelvis. Coronal and sagittal reformatted images were performed. PQRS compliance statement: One or more of the following individualized dose reduction techniques were utilized for this examination: 1. Automated exposure control 2. Adjustment of the mA and/or kV according to patient size 3. Use of iterative reconstruction technique COMPARISON: 01/16/2020 FINDINGS: No free air, free fluid, or fluid collection. Lower chest: The visualized lower lungs are aerated. No pleural or pericardial effusion. ABDOMEN: Liver: The noncontrast liver is homogeneous in attenuation. Gallbladder and biliary: Cholecystectomy. Normal caliber bile ducts. Spleen: Normal spleen. Pancreas: The noncontrast pancreas is homogeneous in attenuation without peripancreatic inflammatory changes. Adrenal glands: Normal adrenal glands. Kidneys and ureters: No opaque urinary calculi. Normal kidneys and ureters. GI tract: The stomach is decompressed and poorly evaluated. Normal caliber small bowel and colon. Normal appendix. Vascular structures: Normal caliber abdominal aorta. Lymph nodes: No lymphadenopathy in the abdomen or pelvis. PELVIS: Genitourinary system: Urinary bladder is decompressed. Uterus is present. SKELETAL STRUCTURES AND SOFT TISSUES: No fracture or destructive lesion in the visualized skeleton. IMPRESSION: No acute findings. No hydronephrosis or opaque urinary calculi. Electronically signed by: Adrian Son MD (03/12/2021 12:18 PM) [id number] Heart Score C/O Chest Pain: No HEART Score for Chest Pain: HEART Score for Chest Pain Response (Comments) Value History Slighlty/Non-Suspicious 0 ECG Normal 0 Age >45 - < 65 1 Risk Factors >3 Risk Factors or Hx CAD 2 Troponin < Normal Limit 0 Total 3 Risk Factors: Risk Factors: DM, Current or recent (<one month) smoker, HTN, HLP, family history of CAD, obesity. Risk Scores: Risk Factors: DM, Current or recent (<one month) smoker, HTN, HLP, family history of CAD, obesity. Course & Med Decision Making Course & Med Decision Making ABCs unremarkable. I disclosed entirety of ER findings and discussed most likely diagnosis of left lower back strain/strain and hyperglycemia and an uncontrolled type II diabetic. Other diagnoses were discussed with patient such as kidney stones versus other intra-abdominal abnormalities but all deemed less likely causes of patient's presentation. Patient symptoms improved which ER intervention that included IV fluid rehydration, IV insulin, and IM muscle relaxer. Plan of care discussed at length with need for close outpatient follow-up to review today's ER visit stressed. Strict return precautions were also discussed at length with good understanding verbalized by patient. Patient voiced understanding and agreement with the plan. Patient knows to come back for repeat evaluation if concerning signs or symptoms present prior to outpatient f ollow-up. Hemodynamically stable, ambulatory and well-appearing at time of disposition. Instructions given to keep dedicated blood sugar log with further sliding scale insulin use at home with new prescription for muscle relaxer and supportive care/stretches for lower back advised Lora Disclaimer Dragnorris Disclaimer This electronic medical record was generated, in whole or in part, using a voice recognition dictation system. Departure Departure: Impression: Primary Impression: Left-sided back pain Additional Impression: Type 2 diabetes mellitus with hyperglycemia Disposition: HOME / SELF CARE / HOMELESS Condition: IMPROVED Referrals: CHIKA WARREN MD (PCP) Patient Instructions: Back Exercises, Back Pain, Adult, Hyperglycemia Additional Instructions: You were evaluated in the Emergency Department today for left-sided flank/back pain. Your evaluation suggests no acute abnormalities which require further intervention at this time. Your pain is most likely due to to a musculoskeletal cause that should improve with supportive care. In addition, you were found to have high blood sugars likely due to the fact that you have not been able to take your home medications; specifically, insulin as scheduled due to your pain. Please continue sliding-scale and keep a dedicated blood sugar log for review with your PCP Regarding your back pain: - Move around as tolerated but avoiding heavy lifting. ``Bed rest is not recommended nor is it the best treatment for low back pain. - Medications will help control your discomfort: - -Ibuprofen (800 mg every 8 hours for pain) with food. - -Tylenol - Do not drink alcohol, drive a car, operate machinery, or get up on ladders or heights when taking any prescribed muscle relaxer medications. - Do not drive home if you received prescribed muscle relaxer medications here in the ED. Return to the ED immediately if you develop any of the following problems: - Leaking urine or difficulty urinating; - Inability to control your bowels; - New numbness or weakness in your legs or numbness between your legs; - Inability to walk - Fever Scripts Cyclobenzaprine Hcl (CYCLOBENZAPRINE HCL) 5 Mg Tablet 1 TAB PO TID PRN for MUSCLE SPASMS, #15 TAB Prov: JEAN CARLOS CHANDLER DO 03/12/21 Problem Qualifiers JENA CARLOS CHANDLER DO Mar 12, 2021 11:34
[2021-03-12 11:45] VITALS: BP 106/66
[2021-03-12] MEDS ORDERED: IV NORMAL SALINE 1,000ML 1,000 ML IV ONE ×2 (11:45→13:15)
--- NOTE | 2021-03-12 12:20 | RAD ---
CT ABDOMEN+PELVIS WO INDICATION: lt flank pain EXAM: Noncontrast CT of the abdomen and pelvis. Coronal and sagittal reformatted images were perform ed. PQRS compliance statement: One or more of the following individualized dose reduction techniques were utilized for this examinat ion: 1. Automated exposure control 2. Adjustment of the mA and/or kV according to patient size 3. Use of iterative reconstruction technique COMPARISON: 01/16/2020 FINDINGS: No free air, free fluid, or fluid collection. Lower chest: The visualized lower lungs are aerated. No pleural or pericardial effusion. ABDOMEN: Liver: The noncontrast liver is homogeneous in attenuation. Gallbladder and biliary: Cholecystectomy. Normal caliber bile ducts. Spleen: Normal spleen. Pancreas: The noncontrast pancreas is homogeneous in attenuation without peripancreatic inflammatory changes. Adrenal glands: Normal adrenal glands. Kidneys and ureters: No opaque urinary calculi. Normal kidneys and ureters. GI tract: The stomach is decompressed and poorly evaluated. Normal caliber small bowel and colon. Nor mal appendix. Vascular structures: Normal caliber abdominal aorta. Lymph nodes: No lymphadenopathy in the abdomen or pelvis. PELVIS: Genitourinary system: Urinary bladder is decompressed. Uterus is present. SKELETAL STRUCTURES AND SOFT TISSUES: No fracture or destructive lesion in the visualized skeleton. IMPRESSION: No acute findings. No hydronephrosis or opaque urinary calculi. Electronically signed by: Adrian Son MD (03/12/2021 12:18 PM) [id number]
[2021-03-12 12:27] LABS: BASO # 0.1 x10^3/uL (0.0-0.2); BASO % 1 % (0-3); EOS # 0.1 x10^3/uL (0.0-0.7); EOS % 3 % (0-3); HEMATOCRIT 44.6 % (36.0-47.0); HEMOGLOBIN 15.2 g/dL (12.0-15.5); LYMPH # 1.4 x10^3/uL (1.0-4.8); LYMPH % 27 % (24-48); MEAN CORPUSCULAR HEMOGLOBIN 30 pg (25-35); MEAN CORPUSCULAR HGB CONC 34 g/dL (31-37); MEAN CORPUSCULAR VOLUME 87 fL (79-100); MONO # 0.4 x10^3/uL (0.0-1.1); MONO % 8 % (0-9); NEUT # 3.2 x10^3uL (1.8-7.7); NEUT % 62 % (31-73); PLATELET COUNT 183 x10^3/uL (140-400); RED BLOOD COUNT 5.15 x10^6/uL (3.50-5.40); RED CELL DISTRIBUTION WIDTH 12.1 % (11.5-14.5); WHITE BLOOD COUNT 5.1 x10^3/uL (4.0-11.0)
[2021-03-12 12:46] LABS: ALBUMIN 3.2 g/dL (3.4-5.0); ALBUMIN/GLOBULIN RATIO 0.8 (1.0-1.7); CALCIUM 9.3 mg/dL (8.5-10.1); CREATININE 0.8 mg/dL (0.6-1.0); GFR 76.6; POTASSIUM 4.6 mmol/L (3.5-5.1); TOTAL BILIRUBIN 0.7 mg/dL (0.2-1.0); TOTAL PROTEIN 7.3 g/dL (6.4-8.2)
[2021-03-12] MEDS ORDERED: INSULIN REGULAR 100 UNIT/ML 3ML VIAL. IV ONE (13:00)
--- NOTE | 2021-03-12 13:08 | EKG ---
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
[2021-03-12 13:27] LABS: BACTERIA,URINE FEW /HPF (0-FEW); BILIRUBIN,URINE NEG (NEG); CLARITY,URINE HAZY; COLOR,URINE YELLOW; GLUCOSE,URINE >=1000 mg/dL (NEG); NITRITE,URINE NEG (NEG); RBC,URINE OCC /HPF (0-2); SQUAMOUS EPITHELIAL CELL,UR MOD /LPF; UROBILINOGEN,URINE 0.2 mg/dL (0.2 mg/dL); YEAST,URINE PRESENT /HPF
[2021-03-12] MEDS ORDERED: ACETAMINOPHEN 325 MG TABLET PO ONE (14:00)
[2021-03-12] MEDS ORDERED: ORPHENADRINE CITRATE 60 MG/2 ML VIAL. IM ONE (14:00)
[2021-03-12] MEDS ORDERED: CYCL5TAB PO (16:11)
== END 2021-03-12 15:45 | disposition home or self-care (01) ==
LOC: ER 11:20
DX: E11.65 Type 2 diabetes mellitus with hyperglycemia (principal); J45.909 Unspecified asthma, uncomplicated; I50.9 Heart failure, unspecified; E03.9 Hypothyroidism, unspecified; Z87.891 Personal history of nicotine dependence; Z88.1 Allergy status to other antibiotic agents; Z90.49 Acquired absence of other specified parts of digestive tract; Z91.018 Allergy to other foods; Z88.8 Allergy status to other drugs, medicaments and biological substances; Z91.040 Latex allergy status; Z88.2 Allergy status to sulfonamides; Z88.7 Allergy status to serum and vaccine; Z88.6 Allergy status to analgesic agent
CPT/HCPCS: 36415; 74176; 80053; 81001; 81025; 82010; 82803; 82947; 83690; 84484; 85025; 93005; 96361; 96372; 96374; 99285; J1815; J2360; J7030

== ENCOUNTER 2021-03-24 14:57 | Inpatient (IN) | payer MEDICARE, MEDICAID ==
[~2021-03-24] VITALS: Ht 175.3 cm; Wt 129.4 kg
--- NOTE | 2021-03-24 00:45 | NUR ---
Pt has 100units of Lantus due this evening. Do to pt vomiting I have not administered the HS dose. Pts blood sugar is being monitored currently. Last blood sugar at 0055 was 285 with this I will not administer her HS Lantus dose.
[~2021-03-24 14:57] MED LIST changes: -CYCL-331 PO; +CYCL10TA19 PO; +CYCL5TAB PO; +DICY20TA PO; -DICY20TA3 PO
[2021-03-24] MEDS ORDERED: LIDO:MAALOX 1:1 20 ML SINGLE DOSE. PO ONE (15:15)
[2021-03-24] MEDS ORDERED: ONDANSETRON ODT 4 MG TAB.RAPDIS PO ONE (15:15)
--- NOTE | 2021-03-24 15:17 | PHYS DOC ---
Past History Past Medical History: Asthma, CHF, Diabetes, Hypothyroid Additional Past Medical Histor: Gorlin's, basal cell carcinomous nevus (ALLY MAKI APRN) Past Surgical History: No Surgical History, Cholecystectomy Additional Past Surgical Histo: right ankle and left ankle surgery (ALLY MAKI APRN) Smoking: Quit Greater Than 1 Year Alcohol Use: None Drug Use: None (ALLY MAKI APRN) General Adult EDM: Chief Complaint: ABDOMINAL PAIN HPI: HPI: Patient is a 50-year-old female presents with epigastric burning pain that started yesterday. Patient is also reporting left-sided flank pain which she was seen in the emergency room for 2 weeks ago. Patient reports that left-sided flank pain has increased. Pain improves only with laying down or on her right side. Denies burning with urination or urgency. No nausea/vomiting/diarrhea. Denies chest pain, shortness of breath or recent illness. No fevers. Patient has history of GERD and is currently being treated for yeast infection. Patient denies taking anything for pain prior to arrival. (ALLY MAKI APRN) Review of Systems: Review of Systems: ROS At least 10 ROS systems have been reviewed and are negative except as documented in the HPI. General: Negative except as outlined in HPI above. Skin: Negative except as outlined in HPI above. HEENT: Negative except as outlined in HPI above. Neck: Negative except as outlined in HPI above. Respiratory: Negative except as outlined in HPI above.. Cardiovascular: Negative except as outlined in HPI above. Abdomen: Negative except as outlined in HPI above. : Negative except as outlined in HPI above. Back/MSK: Negative except as outlined in HPI above. Neuro: Negative except as outlined in HPI above. Psych: Negative except as outlined in HPI above. (ALLY MAKI DETECTIVE HOMICIDE SQUAD) Allergies: Allergies: Allergies Coded Allergies Type Severity Reaction Last Updated Verified amoxicillin Allergy Severe 05/13/19 Yes black pepper Allergy Severe 05/13/19 Yes methylnaltrexone Allergy Severe 05/13/19 Yes onion Allergy Severe Anaphylaxis 05/13/19 Yes Latex, Natural Rubber Allergy Intermediate 05/13/19 Yes Penicillins Allergy Intermediate 05/13/19 Yes Sulfa (Sulfonamide Antibiotics) Allergy Intermediate 05/13/19 Yes hydrogen peroxide Allergy Intermediate 05/13/19 Yes lanolin Allergy Intermediate 05/13/19 Yes tetanus immune globulin Allergy Intermediate 05/13/19 No tomato Allergy Mild Nausea 05/13/19 Yes sumatriptan Adverse Reaction Severe N/V 05/13/19 Yes adhesive Adverse Reaction Intermediate Rash 05/13/19 Yes aspirin Adverse Reaction Mild NAUSEA 09/11/20 Yes (ALLY MAKI APRN) Physical Exam: PE: Constitutional: Well developed, well nourished, no acute distress, non-toxic appearance. [] HENT: Normocephalic, atraumatic, bilateral external ears normal, oropharynx moist, no oral exudates, nose normal. [] Eyes: PERRLA, EOMI, conjunctiva normal, no discharge. [] Neck: Normal range of motion, no tenderness, supple, no stridor. [] Cardiovascular:Heart rate regular rhythm, no murmur [] Lungs & Thorax: Bilateral breath sounds clear to auscultation [] Abdomen: Bowel sounds normal, soft, epigastric tenderness, no masses, no pulsatile masses. [] Skin: Warm, dry, no erythema, no rash. [] Back: Left-sided, CVA tenderness Extremities: No tenderness, no cyanosis, no clubbing, ROM intact, no edema. [] Neurologic: Alert and oriented X 3, normal motor function, normal sensory function, no focal deficits noted. [] Psychologic: Affect normal, judgement normal, mood normal. [] (ALLY MAKI APRN) Current Patient Data: Vital Signs: Vital Signs Date Time Temp Pulse Resp B/P (MAP) Pulse Ox O2 Delivery O2 Flow Rate FiO2 03/24/21 14:59 98.6 93 16 140/79 (99) 100 Room Air (ALLY MAKI APRN) EKG: EKG: Sinus rhythm. Heart rate 83 bpm. No STEMI. Read by Dr. Chandler. (ALLY MAKI APRN) Radiology/Procedures: Radiology/Procedures: [] (ALLY MAKI APRN) Heart Score: C/O Chest Pain: No Risk Factors: Risk Factors: DM, Current or recent (<one month) smoker, HTN, HLP, family history of CAD, obesity. Risk Scores: Score 0 - 3: 2.5% MACE over next 6 weeks - Discharge Home Score 4 - 6: 20.3% MACE over next 6 weeks - Admit for Clinical Observation Score 7 - 10: 72.7% MACE over next 6 weeks - Early Invasive Strategies (ALLY MAKI APRN) Course & Med Decision Making: Course & Med Decision Making Pertinent Labs and Imaging studies reviewed. (See chart for details) [] GI cocktail and Zofran given to help epigastric pain and nausea. Patient states that symptoms have not improved and still reporting epigastric pain and left- sided flank pain. Patient given 50 mics of fentanyl. Potassium, 2.7. Magnesium of 1.6. Patient given 40 mEq of potassium, 2 g of magnesium. Discussed results with patient. Advised patient that she would most likely need to be admitted for further evaluation. Discussed results with Dr. Harris. Dr. Harris will be admitting patient to [facility] on telemetry for hypokalemia, hypomagnesia, epigastric pain. Patient agrees with admission plan and is appreciative. (ALLY MAKI APRN) Course & Med Decision Making I was the Attending physician on the above date of service of this patient. This patient was evaluated, examined, treated, and dispositioned from the emergency department by the mid-level practitioner. I reviewed case and agreed need for hospitalization Electronically signed, Jean Carlos Chandler DO (JEAN CARLOS CHANDLER DO) Lora Disclaimer: Lora Disclaimer: This electronic medical record was generated, in whole or in part, using a voice recognition dictation system. (ALLY MAKI APRN) Departure Departure: Impression: Primary Impression: Hypokalemia Additional Impressions: Hypomagnesemia Epigastric abdominal pain Left flank pain Disposition: ADMITTED INPATIENT Admitting Physician: Chika Warren (ALLY MAKI APRN) Condition: STABLE Referrals: CHIKA WARREN MD (PCP) Scripts Sucralfate (SUCRALFATE) 1 Gm/10 Ml Oral.susp 1 GM PO QIDACHS for stomach/gerd for 30 Days, #120 ML 1 Refill Prov: CHIKA WARREN MD 03/27/21 Midodrine Hcl (MIDODRINE HCL) 5 Mg Tablet 10 MG PO [id number] for hypotension for 30 Days, #180 TAB 1 Refill Prov: CHIKA WARREN MD 03/27/21 Ondansetron (ONDANSETRON ODT) 4 Mg Tab.rapdis 4 MG PO PRN Q6HRS PRN for NAUSEA/VOMITING, #20 TAB 1 Refill Prov: CHIKA WARREN MD 03/27/21 Pantoprazole Sodium (PANTOPRAZOLE SODIUM) 40 Mg Tablet. 40 MG PO DAILYAC for GERD for 30 Days, #30 TAB 1 Refill Prov: CHIKA WARREN MD 03/27/21 ALLY MAKI APRN Mar 24, 2021 15:17 JEAN CARLOS CHANDLER DO Mar 28, 2021 14:52
[2021-03-24] MEDS ORDERED: KETOROLAC 60 MG/2 ML VIAL. IM ONE (15:30)
--- NOTE | 2021-03-24 15:48 | EKG ---
[address] [address] Test Date: 2021-03-24 Test Time: 15:31:16 Pat Name: CHIQUITA BLAIR Department: Room: Gender: F Med Peds: SHIV : 1970 Requested By: ALLY MAKI Order Number: [id number] Reading MD: Anthony Vivar Measurements Intervals [place] Rate: 89 P: 56 [place]: 158 QRS: 114 QRSD: 102 T: 56 QT: 386 QTc: 471 Interpretive Statements SINUS RHYTHM Electronically Signed On 03-26-2021 16:05:10 CDT by Anthony Vivar
[2021-03-24 15:52] LABS: BASO # 0.1 x10^3/uL (0.0-0.2); BASO % 1 % (0-3); EOS # 0.1 x10^3/uL (0.0-0.7); EOS % 1 % (0-3); HEMATOCRIT 45.3 % (36.0-47.0); HEMOGLOBIN 15.4 g/dL (12.0-15.5); LYMPH # 2.8 x10^3/uL (1.0-4.8); LYMPH % 31 % (24-48); MEAN CORPUSCULAR HEMOGLOBIN 29 pg (25-35); MEAN CORPUSCULAR HGB CONC 34 g/dL (31-37); MEAN CORPUSCULAR VOLUME 85 fL (79-100); MONO # 0.7 x10^3/uL (0.0-1.1); MONO % 8 % (0-9); NEUT # 5.5 x10^3uL (1.8-7.7); NEUT % 59 % (31-73); PLATELET COUNT 291 x10^3/uL (140-400); RED BLOOD COUNT 5.32 x10^6/uL (3.50-5.40); RED CELL DISTRIBUTION WIDTH 12.6 % (11.5-14.5); WHITE BLOOD COUNT 9.2 x10^3/uL (4.0-11.0)
[2021-03-24 16:03] LABS: CALCIUM 10.2 mg/dL (8.5-10.1); CREATININE 0.8 mg/dL (0.6-1.0); GFR 76.6
[2021-03-24 16:06] LABS: POTASSIUM 2.7 mmol/L (3.5-5.1)
[2021-03-24 16:13] LABS: U PREG PATIENT NEGATIVE (NEG)
[2021-03-24 16:25] LABS: BILIRUBIN,URINE SMALL (NEG); CLARITY,URINE CLOUDY; COLOR,URINE YELLOW; GLUCOSE,URINE 100 mg/dL (NEG)
[2021-03-24 16:26] LABS: BACTERIA,URINE FEW /HPF (0-FEW); NITRITE,URINE NEG (NEG); RBC,URINE OCC /HPF (0-2); SQUAMOUS EPITHELIAL CELL,UR MANY /LPF; UROBILINOGEN,URINE 0.2 mg/dL (0.2 mg/dL); YEAST,URINE PRESENT /HPF
[2021-03-24] MEDS ORDERED: MAGNESIUM SULFATE 2GM 50 ML IV ONE (16:45)
[2021-03-24] MEDS ORDERED: POTASSIUM CHLORIDE 20 MEQ TABLET.ER. PO ONE (16:45)
--- NOTE | 2021-03-24 20:00 | NUR ---
The patient, CHIQUITA BLAIR, 50 y/o, F admitted by CHIKA WARREN MD, was given written information regarding hospital policies, unit procedures and contact persons. Valuables were checked and vitals obtained. Pt is A&OX4 able to express own concerns. Pt is currently not complaining of pain or shortness of breath. Pt is able to ambulate to toilet and is on room air.
[2021-03-24 20:08] VITALS: BP 148/78
[2021-03-24 20:51] LABS: INFLUENZA A PATIENT NEGATIVE (NEGATIVE); INFLUENZA B PATIENT NEGATIVE (NEGATIVE)
[2021-03-24] MEDS ORDERED: MIRT7.5T8 PO (21:57)
[2021-03-24] MEDS ORDERED: VILA40TA PO (21:57)
[2021-03-24] MEDS ORDERED: BREX2TAB PO (21:57)
[2021-03-24] MEDS ORDERED: DEXTROSE 50% 25 GM / 50ML DISP.SYRIN. IV PRN (22:00)
[2021-03-24] MEDS ORDERED: INSULIN GLARGINE SYRINGE. SQ SCH (22:30)
--- NOTE | 2021-03-24 22:30 | NUR ---
Pt wanted box lunch after admission was done. I suggested something not so heavy due to being nauseated in ER. Pt stated she was not nauseas in the ER and she would really like a sandwich with milk instead of apple juice. After eating box lunch pt vomited what she ate along with her medications. Pt is currently in bed with headphones on.
[2021-03-24] MEDS: GABAPENTIN 300 MG CAPSULE. PO SCH (22:58)
[2021-03-24] MEDS: DICYCLOMINE HCL 20 MG TABLET PO SCH (22:58)
[2021-03-24] MEDS: valACYclovir 500 MG TABLET. PO SCH (22:58)
[2021-03-24] MEDS: METOCLOPRAMIDE 10 MG TABLET PO SCH (22:58)
[2021-03-24] MEDS: IBUPROFEN 800 MG TABLET. PO PRN (22:58)
[2021-03-25] MEDS: LEVOTHYROXINE 150 MCG TABLET PO SCH (05:37)
[2021-03-25] MEDS: IBUPROFEN 800 MG TABLET. PO PRN ×2 (05:37→20:56)
[2021-03-25 05:49] VITALS: BP_SYST 126; BP_SYST 138; BP_DIAS 69; BP_DIAS 80
[2021-03-25] MEDS ORDERED: INSULIN LISPRO 300 UNITS/3 ML VIAL. SQ SCH (08:00)
[2021-03-25] MEDS: GABAPENTIN 300 MG CAPSULE. PO SCH ×3 (08:07→20:55)
[2021-03-25] MEDS: DICYCLOMINE HCL 20 MG TABLET PO SCH ×3 (08:07→20:56)
[2021-03-25] MEDS: metFORMIN 500 MG TABLET PO SCH ×2 (08:07→17:30)
[2021-03-25] MEDS: valACYclovir 500 MG TABLET. PO SCH ×2 (08:07→20:55)
[2021-03-25] MEDS: PANTOPRAZOLE 40 MG TABLET. PO SCH (08:08)
[2021-03-25] MEDS: FUROSEMIDE 20 MG TABLET PO SCH (08:08)
[2021-03-25] MEDS: PIOGLITAZONE 15 MG TABLET. PO SCH (08:08)
[2021-03-25] MEDS: METOCLOPRAMIDE 10 MG TABLET PO SCH ×4 (08:08→20:56)
[2021-03-25] MEDS ORDERED: BREXPIPRAZOLE PO SCH (09:00)
[2021-03-25] MEDS ORDERED: FLU VACC QUAD 21-22 (6MOS+) PF 0.5 ML SYRINGE. VAX IM ONE (09:00)
[2021-03-25] MEDS ORDERED: PANTOPRAZOLE IV 80 MG in IV NORMAL SALINE 100ML 100 ML IV ONE (10:00)
[2021-03-25] MEDS ORDERED: KETOROLAC 30 MG/ML VIAL. IM ONE (10:30)
[2021-03-25] MEDS ORDERED: ORPHENADRINE CITRATE 60 MG/2 ML VIAL. IM ONE (10:30)
[2021-03-25 11:15] VITALS: BP 122/82
[2021-03-25] MEDS: INSULIN LISPRO 300 UNITS/3 ML VIAL. SQ SCH ×4 (12:19→17:32)
[2021-03-25 13:37] LABS: CALCIUM 9.8 mg/dL (8.5-10.1); CREATININE 0.9 mg/dL (0.6-1.0); GFR 66.8
[2021-03-25 15:00] VITALS: BP 113/64
[2021-03-25 19:15] VITALS: BP 127/79
[2021-03-25] MEDS: INSULIN GLARGINE SYRINGE. SQ SCH (20:57)
--- NOTE | 2021-03-25 21:51 | HP ---
DATE OF SERVICE: 03/25/2021 ADMIT DATE: 03/24/2021 HISTORY OF PRESENT ILLNESS: This is a 50-year-old female who came in through the Emergency Room with severe epigastric pain radiating to the left side, left flank area for which she is seen in the Emergency Room apparently few weeks ago. She notes that the left-sided flank pain has increased. Pain is approximately 8-9/10. The patient says that it helps to lie down. She denies any burning on urination. No nausea or vomiting, but has severe epigastric pain that she rates 9/10 and generally require some type of pain medication to handle this severe pain that she is having. She also notes trouble swallowing and food possibly getting caught in her throat. 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; TIAs; peripheral neuropathies; cardiomyopathies; coronary artery disease; cardiac catheterization; hypercholesterolemia; deviated septum; history of pulmonary emboli; pneumonia; sleep apnea, on CPAP; gastroparesis; esophageal strictures and stretching; cholecystectomy; obesity; GERD; sexually transmitted diseases of herpes; urinary tract infections; incontinence; chronic arthritis; muscle spasms; fibromyalgia; osteoarthritis; scoliosis' bilateral ankle surgery with hardware; hypothyroidism; enlarged liver; PTSD; panic attacks; depression; self-mutilation; narcolepsy; Gorlin syndrome; nevoid basal cell carcinoma. Tetanus, influenza up-to-date. The patient also has a history of developmental delay. FAMILY HISTORY: Positive for bipolar disease, diabetes, gastrointestinal disease, hypertension, cancer, asthma and heart disease. ALLERGIES: LATEX, NATURAL RUBBER, PENICILLIN, SULFUR, ADHESIVE TAPE, AMOXICILLIN, ASPIRIN, BLACK PEPPER, HYDROGEN PEROXIDE, LANOLIN, NALTREXONE, ONIONS, SUMATRIPTAN, TETANUS, IMMUNOGLOBULINS AND TOMATOES. SOCIAL HISTORY: The patient has about [id number] history of smoking. Denies alcohol or hard drug use. He is a full code. REVIEW OF SYSTEMS: The patient denies any headaches, visual changes, blurred vision, double vision. Does have some shortness of breath, primarily her chest pain is in the epigastric area, burning like sensation that she has had for some time. The patient otherwise does have some nausea and food caught in her throat, but otherwise no vomiting. She has had positive bowel movements. No abdominal pain outside of what was described earlier. No melena, hematochezia, hematemesis. No problems urinating. She does have generalized achiness throughout her body with fibromyalgia, multiple places of both the upper and lower extremities. PHYSICAL EXAMINATION: GENERAL: This is a pleasant white female, somewhat obese. VITAL SIGNS: Blood pressure 140/80, respiratory rate 20, pulse 96, temperature 98.6, pulse ox 99% on room air, weight 130 kilos. HEENT: The patient otherwise, head was atraumatic, normocephalic. The eyes were PERRLA without jaundice. The mouth and throat were normal. NECK: Supple without JVD, carotid bruits. No thyroidmegaly. LUNGS: Diminished throughout, poor movement of air. CARDIOVASCULAR: Regular sinus rhythm. ABDOMEN: The epigastric area was markedly tender to palpation. Slight guarding, but no rebounding. No hepatosplenomegaly was noted. Otherwise, the abdomen was protuberant. Positive bowel sounds with no bruits noted. EXTREMITIES: The pulses in the distal extremities were noted. The patient had a trace edema in the lower extremities. NEUROLOGIC: The patient is alert and tearful over the pain that she was having in the epigastric area. LABORATORY DATA: The patient's labs showed a white count of 9, hemoglobin of 15 and hematocrit 45. Sodium and potassium 134 and 4 and blood sugar was 366. BUN and creatinine 13 and 0.9. The urine was basically showing a trace of nitrates, but otherwise unremarkable and COVID was negative. IMPRESSION: Severe epigastric chest pain, possible strictures, GERD, morbid obesity, type 2 diabetes, poorly controlled. The patient will be admitted, placed on IV Protonix, make further evaluation on her as indicated and adjust medications as indicated. CYNTHIA DR: Nereida TID: [id number]
[2021-03-25 22:55] VITALS: BP 106/72
[2021-03-26] MEDS: LEVOTHYROXINE 150 MCG TABLET PO SCH (04:50)
[2021-03-26] MEDS: IBUPROFEN 800 MG TABLET. PO PRN (04:50)
[2021-03-26 05:41] VITALS: BP 127/64
[2021-03-26] MEDS: FUROSEMIDE 20 MG TABLET PO SCH (08:28)
[2021-03-26] MEDS: PIOGLITAZONE 15 MG TABLET. PO SCH (08:29)
[2021-03-26] MEDS: METOCLOPRAMIDE 10 MG TABLET PO SCH ×4 (08:29→22:16)
[2021-03-26] MEDS: GABAPENTIN 300 MG CAPSULE. PO SCH ×3 (08:30→22:16)
[2021-03-26] MEDS: PANTOPRAZOLE 40 MG TABLET. PO SCH (08:30)
[2021-03-26] MEDS: DICYCLOMINE HCL 20 MG TABLET PO SCH ×3 (08:30→22:16)
[2021-03-26] MEDS: valACYclovir 500 MG TABLET. PO SCH ×2 (08:30→22:16)
[2021-03-26] MEDS: metFORMIN 500 MG TABLET PO SCH ×2 (08:30→17:54)
[2021-03-26] MEDS: INSULIN LISPRO 300 UNITS/3 ML VIAL. SQ SCH ×6 (08:32→17:00)
[2021-03-26 10:57] VITALS: BP 114/74
[2021-03-26] MEDS: SUCRALFATE 1 GM/10 ML ORAL.SUSP. PO SCH ×3 (11:51→22:16)
[2021-03-26] MEDS: CYCLOBENZAPRINE 10 MG TABLET. PO PRN ×2 (11:51→22:16)
[2021-03-26] MEDS ORDERED: KETOROLAC 30 MG/ML VIAL. IVP PRN (12:30)
[2021-03-26] MEDS: MIDODRINE 5 MG TABLET PO SCH ×3 (13:45→18:02)
[2021-03-26 13:58] VITALS: BP 125/77
[2021-03-26 14:00] VITALS: BP 138/82
[2021-03-26] MEDS ORDERED: ONDANSETRON ODT 4 MG TAB.RAPDIS PO PRN (17:30)
[2021-03-26] MEDS ORDERED: KETOROLAC 60 MG/2 ML VIAL. IM PRN (18:00)
--- NOTE | 2021-03-26 18:22 | NUR ---
Nursing note Pt has complained of nausea and vomiting for this nurse, pt then requested chicken and noodle soup for dinner. when dinner arrived pt began crying stating the soup " looked yucky" and " I am done , I am not going to eat this " pt then requested cream of chicken soup and was not pleased with that food item either. Doctor Solomon arrived to see pt as consulted after examining pt doctor advised to get pts current Psychiatric medications list from pharmacy and restart the medications. this nurse called [facility] pharmacy and was not able to reach a staff member to obtain medication records. Will inform on coming shift to pass along to day shift the need to attempt again
[2021-03-26 20:31] VITALS: BP 133/83
[2021-03-26] MEDS: INSULIN GLARGINE SYRINGE. SQ SCH (22:18)
--- NOTE | 2021-03-27 01:53 | PN ---
SUBJECTIVE: A 50-year-old patient admitted with chest pain and epigastric pain. The patient has been having severe orthostasis, dropping approximately 50 mmHg when standing up, pulse going up approximately 30 beats per minute as she is markedly orthostatic. The patient will be placed on midodrine and some support hose. She is a diabetic, so this may be coming into play very poorly controlled diabetic, so she may have some type of diabetic neuropathy causing her sympathetic system not to function properly. The patient otherwise continued to be monitored on her blood sugars. She is going to get a barium swallow tomorrow because of a problem swallowing. OBJECTIVE: VITAL SIGNS: Her last blood pressure 81/48, respiratory rate 22, pulse 120. GENERAL: The patient otherwise continued to be monitored. May have Cardiology review her as well. LUNGS: Otherwise, the lungs are clear. CARDIOVASCULAR: Tachycardic. ABDOMEN: Markedly protuberant, tender in the epigastric area. EXTREMITIES: No clubbing or cyanosis. Trace edema. Pulses noted distally. NEUROLOGIC: Baseline for her. IMPRESSION: Orthostatic hypotension, severe; type 2 diabetes, poorly controlled; morbid obesity; epigastric and chest pain. PLAN: As above. Continue with adjustment of medications and make further evaluation once Cardiology has evaluated her. DIDI DR: Nereida TID: [id number]
[2021-03-27] MEDS: LEVOTHYROXINE 150 MCG TABLET PO SCH (05:20)
[2021-03-27] MEDS: IBUPROFEN 800 MG TABLET. PO PRN (05:20)
[2021-03-27 05:46] VITALS: BP 125/80
[2021-03-27 06:33] LABS: BASO % 1 % (0-3); EOS # 0.2 x10^3/uL (0.0-0.7); EOS % 4 % (0-3); HEMATOCRIT 39.6 % (36.0-47.0); HEMOGLOBIN 13.6 g/dL (12.0-15.5); LYMPH # 1.7 x10^3/uL (1.0-4.8); LYMPH % 38 % (24-48); MEAN CORPUSCULAR HEMOGLOBIN 30 pg (25-35); MEAN CORPUSCULAR HGB CONC 34 g/dL (31-37); MEAN CORPUSCULAR VOLUME 86 fL (79-100); MONO # 0.5 x10^3/uL (0.0-1.1); MONO % 10 % (0-9); NEUT # 2.2 x10^3uL (1.8-7.7); NEUT % 48 % (31-73); PLATELET COUNT 178 x10^3/uL (140-400); RED BLOOD COUNT 4.61 x10^6/uL (3.50-5.40); RED CELL DISTRIBUTION WIDTH 12.3 % (11.5-14.5); WHITE BLOOD COUNT 4.6 x10^3/uL (4.0-11.0)
[2021-03-27 06:41] LABS: ALBUMIN 2.8 g/dL (3.4-5.0); ALBUMIN/GLOBULIN RATIO 0.8 (1.0-1.7); CALCIUM 9.1 mg/dL (8.5-10.1); CREATININE 0.8 mg/dL (0.6-1.0); GFR 76.6; POTASSIUM 3.4 mmol/L (3.5-5.1); TOTAL BILIRUBIN 0.5 mg/dL (0.2-1.0); TOTAL PROTEIN 6.5 g/dL (6.4-8.2)
[2021-03-27] MEDS ORDERED: PANTOPRAZOLE 40 MG TABLET. PO SCH (07:30)
--- NOTE | 2021-03-27 08:50 | RAD ---
EXAM: Lumbar spine CT without contrast. HISTORY: Pain. TECHNIQUE: Computed tomographic images of the lumbar spine were obtained without contrast. Multiplana r reformatting was performed. *One or more of the following individualized dose reduction techniques were utilized for this examina tion: 1. Automated exposure control. 2. Adjustment of the mA and/or kV according to patient size. 3. Use of iterative reconstruction technique. COMPARISON: 03/29/2021 FINDINGS: There is no significant scoliosis or listhesis. There is degenerative endplate remodeling a nd osteophytosis at L5-S1. There is less significant endplate remodeling at the remainder of the lumb ar and lower thoracic levels. There is no fracture. There is no suspicious lytic or sclerotic osseous lesion. The gallbladder is absent. No hepatic or splenic lesion is seen on the [id number]. The pancreas, a drenal glands and kidneys are unremarkable. There is no appendicitis. There is no bowel obstruction. The aorta is normal in caliber. There is no lymphadenopathy. There is degenerative subchondral sclero sis and vacuum phenomenon involving the sacroiliac joints. At L1-L2, L2-L3 and L3-L4, there are disc bulges with endplate remodeling. There is no stenosis. At L4-L5, there are bilateral lateral recess to foraminal disc protrusions superimposed on a disc bul ge and endplate remodeling. There is minimal right facet arthropathy. There is mild right foraminal s tenosis with suspected abutment of the exiting right L4 nerve root. At L5-S1, there is a broad-based posterior central to right lateral recess disc protrusion superimpos ed on a disc bulge and endplate remodeling. There is suspected narrowing of the right lateral recess. IMPRESSION: 1. Degenerative change involving the lower lumbar spine, described in detail above. 2. No acute osseous finding. Electronically signed by: Bia Veliz MD (03/27/2021 8:47 AM) [id number]
[2021-03-27] MEDS: INSULIN LISPRO 300 UNITS/3 ML VIAL. SQ SCH ×2 (08:56→08:58)
[2021-03-27] MEDS: SUCRALFATE 1 GM/10 ML ORAL.SUSP. PO SCH (09:00)
[2021-03-27] MEDS: GABAPENTIN 300 MG CAPSULE. PO SCH (09:00)
[2021-03-27] MEDS: PIOGLITAZONE 15 MG TABLET. PO SCH (09:00)
[2021-03-27] MEDS: METOCLOPRAMIDE 10 MG TABLET PO SCH (09:00)
[2021-03-27] MEDS: DICYCLOMINE HCL 20 MG TABLET PO SCH (09:00)
[2021-03-27 09:01] VITALS: BP 125/80
[2021-03-27] MEDS: metFORMIN 500 MG TABLET PO SCH (09:01)
[2021-03-27] MEDS: MIDODRINE 5 MG TABLET PO SCH (09:01)
[2021-03-27] MEDS: valACYclovir 500 MG TABLET. PO SCH (09:01)
--- NOTE | 2021-03-27 09:04 | RAD ---
EXAMINATION: ESOPHAGRAM CLINICAL HISTORY: Dysphagia TECHNIQUE: Double contrast esophagram performed utilizing effervescent granules followed by oral admi nistration of thick and thin barium. - Number of Images: 18 images, 1 clip - Fluoroscopy Time: 0.9 minutes COMPARISON: None FINDINGS: Hypopharynx and cervical esophagus unremarkable. No evidence of esophageal stricture, ring, or mass. No evidence of esophagitis. No hiatal hernia. No reflux elicited despite provocative maneuvers. Esophageal motility within normal limits. IMPRESSION: Unremarkable esophagram. Electronically signed by: Shaq Alegre DO (03/27/2021 9:02 AM) [id number]
--- NOTE | 2021-03-27 09:32 | PDOC2 ---
CARDIAC CONSULT CURRENT MEDICATIONS Current Medications Current Medications Ondansetron HCl (Zofran Odt) 4 mg 1X ONCE PO Last administered on 03/24/21at 15:49; Start 03/24/21 at 15:15; Stop 03/24/21 at 15:17; Status DC Multi-Ingredient Mouthwash/Gargle (Gi Cocktail) 20 ml 1X ONCE PO Last administered on 03/24/21at 15:50; Start 03/24/21 at 15:15; Stop 03/24/21 at 15:17; Status DC Ketorolac Tromethamine (Toradol Im) 60 mg 1X ONCE IM Last administered on 03/24/21at 15:51; Start 03/24/21 at 15:30; Stop 03/24/21 at 15:31; Status DC Magnesium Sulfate 50 ml @ 25 mls/hr 1X ONCE IV Last administered on 03/24/21at 16:51; Start 03/24/21 at 16:45; Stop 03/24/21 at 18:44; Status DC Potassium Chloride (Klor-Con) 40 meq 1X ONCE PO Last administered on 03/24/21at 16:52; Start 03/24/21 at 16:45; Stop 03/24/21 at 16:46; Status DC Fentanyl Citrate (Fentanyl 2ml Vial) 50 mcg 1X ONCE IVP Last administered on 03/24/21at 16:50; Start 03/24/21 at 16:45; Stop 03/24/21 at 16:46; Status DC Dicyclomine HCl (Bentyl) 20 mg TID PO Last administered on 03/27/21at 09:00; Start 03/24/21 at 22:30 Furosemide (Lasix) 20 mg DAILY PO Last administered on 03/26/21at 08:28; Start 03/25/21 at 09:00; Stop 03/26/21 at 17:13; Status DC Ibuprofen (Motrin) 800 mg PRN TID PRN PO MILD PAIN 1-3 Last administered on 03/27/21 05:20; Start 03/24/21 at 22:00 Levothyroxine Sodium (Synthroid) 150 mcg DAILY06 PO Last administered on 03/27/21 05:20; Start 03/25/21 at 06:00 Metformin HCl (Glucophage) 1,000 mg BIDWMEALS PO Last administered on 03/27/21 09:01; Start 03/25/21 at 08:00 Metoclopramide HCl (Reglan) 10 mg QIDACHS PO Last administered on 03/27/21 09:00; Start 03/24/21 at 22:30 Pioglitazone HCl (Actos) 15 mg DAILY PO Last administered on 03/27/21at 09:00; Start 03/25/21 at 09:00 Valacyclovir HCl (Valtrex) 500 mg BID PO Last administered on 03/27/21at 09:01; Start 03/24/21 at 22:30 Non-Formulary Medication (Brexpiprazole (Rexulti)) 2 tab DAILY PO ; Start 03/25/21 at 09:00; Stop 03/26/21 at 08:45; Status DC Cyclobenzaprine HCl (Flexeril) 5 mg PRN TID PRN PO MUSCLE SPASMS Last administered on 03/26/21at 22:16; Start 03/24/21 at 22:15 Gabapentin (Neurontin) 600 mg TID PO Last administered on 03/27/21at 09:00; Start 03/24/21 at 22:30 Insulin Glargine (Lantus Syringe) 100 unit QHS SQ ; Start 03/24/21 at 22:30; Stop 03/25/21 at 10:28; Status DC Pantoprazole Sodium (Protonix) 40 mg DAILY PO Last administered on 03/26/21at 08:30; Start 03/25/21 at 09:00; Stop 03/26/21 at 10:47; Status DC Non-Formulary Medication (Semaglutide (Ozempic)) 1 mg QM SQ ; Start 03/31/21 at 16:00; Stop 03/26/21 at 08:45; Status DC Insulin Human Lispro (HumaLOG) 0-7 UNITS TIDWMEALS SQ Last administered on 03/25/21at 09:06; Start 03/25/21 at 08:00; Stop 03/25/21 at 10:28; Status DC Dextrose (Dextrose 50%-Water Syringe) 12.5 gm PRN Q15MIN PRN IV SEE COMMENTS; Start 03/24/21 at 22:00 Influenza Virus Vaccine Quadrival (Flulaval Quad [id number] Syringe) 0.5 ml ONCE ONCE VAX IM Last administered on 03/25/21at 08:12; Start 03/25/21 at 09:00; Stop 03/25/21 at 09:01; Status DC Pantoprazole Sodium 80 mg/ Sodium Chloride 100 ml @ 10 mls/hr 1X ONCE IV Last administered on 03/25/21at 11:26; Start 03/25/21 at 10:00; Stop 03/25/21 at 19:59; Status DC Orphenadrine Citrate (Norflex) 60 mg 1X ONCE IM Last administered on 03/25/21at 11:27; Start 03/25/21 at 10:30; Stop 03/25/21 at 10:38; Status DC Ketorolac Tromethamine (Toradol 30mg Vial) 30 mg 1X ONCE IM Last administered on 03/25/21at 11:27; Start 03/25/21 at 10:30; Stop 03/25/21 at 10:38; Status DC Insulin Glargine (Lantus Syringe) 50 unit QHS SQ Last administered on 03/26/21at 22:18; Start 03/25/21 at 21:00 Insulin Human Lispro (HumaLOG) 15 units TIDWMEALS SQ Last administered on 03/27/21at 08:56; Start 03/25/21 at 12:00 Insulin Human Lispro (HumaLOG) 0-9 UNITS TIDWMEALS SQ Last administered on 03/27/21at 08:58; Start 03/25/21 at 12:00 Pantoprazole Sodium (Protonix) 40 mg DAILYAC PO Last administered on 03/27/21at 09:00; Start 03/27/21 at 07:30 Sucralfate (Carafate Oral Susp) 1 gm QIDACHS PO Last administered on 03/27/21at 09:00; Start 03/26/21 at 11:30 Ketorolac Tromethamine (Toradol 30mg Vial) 60 mg PRN Q8HRS PRN IVP PAIN; Start 03/26/21 at 12:30; Stop 03/26/21 at 17:33; Status DC Midodrine (Proamatine) 10 mg [id number] PO Last administered on 03/27/21at 09:01; Start 03/26/21 at 13:45 Ketorolac Tromethamine (Toradol Im) 60 mg PRN Q8HRS PRN IM MOD-SEV PAIN; Start 03/26/21 at 18:00; Stop 03/31/21 at 17:59 Ondansetron HCl (Zofran Odt) 4 mg PRN Q6HRS PRN PO NAUSEA/VOMITING; Start 03/26/21 at 17:30 Active Scripts Active Cyclobenzaprine Hcl 5 Mg Tablet 1 Tab PO TID PRN Reglan (Metoclopramide Hcl) 10 Mg Tablet 10 Mg PO QIDACHS 30 Days Reported Mirtazapine 7.5 Mg Tablet 1 Tab PO QHS Viibryd (Vilazodone Hydrochloride) 40 Mg Tablet 1 Tab PO DAILY Rexulti (Brexpiprazole) 2 Mg Tablet 1 Tab PO DAILY Dicyclomine Hcl 20 Mg Tablet 1 Tab PO TID Humalog (Insulin Lispro) 100 Unit/1 Ml Vial 0-10 Units SQ QIDACHS Rexulti (Brexpiprazole) 1 Mg Tablet 2 Tab PO DAILY Gabapentin 600 Mg Tablet 1 Tab PO TID Valacyclovir (Valacyclovir Hcl) 500 Mg Tablet 500 Mg PO BID Levothyroxine Sodium 150 Mcg Tablet 150 Mg PO DAILY06 Ozempic (Semaglutide) 0.25 Mg/0.2 Ml Pen.injctr 1 Mg SQ QM Actos (Pioglitazone Hcl) 15 Mg Tablet 1 Tab PO DAILY 30 Days Proair Hfa Inhaler (Albuterol Sulfate) 8.5 Gm Hfa.aer.ad 2 Puff INH PRN Q6HRS PRN Furosemide 20 Mg Tablet 20 Mg PO DAILY LAST DOSE GIVEN: DATE: TIME: NEXT DOSE DUE: DATE: TIME: Ibuprofen 800 Mg Tablet 800 Mg PO TID PRN LAST DOSE GIVEN: DATE: TIME: NEXT DOSE DUE: DATE: TIME: Tresiba Flextouch U-100 (Insulin Degludec) 100 Unit/1 Ml Insuln.pen 100 Unit SQ HS LAST DOSE GIVEN: DATE: TIME: NEXT DOSE DUE: DATE: TIME: Metformin Hcl 500 Mg Tablet 1,000 Mg PO BIDWMEALS LAST DOSE GIVEN: DATE: TIME: NEXT DOSE DUE: DATE: TIME: ALLERGIES Allergies: Coded Allergies: amoxicillin (Verified Allergy, Severe, 05/13/19) black pepper (Verified Allergy, Severe, 05/13/19) methylnaltrexone (Verified Allergy, Severe, 05/13/19) onion (Verified Allergy, Severe, Anaphylaxis, 05/13/19) Latex, Natural Rubber (Verified Allergy, Intermediate, 05/13/19) Penicillins (Verified Allergy, Intermediate, 05/13/19) Sulfa (Sulfonamide Antibiotics) (Verified Allergy, Intermediate, 05/13/19) hydrogen peroxide (Verified Allergy, Intermediate, 05/13/19) lanolin (Verified Allergy, Intermediate, 05/13/19) tetanus immune globulin (Unverified Allergy, Intermediate, 05/13/19) tomato (Verified Allergy, Mild, Nausea, 05/13/19) sumatriptan (Verified Adverse Reaction, Severe, N/V, 05/13/19) THIS MEDICATION MAKES THE PATIENT FEEL VERY ILL adhesive (Verified Adverse Reaction, Intermediate, Rash, 05/13/19) aspirin (Verified Adverse Reaction, Mild, NAUSEA, 09/11/20) VITALS Vital Signs Vital Signs Date Time Temp Pulse Resp B/P (MAP) Pulse Ox O2 Delivery O2 Flow Rate FiO2 03/27/21 09:01 80 125/80 03/27/21 05:46 97.5 20 93 Room Air LABS LABS Laboratory Tests Test 03/25/21 11:25 03/25/21 13:22 03/25/21 16:47 03/25/21 20:09 Glucose (Fingerstick) 375 mg/dL (70-99) 153 mg/dL (70-99) 220 mg/dL (70-99) Sodium Level 134 mmol/L (136-145) Potassium Level 4.0 mmol/L (3.5-5.1) Chloride Level 99 mmol/L (98-107) Carbon Dioxide Level 27 mmol/L (21-32) Anion Gap 8 (6-14) Blood Urea Nitrogen 13 mg/dL (7-20) Creatinine 0.9 mg/dL (0.6-1.0) Estimated GFR (Cockcroft-Gault) 66.8 Glucose Level 366 mg/dL (70-99) Calcium Level 9.8 mg/dL (8.5-10.1) Test 03/26/21 07:44 03/26/21 11:18 03/26/21 11:28 03/26/21 16:44 Glucose (Fingerstick) 278 mg/dL (70-99) 275 mg/dL (70-99) 114 mg/dL (70-99) Creatine Kinase 26 U/L (26-192) Troponin I Quantitative < 0.017 ng/mL (0-0.055) Test 03/26/21 20:50 03/27/21 05:58 03/27/21 07:44 Glucose (Fingerstick) 237 mg/dL (70-99) 174 mg/dL (70-99) White Blood Count 4.6 x10^3/uL (4.0-11.0) Red Blood Count 4.61 x10^6/uL (3.50-5.40) Hemoglobin 13.6 g/dL (12.0-15.5) Hematocrit 39.6 % (36.0-47.0) Mean Corpuscular Volume 86 fL (79-100) Mean Corpuscular Hemoglobin 30 pg (25-35) Mean Corpuscular Hemoglobin Concent 34 g/dL (31-37) Red Cell Distribution Width 12.3 % (11.5-14.5) Platelet Count 178 x10^3/uL (140-400) Neutrophils (%) (Auto) 48 % (31-73) Lymphocytes (%) (Auto) 38 % (24-48) Monocytes (%) (Auto) 10 % (0-9) Eosinophils (%) (Auto) 4 % (0-3) Basophils (%) (Auto) 1 % (0-3) Neutrophils # (Auto) 2.2 x10^3uL (1.8-7.7) Lymphocytes # (Auto) 1.7 x10^3/uL (1.0-4.8) Monocytes # (Auto) 0.5 x10^3/uL (0.0-1.1) Eosinophils # (Auto) 0.2 x10^3/uL (0.0-0.7) Basophils # (Auto) 0.0 x10^3/uL (0.0-0.2) Sodium Level 138 mmol/L (136-145) Potassium Level 3.4 mmol/L (3.5-5.1) Chloride Level 103 mmol/L (98-107) Carbon Dioxide Level 27 mmol/L (21-32) Anion Gap 8 (6-14) Blood Urea Nitrogen 12 mg/dL (7-20) Creatinine 0.8 mg/dL (0.6-1.0) Estimated GFR (Cockcroft-Gault) 76.6 BUN/Creatinine Ratio 15 (6-20) Glucose Level 199 mg/dL (70-99) Calcium Level 9.1 mg/dL (8.5-10.1) Total Bilirubin 0.5 mg/dL (0.2-1.0) Aspartate Amino Transf (AST/SGOT) 23 U/L (15-37) Alanine Aminotransferase (ALT/SGPT) 30 U/L (14-59) Alkaline Phosphatase 45 U/L (46-116) Total Protein 6.5 g/dL (6.4-8.2) Albumin 2.8 g/dL (3.4-5.0) Albumin/Globulin Ratio 0.8 (1.0-1.7) Lipase 92 U/L (73-393) MIGUEL A ABDULLAHI APRN Mar 27, 2021 09:32
[2021-03-27] MEDS ORDERED: SUCR1ORA14 PO (10:36)
[2021-03-27] MEDS ORDERED: PANT40TA6 PO (10:36)
[2021-03-27] MEDS ORDERED: MIDO5TAB4 PO (10:36)
[2021-03-27] MEDS ORDERED: ONDA4TAB12 PO (10:36)
--- NOTE | 2021-03-27 11:31 | NUR ---
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 PT HAS HER BELONGINGS AND DISCHARGE PAPERWORK. PT HAS PAPER SCRIPT. PT IV AND HEART MONITOR D/C'D. PT DAD PICKED HER UP.
--- NOTE | 2021-03-27 21:52 | PDOC ---
Exam Note: Jeff Note: Late entry for 03/26/2021. Please also refer to the separate dictated note~for this date of service dictated separately.~Patient seen individually. Discussed the patient with Nursing staff reviewed the chart.~Reviewed interim history and current functioning. Reviewed vital signs,~Labs/ Radiology~and current medic ations noted below. Continue current treatment with the changes noted in the dictated addendum note Assessment: Vital Signs/I&O: Vital Signs Date Time Temp Pulse Resp B/P (MAP) Pulse Ox O2 Delivery O2 Flow Rate FiO2 03/27/21 09:01 80 125/80 03/27/21 08:50 Room Air 03/27/21 05:46 97.5 20 93 I & O 03/26/21 03/26/21 03/27/21 15:00 23:00 07:00 Intake Total 600 ml 240 ml Balance 600 ml 240 ml Labs: Laboratory Tests Test 03/27/21 05:58 03/27/21 07:44 White Blood Count 4.6 x10^3/uL (4.0-11.0) Red Blood Count 4.61 x10^6/uL (3.50-5.40) Hemoglobin 13.6 g/dL (12.0-15.5) Hematocrit 39.6 % (36.0-47.0) Mean Corpuscular Volume 86 fL (79-100) Mean Corpuscular Hemoglobin 30 pg (25-35) Mean Corpuscular Hemoglobin Concent 34 g/dL (31-37) Red Cell Distribution Width 12.3 % (11.5-14.5) Platelet Count 178 x10^3/uL (140-400) Neutrophils (%) (Auto) 48 % (31-73) Lymphocytes (%) (Auto) 38 % (24-48) Monocytes (%) (Auto) 10 % (0-9) H Eosinophils (%) (Auto) 4 % (0-3) H Basophils (%) (Auto) 1 % (0-3) Neutrophils # (Auto) 2.2 x10^3uL (1.8-7.7) Lymphocytes # (Auto) 1.7 x10^3/uL (1.0-4.8) Monocytes # (Auto) 0.5 x10^3/uL (0.0-1.1) Eosinophils # (Auto) 0.2 x10^3/uL (0.0-0.7) Basophils # (Auto) 0.0 x10^3/uL (0.0-0.2) Sodium Level 138 mmol/L (136-145) Potassium Level 3.4 mmol/L (3.5-5.1) L Chloride Level 103 mmol/L (98-107) Carbon Dioxide Level 27 mmol/L (21-32) Anion Gap 8 (6-14) Blood Urea Nitrogen 12 mg/dL (7-20) Creatinine 0.8 mg/dL (0.6-1.0) Estimated GFR (Cockcroft-Gault) 76.6 BUN/Creatinine Ratio 15 (6-20) Glucose Level 199 mg/dL (70-99) H Calcium Level 9.1 mg/dL (8.5-10.1) Magnesium Level 1.7 mg/dL (1.8-2.4) L Total Bilirubin 0.5 mg/dL (0.2-1.0) Aspartate Amino Transferase (AST) 23 U/L (15-37) Alanine Aminotransferase (ALT) 30 U/L (14-59) Alkaline Phosphatase 45 U/L (46-116) L Total Protein 6.5 g/dL (6.4-8.2) Albumin 2.8 g/dL (3.4-5.0) L Albumin/Globulin Ratio 0.8 (1.0-1.7) L Lipase 92 U/L (73-393) Glucose (Fingerstick) 174 mg/dL (70-99) H Current Medications: Meds: Current Medications Medications (Trade) Dose Ordered Sig/Carlie Route PRN Reason Start Time Stop Time Status Last Admin Dose Admin Pantoprazole Sodium (Protonix) 40 mg DAILYAC PO 03/27/21 07:30 03/27/21 11:33 DC 03/27/21 09:00 I have reviewed the current psychotropics carefully including drug interactions. Risk benefit ratio favors no change other than as noted in my dictated progress note. DANNA SHI MD Mar 27, 2021 21:52
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
[2021-03-31] MEDS ORDERED: NON FORMULARY ITEM (Semaglutide (Ozempic) 1 MG) SQ SCH (16:00)
== END 2021-03-27 11:33 | disposition home or self-care (01) | DRG 392 ==
LOC: ER 14:57 → 1 SOUTH 16:40 → ER 19:42
PROVIDERS: ADMIT Family Medicine; ATTEND Family Medicine
DX: K21.9 Gastro-esophageal reflux disease without esophagitis (principal); Z68.41 Body mass index [BMI] 40.0-44.9, adult; I42.9 Cardiomyopathy, unspecified; I95.1 Orthostatic hypotension; E03.9 Hypothyroidism, unspecified; E11.43 Type 2 diabetes mellitus with diabetic autonomic (poly)neuropathy; E66.01 Morbid (severe) obesity due to excess calories; E78.00 Pure hypercholesterolemia, unspecified; E78.5 Hyperlipidemia, unspecified; E83.42 Hypomagnesemia; E87.6 Hypokalemia; F31.9 Bipolar disorder, unspecified; F41.0 Panic disorder [episodic paroxysmal anxiety]; F43.10 Post-traumatic stress disorder, unspecified; F60.3 Borderline personality disorder; I25.10 Atherosclerotic heart disease of native coronary artery without angina pectoris; I50.9 Heart failure, unspecified; J45.909 Unspecified asthma, uncomplicated; K31.84 Gastroparesis; M41.9 Scoliosis, unspecified; M79.7 Fibromyalgia; G47.30 Sleep apnea, unspecified; M19.90 Unspecified osteoarthritis, unspecified site; Z82.49 Family history of ischemic heart disease and other diseases of the circulatory system; Z82.5 Family history of asthma and other chronic lower respiratory diseases; Z83.3 Family history of diabetes mellitus; Z85.828 Personal history of other malignant neoplasm of skin; E11.65 Type 2 diabetes mellitus with hyperglycemia; Z86.711 Personal history of pulmonary embolism; Z86.73 Personal history of transient ischemic attack (TIA), and cerebral infarction without residual deficits; Z87.440 Personal history of urinary (tract) infections; Z87.891 Personal history of nicotine dependence; Z90.49 Acquired absence of other specified parts of digestive tract; Z91.410 Personal history of adult physical and sexual abuse; Z91.51 Personal history of suicidal behavior; Z91.52 Personal history of nonsuicidal self-harm; Z88.0 Allergy status to penicillin; Z88.2 Allergy status to sulfonamides; Z88.8 Allergy status to other drugs, medicaments and biological substances; Z88.6 Allergy status to analgesic agent; Z88.1 Allergy status to other antibiotic agents; Z91.040 Latex allergy status; Z20.822 Contact with and (suspected) exposure to COVID-19
CPT/HCPCS: 36415; 72131; 74220; 80048; 80053; 81001; 81025; 82550; 82947; 83036; 83690; 83735; 84443; 84484; 85025; 87086; 87804; 90471; 90686; 93005; 96365; 96366; 96372; 96375; C9113; J1815; J1885; J2360; J3010; J3475; Q0162; U0003; 99285-25